=== PATIENT | female | born 1955 | race Caucasian/White ===

== ENCOUNTER 2017-03-10 16:06 | Inpatient (IN) | payer MEDICARE, OTHER ==
[2017-03-10] MEDS ORDERED: ONDANSETRON 4 MG/2 ML VIAL IVP STA (18:04)
[2017-03-10] MEDS ORDERED: SODIUM CHLORIDE 0.9% 500 ML IV STA (18:04)
[2017-03-10] MEDS ORDERED: PANTOPRAZOLE 40 MG/10 ML VIAL IVP STA (18:04)
[2017-03-10] MEDS ORDERED: HYDROmorphone 1 MG/ML 1 ML SYRINGE IVP STA (18:04)
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
[2017-03-10] MEDS ORDERED: LEVOFLOXACIN 500MG-D5W PMX 500 MG in DEXTROSE/WATER 1 100ML.BAG IVPB STA (18:51)
[2017-03-10] MEDS ORDERED: metroNIDAZOLE-NS PMX 500 MG in SALINE 1 100ML.BAG IVPB STA (18:54)
[2017-03-10 19:10] LABS: Basophils # (A) 0.1 k/uL (0-0.2); Basophils % (A) 1 %; CH 33.4; Eosinophils # (A) 0.2 k/uL (0-0.7); Eosinophils % (A) 2 %; HCT 40.4 % (34.0-46.0); HDW 2.49; HGB 13.7 gm/dL (11.4-16.0); Luc # (Auto) 0.22; Luc % (Auto) 2; Lymphocytes # (A) 3.3 k/uL (1.0-4.8); Lymphocytes % (A) 33 %; MCH 32.6 pg (25.0-35.0); MCV 95.9 fL (80.0-100.0); Mean Platelet Volume 7.8; Monocytes # (A) 0.4 k/uL (0-1.0); Monocytes % (A) 4 %; Neutrophils # (A) 5.9 k/uL (1.3-7.7); Neutrophils % (A) 59 %; RBC 4.22 m/uL (3.80-5.40); RDW 12.9 % (11.5-15.5); WBC (Perox) 9.83
[2017-03-10 19:25] LABS: ALT 26 U/L (9-52); AST 18 U/L (14-36); Alkaline Phosphatase 86 U/L (38-126); Anion Gap 9 mmol/L; Blood Urea Nitrogen 14 mg/dL (7-17); Calcium 9.6 mg/dL (8.4-10.2); Carbon Dioxide 25 mmol/L (22-30); Chloride 104 mmol/L (98-107); Glucose 137 mg/dL (74-99); Magnesium 1.6 mg/dL (1.6-2.3); Non-African American GFR(MDRD) >60 (>60 ml/min/1.73 sqM); Potassium 4.9 mmol/L (3.5-5.1); Sodium 138 mmol/L (137-145); Total Bilirubin 0.6 mg/dL (0.2-1.3); Total Protein 6.9 g/dL (6.3-8.2)
[2017-03-10 19:34] LABS: Creatine Kinase 44 U/L (30-135)
[2017-03-10 19:48] LABS: Creatine Kinase MB 0.6 ng/mL (0.0-2.4); Troponin I <0.012 ng/mL (0.000-0.034)
[2017-03-10 19:50] LABS: Partial Thromboplastin Time 21.8 sec (22.0-30.0)
--- NOTE | 2017-03-10 20:20 | XR ---
EXAMINATION TYPE: XR abdomen 2V DATE OF EXAM: 03/10/2017 8:14 PM COMPARISON: NONE HISTORY: Lower abdominal pain and bloody stools history of diverticulitis. TECHNIQUE: Supine and upright abdominal radiographs are obtained. FINDINGS: Single air-fluid level is seen within the right mid abdomen within nondilated bowel. The re maining bowel gas pattern is unremarkable. 8 mm calculus is seen within the right lower pole of the kidney. Cholecystectomy changes are seen. Ao rtoiliac graft material is seen as well as extensive calcific atheromatous changes of the abdominal a sean and its branches. Abdominal aortic aneurysm, presumably infrarenal measuring 4.1 cm approximatel y is measured at the level of L3 inferior endplate. Degenerative changes are appreciated of the visualized thoracolumbar spine and lumbosacral spine to a greater degree. IMPRESSION: 1. Nonspecific bowel gas pattern with single air-fluid level within the right mid abdomen, similar to the prior exam. No evidence of bowel dilation. 2. Distal aortoiliac vascular stents with presumably infrarenal calcified abdominal aortic aneurysm m easuring up to 4.1 cm. 3. 8mm right lower pole renal calculus.
[2017-03-10] MEDS ORDERED: NALOXONE 0.4 MG/ML 1 ML VIAL IV PRN (21:10)
[2017-03-10] MEDS: HYDROmorphone 1 MG/ML 1 ML SYRINGE IV PRN (21:22)
[2017-03-10] MEDS ORDERED: NITROGLYCERIN SL TABS 0.4 MG TAB SUBLINGUAL PRN (23:14)
[2017-03-11] MEDS: HYDROmorphone 1 MG/ML 1 ML SYRINGE IV PRN ×6 (00:21→20:24)
[2017-03-11 00:59] LABS: Glucose,Whole Blood 124 mg/dL (75-99)
[2017-03-11 07:19] LABS: Basophils # (A) 0.1 k/uL (0-0.2); Basophils % (A) 1 %; CHCM 34.1; Eosinophils # (A) 0.2 k/uL (0-0.7); Eosinophils % (A) 2 %; HCT 37.7 % (34.0-46.0); HDW 2.54; HGB 12.8 gm/dL (11.4-16.0); Luc # (Auto) 0.21; Luc % (Auto) 3; Lymphocytes # (A) 2.5 k/uL (1.0-4.8); Lymphocytes % (A) 32 %; MCH 33.1 pg (25.0-35.0); MCV 97.2 fL (80.0-100.0); Mean Platelet Volume 7.9; Monocytes # (A) 0.4 k/uL (0-1.0); Monocytes % (A) 5 %; Neutrophils # (A) 4.6 k/uL (1.3-7.7); Neutrophils % (A) 58 %; RBC 3.88 m/uL (3.80-5.40); RDW 12.8 % (11.5-15.5); WBC 7.9 k/uL (3.8-10.6); WBC (Perox) 8.13
[2017-03-11 07:21] LABS: Glucose,Whole Blood 153 mg/dL (75-99)
[2017-03-11 07:39] LABS: ALT 24 U/L (9-52); AST 18 U/L (14-36); Alkaline Phosphatase 66 U/L (38-126); Anion Gap 6 mmol/L; Blood Urea Nitrogen 12 mg/dL (7-17); Calcium 8.5 mg/dL (8.4-10.2); Carbon Dioxide 21 mmol/L (22-30); Chloride 109 mmol/L (98-107); Glucose 153 mg/dL (74-99); Non-African American GFR(MDRD) >60 (>60 ml/min/1.73 sqM); Potassium 4.2 mmol/L (3.5-5.1); Sodium 136 mmol/L (137-145); Total Bilirubin 0.6 mg/dL (0.2-1.3); Total Protein 5.9 g/dL (6.3-8.2)
[2017-03-11] MEDS: INSULIN LISPRO (humaLOG) 300 UNIT/3 ML VIAL SQ SCH ×7 (08:36→20:20)
[2017-03-11] MEDS: SODIUM CHLORIDE 0.9% 1,000 ML IV SCH ×2 (08:40→18:30)
[2017-03-11] MEDS: LISINOPRIL 20 MG TAB PO SCH (08:42)
[2017-03-11] MEDS: metFORMIN 500 MG TAB PO SCH ×2 (08:42→20:24)
[2017-03-11] MEDS: ISOSORBIDE MONONITRATE ER 60 MG TAB.ER.24H PO SCH ×2 (08:42→20:24)
[2017-03-11] MEDS: METOPROLOL SUCCINATE (ER) 100 MG TAB.ER.24H PO SCH (08:42)
[2017-03-11] MEDS: PARoxetine 20 MG TAB PO SCH (08:42)
[2017-03-11] MEDS: PANTOPRAZOLE 40 MG/10 ML VIAL IV SCH (08:42)
[2017-03-11] MEDS ORDERED: ASPIRIN 81 MG CHEW PO SCH (09:00)
[2017-03-11 10:24] LABS: Hemoglobin A1C 9.1 % (4.2-6.1)
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
[2017-03-11 11:59] LABS: Glucose,Whole Blood 87 mg/dL (75-99)
[2017-03-11] MEDS ORDERED: guaiFENesin 600 MG TABLET.ER PO PRN (12:02)
[2017-03-11 14:02] VITALS: BMI 25.8
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
[2017-03-11] MEDS: metroNIDAZOLE-NS PMX 500 MG in SALINE 1 100ML.BAG IVPB SCH (16:30)
[2017-03-11] MEDS: NICOTINE 21MG/24HR PATCH TRANSDERM SCH (16:36)
[2017-03-11 17:37] LABS: Glucose,Whole Blood 117 mg/dL (75-99)
[2017-03-11] MEDS ORDERED: diphenhydrAMINE 50 MG/ML 1 ML VIAL IVP PRN (18:54)
[2017-03-11] MEDS: LEVOFLOXACIN 500MG-D5W PMX 500 MG in DEXTROSE/WATER 1 100ML.BAG IVPB SCH (20:19)
[2017-03-11] MEDS: INSULIN GLARGINE 100 UNIT/ML 10 ML VIAL SQ SCH (20:19)
[2017-03-11] MEDS: ATORVASTATIN 80 MG TAB PO SCH (20:24)
[2017-03-11 20:56] LABS: Glucose,Whole Blood 116 mg/dL (75-99)
[2017-03-12 00:12] LABS: Glucose,Whole Blood 148 mg/dL (75-99)
[2017-03-12] MEDS: HYDROmorphone 1 MG/ML 1 ML SYRINGE IV PRN ×6 (00:16→23:45)
[2017-03-12] MEDS: ONDANSETRON 4 MG/2 ML VIAL IVP PRN ×2 (00:16→20:46)
[2017-03-12] MEDS: metroNIDAZOLE-NS PMX 500 MG in SALINE 1 100ML.BAG IVPB SCH ×4 (00:24→23:47)
[2017-03-12] MEDS: SODIUM CHLORIDE 0.9% 1,000 ML IV SCH ×5 (05:03→23:46)
[2017-03-12 06:18] LABS: Glucose,Whole Blood 129 mg/dL (75-99)
[2017-03-12] MEDS: INSULIN LISPRO (humaLOG) 300 UNIT/3 ML VIAL SQ SCH ×7 (07:47→19:51)
[2017-03-12] MEDS: metFORMIN 500 MG TAB PO SCH ×2 (07:48→19:51)
[2017-03-12 07:54] LABS: Basophils # (A) 0.1 k/uL (0-0.2); Basophils % (A) 1 %; CH 32.6; CHCM 33.3; Eosinophils # (A) 0.2 k/uL (0-0.7); Eosinophils % (A) 2 %; HCT 35.2 % (34.0-46.0); HDW 2.45; HGB 11.6 gm/dL (11.4-16.0); Luc # (Auto) 0.16; Luc % (Auto) 2; Lymphocytes # (A) 2.5 k/uL (1.0-4.8); Lymphocytes % (A) 29 %; MCH 32.3 pg (25.0-35.0); MCHC 32.9 g/dL (31.0-37.0); MCV 98.1 fL (80.0-100.0); Mean Platelet Volume 7.8; Monocytes # (A) 0.4 k/uL (0-1.0); Monocytes % (A) 4 %; Neutrophils # (A) 5.3 k/uL (1.3-7.7); Neutrophils % (A) 62 %; RBC 3.59 m/uL (3.80-5.40); RDW 12.8 % (11.5-15.5); WBC 8.5 k/uL (3.8-10.6); WBC (Perox) 9.21
[2017-03-12] MEDS: ISOSORBIDE MONONITRATE ER 60 MG TAB.ER.24H PO SCH ×2 (08:00→20:54)
[2017-03-12] MEDS: LISINOPRIL 20 MG TAB PO SCH (08:01)
[2017-03-12] MEDS: METOPROLOL SUCCINATE (ER) 100 MG TAB.ER.24H PO SCH (08:01)
[2017-03-12] MEDS: NICOTINE 21MG/24HR PATCH TRANSDERM SCH (08:01)
[2017-03-12] MEDS: PANTOPRAZOLE 40 MG/10 ML VIAL IV SCH (08:01)
[2017-03-12] MEDS: PARoxetine 20 MG TAB PO SCH (08:01)
[2017-03-12 08:25] LABS: ALT 24 U/L (9-52); AST 15 U/L (14-36); Alkaline Phosphatase 68 U/L (38-126); Anion Gap 7 mmol/L; Blood Urea Nitrogen 8 mg/dL (7-17); Calcium 8.4 mg/dL (8.4-10.2); Carbon Dioxide 21 mmol/L (22-30); Chloride 108 mmol/L (98-107); Glucose 118 mg/dL (74-99); Magnesium 1.6 mg/dL (1.6-2.3); Non-African American GFR(MDRD) >60 (>60 ml/min/1.73 sqM); Potassium 3.9 mmol/L (3.5-5.1); Sodium 136 mmol/L (137-145); Total Bilirubin 0.5 mg/dL (0.2-1.3); Total Protein 5.4 g/dL (6.3-8.2)
[2017-03-12 11:37] LABS: Glucose,Whole Blood 144 mg/dL (75-99)
--- NOTE | 2017-03-12 13:37 | P.PN ---
Progress Note - Text The patient still complaining of severe left lower quadrant pain. She has had nausea and emesis. On exam her vital signs are stable. Her abdomen is soft there is tenderness in the left lower quadrant. Diverticulitis. Patient will remain nothing by mouth until her pain and nausea improved. We'll follow with you.
[2017-03-12 17:13] LABS: Glucose,Whole Blood 125 mg/dL (75-99)
[2017-03-12] MEDS: LEVOFLOXACIN 500MG-D5W PMX 500 MG in DEXTROSE/WATER 1 100ML.BAG IVPB SCH (19:46)
[2017-03-12] MEDS: INSULIN GLARGINE 100 UNIT/ML 10 ML VIAL SQ SCH (19:51)
[2017-03-12 19:53] LABS: Glucose,Whole Blood 117 mg/dL (75-99)
[2017-03-12] MEDS: ATORVASTATIN 80 MG TAB PO SCH (20:54)
[2017-03-13] MEDS: HYDROmorphone 1 MG/ML 1 ML SYRINGE IV PRN ×5 (02:49→21:18)
[2017-03-13 07:42] LABS: Glucose,Whole Blood 137 mg/dL (75-99)
[2017-03-13] MEDS: NICOTINE 21MG/24HR PATCH TRANSDERM SCH (08:31)
[2017-03-13] MEDS: METOPROLOL SUCCINATE (ER) 100 MG TAB.ER.24H PO SCH (08:32)
[2017-03-13] MEDS: LISINOPRIL 20 MG TAB PO SCH (08:32)
[2017-03-13] MEDS: INSULIN LISPRO (humaLOG) 300 UNIT/3 ML VIAL SQ SCH ×7 (08:32→21:13)
[2017-03-13] MEDS: ISOSORBIDE MONONITRATE ER 60 MG TAB.ER.24H PO SCH ×2 (08:32→21:13)
[2017-03-13] MEDS: PARoxetine 20 MG TAB PO SCH (08:33)
[2017-03-13] MEDS: PANTOPRAZOLE 40 MG/10 ML VIAL IV SCH (08:33)
[2017-03-13] MEDS: metFORMIN 500 MG TAB PO SCH ×2 (08:33→21:14)
[2017-03-13 08:48] LABS: Basophils % (A) 1 %; CH 32.7; CHCM 34.2; Eosinophils # (A) 0.2 k/uL (0-0.7); Eosinophils % (A) 3 %; HCT 34.5 % (34.0-46.0); HDW 2.55; HGB 11.7 gm/dL (11.4-16.0); Luc # (Auto) 0.14; Luc % (Auto) 2; Lymphocytes # (A) 2.1 k/uL (1.0-4.8); Lymphocytes % (A) 28 %; MCH 32.7 pg (25.0-35.0); MCHC 34.1 g/dL (31.0-37.0); Mean Platelet Volume 7.7; Monocytes # (A) 0.3 k/uL (0-1.0); Monocytes % (A) 4 %; Neutrophils # (A) 4.6 k/uL (1.3-7.7); Neutrophils % (A) 63 %; RBC 3.59 m/uL (3.80-5.40); RDW 12.8 % (11.5-15.5); WBC 7.4 k/uL (3.8-10.6); WBC (Perox) 8.17
[2017-03-13 08:56] LABS: Anion Gap 7 mmol/L; Blood Urea Nitrogen 7 mg/dL (7-17); Calcium 8.2 mg/dL (8.4-10.2); Carbon Dioxide 23 mmol/L (22-30); Chloride 107 mmol/L (98-107); Glucose 115 mg/dL (74-99); Non-African American GFR(MDRD) >60 (>60 ml/min/1.73 sqM); Potassium 3.7 mmol/L (3.5-5.1); Sodium 137 mmol/L (137-145)
[2017-03-13] MEDS: metroNIDAZOLE-NS PMX 500 MG in SALINE 1 100ML.BAG IVPB SCH ×2 (09:27→16:45)
[2017-03-13] MEDS: SODIUM CHLORIDE 0.9% 1,000 ML IV SCH ×3 (09:27→20:07)
[2017-03-13 11:58] LABS: Glucose,Whole Blood 136 mg/dL (75-99)
[2017-03-13 17:00] LABS: Glucose,Whole Blood 103 mg/dL (75-99)
[2017-03-13] MEDS ORDERED: RX INFO: IV CONTRAST WAS GIVEN 1 EACH MISC MISCELLANE PRN (17:50)
--- NOTE | 2017-03-13 17:50 | P.PN ---
Subjective Principal diagnosis: Abdominal pain Patient hospitalized over the weekend with abdominal pain. The patient describes bloody stools and left-sided abdominal pain. She was admitted with diverticulitis. She had similar episodes over a year ago. Her CAT scan at that time was normal. She had colonoscopy following that that showed diverticulosis with no evidence of colitis. Patient says her pain is persisting. Her nausea and vomiting have improved however. She is no longer having liquid bloody stools. White blood cell count and hemoglobin are normal. Objective - Vital Signs Vital signs: Vital Signs Temp 98.1 F 03/13/17 15:00 Pulse 67 03/13/17 15:00 Resp 16 03/13/17 15:00 BP 167/87 03/13/17 15:00 Pulse Ox 93 L 03/13/17 15:00 Intake & Output 03/12/17 03/13/17 03/13/17 18:59 06:59 18:59 Intake Total 2064 Balance 2064 Intake: IV 1475 Sodium Chloride 0.9% 1, 1375 000 ml @ 125 mls/hr IV . Q8H AAMIR Rx#:[id number] metroNIDAZOLE-NS PMX 500 100 mg In Saline 1 100ml.bag @ 100 mls/hr IVPB Q8HR AAMIR Rx#:[id number] Oral 590 Other: Voiding Method Toilet Toilet # Voids 2 - Exam Abdomen: Soft, nondistended, mild to moderate left lower quadrant tenderness - Labs CBC & Chem 7: 03/13/17 08:26 03/13/17 08:26 Labs: Abnormal Lab Results - Last 24 Hours (Table) 03/13/17 03/13/17 03/13/17 Range/Units 07:41 08:26 08:26 RBC 3.59 L (3.80-5.40) m/uL Creatinine 0.48 L (0.52-1.04) mg/dL Glucose 115 H (74-99) mg/dL POC Glucose (mg/dL) 137 H (75-99) mg/dL Calcium 8.2 L (8.4-10.2) mg/dL 03/13/17 03/13/17 Range/Units 11:57 16:58 RBC (3.80-5.40) m/uL Creatinine (0.52-1.04) mg/dL Glucose (74-99) mg/dL POC Glucose (mg/dL) 136 H 103 H (75-99) mg/dL Calcium (8.4-10.2) mg/dL Assessment and Plan (1) Abdominal pain Narrative/Plan: Will check CAT scan abdomen and pelvis. Continue antibiotics. Status: Acute
[2017-03-13] MEDS: LEVOFLOXACIN 500MG-D5W PMX 500 MG in DEXTROSE/WATER 1 100ML.BAG IVPB SCH (18:15)
[2017-03-13] MEDS: ONDANSETRON 4 MG/2 ML VIAL IVP PRN (18:16)
--- NOTE | 2017-03-13 18:23 | P.PN ---
Subjective Principal diagnosis: Acute diverticulitis. Patient is a 61-year-old female, patient of Dr. Casey in the outpatient setting, with medical history significant for diverticulitis and diverticulosis. admitted with 3 day history of melena and hematochezia associated with left lower quadrant abdominal pain found to have evidence of acute diverticulitis. Upon examination, patient continues to complain of left lower quadrant pain, currently rated 7 out of 10, described as sharp. Patient denies chills, fevers, nausea, vomiting, or chest pain. Labs reviewed no acute abnormalities. Afebrile. Dr. Hunter from surgical service is following patient. CT of abdomen and pelvis has been ordered. Patient remains nothing by mouth. Patient continues on IV antibiotics in the form of Flagyl and Levaquin. Objective - Vital Signs Vital signs: Vital Signs Temp 98.1 F 03/13/17 15:00 Pulse 67 03/13/17 15:00 Resp 16 03/13/17 15:00 BP 167/87 03/13/17 15:00 Pulse Ox 93 L 03/13/17 15:00 Intake & Output 03/12/17 03/13/17 03/13/17 18:59 06:59 18:59 Intake Total 2065 975 Balance 2065 975 Intake: IV 1475 975 Sodium Chloride 0.9% 1, 1375 875 000 ml @ 125 mls/hr IV . Q8H AAMIR Rx#:[id number] metroNIDAZOLE-NS PMX 500 100 100 mg In Saline 1 100ml.bag @ 100 mls/hr IVPB Q8HR AAMIR Rx#:[id number] Oral 590 Other: Voiding Method Toilet Toilet # Voids 2 - Exam GENERAL: Fatigued, well-nourished and in no acute distress. HEAD: Atraumatic, normocephalic. EYES: Pupils equal round and reactive to light, extraocular movements intact, sclera anicteric, conjunctiva are normal. ENT:Oropharynx clear without exudates. Moist mucous membranes. NECK: Normal range of motion, supple without lymphadenopathy or JVD, no thyromegaly LUNGS: Breath sounds clear to auscultation bilaterally and equal. No wheezes rales or rhonchi. HEART: Regular rate and rhythm without murmurs, rubs or gallops. S1S2 Normal ABDOMEN: Soft, tender, mostly to the left lower quadrant, hypo-active bowel sounds. No guarding, no rebound. No masses appreciated. EXTREMITIES: Normal range of motion, no pitting or edema. No clubbing or cyanosis. NEUROLOGICAL: No focal deficits noted. Normal speech, normal gait. PSYCH: Normal mood, normal affect. SKIN: Warm, Dry, normal turgor, no rashes or lesions noted. - Labs CBC & Chem 7: 03/13/17 08:26 03/13/17 08:26 Labs: Abnormal Lab Results - Last 24 Hours (Table) 03/13/17 03/13/17 03/13/17 Range/Units 07:41 08:26 08:26 RBC 3.59 L (3.80-5.40) m/uL Creatinine 0.48 L (0.52-1.04) mg/dL Glucose 115 H (74-99) mg/dL POC Glucose (mg/dL) 137 H (75-99) mg/dL Calcium 8.2 L (8.4-10.2) mg/dL 03/13/17 03/13/17 Range/Units 11:57 16:58 RBC (3.80-5.40) m/uL Creatinine (0.52-1.04) mg/dL Glucose (74-99) mg/dL POC Glucose (mg/dL) 136 H 103 H (75-99) mg/dL Calcium (8.4-10.2) mg/dL Assessment and Plan Plan: Impression and plan: 1. Left lower quadrant abdominal pain with hematochezia melena, secondary to acute diverticulitis: General surgery consultation has been done and reviewed. She'll remain nothing by mouth with the exception of ice chips. She'll remain on IV antibiotics of Levaquin and Flagyl. CT of abdomen and pelvis pending. 2. Type 2 diabetes mellitus, uncontrolled. AIc is 9.0 Continue Accu-Chek before meals at bedtime with Humalog sliding scale, continue Lantus. Continue metformin 4. History of GERD. Continue Protonix. 5. Hyperlipidemia. Continue Lipitor. 6. Hypertension. Continue lisinopril, metoprolol, Imdur. 8. Severe peripheral vascular disease. 9. Coronary artery disease status post heart catheterization with stent and coronary artery bypass graft. 10. History of CVA. Continue aspirin. 11. Depression, mild. Continue Paxil. 12. Nicotine dependence. Patient counseled on smoking secession. Continue nicotine patch. 13. Mild fibrotic changes to lungs. 14 DVT prophylaxis. blood thinners be contraindicated to active bleeding 15. GI prophylaxis. Continue protonix. Continue to monitor patient. Continue surgical management per surgical service. Continue symptomatic treatment and pain management. Continue IV hydration. Continue IV antibiotics. Continue current medications. Repeat CBC and BMP in a.m. The above impression and plan have been discussed and directed by Dr. Mckenzie. Sarah AZEVEDO acting as scribe for Dr. Mckenzie.
[2017-03-13] MEDS: IOHEXOL 350 MG/ML 25 ML BOTTLE (ORAL USE) PO PRN ×2 (18:52→20:05)
--- NOTE | 2017-03-13 19:00 | P.PN ---
Subjective DOS 03/12/2017 Patient Continues to feel pain,BetterWith zofran.She is on ice chips.Surgery consult reviewed Objective - Vital Signs Vital signs: Vital Signs Temp 98.1 F 03/13/17 15:00 Pulse 67 03/13/17 15:00 Resp 16 03/13/17 15:00 BP 167/87 03/13/17 15:00 Pulse Ox 93 L 03/13/17 15:00 Intake & Output 03/12/17 03/13/17 03/13/17 18:59 06:59 18:59 Intake Total 2065 975 Balance 206 975 Intake: IV 1475 975 Sodium Chloride 0.9% 1, 1375 875 000 ml @ 125 mls/hr IV . Q8H AAMIR Rx#:[id number] metroNIDAZOLE-NS PMX 500 100 100 mg In Saline 1 100ml.bag @ 100 mls/hr IVPB Q8HR A[facility]IR Rx#:[id number] Oral 590 Other: Voiding Method Toilet Toilet # Voids 2 - Constitutional General appearance: Present: average body habitus - Neck Thyroid: bilateral: normal size - Respiratory Respiratory: bilateral: diminished - Cardiovascular Rhythm: regular Heart sounds: normal: S1, S2 - Gastrointestinal General gastrointestinal: Present: decreased bowel sounds Localized gastrointestinal: tender: LUQ - Neurologic Neurologic: Present: CNII-XII intact - Labs CBC & Chem 7: 03/13/17 08:26 03/13/17 08:26 Labs: Abnormal Lab Results - Last 24 Hours (Table) 03/13/17 03/13/17 03/13/17 Range/Units 07:41 08:26 08:26 RBC 3.59 L (3.80-5.40) m/uL Creatinine 0.48 L (0.52-1.04) mg/dL Glucose 115 H (74-99) mg/dL POC Glucose (mg/dL) 137 H (75-99) mg/dL Calcium 8.2 L (8.4-10.2) mg/dL 03/13/17 03/13/17 Range/Units 11:57 16:58 RBC (3.80-5.40) m/uL Creatinine (0.52-1.04) mg/dL Glucose (74-99) mg/dL POC Glucose (mg/dL) 136 H 103 H (75-99) mg/dL Calcium (8.4-10.2) mg/dL Assessment and Plan Plan: 1. Left lower quadrant abdominal pain with hematochezia melena, most likely acute diverticulitis: General surgery consultation has been done and reviewed. She'll remain nothing by mouth with the exception of ice chips. She'll remain on IV antibiotics of Levaquin and Flagyl 2. Type 2 diabetes mellitus, uncontrolled. AIc is 9.0 Continue Accu-Chek before meals at bedtime with Humalog sliding scale, continue Lantus. Continue metformin 4. History of GERD. Continue Protonix. 5. Hyperlipidemia. Continue Lipitor. 6. Hypertension. Continue lisinopril, metoprolol, Imdur.. 8. Severe peripheral vascular disease. 9. Coronary artery disease status post heart catheterization with stent and coronary artery bypass graft. 10. History of CVA. Continue aspirin. 11. Depression, mild. Continue Paxil. 12. Nicotine dependence. Patient counseled on smoking secession. Continue nicotine patch. 13. Mild fibrotic changes to lungs. 14 DVT prophylaxis. blood thinners be contraindicated to active bleeding 15. GI prophylaxis. Continue protonix. I will await surgical recommendations, we will reevaluate her in one day
[2017-03-13 20:15] LABS: Glucose,Whole Blood 103 mg/dL (75-99)
[2017-03-13] MEDS: ATORVASTATIN 80 MG TAB PO SCH (21:13)
[2017-03-13] MEDS: INSULIN GLARGINE 100 UNIT/ML 10 ML VIAL SQ SCH (21:13)
[2017-03-13] MEDS: HYDROcodone/APAP 7.5-325MG 1 EACH TAB PO PRN (21:18)
--- NOTE | 2017-03-13 22:30 | CT ---
EXAMINATION TYPE: CT abdomen pelvis w con DATE OF EXAM: 03/13/2017 8:44 PM COMPARISON: HISTORY: Left sided pelvic pain CT DLP: 983.6 mGycm Automated exposure control for dose reduction was used. TECHNIQUE: Helical acquisition of images was performed from the lung bases through the pelvis. CONTRAST: Performed with Oral Contrast and with IV Contrast, patient injected with 100 mL of Omnipaque 300. FINDINGS: LUNG BASES: No significant abnormality is appreciated. LIVER/GB: No significant abnormality is appreciated. PANCREAS: No significant abnormality is seen. SPLEEN: No significant abnormality is seen. ADRENALS: No significant abnormality is seen. KIDNEYS: No significant abnormality is seen. PERITONEAL CAVITY: No free air is visualized, and no focal fluid collections. ADENOPATHY: None visualized REPRODUCTIVE ORGANS: No significant abnormality is seen URINARY BLADDER: No significant abnormality is seen. PELVIC ADENOPATHY: None visualized. OSSEOUS STRUCTURES: No significant abnormality is seen. BOWEL: There are in numerable sigmoid diverticula with normal indistinctness at the margin of the si gmoid with its mesocolon - this can correlate with a clinical diagnosis of mild diverticulitis. OTHER: Prominently advanced atherosclerotic disease is seen throughout the visualized arterial anatom y of the abdomen and pelvis, including the coronary arteries. IMPRESSION: 1. MARKEDLY ADVANCED ATHEROSCLEROTIC DISEASE THROUGHOUT THE ABDOMEN AND PELVIS. 2. SUSPECT VERY MILD SIGMOID DIVERTICULITIS.
[2017-03-14] MEDS: metroNIDAZOLE-NS PMX 500 MG in SALINE 1 100ML.BAG IVPB SCH ×3 (00:13→17:16)
[2017-03-14] MEDS: HYDROmorphone 1 MG/ML 1 ML SYRINGE IV PRN ×3 (01:01→12:56)
[2017-03-14 07:25] LABS: Glucose,Whole Blood 94 mg/dL (75-99)
[2017-03-14] MEDS: SODIUM CHLORIDE 0.9% 1,000 ML IV SCH ×3 (07:28→21:32)
[2017-03-14] MEDS: NICOTINE 21MG/24HR PATCH TRANSDERM SCH (07:29)
[2017-03-14] MEDS: INSULIN LISPRO (humaLOG) 300 UNIT/3 ML VIAL SQ SCH ×7 (07:29→17:23)
[2017-03-14] MEDS: PARoxetine 20 MG TAB PO SCH (07:30)
[2017-03-14] MEDS: metFORMIN 500 MG TAB PO SCH ×2 (07:30→21:33)
[2017-03-14] MEDS: LISINOPRIL 20 MG TAB PO SCH (07:31)
[2017-03-14] MEDS: METOPROLOL SUCCINATE (ER) 100 MG TAB.ER.24H PO SCH (07:31)
[2017-03-14] MEDS: ISOSORBIDE MONONITRATE ER 60 MG TAB.ER.24H PO SCH ×2 (07:31→21:33)
[2017-03-14] MEDS: PANTOPRAZOLE 40 MG/10 ML VIAL IV SCH (07:31)
[2017-03-14 12:01] LABS: Glucose,Whole Blood 115 mg/dL (75-99)
[2017-03-14] MEDS: ONDANSETRON 4 MG/2 ML VIAL IVP PRN (12:56)
[2017-03-14 16:47] LABS: Glucose,Whole Blood 95 mg/dL (75-99)
--- NOTE | 2017-03-14 17:23 | P.PN ---
Subjective Principal diagnosis: Acute sigmoid diverticulitis. Patient is a 61-year-old female, patient of Dr. Casey in the outpatient setting, with medical history significant for diverticulitis and diverticulosis. admitted with 3 day history of melena and hematochezia associated with left lower quadrant abdominal pain found to have evidence of acute sigmoid diverticulitis. Upon examination, patient continues to complain of left lower quadrant pain. Patient states that pain is worse than yesterday. Patient is complaining of diarrhea. No GI bleeding. Patient denies chills, fevers, nausea, vomiting, or chest pain. Afebrile. Dr. Hunter from surgical service is following patient. Patient remains nothing by mouth. Patient continues on IV antibiotics in the form of Flagyl and Levaquin. Objective - Vital Signs Vital signs: Vital Signs Temp 98.1 F 03/14/17 15:00 Pulse 67 03/14/17 16:00 Resp 16 03/14/17 16:00 BP 143/64 03/14/17 15:00 Pulse Ox 91 L 03/14/17 15:00 Intake & Output 03/13/17 03/14/17 03/14/17 18:59 06:59 18:59 Intake Total 975 2475 0 Balance 975 2475 0 Intake: IV 975 1475 Sodium Chloride 0.9% 1, 875 1375 000 ml @ 125 mls/hr IV . Q8H [facility] Rx#:[id number] metroNIDAZOLE-NS PMX 500 100 100 mg In Saline 1 100ml.bag @ 100 mls/hr IVPB Q8HR A[facility]IR Rx#:[id number] Oral 1000 0 Other: Voiding Method Toilet Toilet Toilet # Voids 4 - Exam GENERAL: Fatigued, well-nourished and in no acute distress. HEAD: Atraumatic, normocephalic. EYES: Pupils equal round and reactive to light, extraocular movements intact, sclera anicteric, conjunctiva are normal. ENT: White exudate noted to tongue. NECK: Normal range of motion, supple without lymphadenopathy or JVD, no thyromegaly LUNGS: Breath sounds clear to auscultation bilaterally and equal. No wheezes rales or rhonchi. HEART: Regular rate and rhythm without murmurs, rubs or gallops. S1S2 Normal ABDOMEN: Soft, tender, mostly to the left lower quadrant, hypo-active bowel sounds. No guarding, no rebound. No masses appreciated. EXTREMITIES: Normal range of motion, no pitting or edema. No clubbing or cyanosis. NEUROLOGICAL: No focal deficits noted. Normal speech, normal gait. PSYCH: Normal mood, normal affect. SKIN: Warm, Dry, normal turgor, no rashes or lesions noted. - Labs CBC & Chem 7: 03/13/17 08:26 03/13/17 08:26 Labs: Abnormal Lab Results - Last 24 Hours (Table) 03/13/17 03/14/17 Range/Units 20:14 11:53 POC Glucose (mg/dL) 103 H 115 H (75-99) mg/dL Assessment and Plan Plan: Impression and plan: 1. Left lower quadrant abdominal pain with hematochezia melena, secondary to acute sigmoid diverticulitis: General surgery consultation has been done and reviewed. Patient remains nothing by mouth with the exception of ice chips. Surgery to advance diet as appropriate. She'll remain on IV antibiotics of Levaquin and Flagyl. CT of abdomen and pelvis shows mild sigmoid diverticulitis. 2. Type 2 diabetes mellitus, uncontrolled. AIc is 9.0 Continue Accu-Chek before meals at bedtime with Humalog sliding scale, continue Lantus. Continue metformin 4. History of GERD. Continue Protonix. 5. Hyperlipidemia. Continue Lipitor. 6. Hypertension. Continue lisinopril, metoprolol, Imdur. 8. Severe peripheral vascular disease. 9. Coronary artery disease status post heart catheterization with stent and coronary artery bypass graft. 10. History of CVA. Continue aspirin. 11. Depression, mild. Continue Paxil. 12. Nicotine dependence. Patient counseled on smoking secession. Continue nicotine patch. 13. Mild fibrotic changes to lungs. 14 DVT prophylaxis. blood thinners be contraindicated to active bleeding 15. GI prophylaxis. Continue protonix. 16. Thrush. Will order nystatin. Continue to monitor patient. Continue surgical management per surgical service. Continue symptomatic treatment and pain management. Continue IV hydration. Continue IV antibiotics. Continue current medications. Repeat CBC and BMP in a.m. The above impression and plan have been discussed and directed by Dr. Mckenzie. Sarah AZEVEDO acting as scribe for Dr. Mckenzie.
[2017-03-14] MEDS: NYSTATIN 100,000 UNIT/ML SUSP 500,000 UNIT/5 ML CUP PO SCH ×2 (17:52→21:33)
--- NOTE | 2017-03-14 18:09 | P.PN ---
Subjective Principal diagnosis: Abdominal pain Patient says she still having abdominal discomforts. Slightly improved from previous. Still having some loose stools that are nonbloody. CAT scan was reviewed and shows suspected mild sigmoid diverticulitis. Objective - Vital Signs Vital signs: Vital Signs Temp 98.1 F 03/14/17 15:00 Pulse 67 03/14/17 16:00 Resp 16 03/14/17 16:00 BP 143/64 03/14/17 15:00 Pulse Ox 91 L 03/14/17 15:00 Intake & Output 03/13/17 03/14/17 03/14/17 18:59 06:59 18:59 Intake Total 975 2475 0 Balance 975 2475 0 Intake: IV 975 1475 Sodium Chloride 0.9% 1, 875 1375 000 ml @ 125 mls/hr IV . Q8H A[facility]IR Rx#:[id number] metroNIDAZOLE-NS PMX 500 100 100 mg In Saline 1 100ml.bag @ 100 mls/hr IVPB Q8HR [facility] Rx#:[id number] Oral 1000 0 Other: Voiding Method Toilet Toilet Toilet # Voids 4 - Exam Abdomen: Soft, nondistended, mild left lower quadrant tenderness - Labs CBC & Chem 7: 03/13/17 08:26 03/13/17 08:26 Labs: Abnormal Lab Results - Last 24 Hours (Table) 03/13/17 03/14/17 Range/Units 20:14 11:53 POC Glucose (mg/dL) 103 H 115 H (75-99) mg/dL Assessment and Plan (1) Abdominal pain Narrative/Plan: Keep nothing by mouth until the patient's pain is improved. Continue IV antibiotics. Status: Acute
[2017-03-14 20:43] LABS: Glucose,Whole Blood 88 mg/dL (75-99)
[2017-03-14] MEDS: ATORVASTATIN 80 MG TAB PO SCH (21:33)
[2017-03-14] MEDS: INSULIN GLARGINE 100 UNIT/ML 10 ML VIAL SQ SCH (21:33)
[2017-03-14] MEDS: LEVOFLOXACIN 500MG-D5W PMX 500 MG in DEXTROSE/WATER 1 100ML.BAG IVPB SCH (22:27)
[2017-03-15] MEDS: HYDROcodone/APAP 7.5-325MG 1 EACH TAB PO PRN ×4 (00:01→18:54)
[2017-03-15] MEDS: metroNIDAZOLE-NS PMX 500 MG in SALINE 1 100ML.BAG IVPB SCH ×3 (00:21→15:43)
[2017-03-15] MEDS: SODIUM CHLORIDE 0.9% 1,000 ML IV SCH ×3 (03:51→21:49)
[2017-03-15 07:04] LABS: Glucose,Whole Blood 111 mg/dL (75-99)
[2017-03-15] MEDS: INSULIN LISPRO (humaLOG) 300 UNIT/3 ML VIAL SQ SCH ×7 (07:38→21:50)
[2017-03-15] MEDS: METOPROLOL SUCCINATE (ER) 100 MG TAB.ER.24H PO SCH (08:11)
[2017-03-15] MEDS: NICOTINE 21MG/24HR PATCH TRANSDERM SCH (08:11)
[2017-03-15] MEDS: PANTOPRAZOLE 40 MG/10 ML VIAL IV SCH (08:11)
[2017-03-15] MEDS: PARoxetine 20 MG TAB PO SCH (08:12)
[2017-03-15] MEDS: metFORMIN 500 MG TAB PO SCH ×2 (08:12→22:26)
[2017-03-15] MEDS: NYSTATIN 100,000 UNIT/ML SUSP 500,000 UNIT/5 ML CUP PO SCH ×4 (08:12→21:52)
[2017-03-15] MEDS: ISOSORBIDE MONONITRATE ER 60 MG TAB.ER.24H PO SCH ×2 (08:12→22:26)
[2017-03-15] MEDS: LISINOPRIL 20 MG TAB PO SCH (08:12)
[2017-03-15 08:29] LABS: Basophils % (A) 0 %; CH 32.7; CHCM 33.8; Eosinophils # (A) 0.1 k/uL (0-0.7); Eosinophils % (A) 1 %; HCT 37.4 % (34.0-46.0); HDW 2.61; HGB 12.5 gm/dL (11.4-16.0); Luc # (Auto) 0.14; Luc % (Auto) 2; Lymphocytes # (A) 1.5 k/uL (1.0-4.8); Lymphocytes % (A) 19 %; MCH 32.3 pg (25.0-35.0); MCHC 33.3 g/dL (31.0-37.0); Mean Platelet Volume 7.9; Monocytes # (A) 0.3 k/uL (0-1.0); Monocytes % (A) 4 %; Neutrophils # (A) 5.8 k/uL (1.3-7.7); Neutrophils % (A) 74 %; RBC 3.86 m/uL (3.80-5.40); RDW 13.1 % (11.5-15.5); WBC 7.8 k/uL (3.8-10.6); WBC (Perox) 8.24
[2017-03-15 08:50] LABS: ALT 26 U/L (9-52); AST 23 U/L (14-36); Alkaline Phosphatase 66 U/L (38-126); Amylase 46 U/L (30-110); Anion Gap 13 mmol/L; Blood Urea Nitrogen 5 mg/dL (7-17); Calcium 8.4 mg/dL (8.4-10.2); Carbon Dioxide 16 mmol/L (22-30); Chloride 110 mmol/L (98-107); Glucose 104 mg/dL (74-99); Magnesium 1.4 mg/dL (1.6-2.3); Non-African American GFR(MDRD) >60 (>60 ml/min/1.73 sqM); Phosphorous 3.1 mg/dL (2.5-4.5); Potassium 3.4 mmol/L (3.5-5.1); Sodium 139 mmol/L (137-145); Total Bilirubin 0.5 mg/dL (0.2-1.3); Total Protein 5.5 g/dL (6.3-8.2)
[2017-03-15 11:42] LABS: Glucose,Whole Blood 128 mg/dL (75-99)
[2017-03-15] MEDS: amLODIPine 5 MG TAB PO SCH (13:02)
[2017-03-15] MEDS ORDERED: Potassium Replacement Protocol 1 EACH MISC MISCELLANE PRN (14:41)
[2017-03-15] MEDS ORDERED: Magnesium Replacement Protocol 1 EACH MISC MISCELLANE PRN (14:42)
--- NOTE | 2017-03-15 15:16 | P.PN ---
Subjective Principal diagnosis: Acute sigmoid diverticulitis. Patient is a 61-year-old female, patient of Dr. Casey in the outpatient setting, with medical history significant for diverticulitis and diverticulosis. admitted with 3 day history of melena and hematochezia associated with left lower quadrant abdominal pain found to have evidence of acute sigmoid diverticulitis. Upon examination, patient reports improvement in left lower quadrant pain. Patient currently rates pain 3 out of 10. Patient states she had 2 episodes of diarrhea this morning. Denies melena or hematochezia. Patient denies chills, fevers, nausea, vomiting, or chest pain. Afebrile. Dr. Hunter from surgical service is following patient. Patient remains nothing by mouth. Patient continues on IV antibiotics in the form of Flagyl and Levaquin. Objective - Vital Signs Vital signs: Vital Signs Temp 97.7 F 03/15/17 07:00 Pulse 65 03/15/17 07:00 Resp 20 03/15/17 07:00 BP 167/75 03/15/17 07:00 Pulse Ox 95 03/15/17 07:00 Intake & Output 03/14/17 03/15/17 03/15/17 18:59 06:59 18:59 Intake Total 0 1200 Balance 0 1200 Weight 74.843 kg Intake: IV 1200 Levofloxacin 500Mg-D5w 100 Pmx 500 mg In Dextrose/ Water 1 100ml.bag @ 100 mls/hr IVPB Q24H [facility] Rx#: [id number] Sodium Chloride 0.9% 1, 1000 000 ml @ 125 mls/hr IV . Q8H [facility] Rx#:[id number] metroNIDAZOLE-NS PMX 500 100 mg In Saline 1 100ml.bag @ 100 mls/hr IVPB Q8HR [facility] Rx#:[id number] Oral 0 Other: Voiding Method Toilet Toilet Toilet # Voids 4 1 2 # Bowel Movements 1 - Exam GENERAL: Alert and awake, well-nourished and in no acute distress. HEAD: Atraumatic, normocephalic. EYES: Pupils equal round and reactive to light, extraocular movements intact, sclera anicteric, conjunctiva are normal. ENT: White exudate noted to tongue. NECK: Normal range of motion, supple without lymphadenopathy or JVD, no thyromegaly LUNGS: Breath sounds clear to auscultation bilaterally and equal. No wheezes rales or rhonchi. HEART: Regular rate and rhythm without murmurs, rubs or gallops. S1S2 Normal ABDOMEN: Soft, tender, mostly to the left lower quadrant, hypo-active bowel sounds. No guarding, no rebound. No masses appreciated. EXTREMITIES: Normal range of motion, no pitting or edema. No clubbing or cyanosis. NEUROLOGICAL: No focal deficits noted. Normal speech, normal gait. PSYCH: Normal mood, normal affect. SKIN: Warm, Dry, normal turgor, no rashes or lesions noted. - Labs CBC & Chem 7: 03/15/17 07:37 03/15/17 07:37 Labs: Abnormal Lab Results - Last 24 Hours (Table) 03/15/17 03/15/17 03/15/17 Range/Units 07:03 07:37 11:41 Potassium 3.4 L (3.5-5.1) mmol/L Chloride 110 H (98-107) mmol/L Carbon Dioxide 16 L (22-30) mmol/L BUN 5 L (7-17) mg/dL Creatinine 0.48 L (0.52-1.04) mg/dL Glucose 104 H (74-99) mg/dL POC Glucose (mg/dL) 111 H 128 H (75-99) mg/dL Magnesium 1.4 L (1.6-2.3) mg/dL Total Protein 5.5 L (6.3-8.2) g/dL Albumin 3.2 L (3.5-5.0) g/dL Assessment and Plan Plan: Impression and plan: 1. Left lower quadrant abdominal pain with hematochezia melena, secondary to acute sigmoid diverticulitis: General surgery consultation has been done and reviewed. Start patient on clear liquid diet and advance as tolerated. She'll remain on IV antibiotics of Levaquin and Flagyl. 2. Type 2 diabetes mellitus, uncontrolled. AIc is 9.0 Continue Accu-Chek before meals at bedtime with Humalog sliding scale, continue Lantus. Continue metformin 4. History of GERD. Continue Protonix. 5. Hyperlipidemia. Continue Lipitor. 6. Hypertension. Continue lisinopril, metoprolol, Imdur. 8. Severe peripheral vascular disease. 9. Coronary artery disease status post heart catheterization with stent and coronary artery bypass graft. 10. History of CVA. Continue aspirin. 11. Depression, mild. Continue Paxil. 12. Nicotine dependence. Patient counseled on smoking secession. Continue nicotine patch. 13. Mild fibrotic changes to lungs. 14 DVT prophylaxis. blood thinners be contraindicated to active bleeding 15. GI prophylaxis. Continue protonix. 16. Thrush. Will order nystatin. 17. Hypokalemia. Replace potassium per protocol. 18. Hypomagnesemia. Replace magnesium per protocol. 19. Hyperchloremic metabolic acidosis. Hep-Lock IV fluids. Continue to monitor patient. Continue surgical management per surgical service. Continue symptomatic treatment and pain management. Continue IV antibiotics. Continue current medications. Repeat CBC and BMP in a.m. The above impression and plan have been discussed and directed by Dr. Mckenzie. Sarah AZEVEDO acting as scribe for Dr. Mckenzie.
[2017-03-15] MEDS: POTASSIUM CHLORIDE 10 MEQ, LIDOCAINE 2% INJ 10 MG in SODIUM CHLORIDE 0.9% 100 ML IV SCH ×2 (16:46→18:35)
[2017-03-15] MEDS: MAGNESIUM SULFATE-D5W PMX 1 GM in DEXTROSE/WATER 1 100ML.BAG IVPB SCH ×3 (16:46→18:55)
[2017-03-15 17:10] LABS: Glucose,Whole Blood 126 mg/dL (75-99)
--- NOTE | 2017-03-15 17:52 | P.PN ---
Subjective Principal diagnosis: Abdominal pain Patient doing well today. Pain is improved. She is tolerating clear liquids. No nausea or vomiting. Diarrhea is improved. No bleeding. Objective - Vital Signs Vital signs: Vital Signs Temp 98.4 F 03/15/17 14:46 Pulse 70 03/15/17 14:46 Resp 20 03/15/17 14:46 BP 138/70 03/15/17 14:46 Pulse Ox 98 03/15/17 14:46 Intake & Output 03/14/17 03/15/17 03/15/17 18:59 06:59 18:59 Intake Total 0 1200 Balance 0 1200 Weight 74.843 kg Intake: IV 1200 Levofloxacin 500Mg-D5w 100 Pmx 500 mg In Dextrose/ Water 1 100ml.bag @ 100 mls/hr IVPB Q24H [facility] Rx#: [id number] Sodium Chloride 0.9% 1, 1000 000 ml @ 125 mls/hr IV . Q8H [facility] Rx#:[id number] metroNIDAZOLE-NS PMX 500 100 mg In Saline 1 100ml.bag @ 100 mls/hr IVPB Q8HR [facility] Rx#:[id number] Oral 0 Other: Voiding Method Toilet Toilet Toilet # Voids 4 1 2 # Bowel Movements 1 1 - Exam Abdomen: Soft, nondistended, mild left lower quadrant tenderness - Labs CBC & Chem 7: 03/15/17 07:37 03/15/17 07:37 Labs: Abnormal Lab Results - Last 24 Hours (Table) 03/15/17 03/15/17 03/15/17 Range/Units 07:03 07:37 11:41 Potassium 3.4 L (3.5-5.1) mmol/L Chloride 110 H (98-107) mmol/L Carbon Dioxide 16 L (22-30) mmol/L BUN 5 L (7-17) mg/dL Creatinine 0.48 L (0.52-1.04) mg/dL Glucose 104 H (74-99) mg/dL POC Glucose (mg/dL) 111 H 128 H (75-99) mg/dL Magnesium 1.4 L (1.6-2.3) mg/dL Total Protein 5.5 L (6.3-8.2) g/dL Albumin 3.2 L (3.5-5.0) g/dL 03/15/17 Range/Units 17:06 Potassium (3.5-5.1) mmol/L Chloride (98-107) mmol/L Carbon Dioxide (22-30) mmol/L BUN (7-17) mg/dL Creatinine (0.52-1.04) mg/dL Glucose (74-99) mg/dL POC Glucose (mg/dL) 126 H (75-99) mg/dL Magnesium (1.6-2.3) mg/dL Total Protein (6.3-8.2) g/dL Albumin (3.5-5.0) g/dL Assessment and Plan (1) Abdominal pain Narrative/Plan: Gradually advance diet as tolerated. Likely discharge tomorrow on oral antibiotics. Status: Acute
[2017-03-15 20:40] LABS: Glucose,Whole Blood 297 mg/dL (75-99)
[2017-03-15] MEDS: ATORVASTATIN 80 MG TAB PO SCH (21:49)
[2017-03-15] MEDS: INSULIN GLARGINE 100 UNIT/ML 10 ML VIAL SQ SCH (21:50)
[2017-03-15] MEDS: POTASSIUM CHLORIDE ER 20 MEQ TAB.ER PO SCH (22:25)
[2017-03-15] MEDS: LEVOFLOXACIN 500MG-D5W PMX 500 MG in DEXTROSE/WATER 1 100ML.BAG IVPB SCH (22:26)
[2017-03-16] MEDS: metroNIDAZOLE-NS PMX 500 MG in SALINE 1 100ML.BAG IVPB SCH ×2 (00:07→07:50)
[2017-03-16] MEDS: POTASSIUM CHLORIDE ER 20 MEQ TAB.ER PO SCH ×3 (00:07→06:25)
[2017-03-16] MEDS: HYDROcodone/APAP 7.5-325MG 1 EACH TAB PO PRN ×3 (01:29→12:59)
[2017-03-16] MEDS: SODIUM CHLORIDE 0.9% 1,000 ML IV SCH (04:51)
[2017-03-16 06:57] LABS: Glucose,Whole Blood 113 mg/dL (75-99)
[2017-03-16] MEDS: NYSTATIN 100,000 UNIT/ML SUSP 500,000 UNIT/5 ML CUP PO SCH ×2 (07:51→13:01)
[2017-03-16] MEDS: metFORMIN 500 MG TAB PO SCH (07:51)
[2017-03-16] MEDS: PARoxetine 20 MG TAB PO SCH (07:51)
[2017-03-16] MEDS: ISOSORBIDE MONONITRATE ER 60 MG TAB.ER.24H PO SCH (07:51)
[2017-03-16] MEDS: NICOTINE 21MG/24HR PATCH TRANSDERM SCH (07:51)
[2017-03-16] MEDS: METOPROLOL SUCCINATE (ER) 100 MG TAB.ER.24H PO SCH (07:52)
[2017-03-16] MEDS: PANTOPRAZOLE 40 MG/10 ML VIAL IV SCH (07:52)
[2017-03-16] MEDS: LISINOPRIL 20 MG TAB PO SCH (07:52)
[2017-03-16] MEDS: amLODIPine 5 MG TAB PO SCH (07:52)
[2017-03-16] MEDS: INSULIN LISPRO (humaLOG) 300 UNIT/3 ML VIAL SQ SCH ×4 (07:53→13:01)
[2017-03-16 08:16] LABS: Basophils % (A) 1 %; CH 33.3; CHCM 35.1; Eosinophils # (A) 0.2 k/uL (0-0.7); Eosinophils % (A) 3 %; HCT 36.3 % (34.0-46.0); HDW 2.64; HGB 12.5 gm/dL (11.4-16.0); Luc # (Auto) 0.13; Luc % (Auto) 2; Lymphocytes % (A) 27 %; MCH 32.7 pg (25.0-35.0); MCHC 34.3 g/dL (31.0-37.0); MCV 95.5 fL (80.0-100.0); Mean Platelet Volume 7.6; Monocytes # (A) 0.3 k/uL (0-1.0); Monocytes % (A) 5 %; Neutrophils # (A) 4.6 k/uL (1.3-7.7); Neutrophils % (A) 63 %; RBC 3.81 m/uL (3.80-5.40); RDW 13.6 % (11.5-15.5); WBC 7.3 k/uL (3.8-10.6)
[2017-03-16 08:23] LABS: Anion Gap 8 mmol/L; Blood Urea Nitrogen 3 mg/dL (7-17); Calcium 8.6 mg/dL (8.4-10.2); Carbon Dioxide 21 mmol/L (22-30); Chloride 112 mmol/L (98-107); Glucose 105 mg/dL (74-99); Magnesium 1.7 mg/dL (1.6-2.3); Non-African American GFR(MDRD) >60 (>60 ml/min/1.73 sqM); Potassium 3.6 mmol/L (3.5-5.1); Sodium 141 mmol/L (137-145)
[2017-03-16] MEDS ORDERED: POTASSIUM CHLORIDE ER 20 MEQ TAB.ER PO STA (10:10)
[2017-03-16 12:01] LABS: Glucose,Whole Blood 203 mg/dL (75-99)
--- NOTE | 2017-03-16 13:44 | P.PN ---
Subjective Principal diagnosis: Acute sigmoid diverticulitis. Patient is a 61-year-old female, patient of Dr. Casey in the outpatient setting, with medical history significant for diverticulitis and diverticulosis. admitted with 3 day history of melena and hematochezia associated with left lower quadrant abdominal pain found to have evidence of acute sigmoid diverticulitis. Upon examination, patient reports improvement in left lower quadrant pain. Patient currently rates pain 3 out of 10. Patient states she had 2 episodes of diarrhea this morning. Denies melena or hematochezia. Patient denies chills, fevers, nausea, vomiting, or chest pain. Afebrile. Dr. Hunter from surgical service is following patient. Patient remains nothing by mouth. Patient continues on IV antibiotics in the form of Flagyl and Levaquin. Objective - Vital Signs Vital signs: Vital Signs Temp 98.5 F 03/16/17 07:00 Pulse 75 03/16/17 07:00 Resp 16 03/16/17 07:00 BP 151/75 03/16/17 07:00 Pulse Ox 97 03/16/17 07:00 Intake & Output 03/15/17 03/16/17 03/16/17 18:59 06:59 18:59 Intake Total 1970 Balance 1970 Weight 74.843 kg Intake: IV 1200 Levofloxacin 500Mg-D5w 100 Pmx 500 mg In Dextrose/ Water 1 100ml.bag @ 100 mls/hr IVPB Q24H [facility] Rx#: [id number] Sodium Chloride 0.9% 1, 1000 000 ml @ 125 mls/hr IV . Q8H [facility] Rx#:[id number] metroNIDAZOLE-NS PMX 500 100 mg In Saline 1 100ml.bag @ 100 mls/hr IVPB Q8HR [facility] Rx#:[id number] Oral 770 Other: Voiding Method Toilet Toilet # Voids 2 2 # Bowel Movements 1 2 - Exam GENERAL: Alert and awake, well-nourished and in no acute distress. HEAD: Atraumatic, normocephalic. EYES: Pupils equal round and reactive to light, extraocular movements intact, sclera anicteric, conjunctiva are normal. ENT: White exudate noted to tongue. NECK: Normal range of motion, supple without lymphadenopathy or JVD, no thyromegaly LUNGS: Breath sounds clear to auscultation bilaterally and equal. No wheezes rales or rhonchi. HEART: Regular rate and rhythm without murmurs, rubs or gallops. S1S2 Normal ABDOMEN: Soft, tender, mostly to the left lower quadrant improved from yesterday , active bowel sounds. No guarding, no rebound. No masses appreciated. EXTREMITIES: Normal range of motion, no pitting or edema. No clubbing or cyanosis. NEUROLOGICAL: No focal deficits noted. Normal speech, normal gait. PSYCH: Normal mood, normal affect. SKIN: Warm, Dry, normal turgor, no rashes or lesions noted. - Labs CBC & Chem 7: 03/16/17 07:45 03/16/17 07:45 Labs: Abnormal Lab Results - Last 24 Hours (Table) 03/15/17 03/15/17 03/15/17 Range/Units 17:06 20:37 21:24 Potassium 3.0 L* (3.5-5.1) mmol/L Chloride (98-107) mmol/L Carbon Dioxide (22-30) mmol/L BUN (7-17) mg/dL Creatinine (0.52-1.04) mg/dL Glucose (74-99) mg/dL POC Glucose (mg/dL) 126 H 297 H (75-99) mg/dL 03/16/17 03/16/17 03/16/17 Range/Units 03:23 06:56 07:45 Potassium 3.3 L (3.5-5.1) mmol/L Chloride 112 H (98-107) mmol/L Carbon Dioxide 21 L (22-30) mmol/L BUN 3 L (7-17) mg/dL Creatinine 0.44 L (0.52-1.04) mg/dL Glucose 105 H (74-99) mg/dL POC Glucose (mg/dL) 113 H (75-99) mg/dL 03/16/17 Range/Units 11:58 Potassium (3.5-5.1) mmol/L Chloride (98-107) mmol/L Carbon Dioxide (22-30) mmol/L BUN (7-17) mg/dL Creatinine (0.52-1.04) mg/dL Glucose (74-99) mg/dL POC Glucose (mg/dL) 203 H (75-99) mg/dL Assessment and Plan Plan: Impression and plan: 1. Left lower quadrant abdominal pain with hematochezia melena, secondary to acute sigmoid diverticulitis, improved: General surgery consultation has been done and reviewed. Advance diet to soft. Continue antibiotics of Levaquin and Flagyl. 2. Type 2 diabetes mellitus, uncontrolled. AIc is 9.0 Continue Accu-Chek before meals at bedtime with Humalog sliding scale, continue Lantus. Continue metformin 4. History of GERD. Continue Protonix. 5. Hyperlipidemia. Continue Lipitor. 6. Hypertension. Continue lisinopril, metoprolol, Imdur. 8. Severe peripheral vascular disease. 9. Coronary artery disease status post heart catheterization with stent and coronary artery bypass graft. 10. History of CVA. Continue aspirin. 11. Depression, mild. Continue Paxil. 12. Nicotine dependence. Patient counseled on smoking secession. Continue nicotine patch. 13. Mild fibrotic changes to lungs. 14 DVT prophylaxis. blood thinners be contraindicated to active bleeding 15. GI prophylaxis. Continue protonix. 16. Thrush. Continue nystatin. 17. Hypomagnesemia. Replace magnesium per protocol. 18. Hyperchloremic metabolic acidosis. Hep-Lock IV fluids. Continue to monitor patient. Continue surgical management per surgical service. Continue symptomatic treatment and pain management. Continue antibiotics. Continue current medications. Possibly discharge home later this afternoon per surgical recommendations. The above impression and plan have been discussed and directed by Dr. Mckenzie. Sarah AZEVEDO acting as scribe for Dr. Mckenzie.
--- NOTE | 2017-03-16 14:04 | P.DS ---
Providers Date of admission: 03/12/17 20:24 Expected date of discharge: 03/16/17 Attending physician: Sincere Casey Consults: Dr. Hunter Primary care physician: Sincere Casey Hospital Course: Patient is a 61-year-old female, patient of Dr. Casey in the outpatient setting, with medical history significant for diverticulitis and diverticulosis. admitted with 3 day history of melena and hematochezia associated with left lower quadrant abdominal pain found to have evidence of acute sigmoid diverticulitis. Patient was placed on IV Levaquin and IV Flagyl, diet restriction, supportive treatment and pain management. Patient was evaluated by Dr. Hunter from surgical service. Patient improved significantly during her hospital stay and was felt stable for discharge to home with close follow-up in the outpatient setting. Discharge diagnoses: 1. Acute sigmoid diverticulitis with history of diverticulosis. 2. Type 2 diabetes mellitus, uncontrolled. 4. History of GERD. 5. Hyperlipidemia. 6. Hypertension. 8. Severe peripheral vascular disease. 9. Coronary artery disease status post heart catheterization with stent and coronary artery bypass graft. 10. History of CVA. 11. Depression, mild. 12. Nicotine dependence. 13. Mild fibrotic changes to lungs. 14 DVT prophylaxis. 15. GI prophylaxis. 16. Thrush. The above impression and plan have been discussed and directed by Dr. Mckenzie. Sarah AZEVEDO acting as scribe for Dr. Mckenzie. Pertinent Studies: Abdomen x-ray; abdomen/pelvis CT Patient Condition at Discharge: Good Plan - Discharge Summary New Discharge Prescriptions: Levofloxacin [Levaquin] 500 mg PO DAILY #5 tab Nystatin 100,000 Unit/ml Susp [Mycostatin Oral Susp] 500,000 unit PO QID #28 cup amLODIPine [Norvasc] 5 mg PO DAILY #30 tab metroNIDAZOLE [Flagyl] 500 mg PO Q8HR #15 tab Discharge Medication List Insulin Aspart [NovoLOG] 10 unit SQ AC-TID 05/30/14 [History] Isosorbide Mononitrate [Imdur] 60 mg PO BID 05/30/14 [History] Lisinopril 40 mg PO DAILY 05/30/14 [History] Nitroglycerin Sl Tabs [Nitrostat] 0.4 mg SUBLINGUAL Q5M PRN 05/30/14 [History] PARoxetine HCL [Paxil] 40 mg PO DAILY 05/30/14 [History] Atorvastatin [Lipitor] 80 mg PO HS 03/26/15 [History] Insulin Glargine [Lantus] 30 unit SQ HS vial 04/15/15 [Rx] Metoprolol Succinate (ER) [Toprol XL] 100 mg PO DAILY #30 tab.er.24h 04/15/15 [ Rx] Aspirin 81 mg PO DAILY 11/18/15 [History] metFORMIN HCL [Glucophage] 500 mg PO BID 04/08/16 [History] Hydrocodone/Acetaminophen [[place] 7.5-325] 1 tab PO Q6HR PRN #10 tablet 04/15/16 [Rx] Levofloxacin [Levaquin] 500 mg PO DAILY #5 tab 03/16/17 [Rx] Nystatin 100,000 Unit/ml Susp [Mycostatin Oral Susp] 500,000 unit PO QID #28 cup 03/16/17 [Rx] amLODIPine [Norvasc] 5 mg PO DAILY #30 tab 03/16/17 [Rx] guaiFENesin [Mucinex] 600 mg PO Q12HR PRN #0 tablet.er 03/16/17 [Rx] metroNIDAZOLE [Flagyl] 500 mg PO Q8HR #15 tab 03/16/17 [Rx] Follow up Appointment(s)/Referral(s): Sincere Casey MD [Primary Care Provider] - 1-2 days Juan Hunter MD [Medical Doctor] - 1 Week Patient Instructions/Handouts: Diverticulitis (DC) Activity/Diet/Wound Care/Special Instructions: Soft, consistent carbohydrate diet Discharge Disposition: HOME SELF-CARE
[2017-03-16] MEDS: MAGNESIUM SULFATE-D5W PMX 1 GM in DEXTROSE/WATER 1 100ML.BAG IVPB SCH ×2 (15:32→16:41)
--- NOTE | 2017-03-16 15:55 | P.PN ---
Subjective Principal diagnosis: Abdominal pain Patient doing well today. Pain is down to a 1 out of 10. Tolerating diet. Anxious to go home. Objective - Vital Signs Vital signs: Vital Signs Temp 98.5 F 03/16/17 07:00 Pulse 75 03/16/17 07:00 Resp 16 03/16/17 07:00 BP 151/75 03/16/17 07:00 Pulse Ox 97 03/16/17 07:00 Intake & Output 03/15/17 03/16/17 03/16/17 18:59 06:59 18:59 Intake Total 1970 600 Balance 1970 600 Weight 74.843 kg Intake: IV 1200 500 Levofloxacin 500Mg-D5w 100 Pmx 500 mg In Dextrose/ Water 1 100ml.bag @ 100 mls/hr IVPB Q24H [facility] Rx#: [id number] Sodium Chloride 0.9% 1, 1000 500 000 ml @ 125 mls/hr IV . Q8H [facility] Rx#:[id number] metroNIDAZOLE-NS PMX 500 100 mg In Saline 1 100ml.bag @ 100 mls/hr IVPB Q8HR [facility] Rx#:[id number] Intake, IV Titration 100 Amount metroNIDAZOLE-NS PMX 500 100 mg In Saline 1 100ml.bag @ 100 mls/hr IVPB Q8HR [facility] Rx#:[id number] Oral 770 Other: Voiding Method Toilet Toilet # Voids 2 2 3 # Bowel Movements 1 2 - Exam Abdomen: Soft, nontender, nondistended - Labs CBC & Chem 7: 03/16/17 07:45 03/16/17 07:45 Labs: Abnormal Lab Results - Last 24 Hours (Table) 03/15/17 03/15/17 03/15/17 Range/Units 17:06 20:37 21:24 Potassium 3.0 L* (3.5-5.1) mmol/L Chloride (98-107) mmol/L Carbon Dioxide (22-30) mmol/L BUN (7-17) mg/dL Creatinine (0.52-1.04) mg/dL Glucose (74-99) mg/dL POC Glucose (mg/dL) 126 H 297 H (75-99) mg/dL 03/16/17 03/16/17 03/16/17 Range/Units 03:23 06:56 07:45 Potassium 3.3 L (3.5-5.1) mmol/L Chloride 112 H (98-107) mmol/L Carbon Dioxide 21 L (22-30) mmol/L BUN 3 L (7-17) mg/dL Creatinine 0.44 L (0.52-1.04) mg/dL Glucose 105 H (74-99) mg/dL POC Glucose (mg/dL) 113 H (75-99) mg/dL 03/16/17 Range/Units 11:58 Potassium (3.5-5.1) mmol/L Chloride (98-107) mmol/L Carbon Dioxide (22-30) mmol/L BUN (7-17) mg/dL Creatinine (0.52-1.04) mg/dL Glucose (74-99) mg/dL POC Glucose (mg/dL) 203 H (75-99) mg/dL Assessment and Plan (1) Abdominal pain Narrative/Plan: Continue low fiber diet. Stable for discharge. Status: Acute
[2017-03-16 16:07] VITALS: BP 149/72; PULSE 85; RESP 20; TEMP 97.9
[2017-03-17] MEDS ORDERED: metroNIDAZOLE 500 MG TAB PO SCH (08:00)
[2017-03-17] MEDS ORDERED: PANTOPRAZOLE 40 MG TABLET PO SCH (09:00)
[2017-03-17] MEDS ORDERED: LEVOFLOXACIN 500 MG TAB PO SCH (19:00)
== END 2017-03-16 18:19 | disposition home or self-care (01) | DRG 378 ==
LOC: EC 16:06 → 5MS5E 21:10 → OBSVTOIN 03-12 20:24
PROVIDERS: ADMIT Family Medicine; ATTEND Family Medicine
DX: K57.33 Diverticulitis of large intestine without perforation or abscess with bleeding (principal); E87.2 Acidosis; E11.51 Type 2 diabetes mellitus with diabetic peripheral angiopathy without gangrene; E11.65 Type 2 diabetes mellitus with hyperglycemia; K86.1 Other chronic pancreatitis; B37.9 Candidiasis, unspecified; E78.5 Hyperlipidemia, unspecified; E83.42 Hypomagnesemia; E87.6 Hypokalemia; E87.8 Other disorders of electrolyte and fluid balance, not elsewhere classified; F17.200 Nicotine dependence, unspecified, uncomplicated; F32.9 Major depressive disorder, single episode, unspecified; I10 Essential (primary) hypertension; I25.10 Atherosclerotic heart disease of native coronary artery without angina pectoris; I71.4 Abdominal aortic aneurysm, without rupture; K21.9 Gastro-esophageal reflux disease without esophagitis; N20.0 Calculus of kidney; Z79.4 Long term (current) use of insulin; Z79.82 Long term (current) use of aspirin; Z79.899 Other long term (current) drug therapy; Z82.49 Family history of ischemic heart disease and other diseases of the circulatory system; Z86.73 Personal history of transient ischemic attack (TIA), and cerebral infarction without residual deficits; Z95.1 Presence of aortocoronary bypass graft; Z95.5 Presence of coronary angioplasty implant and graft; Z79.84 Long term (current) use of oral hypoglycemic drugs; Z88.5 Allergy status to narcotic agent; Z88.2 Allergy status to sulfonamides
CPT/HCPCS: 36415; 74020; 74177; 80048; 80053; 82150; 82272; 82550; 82553; 83036; 83605; 83690; 83735; 84100; 84132; 84443; 84484; 85025; 85610; 85730; 87324; 96361; 96365; 96366; 96367; 96375; 96376; 99285

== ENCOUNTER 2018-01-16 15:02 | Emergency (ER) | payer MEDICARE, OTHER ==
[2018-01-16 16:08] LABS: Basophils # (A) 0.1 k/uL (0-0.2); Basophils % (A) 0 %; Eosinophils # (A) 0.3 k/uL (0-0.7); Eosinophils % (A) 2 %; HCT 42.2 % (34.0-46.0); HGB 14.1 gm/dL (11.4-16.0); Lymphocytes # (A) 2.5 k/uL (1.0-4.8); Lymphocytes % (A) 19 %; MCH 30.6 pg (25.0-35.0); MCHC 33.4 g/dL (31.0-37.0); MCV 91.7 fL (80.0-100.0); Monocytes # (A) 0.4 k/uL (0-1.0); Monocytes % (A) 3 %; Neutrophils # (A) 9.9 k/uL (1.3-7.7); Neutrophils % (A) 75 %; Platelet Count 306 k/uL (150-450); RDW 12.6 % (11.5-15.5); WBC 13.3 k/uL (3.8-10.6)
[2018-01-16] MEDS ORDERED: MORPHINE SULFATE 4 MG/ML SYRINGE IV STA (16:13)
[2018-01-16] MEDS ORDERED: SODIUM CHLORIDE 0.9% 1,000 ML IV STA (16:13)
[2018-01-16] MEDS ORDERED: RX INFO: IV CONTRAST WAS GIVEN 1 EACH MISC MISCELLANE PRN (16:13)
[2018-01-16] MEDS ORDERED: ONDANSETRON 4 MG/2 ML VIAL IVP STA (16:13)
[2018-01-16 16:14] LABS: Appearance,Urine Cloudy (Clear); Bacteria,Urine Rare /hpf; Bilirubin,Urine Negative (Negative); Blood,Urine Negative (Negative); Color,Urine Yellow; Glucose,Urine (UA) Trace (Negative); Granular Casts,Urine 9 /lpf (0); Ketones,Urine Trace (Negative); Leukocyte Esterase,Urine Negative (Negative); Mucus,Urine Rare /hpf; PH, Urine 6.5 (5.0-8.0); Protein,Urine 1+ (Negative); RBC,Urine 2 /hpf (0-5); Specific Gravity,Urine 1.023 (1.001-1.035); Squamous Epithelial Cell,Urine 1 /hpf (0-4); WBC,Urine 6 /hpf (0-5)
[2018-01-16 16:17] LABS: ALT 20 U/L (9-52); AST 16 U/L (14-36); Albumin 3.9 g/dL (3.5-5.0); Alkaline Phosphatase 112 U/L (38-126); Amylase 65 U/L (30-110); Anion Gap 13 mmol/L; Blood Urea Nitrogen 20 mg/dL (7-17); Calcium 9.5 mg/dL (8.4-10.2); Carbon Dioxide 26 mmol/L (22-30); Chloride 98 mmol/L (98-107); Glucose 177 mg/dL (74-99); Lipase 77 U/L (23-300); Potassium 3.9 mmol/L (3.5-5.1); Sodium 137 mmol/L (137-145); Total Bilirubin 0.4 mg/dL (0.2-1.3); Total Protein 6.7 g/dL (6.3-8.2)
--- NOTE | 2018-01-16 17:14 | CT ---
EXAMINATION TYPE: CT abdomen pelvis w con DATE OF EXAM: 01/16/2018 COMPARISON: Prior CT 10/30/2017 HISTORY: Right sided abdominal pain CT DLP: 983.6 mGycm Automated exposure control for dose reduction was used. TECHNIQUE: Helical acquisition of images from the lung bases through the pelvis have been completed. CONTRAST: Performed without Oral Contrast and with IV Contrast, patient injected with 100 mL of Omnipaque 300. FINDINGS: The heart remains enlarged. Lung bases show some dependent atelectatic change, suspect sage [place] artery calcification, possible mitral annular calcification LUNG BASES: No significant abnormality is appreciated. AORTA: Extensive atheromatous change, abdominal aortic ectasia is again noted as on prior. LIVER/GB: Patient is post cholecystectomy. Some mildly prominent intrahepatic biliary ducts are noted . PANCREAS: No significant abnormality is seen. SPLEEN: No significant abnormality is seen. ADRENALS: No significant abnormality is seen. KIDNEYS: Nonobstructive lower pole nephrolithiasis is again noted on the right, no evident ureteral l ithiasis.. Umbilical hernia contains fat as on prior. REPRODUCTIVE ORGANS: No significant abnormality is seen BOWEL: Extensive diverticular change again noted in the sigmoid colon, no evident abscess. Fluid-leelee led stomach is noted. There are fluid-filled loops of small bowel. FREE AIR: No Free Air visible. ASCITES: None visible. PELVIC ADENOPATHY: None visualized. RETROPERITONEAL ADENOPATHY: No Retroperitoneal Adenopathy visible. URINARY BLADDER: Not distended OSSEOUS STRUCTURES: Stable. There is a left inguinal hernia containing fat. IMPRESSION: DIVERTICULOSIS SIMILAR TO PRIOR EXAM. Correlate to exclude enteritis. Nonobstructive nephrolithiasis. Degenerative disc disease and facet arthropathy, postop changes.
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
[2018-01-16] MEDS ORDERED: KETOROLAC 30 MG/ML 1 ML VIAL IVP STA (17:25)
[2018-01-16 17:55] VITALS: BP 128/80; PULSE 94; RESP 18; TEMP 97.9
== END 2018-01-16 17:35 | disposition home or self-care (01) ==
LOC: EC 15:02
DX: R10.30 Lower abdominal pain, unspecified (principal); R11.0 Nausea; D72.829 Elevated white blood cell count, unspecified; E78.5 Hyperlipidemia, unspecified; I10 Essential (primary) hypertension; E11.9 Type 2 diabetes mellitus without complications; M19.90 Unspecified osteoarthritis, unspecified site; F32.9 Major depressive disorder, single episode, unspecified; F17.200 Nicotine dependence, unspecified, uncomplicated; Z79.4 Long term (current) use of insulin; Z79.82 Long term (current) use of aspirin; Z79.899 Other long term (current) drug therapy; Z88.1 Allergy status to other antibiotic agents; Z88.5 Allergy status to narcotic agent; Z86.14 Personal history of Methicillin resistant Staphylococcus aureus infection; Z90.49 Acquired absence of other specified parts of digestive tract
CPT/HCPCS: 36415; 80053; 82150; 83690; 85025; 81001; 74177; 99284; 96374; 96375 ×2; 96361; J2270; J2405; J1885; Q9967

== ENCOUNTER 2018-05-21 13:52 | Emergency (ER) | payer MEDICARE, OTHER ==
[2018-05-21 15:51] LABS: Basophils # (A) 0.1 k/uL (0-0.2); Basophils % (A) 1 %; Eosinophils # (A) 0.3 k/uL (0-0.7); Eosinophils % (A) 3 %; HCT 42.5 % (34.0-46.0); HGB 14.4 gm/dL (11.4-16.0); Lymphocytes # (A) 2.4 k/uL (1.0-4.8); Lymphocytes % (A) 26 %; MCHC 33.9 g/dL (31.0-37.0); MCV 94.5 fL (80.0-100.0); Mean Platelet Volume 7.6; Monocytes # (A) 0.3 k/uL (0-1.0); Monocytes % (A) 3 %; Neutrophils # (A) 6.2 k/uL (1.3-7.7); Neutrophils % (A) 66 %; Platelet Count 273 k/uL (150-450); RDW 12.7 % (11.5-15.5); WBC 9.3 k/uL (3.8-10.6)
[2018-05-21 15:57] LABS: ALT 26 U/L (9-52); AST 17 U/L (14-36); Alkaline Phosphatase 90 U/L (38-126); Amylase 86 U/L (30-110); Anion Gap 12 mmol/L; Blood Urea Nitrogen 14 mg/dL (7-17); Calcium 9.4 mg/dL (8.4-10.2); Carbon Dioxide 22 mmol/L (22-30); Chloride 106 mmol/L (98-107); Glucose 103 mg/dL (74-99); Lipase 144 U/L (23-300); Sodium 140 mmol/L (137-145); Total Bilirubin 0.2 mg/dL (0.2-1.3); Total Protein 6.5 g/dL (6.3-8.2)
--- NOTE | 2018-05-21 16:08 | XR ---
EXAMINATION TYPE: XR KUB DATE OF EXAM: 05/21/2018 4:01 PM CLINICAL HISTORY: Left-sided abdominal pain, nausea, and diarrhea. TECHNIQUE: Single upright image of the abdomen is obtained. COMPARISON: 11/18/2015. FINDINGS: Scattered gas is seen in nondilated small bowel loops. Gas and fecal material is seen in no ndilated colon. There is no visceromegaly, pneumoperitoneum, or abnormal calcification appreciated. T he lung bases are clear. Partial visualization of tortuosity of the descending thoracic aorta and pos tsurgical changes of the chest are seen. Cholecystectomy clips are noted. Extensive calcific atheroma tous changes of the abdominal aorta are present with aortoiliac stent. Infrarenal abdominal aortic an eurysm is also noted measuring up to 3.3 cm. This measures smaller than on the prior CT of 10/30/2017 , better characterized with CT. Renal arterial calcifications are seen bilaterally. Moderate degenera tive change of the femoral acetabular joint. IMPRESSION: Nonobstructive bowel gas pattern.
[2018-05-21 16:56] LABS: Appearance,Urine Cloudy (Clear); Bacteria,Urine Few /hpf; Bilirubin,Urine Negative (Negative); Blood,Urine Negative (Negative); Color,Urine Yellow; Glucose,Urine (UA) Negative (Negative); Hyaline Casts,Urine 44 /lpf (0-2); Ketones,Urine Trace (Negative); Leukocyte Esterase,Urine Moderate (Negative); Mucus,Urine Few /hpf; Nitrite,Urine Negative (Negative); Protein,Urine 2+ (Negative); RBC,Urine 9 /hpf (0-5); Specific Gravity,Urine 1.021 (1.001-1.035); Squamous Epithelial Cell,Urine 2 /hpf (0-4); WBC,Urine 14 /hpf (0-5)
[2018-05-21] MEDS ORDERED: ONDANSETRON 4 MG/2 ML VIAL IVP STA (18:05)
[2018-05-21] MEDS ORDERED: MORPHINE SULFATE 2 MG/ML SYRINGE IVP STA (18:06)
--- NOTE | 2018-05-21 18:52 | CT ---
EXAMINATION TYPE: CT abdomen pelvis w con DATE OF EXAM: 05/21/2018 COMPARISON: 01/16/2018 HISTORY: Left lower quadrant abdominal pain and nausea. CT DLP: 998 mGycm Automated exposure control for dose reduction was used. TECHNIQUE: Helical acquisition of images was performed from the lung bases through the pelvis. CONTRAST: Performed without Oral Contrast and with IV Contrast, patient injected with 100ml mL of Isovue M300. FINDINGS: There is mild groundglass interstitial infiltrate at the lung bases. There is no pleural effusion. He art appears enlarged. There are clips from cholecystectomy. Liver shows no focal defect. Spleen appears normal. There is no pancreatic mass. There is atherosclerotic vascular calcification. Bile ducts are not dilated. There is no adrenal mass. Kidneys show satisfactory contrast opacification. There is no hydronephrosi s. There is mild aneurysm of the midabdominal aorta that measures up to 3.3 cm. There is significant plaque and luminal stenosis of the mid abdominal aorta 5 cm from the bifurcation. Lumen is narrowed t o 5 mm. I see no intestinal wall thickening. There is extensive sigmoid diverticulosis. There is minimal fat stranding around the proximal sigmoid colon. Bladder distends smoothly. I see no bony destructive pro cess. IMPRESSION: EXTENSIVE SIGMOID DIVERTICULOSIS. THERE IS EVIDENCE FOR MILD FOCAL DIVERTICULITIS IN THE PROXIMAL SIG MOID COLON THAT IS NEW COMPARED TO LAST EXAM. MILD ANEURYSM OF THE ABDOMINAL AORTA. THERE IS ALSO FOCAL STENOSIS OF THE MID ABDOMINAL AORTA. THERE IS ALSO SIGNIFICANT ATHEROSCLEROTIC PLAQUE IN THE COMMON ILIAC ARTERIES AND PROBABLY SEVERE STENOSIS. CARDIOMEGALY. NONOBSTRUCTING 1 CM RIGHT RENAL CALCULUS.
[2018-05-21] MEDS ORDERED: LEVOFLOXACIN 750 MG TAB PO STA (19:09)
[2018-05-21] MEDS ORDERED: metroNIDAZOLE 500 MG TAB PO STA (19:09)
[2018-05-21 19:14] VITALS: BP 163/75; PULSE 80; RESP 18; TEMP 97.9
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
== END 2018-05-21 19:29 | disposition home or self-care (01) ==
LOC: EC 13:52
DX: K57.32 Diverticulitis of large intestine without perforation or abscess without bleeding (principal); E11.9 Type 2 diabetes mellitus without complications; I10 Essential (primary) hypertension; F32.9 Major depressive disorder, single episode, unspecified; F17.200 Nicotine dependence, unspecified, uncomplicated; Z86.14 Personal history of Methicillin resistant Staphylococcus aureus infection; Z86.73 Personal history of transient ischemic attack (TIA), and cerebral infarction without residual deficits; Z87.442 Personal history of urinary calculi; Z90.49 Acquired absence of other specified parts of digestive tract; Z95.1 Presence of aortocoronary bypass graft; Z88.1 Allergy status to other antibiotic agents; Z88.2 Allergy status to sulfonamides; Z88.5 Allergy status to narcotic agent; Z79.4 Long term (current) use of insulin; Z79.82 Long term (current) use of aspirin; Z79.84 Long term (current) use of oral hypoglycemic drugs; Z79.899 Other long term (current) drug therapy
CPT/HCPCS: 99284; 96374; 96375; 36415; 80053; 82150; 83605; 83690; 85025; 81001; 74018; 74177; J2405; J2270; Q9967

== ENCOUNTER 2018-12-18 13:39 | Inpatient (IN) | payer MEDICARE, OTHER ==
[2018-12-18] MEDS ORDERED: SODIUM CHLORIDE 0.9% 500 ML 500 ML IV STA (14:29)
[2018-12-18 14:54] LABS: RBC 4.55 m/uL (3.80-5.40); WBC 9.5 k/uL (3.8-10.6)
[2018-12-18 14:55] LABS: Basophils # (A) 0.1 k/uL (0-0.2); Basophils % (A) 1 %; Eosinophils # (A) 0.2 k/uL (0-0.7); Eosinophils % (A) 2 %; HCT 42.9 % (34.0-46.0); HGB 13.9 gm/dL (11.4-16.0); Lymphocytes % (A) 21 %; MCH 30.6 pg (25.0-35.0); MCHC 32.4 g/dL (31.0-37.0); MCV 94.2 fL (80.0-100.0); Mean Platelet Volume 7.3; Monocytes # (A) 0.4 k/uL (0-1.0); Monocytes % (A) 4 %; Neutrophils # (A) 6.7 k/uL (1.3-7.7); Neutrophils % (A) 70 %; Platelet Count 263 k/uL (150-450)
--- NOTE | 2018-12-18 15:04 | XR ---
EXAMINATION TYPE: XR chest 2V DATE OF EXAM: 12/18/2018 COMPARISON: 07/06/2016 INDICATION: Dysrhythmia TECHNIQUE: Frontal and lateral views of the chest are obtained. FINDINGS: The heart size is normal. The pulmonary vasculature is normal. The lungs are clear. Sternotomy wires are in the midline. IMPRESSION: 1. No acute pulmonary process.
[2018-12-18] MEDS ORDERED: HYDROcodone/APAP 7.5-325MG 1 EACH TAB PO ONE (15:05)
[2018-12-18 15:06] LABS: ALT 20 U/L (9-52); AST 18 U/L (14-36); Albumin 3.9 g/dL (3.5-5.0); Alkaline Phosphatase 78 U/L (38-126); Anion Gap 7 mmol/L; Blood Urea Nitrogen 14 mg/dL (7-17); Calcium 9.4 mg/dL (8.4-10.2); Carbon Dioxide 25 mmol/L (22-30); Chloride 108 mmol/L (98-107); Glucose 111 mg/dL (74-99); INR 0.9 (<1.2); Magnesium 1.6 mg/dL (1.6-2.3); Partial Thromboplastin Time 23.6 sec (22.0-30.0); Potassium 3.9 mmol/L (3.5-5.1); Prothrombin Time 9.7 sec (9.0-12.0); Sodium 140 mmol/L (137-145); Total Bilirubin 0.3 mg/dL (0.2-1.3); Total Protein 6.5 g/dL (6.3-8.2)
[2018-12-18] MEDS ORDERED: DEXAMETHASONE SOD PHOSPHATE 10 MG/ML 1 ML VIAL IV STA (15:14)
[2018-12-18] MEDS ORDERED: ALBUTEROL NEBULIZED 2.5 MG/3 ML INHALATION STA (15:14)
[2018-12-18] MEDS ORDERED: IPRATROPIUM-ALBUTEROL 3 ML NEB INHALATION STA (15:14)
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
[2018-12-18 15:37] LABS: Creatine Kinase MB 0.8 ng/mL (0.0-2.4); Troponin I 0.018 ng/mL (0.000-0.034)
[2018-12-18] MEDS ORDERED: hydrALAZINE HCL 20 MG/ML 1 ML VIAL IVP STA (16:16)
[2018-12-18] MEDS ORDERED: ASPIRIN 325 MG TAB PO STA (16:16)
--- NOTE | 2018-12-18 16:16 | CT ---
EXAMINATION TYPE: CT brain wo con DATE OF EXAM: 12/18/2018 COMPARISON: 10/06/2016 HISTORY: headache and left eye pain and redness. CT DLP: 1101.[address] of the brain was performed. The ventricles, basal cisterns and sulci overlying the cerebral convexities demonstrate mild enlargem ent. There is no evidence for intracranial hemorrhage or sulcal effacement. There is decreased attenuation about the periventricular white matter and deep white matter of both c erebral hemispheres, compatible with chronic small vessel ischemia. Differential diagnosis does inclu de demyelination. No mass effects are seen.No midline shift. Osseous calvarium is intact. If symptoms persist consider MRI. IMPRESSION: 1. Age related atrophic and chronic small vessel ischemic change without acute intracranial process s een at this time.
[2018-12-18] MEDS ORDERED: HEPARIN SODIUM,PORCINE 5,000 UNIT/ML 1 ML VIAL IV PRN (16:20)
[2018-12-18] MEDS ORDERED: HEPARIN SODIUM,PORCINE 5,000 UNIT/ML 1 ML VIAL IV ONE (16:20)
[2018-12-18] MEDS ORDERED: NITROGLYCERIN-D5W PMX 50 MG in DEXTROSE/WATER 1 250ML.BAG IV ONE (16:24)
[2018-12-18] MEDS ORDERED: NALOXONE 0.4 MG/ML 1 ML VIAL IV PRN (16:25)
[2018-12-18] MEDS ORDERED: HEPARIN SOD,PORK IN 0.45% NACL 25,000 UNIT in 0.45% NACL 1 250ML.BAG IV SCH (16:30)
[2018-12-18] MEDS: HYDROcodone/APAP 7.5-325MG 1 EACH TAB PO PRN (18:38)
[2018-12-18 20:55] VITALS: BMI 28.0
[2018-12-18] MEDS: INSULIN ASPART 100 UNIT/ML 1 ML 10 ML VIAL SQ SCH (20:56)
[2018-12-18] MEDS: hydrALAZINE HCL 25 MG TAB PO SCH (20:58)
[2018-12-18] MEDS: SODIUM CHLORIDE 0.9% 1,000 ML IV SCH (20:59)
[2018-12-18] MEDS: INSULIN DETEMIR 100 UNIT/ML 10 ML VIAL SQ SCH (21:04)
[2018-12-18 21:10] LABS: Glucose,Whole Blood 185 mg/dL (75-99)
[2018-12-18 21:25] LABS: Creatine Kinase MB 0.8 ng/mL (0.0-2.4); Troponin I 0.016 ng/mL (0.000-0.034)
[2018-12-19] MEDS: HYDROcodone/APAP 7.5-325MG 1 EACH TAB PO PRN ×3 (03:07→23:23)
[2018-12-19 03:14] LABS: Basophils % (A) 1 %; Eosinophils # (A) 0.1 k/uL (0-0.7); Eosinophils % (A) 1 %; HCT 41.9 % (34.0-46.0); HGB 13.3 gm/dL (11.4-16.0); Lymphocytes # (A) 1.6 k/uL (1.0-4.8); Lymphocytes % (A) 20 %; MCH 30.9 pg (25.0-35.0); MCHC 31.8 g/dL (31.0-37.0); MCV 97.3 fL (80.0-100.0); Mean Platelet Volume 7.2; Monocytes # (A) 0.3 k/uL (0-1.0); Monocytes % (A) 3 %; Neutrophils # (A) 6.1 k/uL (1.3-7.7); Neutrophils % (A) 75 %; Platelet Count 221 k/uL (150-450); RDW 13.1 % (11.5-15.5); WBC 8.1 k/uL (3.8-10.6)
[2018-12-19 03:43] LABS: Creatine Kinase MB 0.8 ng/mL (0.0-2.4); Troponin I 0.016 ng/mL (0.000-0.034)
[2018-12-19] MEDS: LISINOPRIL 20 MG TAB PO SCH (05:30)
[2018-12-19] MEDS: hydrALAZINE HCL 25 MG TAB PO SCH ×3 (05:30→21:02)
[2018-12-19 06:12] LABS: Glucose,Whole Blood 92 mg/dL (75-99)
[2018-12-19] MEDS ORDERED: DOBUTamine DRIP for NUC MED 500 MG in DEXTROSE/WATER 1 250ML.BAG IV ONE (08:19)
[2018-12-19] MEDS: INSULIN ASPART 100 UNIT/ML 1 ML 10 ML VIAL SQ SCH ×3 (08:30→18:03)
--- NOTE | 2018-12-19 08:56 | CONS ---
CONSULTATION Mrs. Velez is a 63-year-old female with a known history of coronary artery disease, status post coronary artery bypass grafting with single BRANDON to the LAD, history of severe peripheral vascular disease with carotid and lower extremities disease, chronic tobacco use, hypertension, hyperlipidemia, who presented to the emergency room with symptoms of headache and palpitations. The patient had the headache starting yesterday with some discomfort in her eye. She did feel some palpitation, but she had no clear chest discomfort. Her breathing is stable, although she is not very active physically. She denies any dizziness and syncope. No PND, orthopnea, or peripheral edema. The patient has not been followed recently. She has underwent the coronary artery bypass grafting with single BRANDON to LAD, underwent repeat cardiac catheterization in 2014 and at that time was found to have a patent BRANDON to the LAD, totally occluded LAD. Codominant left circumflex system with distally subtotally occluded circumflex with a small RCA that had diffuse disease. She was treated medically. She has underwent a most recent dobutamine stress echocardiogram available to me is 2013 that at that time revealed no evidence of inducible ischemia. Patient unfortunately continued to smoke on a daily basis. She has a history of hypertension, hyperlipidemia, diabetes mellitus as well history of carotid disease. Her medication at home included insulin, metoprolol succinate 100 mg daily, lisinopril 40 mg daily, isosorbide mononitrate 60 mg daily, Lipitor 80 mg daily, and aspirin 81 mg daily. REVIEW OF SYSTEMS: RESPIRATORY SYSTEM: She has dyspnea on exertion, history of chronic tobacco use. GI SYSTEM: She denies any recent GI bleeding. No peptic ulcer disease. SYSTEM: No dysuria or hematuria. NERVOUS SYSTEM: No history of seizure. PHYSICAL EXAMINATION: This is a 63-year-old female, alert, oriented, in no apparent distress. Blood pressure running between the 140 and 170 with the heart rate in the 80s. HEAD: Normocephalic. EYES: Sclerae anicteric. NECK: With bilateral bruit. No jugular venous distention. LUNGS: Decreased air exchange. No wheezes. HEART: Regular rate and rhythm. S1, S2. No S3 with systolic murmur heard at the base 2/6, no diastolic murmur. ABDOMEN: Soft, nontender. Positive bowel sounds. No organomegaly. EXTREMITIES: No edema. Decreased distal pulses. LAB DATA: Lab data revealed a hemoglobin of 13.3, BUN and creatinine 14 and 0.56. Troponin 0.018 and 0.016. EKG revealed sinus mechanism with right bundle branch block and evidence of inferior myocardial infarction with no acute changes. Chest x-ray shows no acute infiltrate. IMPRESSION: 1. Symptoms of headache, stabilizing, etiology unclear. Her CT scan of the head showed no acute abnormality. 2. Palpitation. Patient is in sinus mechanism with no evidence of significant arrhythmia. 3. History of coronary artery disease, status post bypass coronary artery bypass grafting with single BRANDON to LAD. 4. Hypertension. 5. Hyperlipidemia. 6. Diabetes mellitus. 7. Chronic tobacco use. 8. Severe peripheral vascular disease in the carotid and lower extremities. RECOMMENDATION: I will stop her heparin. Obtain echocardiogram with Doppler as well as dobutamine stress echocardiogram. I will start her back on isosorbide mononitrate and I will initiate treatment with hydrochlorothiazide to improve her blood pressure control. We will increase her level activity. Depending on the results of the testing, further recommendations will be made. Thank you for this consult. We will follow with you MMODL / IJN: [id number] /
--- NOTE | 2018-12-19 10:19 | ECHOF ---
Referral Reason:cad MEASUREMENTS -------- HEIGHT: 170.2 cm WEIGHT: 82.6 kg BP: RVIDd: 3.3 cm (< 3.3) IVSd: 2.1 cm (0.6 - 1.1) LVIDd: 4.9 cm (3.9 - 5.3) LVPWd: 1.5 cm (0.6 - 1.1) IVSs: 2.3 cm LVIDs: 4.1 cm LVPWs: 1.7 cm LA Diam: 4.8 cm (2.7 - 3.8) LAESV Index (A-L): 45.17 ml/m Ao Diam: 3.8 cm (2.0 - 3.7) AV Cusp: 1.7 cm (1.5 - 2.6) MV EXCURSION: 17.007 mm (> 18.000) MV EF SLOPE: 69 mm/s (70 - 150) EPSS: 0.6 cm MV E Johnathan: 0.92 m/s MV DecT: 208 ms MV A Johnathan: 0.97 m/s MV E/A Ratio: 0.95 AR PHT: 554 ms RAP: 5.00 mmHg RVSP: 29.59 mmHg FINDINGS -------- Sinus rhythm. This was a technically adequate study. The left ventricular size is normal. Overall left ventricular systolic function is mildly impaired with, an EF between 45 - 50 %. Severe asymmetric septal hypertrophy with septal thickness 2.0 - 2.9 cm. Inferior Hypokinesis The right ventricle is normal in size. The left atrium is markedly dilated , and the LA measures 4.8cm. LA is severely dilated >40 ml/m2 The right atrial size is normal. There is mild aortic valve sclerosis. There is mild aortic regurgitation. Mild mitral annular calcification present. [id number] mitral regurgitation is present. Mild tricuspid regurgitation present. There is no evidence of pulmonary hypertension. The right v entricular systolic pressure, as measured by Doppler, is 29.59mmHg. Trace/mild (physiologic) pulmonic regurgitation. The aortic root size is normal. There is no pericardial effusion. CONCLUSIONS -------- 1. The left ventricular size is normal. 2. Overall left ventricular systolic function is mildly impaired with, an EF between 45 - 50 %. 3. Severe asymmetric septal hypertrophy with septal thickness 2.0 - 2.9 cm. 4. Inferior Hypokinesis 5. The right ventricle is normal in size. 6. The left atrium is markedly dilated. 7. , and the LA measures 4.8cm. 8. The right atrial size is normal. 9. There is mild aortic valve sclerosis. 10. There is mild aortic regurgitation. 11. Mild mitral annular calcification present. 12. [id number] mitral regurgitation is present. 13. Mild tricuspid regurgitation present. 14. There is no evidence of pulmonary hypertension. 15. The right ventricular systolic pressure, as measured by Doppler, is 29.59mmHg. 16. Trace/mild (physiologic) pulmonic regurgitation. 17. The aortic root size is normal. 18. There is no pericardial effusion. [employer] SUPERVISOR: Keshia Bartlett RDCS
[2018-12-19] MEDS: HYDROCHLOROTHIAZIDE 25 MG TAB PO SCH (11:35)
[2018-12-19] MEDS: ISOSORBIDE MONONITRATE ER 60 MG TAB.ER.24H PO SCH (11:35)
[2018-12-19] MEDS: METOPROLOL SUCCINATE (ER) 100 MG TAB.ER.24H PO SCH (11:35)
[2018-12-19] MEDS: ATORVASTATIN 80 MG TAB PO SCH (11:35)
[2018-12-19] MEDS: ASPIRIN 81 MG PO SCH (11:36)
--- NOTE | 2018-12-19 11:38 | ECHOS ---
STRESS ECHOCARDIOGRAM DOBUTAMINE STRESS ECHO DATE OF SERVICE: 12/19/2018 INDICATIONS: Chest pain. MEDICATIONS: BASELINE HEART RATE: 73 BASELINE BLOOD PRESSURE: 152/83 MAXIMUM HEART RATE: 137 MAXIMUM BLOOD PRESSURE: 212/73 85% MPHR: 134 100% MPHR: 158 METS: MAXIMUM STAGE REACHED: TOTAL EXERCISE TIME: CLINICAL INFORMATION: Baseline EKG shows sinus rhythm with right bundle branch block. The patient was given intravenous dobutamine over a period of 8 minutes as per protocol attaining 86% of predicted maximal heart rate without chest pain or diagnostic ST-segment depression. Baseline echo shows normal left ventricular size, atypical septal motion with preserved LV function with an ejection fraction of 50%. Inferior wall appears hypokinetic. Post dobutamine infusion, there is further worsening of the inferior wall motion abnormality. CONCLUSIONS: 1. Inconclusive EKG part of the stress test due to baseline EKG abnormalities. 2. Abnormal dobutamine echo showing evidence of prior inferior wall myocardial infarction with areas of jasper-infarct ischemia. MMODL / IJN: [id number] /
[2018-12-19] MEDS: NICOTINE 21MG/24HR PATCH TRANSDERM SCH (12:00)
[2018-12-19 12:03] LABS: Glucose,Whole Blood 87 mg/dL (75-99)
[2018-12-19] MEDS ORDERED: NITROGLYCERIN SL TABS 0.4 MG TAB SUBLINGUAL PRN (15:02)
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
[2018-12-19 16:13] LABS: INR 0.9 (<1.2); Prothrombin Time 10.2 sec (9.0-12.0)
[2018-12-19 17:13] LABS: Glucose,Whole Blood 119 mg/dL (75-99)
[2018-12-19] MEDS ORDERED: WARFARIN 5 MG TAB PO SCH (18:00)
[2018-12-19] MEDS: SODIUM CHLORIDE 0.9% 1,000 ML IV SCH (18:03)
[2018-12-19] MEDS ORDERED: ISOSORBIDE MONONITRATE ER 60 MG TAB.ER.24H PO SCH (21:00)
[2018-12-19] MEDS ORDERED: GENTAMICIN/PREDNISOL AC OPHTH OINT 3.5GM LEFT EYE SCH (21:00)
[2018-12-19] MEDS: INSULIN DETEMIR 100 UNIT/ML 10 ML VIAL SQ SCH (21:03)
[2018-12-19 21:06] LABS: Glucose,Whole Blood 216 mg/dL (75-99)
[2018-12-20 06:02] LABS: Glucose,Whole Blood 109 mg/dL (75-99)
[2018-12-20] MEDS: MORPHINE SULFATE 4 MG/ML SYRINGE IV PRN ×2 (06:40→11:12)
[2018-12-20 06:59] LABS: Basophils # (A) 0.1 k/uL (0-0.2); Basophils % (A) 1 %; Eosinophils # (A) 0.2 k/uL (0-0.7); Eosinophils % (A) 3 %; HCT 39.5 % (34.0-46.0); Lymphocytes % (A) 48 %; MCH 31.3 pg (25.0-35.0); MCHC 32.8 g/dL (31.0-37.0); MCV 95.6 fL (80.0-100.0); Mean Platelet Volume 7.5; Monocytes # (A) 0.4 k/uL (0-1.0); Monocytes % (A) 5 %; Neutrophils # (A) 3.4 k/uL (1.3-7.7); Neutrophils % (A) 42 %; Platelet Count 219 k/uL (150-450); RBC 4.13 m/uL (3.80-5.40); WBC 8.2 k/uL (3.8-10.6)
[2018-12-20 07:09] LABS: INR 0.9 (<1.2); Prothrombin Time 9.6 sec (9.0-12.0)
[2018-12-20 07:10] LABS: Anion Gap 8 mmol/L; Blood Urea Nitrogen 17 mg/dL (7-17); Calcium 9.2 mg/dL (8.4-10.2); Carbon Dioxide 24 mmol/L (22-30); Chloride 109 mmol/L (98-107); Glucose 109 mg/dL (74-99); Potassium 4.1 mmol/L (3.5-5.1); Sodium 141 mmol/L (137-145)
[2018-12-20] MEDS: INSULIN ASPART 100 UNIT/ML 1 ML 10 ML VIAL SQ SCH ×2 (08:37→16:45)
[2018-12-20] MEDS: ISOSORBIDE MONONITRATE ER 60 MG TAB.ER.24H PO SCH (08:38)
[2018-12-20] MEDS: ATORVASTATIN 80 MG TAB PO SCH (08:38)
[2018-12-20] MEDS: LISINOPRIL 20 MG TAB PO SCH (08:38)
[2018-12-20] MEDS: METOPROLOL SUCCINATE (ER) 100 MG TAB.ER.24H PO SCH (08:38)
[2018-12-20] MEDS: hydrALAZINE HCL 50 MG TAB PO SCH ×2 (08:38→16:05)
[2018-12-20] MEDS: HYDROCHLOROTHIAZIDE 25 MG TAB PO SCH (08:39)
[2018-12-20] MEDS: HYDROcodone/APAP 7.5-325MG 1 EACH TAB PO PRN ×2 (08:39→16:02)
[2018-12-20] MEDS ORDERED: ASPIRIN 81 MG PO SCH (09:00)
[2018-12-20] MEDS ORDERED: PARoxetine 20 MG TAB PO SCH (09:00)
--- NOTE | 2018-12-20 09:39 | PN ---
PROGRESS NOTE Mrs. Velez is a 63-year-old female with known history of coronary artery disease, severe peripheral vascular disease, status post coronary artery bypass grafting who presented with symptoms of palpitation and headache. Her cardiac enzymes were negative. She underwent a stress test that revealed predominantly fixed hypokinesis of the inferior wall with mild jasper-infarct ischemia consistent with her known anatomy of subtotally occluded distal right coronary artery as well as distally occluded codominant left circumflex. She is doing well this morning. Her breathing has been stable. She denies any dizziness or palpitation. She denies any nausea. She continued to be on aspirin once a day, Lipitor 80 mg daily, hydralazine 25 mg 3 times a day, hydrochlorothiazide 25 mg daily, insulin, isosorbide mononitrate 60 mg daily, lisinopril 40 mg daily, metoprolol succinate 100 mg daily and Coumadin. PHYSICAL EXAMINATION: Blood pressure 159/70 with the heart rate in the 60s. LUNGS: Clear. HEART: Regular rate and rhythm. S1, S2. No S3 with systolic murmur. NECK: With bilateral carotid bruit. ABDOMEN: Soft, nontender. No organomegaly. EXTREMITIES: No edema. LAB DATA: Lab data revealed BUN creatinine 17 and 0.48, potassium 4.1. IMPRESSION: 1. History of coronary artery disease, status post coronary artery bypass grafting with predominantly fixed inferior wall defect on her stress echocardiogram with mild jasper-infarct ischemia consistent with her anatomy. 2. Status post single bypass with BRANDON to LAD. 3. Hypertension, remains elevated. 4. Palpitation, stable. 5. Hyperlipidemia. 6. Diabetes mellitus. 7. Severe peripheral vascular disease. 8. Chronic tobacco use. RECOMMENDATION: I will increase the dose of hydralazine. Increase her level of activity. If she remains stable, I will expect she should be able to be discharged home today. I do not see any indication for coronary angiography at this time. I have discussed with the patient the importance of smoking cessation. MMODL / IJN: [id number] /
[2018-12-20] MEDS: NICOTINE 21MG/24HR PATCH TRANSDERM SCH (11:06)
[2018-12-20] MEDS: ASPIRIN 81 MG PO SCH (11:06)
[2018-12-20 11:09] VITALS: RESP 17
[2018-12-20 11:22] LABS: Glucose,Whole Blood 69 mg/dL (75-99)
[2018-12-20 11:31] LABS: Glucose,Whole Blood 71 mg/dL (75-99)
[2018-12-20 12:17] VITALS: BP 154/72; PULSE 52; TEMP 98.3
--- NOTE | 2018-12-20 13:03 | P.DS ---
Providers Date of admission: 12/18/18 16:25 Expected date of discharge: 12/20/18 Attending physician: Hema Mckenzie Consults: 12/18/18 16:25 Consult Physician Routine Consulting Provider: Cyndee Epstein Consult Reason/Comments: UA Do you want consulting provider notified?: Yes Primary care physician: Sincere Casey - Discharge Diagnosis(es) (1) Coronary artery disease with hx of myocardial infarct w/o hx of CABG Current Visit: Yes Status: Acute (2) HTN (hypertension) Current Visit: Yes Status: Acute (3) Unstable angina pectoris Current Visit: Yes Status: Acute Hospital Course: Patient was admitted with questionable heart palpitations questionable arrhythmia initially it was thought that her troponins were elevated and they were not Stress test was unremarkable except for known disease Echocardiogram showed no change from past and unremarkable except known disease Patient also complained of stye in the left eye which we're treating with Garamycin ointment will continue treatment for 5 days Patient Condition at Discharge: Stable Plan - Discharge Summary New Discharge Prescriptions: New Gentamicin 0.3% Ophth Soln [Garamycin 0.3% Ophth Soln] 2 drops BOTH EYES Q4HR 7 Days #10 ml No Action RX: Isosorbide Mononitrate [Imdur] 60 mg PO BID RX: Aspirin 81 mg PO DAILY RX: Hydrocodone/Acetaminophen [[place] 7.5-325] 1 tab PO DAILY PRN PRN Reason: Pain Nitroglycerin Sl Tabs [Nitrostat] 0.4 mg SUBLINGUAL Q5M PRN PRN Reason: Chest Pain Metoprolol Succinate (ER) [Toprol Xl] 100 mg PO DAILY RX: Lisinopril 40 mg PO DAILY Insulin Glargine [Lantus] 30 unit SQ HS Insulin Aspart [NovoLOG (formulary)] 10 unit SQ AC-TID Atorvastatin [Lipitor] 80 mg PO DAILY PARoxetine HCL [Paxil] 40 mg PO DAILY Discharge Medication List RX: Isosorbide Mononitrate [Imdur] 60 mg PO BID 05/30/14 [History] RX: Aspirin 81 mg PO DAILY 11/18/15 [History] RX: Hydrocodone/Acetaminophen [[place] 7.5-325] 1 tab PO DAILY PRN 05/21/18 [ History] Atorvastatin [Lipitor] 80 mg PO DAILY 12/18/18 [History] Insulin Aspart [NovoLOG (formulary)] 10 unit SQ AC-TID 12/18/18 [History] Insulin Glargine [Lantus] 30 unit SQ HS 12/18/18 [History] Metoprolol Succinate (ER) [Toprol Xl] 100 mg PO DAILY 12/18/18 [History] Nitroglycerin Sl Tabs [Nitrostat] 0.4 mg SUBLINGUAL Q5M PRN 12/18/18 [History] RX: Lisinopril 40 mg PO DAILY 12/18/18 [History] PARoxetine HCL [Paxil] 40 mg PO DAILY 12/19/18 [History] Gentamicin 0.3% Ophth Soln [Garamycin 0.3% Ophth Soln] 2 drops BOTH EYES Q4HR 7 Days #10 ml 12/20/18 [Rx] Follow up Appointment(s)/Referral(s): Cyndee Epstein MD [STAFF PHYSICIAN] - 2 Weeks Sincere Casey MD [Primary Care Provider] - 1-2 days
[2018-12-20 16:25] LABS: Glucose,Whole Blood 182 mg/dL (75-99)
[2018-12-20] MEDS: SODIUM CHLORIDE 0.9% 1,000 ML IV SCH (16:48)
== END 2018-12-20 18:09 | disposition home or self-care (01) | DRG 303 ==
LOC: EC 13:39 → 3SCARD 16:25
PROVIDERS: ADMIT Family Medicine; ATTEND Family Medicine
DX: I25.110 Atherosclerotic heart disease of native coronary artery with unstable angina pectoris (principal); E11.51 Type 2 diabetes mellitus with diabetic peripheral angiopathy without gangrene; E78.5 Hyperlipidemia, unspecified; F17.210 Nicotine dependence, cigarettes, uncomplicated; F32.9 Major depressive disorder, single episode, unspecified; H00.016 Hordeolum externum left eye, unspecified eyelid; I10 Essential (primary) hypertension; I25.2 Old myocardial infarction; J44.9 Chronic obstructive pulmonary disease, unspecified; K21.9 Gastro-esophageal reflux disease without esophagitis; Z79.4 Long term (current) use of insulin; Z79.82 Long term (current) use of aspirin; Z79.899 Other long term (current) drug therapy; Z82.49 Family history of ischemic heart disease and other diseases of the circulatory system; Z86.73 Personal history of transient ischemic attack (TIA), and cerebral infarction without residual deficits; Z87.442 Personal history of urinary calculi; Z90.710 Acquired absence of both cervix and uterus; Z95.1 Presence of aortocoronary bypass graft; Z87.19 Personal history of other diseases of the digestive system; Z98.42 Cataract extraction status, left eye; Z98.41 Cataract extraction status, right eye; Z96.1 Presence of intraocular lens; R00.2 Palpitations; M54.9 Dorsalgia, unspecified; Z87.01 Personal history of pneumonia (recurrent); Z86.14 Personal history of Methicillin resistant Staphylococcus aureus infection; Z90.49 Acquired absence of other specified parts of digestive tract; Z95.828 Presence of other vascular implants and grafts
CPT/HCPCS: 36415; 70450; 71046; 80048; 80053; 82550; 82553; 83735; 84484; 85025; 85610; 85730; 93005; 93306; 93351; 94640; 94760; 96365; 96366; 96368; 96375; 96376; 99285

== ENCOUNTER 2019-06-28 21:23 | Inpatient (IN) | payer MEDICARE, OTHER ==
[2019-06-28 22:16] LABS: Basophils # (A) 0.1 k/uL (0-0.2); Basophils % (A) 1 %; Eosinophils # (A) 0.3 k/uL (0-0.7); Eosinophils % (A) 3 %; HCT 44.1 % (34.0-46.0); HGB 14.9 gm/dL (11.4-16.0); Lymphocytes # (A) 3.3 k/uL (1.0-4.8); Lymphocytes % (A) 27 %; MCH 31.4 pg (25.0-35.0); MCHC 33.7 g/dL (31.0-37.0); Mean Platelet Volume 7.7; Monocytes # (A) 0.4 k/uL (0-1.0); Monocytes % (A) 3 %; Neutrophils # (A) 7.9 k/uL (1.3-7.7); Neutrophils % (A) 65 %; Platelet Count 301 k/uL (150-450); RBC 4.74 m/uL (3.80-5.40); RDW 13.6 % (11.5-15.5); WBC 12.2 k/uL (3.8-10.6)
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
[2019-06-28 22:30] LABS: ALT 32 U/L (9-52); AST 22 U/L (14-36); African American GFR (CKD) >90 (>60 ml/min/1.73 sqM); Albumin 4.3 g/dL (3.5-5.0); Alkaline Phosphatase 85 U/L (38-126); Anion Gap 12 mmol/L; Blood Urea Nitrogen 15 mg/dL (7-17); Calcium 9.8 mg/dL (8.4-10.2); Carbon Dioxide 24 mmol/L (22-30); Chloride 103 mmol/L (98-107); Glucose 106 mg/dL (74-99); Potassium 3.8 mmol/L (3.5-5.1); Sodium 139 mmol/L (137-145); Total Bilirubin 0.3 mg/dL (0.2-1.3)
[2019-06-28 22:31] LABS: INR 0.9 (<1.2); Partial Thromboplastin Time 22.1 sec (22.0-30.0); Prothrombin Time 9.9 sec (9.0-12.0)
--- NOTE | 2019-06-28 22:43 | XR ---
EXAM: XR Chest, 1 View CLINICAL HISTORY: ITS.REASON XR Reason: abdominal pain TECHNIQUE: Frontal view of the chest. COMPARISON: Chest radiographs dated 12/18/2018. FINDINGS: Lungs: Unremarkable. No consolidation. Pleural space: Unremarkable. No pneumothorax. Heart: Mild cardiomegaly. Mediastinum: Unremarkable. Bones/joints: Sternal cerclage wires appear unchanged. Calcifications projecting over the shoulders may represent calcific tendinitis. Vasculature: Atherosclerotic calcifications in the thoracic aorta. IMPRESSION: 1. No acute cardiopulmonary abnormality. 2. Mild cardiomegaly.
[2019-06-28] MEDS ORDERED: MORPHINE SULFATE 4 MG/ML SYRINGE IV STA (22:59)
[2019-06-28] MEDS ORDERED: SODIUM CHLORIDE 0.9% 1,000 ML IV STA (22:59)
[2019-06-28] MEDS ORDERED: ONDANSETRON 4 MG/2 ML VIAL IVP STA (22:59)
[2019-06-28] MEDS ORDERED: ASPIRIN 81 MG PO STA (23:03)
--- NOTE | 2019-06-28 23:13 | CT ---
EXAM: CT Abdomen and Pelvis With Intravenous Contrast CLINICAL HISTORY: ITS.REASON CT Reason: abdominal pain TECHNIQUE: Axial computed tomography images of the abdomen and pelvis with intravenous contrast. CTDI is 10.3, 11.3 mGy and DLP is 6.6.9, 423.6 mGy- cm. This CT exam was performed using one or more of the following dose reduction techniques: automated exposure control, adjustment of the mA and/or kV according to patient size, and/or use of iterative reconstruction technique. COMPARISON: CT abdomen and pelvis 05/21/2018. FINDINGS: Lung bases: Unremarkable. No mass. No consolidation. ABDOMEN: Liver: Hepatic steatosis. Gallbladder and bile ducts: Cholecystectomy. No ductal dilation. Pancreas: Unremarkable. No mass. No ductal dilation. Spleen: Unremarkable. No splenomegaly. Adrenals: Unremarkable. No mass. Kidneys and ureters: Nonobstructing 11 mm calculus in the right kidney. Stomach and bowel: Sigmoid colon diverticulitis. No obstruction. PELVIS: Appendix: No findings to suggest acute appendicitis. Bladder: Unremarkable. No mass. Reproductive: Hysterectomy. ABDOMEN and PELVIS: Intraperitoneal space: Unremarkable. No free air. No significant fluid collection. Bones/joints: No acute fracture. No dislocation. Soft tissues: Small fat-containing umbilical hernia. Vasculature: No significant interval change in appearance of aneurysmal dilatation of the infrarenal abdominal aorta measuring up to 3. 5 cm in AP dimension. 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 Lymph nodes: Unremarkable. No enlarged lymph nodes. IMPRESSION: 1. Sigmoid colon diverticulitis. No evidence of perforation or abscess. 2. Nonobstructing 11 mm calculus in the right kidney. 3. No significant interval change in appearance of aneurysmal dilatation of the infrarenal abdominal aorta measuring up to 3.5 cm in AP dimension. 4. 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 5. Hepatic steatosis.
[2019-06-28] MEDS ORDERED: NALOXONE 0.4 MG/ML 1 ML VIAL IV PRN (23:54)
[2019-06-29] MEDS: SODIUM CHLORIDE 0.9% 1,000 ML IV SCH ×2 (00:59→12:11)
[2019-06-29] MEDS: ACETAMINOPHEN TAB 325 MG TAB PO PRN (01:00)
[2019-06-29] MEDS: PIPERACILLIN-TAZOBACTAM 3.375 GM in SODIUM CHLORIDE 0.9% 100 ML IVPB SCH ×4 (01:02→23:43)
[2019-06-29] MEDS: ONDANSETRON 4 MG/2 ML VIAL IVP PRN ×3 (01:52→20:22)
[2019-06-29] MEDS: MORPHINE SULFATE 4 MG/ML SYRINGE IV PRN ×6 (03:29→23:47)
[2019-06-29] MEDS ORDERED: DILTIAZEM DRIP BOLUS FROM BAG 1 MG SOLN IV ONE (05:13)
[2019-06-29] MEDS ORDERED: DILTIAZEM 125 MG in SODIUM CHLORIDE 0.9% 100 ML IV SCH (05:15)
[2019-06-29] MEDS: HEPARIN SOD,PORK IN 0.45% NACL 25,000 UNIT in 0.45% NACL 1 250ML.BAG IV SCH (05:29)
[2019-06-29 06:24] LABS: Glucose,Whole Blood 101 mg/dL (75-99)
[2019-06-29] MEDS: INSULIN ASPART (NovoLOG) 100 UNIT/ML VIAL SQ SCH ×4 (06:24→20:46)
[2019-06-29] MEDS: PANTOPRAZOLE 40 MG/10 ML VIAL IV SCH (08:18)
[2019-06-29 11:54] LABS: Glucose,Whole Blood 122 mg/dL (75-99)
[2019-06-29] MEDS: ATORVASTATIN 80 MG TAB PO SCH (12:10)
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
[2019-06-29] MEDS: HEPARIN SODIUM,PORCINE 5,000 UNIT/ML 1 ML VIAL IV PRN (12:52)
[2019-06-29 13:13] LABS: African American GFR (CKD) >90 (>60 ml/min/1.73 sqM); Anion Gap 8 mmol/L; Blood Urea Nitrogen 16 mg/dL (7-17); Carbon Dioxide 22 mmol/L (22-30); Chloride 107 mmol/L (98-107); Glucose 89 mg/dL (74-99); Sodium 137 mmol/L (137-145)
[2019-06-29 13:30] LABS: Basophils # (A) 0.1 k/uL (0-0.2); Basophils % (A) 1 %; Eosinophils # (A) 0.1 k/uL (0-0.7); Eosinophils % (A) 1 %; HGB 13.7 gm/dL (11.4-16.0); Lymphocytes # (A) 2.6 k/uL (1.0-4.8); Lymphocytes % (A) 24 %; MCH 32.3 pg (25.0-35.0); MCHC 33.5 g/dL (31.0-37.0); MCV 96.5 fL (80.0-100.0); Mean Platelet Volume 10.1; Monocytes # (A) 0.4 k/uL (0-1.0); Monocytes % (A) 4 %; Neutrophils # (A) 7.3 k/uL (1.3-7.7); Neutrophils % (A) 69 %; Platelet Count 262 k/uL (150-450); RBC 4.25 m/uL (3.80-5.40); RDW 14.2 % (11.5-15.5); WBC 10.7 k/uL (3.8-10.6)
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
[2019-06-29 16:54] LABS: Glucose,Whole Blood 127 mg/dL (75-99)
[2019-06-29 18:28] LABS: Hemoglobin A1C 10.1 % (4.0-6.0)
[2019-06-29] MEDS: METOPROLOL TARTRATE 25 MG TAB PO SCH (20:10)
[2019-06-29 20:44] LABS: Glucose,Whole Blood 116 mg/dL (75-99)
[2019-06-30 02:45] LABS: Basophils # (A) 0.1 k/uL (0-0.2); Basophils % (A) 1 %; Eosinophils # (A) 0.2 k/uL (0-0.7); Eosinophils % (A) 1 %; HCT 41.1 % (34.0-46.0); Lymphocytes # (A) 2.5 k/uL (1.0-4.8); Lymphocytes % (A) 19 %; MCH 31.7 pg (25.0-35.0); MCHC 31.7 g/dL (31.0-37.0); Mean Platelet Volume 7.6; Monocytes # (A) 0.5 k/uL (0-1.0); Monocytes % (A) 4 %; Neutrophils # (A) 9.6 k/uL (1.3-7.7); Neutrophils % (A) 74 %; Platelet Count 230 k/uL (150-450); RBC 4.11 m/uL (3.80-5.40); RDW 12.9 % (11.5-15.5)
[2019-06-30 02:54] LABS: African American GFR (CKD) >90 (>60 ml/min/1.73 sqM); Anion Gap 9 mmol/L; Blood Urea Nitrogen 14 mg/dL (7-17); Calcium 8.4 mg/dL (8.4-10.2); Carbon Dioxide 21 mmol/L (22-30); Chloride 107 mmol/L (98-107); Glucose 143 mg/dL (74-99); Magnesium 1.7 mg/dL (1.6-2.3); Sodium 137 mmol/L (137-145)
[2019-06-30] MEDS: HEPARIN SOD,PORK IN 0.45% NACL 25,000 UNIT in 0.45% NACL 1 250ML.BAG IV SCH ×2 (03:42→22:50)
[2019-06-30] MEDS: MORPHINE SULFATE 4 MG/ML SYRINGE IV PRN ×5 (03:43→22:59)
[2019-06-30] MEDS: SODIUM CHLORIDE 0.9% 1,000 ML IV SCH ×2 (03:55→12:16)
[2019-06-30] MEDS: HEPARIN SODIUM,PORCINE 5,000 UNIT/ML 1 ML VIAL IV PRN (04:02)
[2019-06-30 06:18] LABS: Glucose,Whole Blood 177 mg/dL (75-99)
[2019-06-30] MEDS: PIPERACILLIN-TAZOBACTAM 3.375 GM in SODIUM CHLORIDE 0.9% 100 ML IVPB SCH ×3 (06:34→23:07)
[2019-06-30] MEDS: INSULIN ASPART (NovoLOG) 100 UNIT/ML VIAL SQ SCH ×4 (06:35→20:46)
[2019-06-30] MEDS: METOPROLOL TARTRATE 25 MG TAB PO SCH ×2 (08:16→20:12)
[2019-06-30] MEDS: ONDANSETRON 4 MG/2 ML VIAL IVP PRN ×2 (08:16→16:11)
[2019-06-30] MEDS: ATORVASTATIN 80 MG TAB PO SCH (08:16)
[2019-06-30] MEDS: PANTOPRAZOLE 40 MG/10 ML VIAL IV SCH (08:16)
[2019-06-30 12:11] LABS: Glucose,Whole Blood 164 mg/dL (75-99)
--- NOTE | 2019-06-30 12:28 | P.PN ---
Subjective Progress Note Date: 06/30/19 This is a 63-year-old white female well-known to me. She has had multiple episodes of diverticulitis in the past. She came in the emergency room with abdominal and chest pain. She has multiple comorbidities. He is had multiple episodes of diverticulitis in the past. She has not had any fever or chills. Repeat CT shows diverticulitis in the sigmoid colon along with a nonobstructing right renal calculus. This morning she continues to have pain. The pain is slightly less. It is generalized abdomen. General surgery has been consult. This a.m. her heart rate increased to approximately 140. Telemetry shows a rate consistent with atrial fibrillation. She has no history of this. Her troponins were slightly abnormal and it worsened slightly. Cardiology has been consult for management. She remains nothing by mouth with ice chips at this time. She denies any chest pains at this time. Abdominal pain continues but is improved. Recent nausea or vomiting.. 06/30/2019: Patient remains on ice chips and popsicles only this time. She continues to have mostly left lower quadrant abdominal pain. He denies any significant vomiting but has some nausea. He is currently in an out of atrial fibrillation. She is on metoprolol and IV heparin for this per cardiology. They're planning workup after diverticular is more controlled. She has some questionable dysuria and indicates she is not urinating very frequently. Objective - Vital Signs Vital signs: Vital Signs Temp 98.4 F 06/30/19 07:25 Pulse 55 L 06/30/19 11:20 Resp 16 06/30/19 11:20 BP 130/65 06/30/19 11:20 Pulse Ox 96 06/30/19 11:20 Intake & Output 06/29/19 06/30/19 06/30/19 18:59 06:59 18:59 Intake Total 95.401 186.270 101.271 Balance 95.401 186.270 101.271 Weight 82.6 kg 82.6 kg Intake: Intake, IV Titration 95.401 186.270 101.271 Amount Diltiazem 125 mg In 27.083 Sodium Chloride 0.9% 100 ml @ 7.5 MG/HR 7.5 mls/hr IV .[id number] [facility] Rx#: [id number] Heparin Sod,Pork in 0.45% 68.318 186.270 101.271 NaCl 25,000 unit In 0.45 % NaCl 1 250ml.bag @ 12 UNITS/KG/HR 9.253 mls/hr IV .Q24H [facility] Rx#: [id number] Other: Voiding Method Toilet Toilet Toilet # Voids 1 2 - Exam GENERAL: Fatigued and in mild distress at this time holding her abdomen. NECK: Normal range of motion, supple without lymphadenopathy or JVD, no thyromegaly LUNGS: Breath sounds coarse to auscultation bilaterally and equal. No wheezes rales or rhonchi. HEART: Regular rate and rhythm without murmurs, rubs or gallops.S1S2 Normal. Telemetry now shows sinus rhythm. ABDOMEN: Soft, hypoactive bowel sounds. No guarding, no rebound. No masses appreciated. Generalized tenderness worse in the left lower quadrant. EXTREMITIES: Normal range of motion, no pitting or edema. No clubbing or cyanosis. NEUROLOGICAL: Cranial nerves II through XII grossly intact. Normal speech, normal gait. PSYCH: Normal mood, normal affect. SKIN: Warm, Dry, normal turgor, no rashes or lesions noted. - Labs CBC & Chem 7: 06/30/19 02:19 06/30/19 02:19 Labs: Abnormal Lab Results - Last 24 Hours (Table) 06/29/19 06/29/19 06/29/19 Range/Units 10:55 10:55 10:55 WBC 10.7 H (3.8-10.6) k/uL Neutrophils # (1.3-7.7) k/uL APTT (22.0-30.0) sec Carbon Dioxide (22-30) mmol/L Glucose (74-99) mg/dL POC Glucose (mg/dL) (75-99) mg/dL Hemoglobin A1c 10.1 H (4.0-6.0) % Troponin I 2.400 H* (0.000-0.034) ng/mL 06/29/19 06/29/19 06/29/19 Range/Units 16:47 19:40 20:43 WBC (3.8-10.6) k/uL Neutrophils # (1.3-7.7) k/uL APTT 42.8 H (22.0-30.0) sec Carbon Dioxide (22-30) mmol/L Glucose (74-99) mg/dL POC Glucose (mg/dL) 127 H 116 H (75-99) mg/dL Hemoglobin A1c (4.0-6.0) % Troponin I (0.000-0.034) ng/mL 06/30/19 06/30/19 06/30/19 Range/Units 02:19 02:19 02:19 WBC 13.0 H (3.8-10.6) k/uL Neutrophils # 9.6 H (1.3-7.7) k/uL APTT 37.0 H (22.0-30.0) sec Carbon Dioxide 21 L (22-30) mmol/L Glucose 143 H (74-99) mg/dL POC Glucose (mg/dL) (75-99) mg/dL Hemoglobin A1c (4.0-6.0) % Troponin I (0.000-0.034) ng/mL 06/30/19 06/30/19 06/30/19 Range/Units 06:17 09:52 12:05 WBC (3.8-10.6) k/uL Neutrophils # (1.3-7.7) k/uL APTT 100.2 H* (22.0-30.0) sec Carbon Dioxide (22-30) mmol/L Glucose (74-99) mg/dL POC Glucose (mg/dL) 177 H 164 H (75-99) mg/dL Hemoglobin A1c (4.0-6.0) % Troponin I (0.000-0.034) ng/mL Microbiology - Last 24 Hours (Table) 06/29/19 00:57 Blood Culture - Preliminary Blood No Growth after 24 hours Assessment and Plan (1) Nephrolithiasis Current Visit: Yes Status: Acute Code(s): N20.0 - CALCULUS OF KIDNEY SNOMED Code(s): 60498646 (2) Diverticulitis Current Visit: Yes Status: Acute Code(s): K57.92 - DVTRCLI OF INTEST, PART UNSP, W/O PERF OR ABSCESS W/O BLEED SNOMED Code(s): 288298455 (3) Elevated troponin Current Visit: Yes Status: Acute Code(s): R74.8 - ABNORMAL LEVELS OF OTHER SERUM ENZYMES SNOMED Code(s): 742267315 (4) Abdominal pain Current Visit: No Status: Acute Code(s): R10.9 - UNSPECIFIED ABDOMINAL PAIN SNOMED Code(s): 19292766 (5) CAD (coronary artery disease) Current Visit: No Status: Acute Code(s): I25.10 - ATHSCL HEART DISEASE OF [place] CORONARY ARTERY W/O ANG PCTRS SNOMED Code(s): 23878034 (6) Carotid stenosis Current Visit: No Status: Acute Code(s): I65.29 - OCCLUSION AND STENOSIS OF UNSPECIFIED CAROTID ARTERY SNOMED Code(s): 08136603 (7) Diabetes Current Visit: No Status: Acute Code(s): E11.9 - TYPE 2 DIABETES MELLITUS WITHOUT COMPLICATIONS SNOMED Code(s): 13210263 (8) HTN (hypertension) Current Visit: No Status: Acute Code(s): I10 - ESSENTIAL (PRIMARY) HYPERTENSION SNOMED Code(s): 54184402 (9) Hyperlipemia Current Visit: No Status: Acute Code(s): E78.5 - HYPERLIPIDEMIA, UNSPECIFIED SNOMED Code(s): 57865314 (10) Atrial fibrillation Current Visit: Yes Status: Acute Code(s): I48.91 - UNSPECIFIED ATRIAL FIBRILLATION SNOMED Code(s): 50781621 Plan: Surgery and cardiology recommendations noted. She'll remain on popsicles and ice chips. Continue insulin scale and Accu-Cheks, at this time. Once her diet improves, we'll reintroduce her long-acting insulin. Check bladder scan for dysuria and obtain a urinalysis. What cultures remained negative at 24 hours. Continue pantoprazole for GI prophylaxis and like continue Zofran for nausea. He'll continue metoprolol and heparin drip for the atrial fibrillation Continue atorvastatin for hyperlipidemia. Continue morphine for pain. Continue Zosyn for antibiotic coverage. Repeat labs in a.m. She'll be reevaluated next 24 hours.
--- NOTE | 2019-06-30 13:40 | P.PN ---
Subjective Progress Note Date: 06/30/19 CHIEF COMPLAINT: Sigmoid diverticulitis HISTORY OF PRESENT ILLNESS: The patient is a 63-year-old female who comes in with history of recurrent diverticulitis. She also had chest pain with elevated troponin. She is on a heparin gtt. Her abdominal pain is unchanged from yesterday. She is tolerating ice chips and popsicles. She has a low grade temp under 100.0 F. ROS: Presented with chest pain. No nausea or vomiting. No fevers or chills. PHYSICAL EXAM: VITALS: Reviewed CONSTITUTIONAL: Well developed and in no acute distress. EYES: Conjuctivae without sclera icterus. Pupils are equally round and reactive to light. Extraocular movements grossly intact. HEAD, EARS, NOSE, THROAT: Moist buccal mucosa. Head is atraumatic, normocephalic. Hears conversational speech. No nasal drainage. NECK: Supple. No JV distention. No thyroidomegaly. RESPIRATORY: Non-labored respirations and equal bilateral excursions. No gross wheezes. CARDIOVASCULAR: Extremities without edema. Palpable 2+ radial pulses. ABDOMEN: No hepatomegaly. Soft. Tender at left lower quadrant. MUSCULOSKELETAL: Nail and fingers with good capillary refill. SKIN: Warm and well perfused with good skin turgor. NEUROLOGIC: Cranial nerves I through XII grossly intact. Sensation upper and extremities intact. No focal or lateralizing signs. PSYCH: Appropriate affect. Alert and oriented to person, place and time. Displays appropriate insight. CLINCAL LABS: Reviewed. White blood cell count elevated over 12,000 to now over 13,000 ASSESSMENT: 1. Sigmoid diverticulitis 2. Elevated troponin PLAN: 1. May need adjustment of antibiotics 2. Continue ice chips and popsicles 3. May need repeat CT scan of the abdomen if no clinical improvement 4. With active myocardial ischemia, surgery is high risk; therefore cons ervative management advised. Objective - Vital Signs Vital signs: Vital Signs Temp 98.4 F 06/30/19 07:25 Pulse 55 L 06/30/19 11:20 Resp 16 06/30/19 11:20 BP 130/65 06/30/19 11:20 Pulse Ox 96 06/30/19 11:20 Intake & Output 06/29/19 06/30/19 06/30/19 18:59 06:59 18:59 Intake Total 95.401 186.270 101.271 Balance 95.401 186.270 101.271 Weight 82.6 kg 82.6 kg Intake: Intake, IV Titration 95.401 186.270 101.271 Amount Diltiazem 125 mg In 27.083 Sodium Chloride 0.9% 100 ml @ 7.5 MG/HR 7.5 mls/hr IV .[id number] [facility] Rx#: [id number] Heparin Sod,Pork in 0.45% 68.318 186.270 101.271 NaCl 25,000 unit In 0.45 % NaCl 1 250ml.bag @ 12 UNITS/KG/HR 9.253 mls/hr IV .Q24H [facility] Rx#: [id number] Other: Voiding Method Toilet Toilet Toilet # Voids 1 2 - Labs CBC & Chem 7: 06/30/19 02:19 06/30/19 02:19 Labs: Abnormal Lab Results - Last 24 Hours (Table) 06/29/19 06/29/19 06/29/19 Range/Units 10:55 16:47 19:40 WBC (3.8-10.6) k/uL Neutrophils # (1.3-7.7) k/uL APTT 42.8 H (22.0-30.0) sec Carbon Dioxide (22-30) mmol/L Glucose (74-99) mg/dL POC Glucose (mg/dL) 127 H (75-99) mg/dL Hemoglobin A1c 10.1 H (4.0-6.0) % 06/29/19 06/30/19 06/30/19 Range/Units 20:43 02:19 02:19 WBC 13.0 H (3.8-10.6) k/uL Neutrophils # 9.6 H (1.3-7.7) k/uL APTT (22.0-30.0) sec Carbon Dioxide 21 L (22-30) mmol/L Glucose 143 H (74-99) mg/dL POC Glucose (mg/dL) 116 H (75-99) mg/dL Hemoglobin A1c (4.0-6.0) % 06/30/19 06/30/19 06/30/19 Range/Units 02:19 06:17 09:52 WBC (3.8-10.6) k/uL Neutrophils # (1.3-7.7) k/uL APTT 37.0 H 100.2 H* (22.0-30.0) sec Carbon Dioxide (22-30) mmol/L Glucose (74-99) mg/dL POC Glucose (mg/dL) 177 H (75-99) mg/dL Hemoglobin A1c (4.0-6.0) % 06/30/19 Range/Units 12:05 WBC (3.8-10.6) k/uL Neutrophils # (1.3-7.7) k/uL APTT (22.0-30.0) sec Carbon Dioxide (22-30) mmol/L Glucose (74-99) mg/dL POC Glucose (mg/dL) 164 H (75-99) mg/dL Hemoglobin A1c (4.0-6.0) % Microbiology - Last 24 Hours (Table) 06/29/19 00:57 Blood Culture - Preliminary Blood No Growth after 24 hours Assessment and Plan (1) Diabetes type 2, uncontrolled Current Visit: Yes Status: Acute Code(s): E11.65 - TYPE 2 DIABETES MELLITUS WITH HYPERGLYCEMIA SNOMED Code(s): 929110547 (2) Diverticulitis Current Visit: Yes Status: Acute Code(s): K57.92 - DVTRCLI OF INTEST, PART UNSP, W/O PERF OR ABSCESS W/O BLEED SNOMED Code(s): 367851979 (3) Elevated troponin Current Visit: Yes Status: Acute Code(s): R74.8 - ABNORMAL LEVELS OF OTHER SERUM ENZYMES SNOMED Code(s): 158854552 (4) Abdominal pain Current Visit: No Status: Acute Code(s): R10.9 - UNSPECIFIED ABDOMINAL PAIN SNOMED Code(s): 44122932 (5) Acute diverticulitis of intestine Current Visit: No Status: Acute Code(s): K57.92 - DVTRCLI OF INTEST, PART UNSP, W/O PERF OR ABSCESS W/O BLEED SNOMED Code(s): 105471477 (6) Myocardial ischemia Current Visit: Yes Status: Acute Code(s): I25.9 - CHRONIC ISCHEMIC HEART DIS EASE, UNSPECIFIED SNOMED Code(s): 408786840
--- NOTE | 2019-06-30 14:08 | P.PN ---
Subjective This is Opal Boyd PA-C dictating a progress note on this patient The patient was interviewed and examined by me as well as by Dr. Gregory Case discussed with Dr. Gregory and he agrees with the plan of care IMPRESSION / ASSESSMENT: Paroxysmal atrial fibrillation, has remained in sinus rhythm Possible non-Q-wave MO, troponins elevated, EKG showed ST depressions in the precordial leads, patient is asymptomatic Sigmoid diverticulitis, has been started on antibiotics DD status post CABG and stenting Hypertension Diabetes Dyslipidemia Current smoker PLAN: Recommend coronary angiography when diverticulitis improves to determine whether this is a type I or type 2 MO Continue medical management for now with statins, aspirin, and beta blockers HPI/interval history Patient is a 63-year-old female with a past medical history of CAD status post CABG and stenting, hypertension, CVA, diabetes, dyslipidemia who presented with abdominal pain and chest pain. She was found to have sigmoid colon diverticulitis and is being evaluated by surgery. She had elevated troponins and ST depressions in the precordial leads. During the admission she also went into atrial fibrillation with RVR and was treated with IV Cardizem. She converted and has been on metoprolol. He has been in sinus rhythm overnight. Patient seen and examined sitting up in her chair, still complaining of severe abdominal pain as well as neck pain. She is also a little nauseated. Denies any chest pain or pressure, jaw pain, arm pain, shortness of breath, dizziness, diaphoresis lightheadedness, syncope. EXAMINATION Patient is afebrile, pulse 58, respirations 18, blood pressure 134/72, oxygen saturation 93% on 2 L nasal cannula Patient seen and examined sitting up in her chair, no acute distress Lungs mildly diminished with few crackles at the bases Heart is regular, normal S1-S2, no murmurs appreciated Abdomen tender to palpation diffusely No lower extremity edema REVIEW OF LABS, ECG WBC 13, hemoglobin 13, potassium 4.0, BUN 14, creatinine 0.61 Troponin 2.4, 0.048, 0.044 Telemetry revealed sinus rhythm overnight Objective - Vital Signs Vital signs: Vital Signs Temp 98.4 F 06/30/19 07:25 Pulse 55 L 06/30/19 11:20 Resp 16 06/30/19 11:20 BP 130/65 06/30/19 11:20 Pulse Ox 96 06/30/19 11:20 Intake & Output 06/29/19 06/30/19 06/30/19 18:59 06:59 18:59 Intake Total 95.401 186.270 101.271 Balance 95.401 186.270 101.271 Weight 82.6 kg 82.6 kg Intake: Intake, IV Titration 95.401 186.270 101.271 Amount Diltiazem 125 mg In 27.083 Sodium Chloride 0.9% 100 ml @ 7.5 MG/HR 7.5 mls/hr IV .[id number] AAMIR Rx#: [id number] Heparin Sod,Pork in 0.45% 68.318 186.270 101.271 NaCl 25,000 unit In 0.45 % NaCl 1 250ml.bag @ 12 UNITS/KG/HR 9.253 mls/hr IV .Q24H AAMIR Rx#: [id number] Other: Voiding Method Toilet Toilet Toilet # Voids 1 2 - Labs CBC & Chem 7: 06/30/19 02:19 06/30/19 02:19 Labs: Abnormal Lab Results - Last 24 Hours (Table) 06/29/19 06/29/19 06/29/19 Range/Units 10:55 16:47 19:40 WBC (3.8-10.6) k/uL Neutrophils # (1.3-7.7) k/uL APTT 42.8 H (22.0-30.0) sec Carbon Dioxide (22-30) mmol/L Glucose (74-99) mg/dL POC Glucose (mg/dL) 127 H (75-99) mg/dL Hemoglobin A1c 10.1 H (4.0-6.0) % 06/29/19 06/30/19 06/30/19 Range/Units 20:43 02:19 02:19 WBC 13.0 H (3.8-10.6) k/uL Neutrophils # 9.6 H (1.3-7.7) k/uL APTT (22.0-30.0) sec Carbon Dioxide 21 L (22-30) mmol/L Glucose 143 H (74-99) mg/dL POC Glucose (mg/dL) 116 H (75-99) mg/dL Hemoglobin A1c (4.0-6.0) % 06/30/19 06/30/19 06/30/19 Range/Units 02:19 06:17 09:52 WBC (3.8-10.6) k/uL Neutrophils # (1.3-7.7) k/uL APTT 37.0 H 100.2 H* (22.0-30.0) sec Carbon Dioxide (22-30) mmol/L Glucose (74-99) mg/dL POC Glucose (mg/dL) 177 H (75-99) mg/dL Hemoglobin A1c (4.0-6.0) % 06/30/19 Range/Units 12:05 WBC (3.8-10.6) k/uL Neutrophils # (1.3-7.7) k/uL APTT (22.0-30.0) sec Carbon Dioxide (22-30) mmol/L Glucose (74-99) mg/dL POC Glucose (mg/dL) 164 H (75-99) mg/dL Hemoglobin A1c (4.0-6.0) % Microbiology - Last 24 Hours (Table) 06/29/19 00:57 Blood Culture - Preliminary Blood No Growth after 24 hours
[2019-06-30] MEDS: metroNIDAZOLE-NS PMX 500 MG in SALINE 1 100ML.BAG IVPB SCH ×3 (14:34→23:05)
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
[2019-06-30 17:08] LABS: Glucose,Whole Blood 135 mg/dL (75-99)
[2019-06-30 18:08] LABS: Amorphous Sediment,Urine Rare /hpf; Appearance,Urine Turbid (Clear); Bacteria,Urine Rare /hpf; Bilirubin,Urine Negative (Negative); Blood,Urine Moderate (Negative); Color,Urine Yellow; Glucose,Urine (UA) Negative (Negative); Hyaline Casts,Urine 11 /lpf (0-2); Ketones,Urine 1+ (Negative); Leukocyte Esterase,Urine Large (Negative); Mucus,Urine Rare /hpf; Nitrite,Urine Negative (Negative); PH, Urine 5.5 (5.0-8.0); Protein,Urine 1+ (Negative); RBC,Urine 36 /hpf (0-5); Specific Gravity,Urine 1.024 (1.001-1.035); Squamous Epithelial Cell,Urine 6 /hpf (0-4); Uric Acid Crystals,Urine Few /hpf; Urobilinogen,Urine <2.0 mg/dL (<2.0); WBC,Urine 64 /hpf (0-5)
[2019-06-30] MEDS: ACETAMINOPHEN TAB 325 MG TAB PO PRN (20:06)
[2019-06-30 20:26] LABS: Glucose,Whole Blood 149 mg/dL (75-99)
[2019-06-30] MEDS: LISINOPRIL 20 MG TAB PO SCH (23:51)
[2019-07-01] MEDS: SODIUM CHLORIDE 0.9% 1,000 ML IV SCH ×2 (03:11→11:20)
[2019-07-01 06:35] LABS: Glucose,Whole Blood 135 mg/dL (75-99)
[2019-07-01] MEDS: metroNIDAZOLE-NS PMX 500 MG in SALINE 1 100ML.BAG IVPB SCH ×4 (06:43→23:28)
[2019-07-01] MEDS: INSULIN ASPART (NovoLOG) 100 UNIT/ML VIAL SQ SCH ×4 (06:44→21:03)
[2019-07-01] MEDS: PIPERACILLIN-TAZOBACTAM 3.375 GM in SODIUM CHLORIDE 0.9% 100 ML IVPB SCH ×3 (06:44→23:28)
[2019-07-01] MEDS: MORPHINE SULFATE 4 MG/ML SYRINGE IV PRN ×4 (07:29→22:40)
[2019-07-01 08:38] LABS: HCT 33.9 % (34.0-46.0); HGB 11.5 gm/dL (11.4-16.0); MCHC 33.8 g/dL (31.0-37.0); MCV 97.4 fL (80.0-100.0); Mean Platelet Volume 7.8; Platelet Count 186 k/uL (150-450); RBC 3.48 m/uL (3.80-5.40); RDW 12.5 % (11.5-15.5); WBC 11.3 k/uL (3.8-10.6)
[2019-07-01 08:45] LABS: Amorphous Sediment,Urine Occasional /hpf; Appearance,Urine Cloudy (Clear); Bacteria,Urine Rare /hpf; Bilirubin,Urine Negative (Negative); Blood,Urine Large (Negative); Calcium Oxalate Crystals,Urine Rare /hpf; Color,Urine Light Yellow; Glucose,Urine (UA) Negative (Negative); Ketones,Urine 1+ (Negative); Leukocyte Esterase,Urine Negative (Negative); Mucus,Urine Rare /hpf; Nitrite,Urine Negative (Negative); PH, Urine 5.5 (5.0-8.0); Protein,Urine 1+ (Negative); RBC,Urine >182 /hpf (0-5); Uric Acid Crystals,Urine Few /hpf; Urobilinogen,Urine <2.0 mg/dL (<2.0); WBC,Urine <1 /hpf (0-5)
[2019-07-01] MEDS: PANTOPRAZOLE 40 MG/10 ML VIAL IV SCH (08:50)
[2019-07-01] MEDS: METOPROLOL TARTRATE 25 MG TAB PO SCH ×2 (08:52→20:30)
[2019-07-01] MEDS: ATORVASTATIN 80 MG TAB PO SCH ×2 (08:52→11:02)
[2019-07-01] MEDS: LISINOPRIL 20 MG TAB PO SCH (08:52)
[2019-07-01] MEDS: ASPIRIN 81 MG PO SCH ×2 (08:52→11:01)
[2019-07-01 09:37] LABS: ALT 44 U/L (9-52); AST 94 U/L (14-36); African American GFR (CKD) >90 (>60 ml/min/1.73 sqM); Albumin 3.1 g/dL (3.5-5.0); Alkaline Phosphatase 74 U/L (38-126); Anion Gap 7 mmol/L; Blood Urea Nitrogen 13 mg/dL (7-17); Carbon Dioxide 22 mmol/L (22-30); Chloride 108 mmol/L (98-107); Glucose 149 mg/dL (74-99); Magnesium 1.7 mg/dL (1.6-2.3); Potassium 3.6 mmol/L (3.5-5.1); Sodium 137 mmol/L (137-145); Total Bilirubin 0.4 mg/dL (0.2-1.3); Total Protein 5.2 g/dL (6.3-8.2)
[2019-07-01] MEDS ORDERED: ALPRAZolam 0.5 MG TAB PO PRN (10:59)
[2019-07-01] MEDS ORDERED: ALPRAZolam 0.25 MG TAB PO PRN (10:59)
[2019-07-01] MEDS ORDERED: SODIUM CHLORIDE 0.9% 1,000 ML in EMPTY BAG 1 BAG IV ONE (10:59)
[2019-07-01] MEDS ORDERED: NITROGLYCERIN SL TABS 0.4 MG TAB SUBLINGUAL PRN (10:59)
[2019-07-01] MEDS: ONDANSETRON 4 MG/2 ML VIAL IVP PRN ×2 (11:19→21:05)
[2019-07-01] MEDS: hydrALAZINE HCL 25 MG TAB PO SCH ×2 (11:20→20:30)
--- NOTE | 2019-07-01 11:44 | PN ---
PROGRESS NOTE Mrs. Velez is a 63-year-old female with known history of coronary artery disease, status post coronary artery bypass grafting in 1995 with BRANDON to LAD, saphenous vein graft to the PDA in the OM, subsequently stenting of the distal left circumflex 2010 in attempt to stent the distal RCA that was unsuccessful in 2014. She presented with symptoms of abdominal discomfort and diarrhea and her troponin was evaluated because of symptoms of chest discomfort on Monday and she had a peak troponin of 2.4. She has no further chest discomfort at this time but she is complaining of shoulder discomfort. Her abdominal discomfort has improved and her diarrhea has resolved. Unfortunately, she continues to smoke. She denies any dizziness or palpitation. She has a history of carotid disease and has been followed by Dr. Hayes for possible left carotid endarterectomy. She had an echocardiogram in December of this year that revealed mild- to-moderate mitral with evidence of inferior wall hypokinesis ejection fraction of 47% and she has evidence of hypertrophic cardiomyopathy in the past. Her medications at this time include IV heparin, aspirin, Lipitor 80 mg daily, Zestril 40 mg daily, metoprolol tartrate 25 mg twice a day and insulin. PHYSICAL EXAMINATION: Blood pressure running in the 160s with the heart rate in the 60s. LUNGS: Clear. HEART: Regular rate and rhythm. S1, S2. No S3 with a systolic murmur, ejection type. No diastolic murmur. No rub. ABDOMEN: Soft, nontender. Positive bowel sounds. No organomegaly. EXTREMITIES: No edema. Intact distal pulses. LAB DATA: Lab data revealed BUN and creatinine of 13 and 0.56, potassium 3.6, hemoglobin of 11.5. IMPRESSION: 1. [id number] elevation myocardial infarction in a patient with history of coronary artery disease, status post coronary artery bypass grafting. She had pain on Monday. 2. Sigmoid diverticulitis. 3. History of chronic tobacco use. 4. Peripheral vascular disease with carotid disease has been followed by Dr. Hayes in that regard. 5. History of hypertension. 6. Hyperlipidemia. 7. Diabetes mellitus. RECOMMENDATION: I will obtain echocardiogram with Doppler. I will add hydralazine to her regimen to optimize her blood pressure control. I would recommend to proceed with coronary angiography tomorrow to assess her status and guide treatment unless she has further abdominal issues. Those findings and recommendation were discussed with the patient and her family, and are in full understanding and agreement. MMODL / IJN: [id number] /
--- NOTE | 2019-07-01 11:59 | ECHOF ---
Referral Reason:[facility]n [facility] MEASUREMENTS -------- HEIGHT: 170.2 cm WEIGHT: 84.8 kg BP: 167/77 RVIDd: 3.0 cm (< 3.3) IVSd: 1.3 cm (0.6 - 1.1) LVIDd: 5.4 cm (3.9 - 5.3) LVPWd: 1.6 cm (0.6 - 1.1) IVSs: 2.4 cm LVIDs: 3.9 cm LVPWs: 1.8 cm LAESV Index (A-L): 36.56 ml/m Ao Diam: 3.3 cm (2.0 - 3.7) AV Cusp: 2.2 cm (1.5 - 2.6) LA Diam: 3.1 cm (2.7 - 3.8) MV EXCURSION: 13.189 mm (> 18.000) MV EF SLOPE: 71 mm/s (70 - 150) EPSS: 0.2 cm MV E Johnathan: 1.13 m/s MV DecT: 281 ms MV A Johnathan: 1.10 m/s MV E/A Ratio: 1.02 AV maxP.85 mmHg AV meanP.20 mmHg AR PHT: 709 ms RAP: 20.00 mmHg RVSP: 47.83 mmHg FINDINGS -------- Sinus rhythm. This was a technically good study. The left ventricular size is normal. There is mild concentric left ventricular hypertrophy. Overa ll left ventricular systolic function is normal with, an EF between 55 - 60 %. The right ventricle is normal in size. LA is moderately dilated 34-39 ml/m2 The right atrial size is normal. Interatrial and interventricular septum intact. Aortic valve is trileaflet and is mildly thickened. There is mild aortic regurgitation. There is mild aortic stenosis present. Peak/mean gradient across the Aortic Valve is 20.85mmHg / 10.20mmHg. The mitral valve is normal. The mitral valve leaflets are mildly thickened. Mild mitral regurgita tion is present. The tricuspid valve appears structurally normal. Moderate tricuspid regurgitation present. There is mild pulmonary hypertension. There is no pulmonic regurgitation present. The aortic root size is normal. The inferior vena cava is dilated with no significant inspiratory collapse which is consistent estima brian right atrial pressure of >20 mmHg. There is no pericardial effusion. CONCLUSIONS -------- 1. Sinus rhythm. 2. This was a technically good study. 3. The left ventricular size is normal. 4. There is mild concentric left ventricular hypertrophy. 5. Overall left ventricular systolic function is normal with, an EF between 55 - 60 %. 6. The right ventricle is normal in size. 7. LA is moderately dilated 34-39 ml/m2 8. The right atrial size is normal. 9. Interatrial and interventricular septum intact. 10. Aortic valve is trileaflet and is mildly thickened. 11. There is mild aortic regurgitation. 12. There is mild aortic stenosis present. 13. Peak/mean gradient across the Aortic Valve is 20.85mmHg / 10.20mmHg. 14. The mitral valve is normal. 15. The mitral valve leaflets are mildly thickened. 16. Mild mitral regurgitation is present. 17. The tricuspid valve appears structurally normal. 18. Moderate tricuspid regurgitation present. 19. There is mild pulmonary hypertension. 20. There is no pulmonic regurgitation present. 21. The aortic root size is normal. 22. The inferior vena cava is dilated with no significant inspiratory collapse which is consistent es timated right atrial pressure of >20 mmHg. 23. There is no pericardial effusion. MANAGER ADVERTISING: Nieves Ge RDCS
--- NOTE | 2019-07-01 12:03 | P.PN ---
<Torie Siddiqui A - Last Filed: 07/01/19 14:36> Subjective Progress Note Date: 07/01/19 CHIEF COMPLAINT: sigmoid diverticulitis HISTORY OF PRESENT ILLNESS: Patient examined at the bedside. She continues to report abdominal pain but states it is getting better each day. Passing flatus. Denies BM. Tolerating ice chips and popsicles. WBC 11.3. Hemoglobin 11.5. PHYSICAL EXAM: VITAL SIGNS: Reviewed. GENERAL: Well-developed in no acute distress. HEENT: No sclera icterus. Extraocular movements grossly intact. Moist buccal mucosa. Head is atraumatic, normocephalic. ABDOMEN: Soft. Nondistended. Tenderness to left lower quadrant. NEUROLOGIC: Alert and oriented. Cranial nerves II through XII grossly intact. ASSESSMENT: 1. Sigmoid diverticulitis 2. Elevated troponin PLAN: 1. Continue ice chips and popsicles. Possible advancement of diet when re- evaluated by Dr. Hunter this afternoon 2. Continue zosyn and flagyl 3. Cardiology following for elevated troponins. Patient remains on heparin drip. Cardiac cath scheduled for tomorrow. 4. Further recommendations pending patient course Nurse practitioner note has been reviewed by physician. Signing provider agrees with the documented findings, assessment, and plan of care. Objective - Vital Signs Vital signs: Vital Signs Temp 98.2 F 07/01/19 09:00 Pulse 54 L 07/01/19 11:17 Resp 16 07/01/19 11:17 BP 199/91 07/01/19 11:17 Pulse Ox 95 07/01/19 11:17 Intake & Output 06/30/19 07/01/19 07/01/19 18:59 06:59 18:59 Intake Total 273.271 144.141 230 Output Total 500 1150 Balance -226.729 144.141 -920 Weight 82.6 kg 85.1 kg Intake: IV 72 30 Heparin Sod,Pork in 0.45% 72 30 NaCl 25,000 unit In 0.45 % NaCl 1 250ml.bag @ 12 UNITS/KG/HR 9.253 mls/hr IV .Q24H [facility] Rx#: [id number] Intake, IV Titration 201.271 144.141 200 Amount Heparin Sod,Pork in 0.45% 101.271 144.141 NaCl 25,000 unit In 0.45 % NaCl 1 250ml.bag @ 12 UNITS/KG/HR 9.253 mls/hr IV .Q24H [facility] Rx#: [id number] Piperacillin-Tazobactam 3 100 100 .375 gm In Sodium Chloride 0.9% 100 ml @ 25 mls/hr IVPB Q8H [facility] Rx#: [id number] metroNIDAZOLE-NS PMX 500 100 mg In Saline 1 100ml.bag @ 100 mls/hr IVPB Q6HR [facility] Rx#:[id number] Output: Urine 500 650 Straight 400 600 Post Void Residual 500 Other: Voiding Method Toilet Toilet Toilet # Voids 1 - Labs CBC & Chem 7: 07/01/19 08:20 07/01/19 08:20 Labs: Abnormal Lab Results - Last 24 Hours (Table) 06/30/19 06/30/19 06/30/19 Range/Units 12:05 17:02 17:40 WBC (3.8-10.6) k/uL RBC (3.80-5.40) m/uL Hct (34.0-46.0) % APTT (22.0-30.0) sec Chloride (98-107) mmol/L Glucose (74-99) mg/dL POC Glucose (mg/dL) 164 H 135 H (75-99) mg/dL Calcium (8.4-10.2) mg/dL AST (14-36) U/L Total Protein (6.3-8.2) g/dL Albumin (3.5-5.0) g/dL Urine Appearance Turbid H (Clear) Urine Protein 1+ H (Negative) Urine Ketones 1+ H (Negative) Urine Blood Moderate H (Negative) Ur Leukocyte Esterase Large H (Negative) Urine RBC 36 H (0-5) /hpf Urine WBC 64 H (0-5) /hpf Ur Squamous Epith Cells 6 H (0-4) /hpf Calcium Oxalate Crystal (None) /hpf Uric Acid Crystals Few H (None) /hpf Amorphous Sediment Rare H (None) /hpf Urine Bacteria Rare H (None) /hpf Hyaline Casts 11 H (0-2) /lpf Urine Mucus Rare H (None) /hpf 06/30/19 06/30/19 07/01/19 Range/Units 18:10 20:25 06:34 WBC (3.8-10.6) k/uL RBC (3.80-5.40) m/uL Hct (34.0-46.0) % APTT 56.8 H (22.0-30.0) sec Chloride (98-107) mmol/L Glucose (74-99) mg/dL POC Glucose (mg/dL) 149 H 135 H (75-99) mg/dL Calcium (8.4-10.2) mg/dL AST (14-36) U/L Total Protein (6.3-8.2) g/dL Albumin (3.5-5.0) g/dL Urine Appearance (Clear) Urine Protein (Negative) Urine Ketones (Negative) Urine Blood (Negative) Ur Leukocyte Esterase (Negative) Urine RBC (0-5) /hpf Urine WBC (0-5) /hpf Ur Squamous Epith Cells (0-4) /hpf Calcium Oxalate Crystal (None) /hpf Uric Acid Crystals (None) /hpf Amorphous Sediment (None) /hpf Urine Bacteria (None) /hpf Hyaline Casts (0-2) /lpf Urine Mucus (None) /hpf 07/01/19 07/01/19 07/01/19 Range/Units 06:47 08:20 08:20 WBC (3.8-10.6) k/uL RBC (3.80-5.40) m/uL Hct (34.0-46.0) % APTT 47.9 H (22.0-30.0) sec Chloride 108 H (98-107) mmol/L Glucose 149 H (74-99) mg/dL POC Glucose (mg/dL) (75-99) mg/dL Calcium 8.0 L (8.4-10.2) mg/dL AST 94 H (14-36) U/L Total Protein 5.2 L (6.3-8.2) g/dL Albumin 3.1 L (3.5-5.0) g/dL Urine Appearance Cloudy H (Clear) Urine Protein 1+ H (Negative) Urine Ketones 1+ H (Negative) Urine Blood Large H (Negative) Ur Leukocyte Esterase (Negative) Urine RBC >182 H (0-5) /hpf Urine WBC (0-5) /hpf Ur Squamous Epith Cells (0-4) /hpf Calcium Oxalate Crystal Rare H (None) /hpf Uric Acid Crystals Few H (None) /hpf Amorphous Sediment Occasional H (None) /hpf Urine Bacteria Rare H (None) /hpf Hyaline Casts (0-2) /lpf Urine Mucus Rare H (None) /hpf 07/01/19 Range/Units 08:20 WBC 11.3 H (3.8-10.6) k/uL RBC 3.48 L (3.80-5.40) m/uL Hct 33.9 L (34.0-46.0) % APTT (22.0-30.0) sec Chloride (98-107) mmol/L Glucose (74-99) mg/dL POC Glucose (mg/dL) (75-99) mg/dL Calcium (8.4-10.2) mg/dL AST (14-36) U/L Total Protein (6.3-8.2) g/dL Albumin (3.5-5.0) g/dL Urine Appearance (Clear) Urine Protein (Negative) Urine Ketones (Negative) Urine Blood (Negative) Ur Leukocyte Esterase (Negative) Urine RBC (0-5) /hpf Urine WBC (0-5) /hpf Ur Squamous Epith Cells (0-4) /hpf Calcium Oxalate Crystal (None) /hpf Uric Acid Crystals (None) /hpf Amorphous Sediment (None) /hpf Urine Bacteria (None) /hpf Hyaline Casts (0-2) /lpf Urine Mucus (None) /hpf Microbiology - Last 24 Hours (Table) 06/29/19 00:57 Blood Culture - Preliminary Blood No Growth after 48 hours <Juan Hunter - Last Filed: 07/01/19 16:50> Subjective As above. Patient doing better. Her lower quadrant pain improved. She is passing gas. She is hungry. Apparently she is scheduled for cardiac catheterization tomorrow. Would advance diet after the cardiac cath. Continue antibiotics. Will follow. Objective - Vital Signs Vital signs: Vital Signs Temp 98.2 F 07/01/19 09:00 Pulse 54 L 07/01/19 16:00 Resp 16 07/01/19 16:00 BP 170/74 07/01/19 16:00 Pulse Ox 94 L 07/01/19 16:00 Intake & Output 06/30/19 07/01/19 07/01/19 18:59 06:59 18:59 Intake Total 273.271 769.557 7741.105 Output Total 500 1150 Balance -226.729 144.141 -18.895 Weight 82.6 kg 85.1 kg Intake: IV 72 30 Heparin Sod,Pork in 0.45% 72 30 NaCl 25,000 unit In 0.45 % NaCl 1 250ml.bag @ 12 UNITS/KG/HR 9.253 mls/hr IV .Q24H [facility] Rx#: [id number] Intake, IV Titration 201.271 411.257 9641.105 Amount Heparin Sod,Pork in 0.45% 101.271 144.141 221.105 NaCl 25,000 unit In 0.45 % NaCl 1 250ml.bag @ 12 UNITS/KG/HR 9.253 mls/hr IV .Q24H [facility] Rx#: [id number] Piperacillin-Tazobactam 3 100 200 .375 gm In Sodium Chloride 0.9% 100 ml @ 25 mls/hr IVPB Q8H [facility] Rx#: [id number] Sodium Chloride 0.9% 1, 480 000 ml @ 80 mls/hr IV . [id number] [facility] Rx#:[id number] metroNIDAZOLE-NS PMX 500 200 mg In Saline 1 100ml.bag @ 100 mls/hr IVPB Q6HR [facility] Rx#:[id number] Output: Urine 500 650 Straight 400 600 Post Void Residual 500 Other: Voiding Method Toilet Toilet Toilet # Voids 1 - Labs CBC & Chem 7: 07/01/19 08:20 07/01/19 08:20 Labs: Abnormal Lab Results - Last 24 Hours (Table) 06/30/19 06/30/19 06/30/19 Range/Units 17:02 17:40 18:10 WBC (3.8-10.6) k/uL RBC (3.80-5.40) m/uL Hct (34.0-46.0) % APTT 56.8 H (22.0-30.0) sec Chloride (98-107) mmol/L Glucose (74-99) mg/dL POC Glucose (mg/dL) 135 H (75-99) mg/dL Calcium (8.4-10.2) mg/dL AST (14-36) U/L Total Protein (6.3-8.2) g/dL Albumin (3.5-5.0) g/dL Urine Appearance Turbid H (Clear) Urine Protein 1+ H (Negative) Urine Ketones 1+ H (Negative) Urine Blood Moderate H (Negative) Ur Leukocyte Esterase Large H (Negative) Urine RBC 36 H (0-5) /hpf Urine WBC 64 H (0-5) /hpf Ur Squamous Epith Cells 6 H (0-4) /hpf Calcium Oxalate Crystal (None) /hpf Uric Acid Crystals Few H (None) /hpf Amorphous Sediment Rare H (None) /hpf Urine Bacteria Rare H (None) /hpf Hyaline Casts 11 H (0-2) /lpf Urine Mucus Rare H (None) /hpf 06/30/19 07/01/19 07/01/19 Range/Units 20:25 06:34 06:47 WBC (3.8-10.6) k/uL RBC (3.80-5.40) m/uL Hct (34.0-46.0) % APTT (22.0-30.0) sec Chloride (98-107) mmol/L Glucose (74-99) mg/dL POC Glucose (mg/dL) 149 H 135 H (75-99) mg/dL Calcium (8.4-10.2) mg/dL AST (14-36) U/L Total Protein (6.3-8.2) g/dL Albumin (3.5-5.0) g/dL Urine Appearance Cloudy H (Clear) Urine Protein 1+ H (Negative) Urine Ketones 1+ H (Negative) Urine Blood Large H (Negative) Ur Leukocyte Esterase (Negative) Urine RBC >182 H (0-5) /hpf Urine WBC (0-5) /hpf Ur Squamous Epith Cells (0-4) /hpf Calcium Oxalate Crystal Rare H (None) /hpf Uric Acid Crystals Few H (None) /hpf Amorphous Sediment Occasional H (None) /hpf Urine Bacteria Rare H (None) /hpf Hyaline Casts (0-2) /lpf Urine Mucus Rare H (None) /hpf 07/01/19 07/01/19 07/01/19 Range/Units 08:20 08:20 08:20 WBC 11.3 H (3.8-10.6) k/uL RBC 3.48 L (3.80-5.40) m/uL Hct 33.9 L (34.0-46.0) % APTT 47.9 H (22.0-30.0) sec Chloride 108 H (98-107) mmol/L Glucose 149 H (74-99) mg/dL POC Glucose (mg/dL) (75-99) mg/dL Calcium 8.0 L (8.4-10.2) mg/dL AST 94 H (14-36) U/L Total Protein 5.2 L (6.3-8.2) g/dL Albumin 3.1 L (3.5-5.0) g/dL Urine Appearance (Clear) Urine Protein (Negative) Urine Ketones (Negative) Urine Blood (Negative) Ur Leukocyte Esterase (Negative) Urine RBC (0-5) /hpf Urine WBC (0-5) /hpf Ur Squamous Epith Cells (0-4) /hpf Calcium Oxalate Crystal (None) /hpf Uric Acid Crystals (None) /hpf Amorphous Sediment (None) /hpf Urine Bacteria (None) /hpf Hyaline Casts (0-2) /lpf Urine Mucus (None) /hpf 07/01/19 Range/Units 14:28 WBC (3.8-10.6) k/uL RBC (3.80-5.40) m/uL Hct (34.0-46.0) % APTT 37.1 H (22.0-30.0) sec Chloride (98-107) mmol/L Glucose (74-99) mg/dL POC Glucose (mg/dL) (75-99) mg/dL Calcium (8.4-10.2) mg/dL AST (14-36) U/L Total Protein (6.3-8.2) g/dL Albumin (3.5-5.0) g/dL Urine Appearance (Clear) Urine Protein (Negative) Urine Ketones (Negative) Urine Blood (Negative) Ur Leukocyte Esterase (Negative) Urine RBC (0-5) /hpf Urine WBC (0-5) /hpf Ur Squamous Epith Cells (0-4) /hpf Calcium Oxalate Crystal (None) /hpf Uric Acid Crystals (None) /hpf Amorphous Sediment (None) /hpf Urine Bacteria (None) /hpf Hyaline Casts (0-2) /lpf Urine Mucus (None) /hpf Microbiology - Last 24 Hours (Table) 06/29/19 00:57 Blood Culture - Preliminary Blood No Growth after 48 hours
--- NOTE | 2019-07-01 12:21 | P.PN ---
Subjective Progress Note Date: 07/01/19 This is a 63-year-old white female well-known to me. She has had multiple episodes of diverticulitis in the past. She came in the emergency room with abdominal and chest pain. She has multiple comorbidities. He is had multiple episodes of diverticulitis in the past. She has not had any fever or chills. Repeat CT shows diverticulitis in the sigmoid colon along with a nonobstructing right renal calculus. This morning she continues to have pain. The pain is slightly less. It is generalized abdomen. General surgery has been consult. This a.m. her heart rate increased to approximately 140. Telemetry shows a rate consistent with atrial fibrillation. She has no history of this. Her troponins were slightly abnormal and it worsened slightly. Cardiology has been consult for management. She remains nothing by mouth with ice chips at this time. She denies any chest pains at this time. Abdominal pain continues but is improved. Recent nausea or vomiting.. 06/30/2019: Patient remains on ice chips and popsicles only this time. She continues to have mostly left lower quadrant abdominal pain. He denies any significant vomiting but has some nausea. He is currently in an out of atrial fibrillation. She is on metoprolol and IV heparin for this per cardiology. They're planning workup after diverticular is more controlled. She has some questionable dysuria and indicates she is not urinating very frequently. 07/01/2019 positive troponins, echo pending. Maintained on heparin drip. Telemetry sinus bradycardia in the mid 50s. Continues on Zosyn and Flagyl.Reports Abdomen less tender today. Tolerating ice chips. No bowel movement, positive flatus. Required intermittent straight cathing. UA reporting rare bacteria, less than 1 year in WBC and negative for leukocytes. Afebrile, T-max 99.7, WBC trending down,11.3. Hemoglobin 11.5. Objective - Vital Signs Vital signs: Vital Signs Temp 98.2 F 07/01/19 09:00 Pulse 54 L 07/01/19 11:17 Resp 16 07/01/19 11:17 BP 199/91 07/01/19 11:17 Pulse Ox 95 07/01/19 11:17 Intake & Output 06/30/19 07/01/19 07/01/19 18:59 06:59 18:59 Intake Total 273.271 144.141 230 Output Total 500 1150 Balance -226.729 144.141 -920 Weight 82.6 kg 85.1 kg Intake: IV 72 30 Heparin Sod,Pork in 0.45% 72 30 NaCl 25,000 unit In 0.45 % NaCl 1 250ml.bag @ 12 UNITS/KG/HR 9.253 mls/hr IV .Q24H [facility] Rx#: [id number] Intake, IV Titration 201.271 144.141 200 Amount Heparin Sod,Pork in 0.45% 101.271 144.141 NaCl 25,000 unit In 0.45 % NaCl 1 250ml.bag @ 12 UNITS/KG/HR 9.253 mls/hr IV .Q24H [facility] Rx#: [id number] Piperacillin-Tazobactam 3 100 100 .375 gm In Sodium Chloride 0.9% 100 ml @ 25 mls/hr IVPB Q8H [facility] Rx#: [id number] metroNIDAZOLE-NS PMX 500 100 mg In Saline 1 100ml.bag @ 100 mls/hr IVPB Q6HR [facility] Rx#:[id number] Output: Urine 500 650 Straight 400 600 Post Void Residual 500 Other: Voiding Method Toilet Toilet Toilet # Voids 1 - Exam GENERAL: Sitting up in bed, no acute distress NECK: Normal range of motion, supple without lymphadenopathy or JVD, no thyromegaly LUNGS: Breath sounds coarse to auscultation bilaterally and equal. No wheezes rales or rhonchi. HEART: Regular rate and rhythm without murmurs, rubs or gallops.S1S2 Normal. Telemetry now shows sinus bradycardia ABDOMEN: Soft, nondistended , mild left lower quadrant tenderness .hypoactive bowel sounds. No guarding, no rebound. No masses appreciated. EXTREMITIES: Normal range of motion, no pitting or edema. No clubbing or cyanosis. NEUROLOGICAL: Cranial nerves II through XII grossly intact. Normal speech, normal gait. PSYCH: Normal mood, normal affect. SKIN: Warm, Dry, normal turgor, no rashes or lesions noted. - Labs CBC & Chem 7: 07/01/19 08:20 07/01/19 08:20 Labs: Abnormal Lab Results - Last 24 Hours (Table) 06/30/19 06/30/19 06/30/19 Range/Units 12:05 17:02 17:40 WBC (3.8-10.6) k/uL RBC (3.80-5.40) m/uL Hct (34.0-46.0) % APTT (22.0-30.0) sec Chloride (98-107) mmol/L Glucose (74-99) mg/dL POC Glucose (mg/dL) 164 H 135 H (75-99) mg/dL Calcium (8.4-10.2) mg/dL AST (14-36) U/L Total Protein (6.3-8.2) g/dL Albumin (3.5-5.0) g/dL Urine Appearance Turbid H (Clear) Urine Protein 1+ H (Negative) Urine Ketones 1+ H (Negative) Urine Blood Moderate H (Negative) Ur Leukocyte Esterase Large H (Negative) Urine RBC 36 H (0-5) /hpf Urine WBC 64 H (0-5) /hpf Ur Squamous Epith Cells 6 H (0-4) /hpf Calcium Oxalate Crystal (None) /hpf Uric Acid Crystals Few H (None) /hpf Amorphous Sediment Rare H (None) /hpf Urine Bacteria Rare H (None) /hpf Hyaline Casts 11 H (0-2) /lpf Urine Mucus Rare H (None) /hpf 06/30/19 06/30/19 07/01/19 Range/Units 18:10 20:25 06:34 WBC (3.8-10.6) k/uL RBC (3.80-5.40) m/uL Hct (34.0-46.0) % APTT 56.8 H (22.0-30.0) sec Chloride (98-107) mmol/L Glucose (74-99) mg/dL POC Glucose (mg/dL) 149 H 135 H (75-99) mg/dL Calcium (8.4-10.2) mg/dL AST (14-36) U/L Total Protein (6.3-8.2) g/dL Albumin (3.5-5.0) g/dL Urine Appearance (Clear) Urine Protein (Negative) Urine Ketones (Negative) Urine Blood (Negative) Ur Leukocyte Esterase (Negative) Urine RBC (0-5) /hpf Urine WBC (0-5) /hpf Ur Squamous Epith Cells (0-4) /hpf Calcium Oxalate Crystal (None) /hpf Uric Acid Crystals (None) /hpf Amorphous Sediment (None) /hpf Urine Bacteria (None) /hpf Hyaline Casts (0-2) /lpf Urine Mucus (None) /hpf 07/01/19 07/01/19 07/01/19 Range/Units 06:47 08:20 08:20 WBC (3.8-10.6) k/uL RBC (3.80-5.40) m/uL Hct (34.0-46.0) % APTT 47.9 H (22.0-30.0) sec Chloride 108 H (98-107) mmol/L Glucose 149 H (74-99) mg/dL POC Glucose (mg/dL) (75-99) mg/dL Calcium 8.0 L (8.4-10.2) mg/dL AST 94 H (14-36) U/L Total Protein 5.2 L (6.3-8.2) g/dL Albumin 3.1 L (3.5-5.0) g/dL Urine Appearance Cloudy H (Clear) Urine Protein 1+ H (Negative) Urine Ketones 1+ H (Negative) Urine Blood Large H (Negative) Ur Leukocyte Esterase (Negative) Urine RBC >182 H (0-5) /hpf Urine WBC (0-5) /hpf Ur Squamous Epith Cells (0-4) /hpf Calcium Oxalate Crystal Rare H (None) /hpf Uric Acid Crystals Few H (None) /hpf Amorphous Sediment Occasional H (None) /hpf Urine Bacteria Rare H (None) /hpf Hyaline Casts (0-2) /lpf Urine Mucus Rare H (None) /hpf 07/01/19 Range/Units 08:20 WBC 11.3 H (3.8-10.6) k/uL RBC 3.48 L (3.80-5.40) m/uL Hct 33.9 L (34.0-46.0) % APTT (22.0-30.0) sec Chloride (98-107) mmol/L Glucose (74-99) mg/dL POC Glucose (mg/dL) (75-99) mg/dL Calcium (8.4-10.2) mg/dL AST (14-36) U/L Total Protein (6.3-8.2) g/dL Albumin (3.5-5.0) g/dL Urine Appearance (Clear) Urine Protein (Negative) Urine Ketones (Negative) Urine Blood (Negative) Ur Leukocyte Esterase (Negative) Urine RBC (0-5) /hpf Urine WBC (0-5) /hpf Ur Squamous Epith Cells (0-4) /hpf Calcium Oxalate Crystal (None) /hpf Uric Acid Crystals (None) /hpf Amorphous Sediment (None) /hpf Urine Bacteria (None) /hpf Hyaline Casts (0-2) /lpf Urine Mucus (None) /hpf Microbiology - Last 24 Hours (Table) 06/29/19 00:57 Blood Culture - Preliminary Blood No Growth after 48 hours Assessment and Plan Assessment: (1) Nephrolithiasis Current Visit: Yes Status: Acute Code(s): N20.0 - CALCULUS OF KIDNEY SNOMED Code(s): 13055963 (2) Diverticulitis Current Visit: Yes Status: Acute Code(s): K57.92 - DVTRCLI OF INTEST, PART UNSP, W/O PERF OR ABSCESS W/O BLEED SNOMED Code(s): 664768535 (3) Elevated troponin Current Visit: Yes Status: Acute Code(s): R74.8 - ABNORMAL LEVELS OF OTHER SERUM ENZYMES SNOMED Code(s): 751149859 (4) Abdominal pain Current Visit: No Status: Acute Code(s): R10.9 - UNSPECIFIED ABDOMINAL PAIN SNOMED Code(s): 54577333 (5) CAD (coronary artery disease) Current Visit: No Status: Acute Code(s): I25.10 - ATHSCL HEART DISEASE OF [place] CORONARY ARTERY W/O ANG PCTRS SNOMED Code(s): 01051464 (6) Carotid stenosis Current Visit: No Status: Acute Code(s): I65.29 - OCCLUSION AND STENOSIS OF UNSPECIFIED CAROTID ARTERY SNOMED Code(s): 93120272 (7) Diabetes Current Visit: No Status: Acute Code(s): E11.9 - TYPE 2 DIABETES MELLITUS WITHOUT COMPLICATIONS SNOMED Code(s): 12503486 (8) HTN (hypertension) Current Visit: No Status: Acute Code(s): I10 - ESSENTIAL (PRIMARY) HYPERTENSION SNOMED Code(s): 84658828 (9) Hyperlipemia Current Visit: No Status: Acute Code(s): E78.5 - HYPERLIPIDEMIA, UNSPECIFIED SNOMED Code(s): 58422671 (10) Atrial fibrillation Current Visit: Yes Status: Acute Code(s): I48.91 - UNSPECIFIED ATRIAL FIBRILLATION SNOMED Code(s): 80919969 Plan: Continue current medication regime , PPI, monitoring and symptomatic treatment. Maintain Cipro and Flagyl. Diet advancement as per surgery. Continue on heparin drip with further cardiology w/u pending.PVRs and bladder scan every 4 hours. The impression and plan of care has been dictated as directed. : I performed a history and examination of this patient, discussed the same with the dictator. I agree with the dictator's note ,documented as a scribe. Any additional findings or plans will be noted.
[2019-07-01 17:34] LABS: Glucose,Whole Blood 136 mg/dL (75-99)
[2019-07-01] MEDS: ACETAMINOPHEN TAB 325 MG TAB PO PRN (20:31)
[2019-07-01 20:36] LABS: Glucose,Whole Blood 126 mg/dL (75-99)
[2019-07-01] MEDS: HEPARIN SOD,PORK IN 0.45% NACL 25,000 UNIT in 0.45% NACL 1 250ML.BAG IV SCH (23:30)
[2019-07-02] MEDS: MORPHINE SULFATE 4 MG/ML SYRINGE IV PRN ×2 (04:07→11:36)
[2019-07-02] MEDS: SODIUM CHLORIDE 0.9% 1,000 ML IV SCH ×2 (04:08→12:43)
[2019-07-02] MEDS ORDERED: ASPIRIN 325 MG TAB PO ONE (06:00)
[2019-07-02] MEDS ORDERED: ATORVASTATIN 80 MG TAB PO ONE (06:00)
[2019-07-02 06:22] LABS: Glucose,Whole Blood 147 mg/dL (75-99)
[2019-07-02] MEDS: INSULIN ASPART (NovoLOG) 100 UNIT/ML VIAL SQ SCH ×4 (06:30→22:15)
[2019-07-02] MEDS: LISINOPRIL 20 MG TAB PO SCH (06:34)
[2019-07-02] MEDS: hydrALAZINE HCL 25 MG TAB PO SCH ×2 (06:34→20:23)
[2019-07-02] MEDS: METOPROLOL TARTRATE 25 MG TAB PO SCH ×2 (06:34→20:23)
[2019-07-02] MEDS: metroNIDAZOLE-NS PMX 500 MG in SALINE 1 100ML.BAG IVPB SCH ×3 (06:35→17:15)
[2019-07-02] MEDS: PANTOPRAZOLE 40 MG/10 ML VIAL IV SCH (06:35)
[2019-07-02] MEDS: PIPERACILLIN-TAZOBACTAM 3.375 GM in SODIUM CHLORIDE 0.9% 100 ML IVPB SCH ×3 (06:35→22:33)
[2019-07-02 07:01] LABS: African American GFR (CKD) >90 (>60 ml/min/1.73 sqM); Anion Gap 10 mmol/L; Blood Urea Nitrogen 13 mg/dL (7-17); Carbon Dioxide 19 mmol/L (22-30); Chloride 109 mmol/L (98-107); Glucose 136 mg/dL (74-99); Potassium 3.5 mmol/L (3.5-5.1); Sodium 138 mmol/L (137-145)
[2019-07-02] MEDS ORDERED: LIDOCAINE 1% INJ 10MG/ML (20 ML MDV) ONE (09:06)
[2019-07-02] MEDS ORDERED: fentaNYL (PF) 50 MCG/ML 2 ML AMP ONE (09:07)
[2019-07-02] MEDS ORDERED: IV FLUID CONTINUATION 1,000 ML IV ONE ×2 (09:23→09:31)
[2019-07-02] MEDS ORDERED: fentaNYL (PF) 50 MCG/ML 2 ML AMP IV ONE (09:55)
[2019-07-02] MEDS ORDERED: LIDOCAINE 1% INJ 10MG/ML (20 ML MDV) SQ ONE (09:58)
[2019-07-02] MEDS ORDERED: MIDAZOLAM (PF) 2 MG/2 ML VIAL IV ONE (10:01)
[2019-07-02] MEDS ORDERED: BIVALIRUDIN BOLUS 250 MG/50 ML IV ONE (10:15)
[2019-07-02] MEDS ORDERED: TICAGRELOR 90 MG TAB ONE (10:16)
[2019-07-02] MEDS ORDERED: BIVALIRUDIN 250 MG in SODIUM CHLORIDE 0.9% 50 ML IV ONE (10:17)
[2019-07-02] MEDS ORDERED: TICAGRELOR 90 MG TAB PO ONE (10:17)
[2019-07-02] MEDS ORDERED: IOPAMIDOL-370 100ML BTL INJ ONE ×2 (10:18→10:46)
[2019-07-02] MEDS ORDERED: NITROGLYCERIN 1000MCG/10ML SYRINGE INTRACORON ONE (10:22)
[2019-07-02] MEDS ORDERED: IOPAMIDOL-300 50ML BTL INJ ONE (10:46)
[2019-07-02] MEDS ORDERED: ATROPINE SULFATE 0.1 MG/ML 10ML SYRINGE IV PRN (11:09)
[2019-07-02] MEDS ORDERED: ZOLPIDEM 5 MG TAB PO PRN (11:09)
[2019-07-02] MEDS ORDERED: RX INFO: IV CONTRAST WAS GIVEN 1 EACH MISC MISCELLANE PRN (11:09)
[2019-07-02] MEDS ORDERED: MAG HYDROX/AL HYDROX/SIMETH 30 ML CUP PO PRN (11:09)
[2019-07-02] MEDS ORDERED: NITROGLYCERIN SL TABS 0.4 MG TAB SUBLINGUAL PRN (11:09)
[2019-07-02] MEDS ORDERED: SODIUM CHLORIDE 0.9% 1,000 ML IV SCH (11:15)
[2019-07-02] MEDS: ISOSORBIDE MONONITRATE ER 30 MG TAB.ER.24H PO SCH (11:35)
--- NOTE | 2019-07-02 11:44 | CC ---
CARDIAC CATHETERIZATION REPORT Mrs. Velez is a 63-year-old female with known history of coronary artery disease, status post coronary artery bypass grafting and percutaneous revascularization, history of hypertension, hyperlipidemia, chronic tobacco use, who presented with abdominal pain and chest discomfort and had troponin elevation. In view of that, recommendation was made regarding cardiac catheterization. The procedure as well as the risks and the complication were discussed with the patient who is in full understanding and agreement. PROCEDURE: Patient was brought to the open hearth laborer in a fasting semi-sedated state after receiving fentanyl and Benadryl and achieving moderate conscious sedated state. Using Xylocaine anesthesia in the Seldinger technique a 6-Vietnamese sheath was introduced in the right femoral artery. Selective right and left coronary angiography performed using 6-Vietnamese 4 bend right and left Padilla catheter. Multiple views of coronary artery including hemiaxial views obtained. Following that a 6-Vietnamese right Padilla was used to cannulate the BRANDON to LAD. Images of the grafts were obtained. Following that, angioplasty and stenting was performed. Following that, 6-Vietnamese tight pigtail catheter was introduced in the left ventricle and a 30-degree LARKIN view of the left ventricle was obtained. Following that, catheter was removed and sheath was sutured in the placed. The patient was returned to her room in stable condition. FINDINGS: FLUOROSCOPY: There was severe calcification involving all the coronary arteries. LEFT MAIN: This is a large-sized vessel bifurcating in left circumflex, left anterior descending artery. Left main coronary artery has a 20% to 30% plaque in the mid segment. LEFT ANTERIOR DESCENDING ARTERY: This vessel is occluded proximally with no antegrade flow. LEFT CIRCUMFLEX: This is a large dominant vessel giving rise to a very proximal obtuse marginal branch of moderate to large caliber. The second obtuse marginal branch is diffusely diseased. Prior to the takeoff of the second obtuse marginal branch, there is a tubular 50% to 60% plaque at the takeoff of the third obtuse marginal branch. There is 99% stenosis. There is another plaque distally at the bifurcation of the PDA and a PLV of 90%. The vessel beyond that is small in caliber RIGHT CORONARY ARTERY: This is a small nondominant vessel that is totally occluded with minimal antegrade flow. BRANDON TO LAD: The distal anastomotic site is patent. The flow into the LAD is brisk. There is no evidence of obstructive disease. LEFT VENTRICULOGRAM: Left ventriculogram is performed 30-degree LARKIN view and revealed a normal left ventricular size with mid inferior wall hypokinesis to akinesis. Ejection fraction is 45% to 50%. There was no significant mitral regurgitation. Evidence of significant calcification in the distal abdominal aorta was noted with stenting noted in the bilateral iliac. There was evidence of obstructive disease involving the right femoral artery in a heavily calcified segment. HEMODYNAMICS: There was no gradient across the aortic valve. The left ventricular end- diastolic pressure was 16 to 18 mmHg. CONCLUSION: 1. Chronic occluded LAD and right coronary artery. 2. Critical stenosis in the left circumflex that is dominant vessel. 3. Patent BRANDON to LAD. 4. Mildly impaired left ventricular systolic function with evidence of peripheral vascular disease. RECOMMENDATION: In view of finding anatomy, I recommend proceeding with angioplasty and stenting of the left circumflex. The procedure as well as the risks and the complication were discussed with the patient who is in full understanding and agreement. MMODL / IJN: [id number] /
--- NOTE | 2019-07-02 11:59 | PTCA ---
PERCUTANEOUSTRANS CORORONARY ANGIOGRAPHY Mrs. Velez is a 63-year-old female with a known history of coronary artery disease who presented with non ST-segment elevation myocardial infarction, underwent cardiac catheterization, was found to have critical stenosis involving the distal left circumflex. In view of that, recommendation was made regarding angioplasty and stenting. The procedure as well as the risks and complication were discussed with the patient who is in full understanding and agreement. PROCEDURE: A 6-Cuban FR4 guiding catheter introduced in the system. After cannulating the left main a 0.014 balanced medium weight J-wire was advanced across the lesion, positioned distal left circumflex. Following that 2.5 x 12 mm Trek balloon was advanced and one inflation at 8 atmospheres was done. Following that, the balloon was removed and attempts to advance a 2.5 x 18 mm Xience Yahaira stent were unsuccessful. That stent was removed and another 0.014 balanced medium weight J-wire was advanced next to the first wire in a manan fashion and then a 2.5 x 15 mm Xience Yahaira stent was advanced, deployed and post dilated at 16 atmospheres. Following that the balloon was removed and another 2.5 x 15 mm Xience Yahaira stent was advanced, deployed and postdilated at 16 atmospheres and inflation overlap segment was done at 16 atmospheres. After the last inflation, after appropriate wait, the balloon and the guidewire were withdrawn back in the guiding catheter. Images were obtained, repeated. Those images reveal stable successful stenting. At that point, the guiding catheter, the balloon and the guidewire were removed. Left ventriculogram was performed. Following that, catheter was removed. Sheath was sutured in place. The patient was returned to her room in stable condition. Of note, the patient had no chest discomfort or EKG changes with the inflation. She has received Angiomax per protocol as well as oral loading dose of Brilinta. RESULTS: Successful stenting of the distal left circumflex with reduction of stenosis from 99% to 0%. RECOMMENDATION: Patient will be continued on aspirin, Brilinta, beta odalys, JEAN inhibitor and statin. The importance of dual antiplatelet treatment was discussed with the patient who is in full understanding and agreement. Duration pf procedure 53 minutes. MMODL / IJN: [id number] /
[2019-07-02] MEDS ORDERED: CYCLOBENZAPRINE 10 MG TAB PO PRN (12:15)
[2019-07-02 12:16] LABS: Glucose,Whole Blood 142 mg/dL (75-99)
[2019-07-02] MEDS ORDERED: INSULIN ASPART (NovoLOG) 100 UNIT/ML VIAL SQ SCH (12:30)
[2019-07-02] MEDS: predniSONE 50 MG TAB PO SCH (12:44)
--- NOTE | 2019-07-02 12:47 | P.PN ---
Subjective Progress Note Date: 07/02/19 This is a 63-year-old white female well-known to me. She has had multiple episodes of diverticulitis in the past. She came in the emergency room with abdominal and chest pain. She has multiple comorbidities. He is had multiple episodes of diverticulitis in the past. She has not had any fever or chills. Repeat CT shows diverticulitis in the sigmoid colon along with a nonobstructing right renal calculus. This morning she continues to have pain. The pain is slightly less. It is generalized abdomen. General surgery has been consult. This a.m. her heart rate increased to approximately 140. Telemetry shows a rate consistent with atrial fibrillation. She has no history of this. Her troponins were slightly abnormal and it worsened slightly. Cardiology has been consult for management. She remains nothing by mouth with ice chips at this time. She denies any chest pains at this time. Abdominal pain continues but is improved. Recent nausea or vomiting.. 06/30/2019: Patient remains on ice chips and popsicles only this time. She continues to have mostly left lower quadrant abdominal pain. He denies any significant vomiting but has some nausea. He is currently in an out of atrial fibrillation. She is on metoprolol and IV heparin for this per cardiology. They're planning workup after diverticular is more controlled. She has some questionable dysuria and indicates she is not urinating very frequently. 07/01/2019 positive troponins, echo pending. Maintained on heparin drip. Telemetry sinus bradycardia in the mid 50s. Continues on Zosyn and Flagyl.Reports Abdomen less tender today. Tolerating ice chips. No bowel movement, positive flatus. Required intermittent straight cathing. UA reporting rare bacteria, less than 1 year in WBC and negative for leukocytes. Afebrile, T-max 99.7, WBC trending down,11.3. Hemoglobin 11.5. 07/02/19 just returning from cardiac catheterization reporting chronic occluded LAD and RCA, critical stenosis involving the distal left circumflex, status post angioplasty with stents 2 to the circumflex. Tolerated procedure well. Comp lains of right posterior shoulder pain, chronic, worsened postprocedure. Telemetry sinus bradycardia, hypertensive. Denies chest pain, palpitations or shortness of breath. Objective - Vital Signs Vital signs: Vital Signs Temp 97.8 F 07/02/19 07:40 Pulse 46 L 07/02/19 07:40 Resp 16 07/02/19 07:40 BP 162/77 07/02/19 07:40 Pulse Ox 96 07/02/19 07:40 Intake & Output 07/01/19 07/02/19 07/02/19 18:59 06:59 18:59 Intake Total 1131.105 28.895 409.4 Output Total 1450 350 Balance -318.895 -321.105 409.4 Weight 85.5 kg Intake: IV 30 139.4 Heparin Sod,Pork in 0.45% 30 NaCl 25,000 unit In 0.45 % NaCl 1 250ml.bag @ 12 UNITS/KG/HR 9.253 mls/hr IV .Q24H [facility] Rx#: [id number] Intake, IV Titration 1101.105 28.895 270 Amount Heparin Sod,Pork in 0.45% 221.105 28.895 NaCl 25,000 unit In 0.45 % NaCl 1 250ml.bag @ 12 UNITS/KG/HR 9.253 mls/hr IV .Q24H [facility] Rx#: [id number] Piperacillin-Tazobactam 3 200 100 .375 gm In Sodium Chloride 0.9% 100 ml @ 25 mls/hr IVPB Q8H [facility] Rx#: [id number] Sodium Chloride 0.9% 1, 480 000 ml @ 80 mls/hr IV . [id number] [facility] Rx#:[id number] Sodium Chloride 0.9% 1, 170 000 ml In Empty Bag 1 bag @ 1 ML/KG/HR 85.1 mls/hr IV .[id number] [facility] Rx#: [id number] metroNIDAZOLE-NS PMX 500 200 mg In Saline 1 100ml.bag @ 100 mls/hr IVPB Q6HR [facility] Rx#:[id number] Output: Urine 950 350 Straight 600 Post Void Residual 500 Other: Voiding Method Toilet Toilet # Voids 1 - Exam GENERAL: Lying in bed, no acute distress NECK: Normal range of motion, supple without lymphadenopathy or JVD, no thyromegaly LUNGS: Breath sounds coarse to auscultation bilaterally and equal. No wheezes rales or rhonchi. HEART: Regular rate and rhythm without murmurs, rubs or gallops.S1S2 Normal. ABDOMEN: Soft, nondistended , mild left lower quadrant tenderness .Positive bowel sounds. No guarding, no rebound. No masses appreciated. EXTREMITIES: no pitting or edema. No clubbing or cyanosis. NEUROLOGICAL: Cranial nerves II through XII grossly intact. Normal speech, normal gait. PSYCH: Normal mood, normal affect. SKIN: Warm, Dry, normal turgor, no rashes or lesions noted. - Labs CBC & Chem 7: 07/01/19 08:20 07/02/19 05:35 Labs: Abnormal Lab Results - Last 24 Hours (Table) 07/01/19 07/01/19 07/01/19 Range/Units 14:28 17:31 20:35 APTT 37.1 H (22.0-30.0) sec Chloride (98-107) mmol/L Carbon Dioxide (22-30) mmol/L Glucose (74-99) mg/dL POC Glucose (mg/dL) 136 H 126 H (75-99) mg/dL Calcium (8.4-10.2) mg/dL 07/01/19 07/02/19 07/02/19 Range/Units 22:48 05:35 06:21 APTT 61.6 H (22.0-30.0) sec Chloride 109 H (98-107) mmol/L Carbon Dioxide 19 L (22-30) mmol/L Glucose 136 H (74-99) mg/dL POC Glucose (mg/dL) 147 H (75-99) mg/dL Calcium 8.0 L (8.4-10.2) mg/dL Microbiology - Last 24 Hours (Table) 06/29/19 00:57 Blood Culture - Preliminary Blood No Growth after 72 hours Assessment and Plan Assessment: (1) Nephrolithiasis Current Visit: Yes Status: Acute Code(s): N20.0 - CALCULUS OF KIDNEY SNOMED Code(s): 41126468 (2) Diverticulitis Current Visit: Yes Status: Acute Code(s): K57.92 - DVTRCLI OF INTEST, PART UNSP, W/O PERF OR ABSCESS W/O BLEED SNOMED Code(s): 075204288 (3) Elevated troponin, non-STEMI. Status post cardiac catheterization, angioplasty, stenting of circumflex Current Visit: Yes Status: Acute Code(s): R74.8 - ABNORMAL LEVELS OF OTHER SERUM ENZYMES SNOMED Code(s): 790947082 (4) Abdominal pain Current Visit: No Status: Acute Code(s): R10.9 - UNSPECIFIED ABDOMINAL PAIN SNOMED Code(s): 62379101 (5) CAD (coronary artery disease) Current Visit: No Status: Acute Code(s): I25.10 - ATHSCL HEART DISEASE OF [place] CORONARY ARTERY W/O ANG PCTRS SNOMED Code(s): 48128126 (6) Carotid stenosis Current Visit: No Status: Acute Code(s): I65.29 - OCCLUSION AND STENOSIS OF UNSPECIFIED CAROTID ARTERY SNOMED Code(s): 00437256 (7) Diabetes Current Visit: No Status: Acute Code(s): E11.9 - TYPE 2 DIABETES MELLITUS WITHOUT COMPLICATIONS SNOMED Code(s): 77126399 (8) HTN (hypertension) Current Visit: No Status: Acute Code(s): I10 - ESSENTIAL (PRIMARY) HYPERTENSION SNOMED Code(s): 23777291 (9) Hyperlipemia Current Visit: No Status: Acute Code(s): E78.5 - HYPERLIPIDEMIA, UNSPECIFIED SNOMED Code(s): 55183645 (10) Atrial fibrillation Current Visit: Yes Status: Acute Code(s): I48.91 - UNSPECIFIED ATRIAL FIBRILLATION SNOMED Code(s): 83252671 Plan: Continue current medication regime , PPI, monitoring and symptomatic treatment. S/P cath, antihypertensives as per cardiology. Continue Zosyn and Flagyl. Prednisone, Flexeril, Dilaudid added for c/o of worsening right posterior shoulder pain. Further recommendations to follow. Discharge planning in progress for tomorrow cardiology and surgery clearance. The impression and plan of care has been dictated as directed. : I performed a history and examination of this patient, discussed the same with the dictator. I agree with the dictator's note ,documented as a scribe. Any additional findings or plans will be noted.
--- NOTE | 2019-07-02 12:54 | P.PN ---
<Torie Siddiqui - Last Filed: 07/02/19 12:49> Progress Note - Text Progress Note Date: 07/02/19 Patient not in room during rounds. Per RN, patient down for cardiac cath. Will attempt to see later this afternoon. <Juan Hunter - Last Filed: 07/02/19 18:36> Progress Note - Text As above. Patient seen after cardiac catheterization. Apparently 2 stents were placed. Still having mild left lower quadrant pain but improved from previous. She is hungry. So far she is tolerated her diet. We'll continue to gradually advance diet. Continue antibiotics. Will follow.
[2019-07-02] MEDS: amLODIPine 5 MG TAB PO SCH (13:08)
[2019-07-02] MEDS ORDERED: amLODIPine 5 MG TAB PO STA (13:54)
[2019-07-02] MEDS: HYDROmorphone 2 MG/ML 1 ML SYRINGE IVP PRN ×3 (15:08→22:16)
[2019-07-02 16:56] LABS: Glucose,Whole Blood 200 mg/dL (75-99)
[2019-07-02] MEDS: TICAGRELOR 90 MG TAB PO SCH (20:23)
[2019-07-02 20:57] LABS: Glucose,Whole Blood 280 mg/dL (75-99)
[2019-07-03] MEDS: metroNIDAZOLE-NS PMX 500 MG in SALINE 1 100ML.BAG IVPB SCH ×2 (00:46→05:58)
[2019-07-03] MEDS: HYDROmorphone 2 MG/ML 1 ML SYRINGE IVP PRN ×5 (04:10→20:11)
[2019-07-03 06:16] LABS: African American GFR (CKD) >90 (>60 ml/min/1.73 sqM); Anion Gap 8 mmol/L; Blood Urea Nitrogen 14 mg/dL (7-17); Calcium 8.2 mg/dL (8.4-10.2); Carbon Dioxide 21 mmol/L (22-30); Chloride 110 mmol/L (98-107); Glucose 143 mg/dL (74-99); Potassium 3.5 mmol/L (3.5-5.1); Sodium 139 mmol/L (137-145)
[2019-07-03] MEDS: SODIUM CHLORIDE 0.9% 1,000 ML IV SCH ×2 (06:21→12:42)
[2019-07-03 06:25] LABS: Glucose,Whole Blood 137 mg/dL (75-99)
[2019-07-03] MEDS: INSULIN ASPART (NovoLOG) 100 UNIT/ML VIAL SQ SCH ×4 (06:53→22:00)
[2019-07-03] MEDS: PIPERACILLIN-TAZOBACTAM 3.375 GM in SODIUM CHLORIDE 0.9% 100 ML IVPB SCH ×2 (06:53→15:33)
[2019-07-03] MEDS: ONDANSETRON 4 MG/2 ML VIAL IVP PRN ×2 (06:58→20:12)
[2019-07-03] MEDS: PANTOPRAZOLE 40 MG/10 ML VIAL IV SCH (08:06)
[2019-07-03] MEDS: hydrALAZINE HCL 25 MG TAB PO SCH (08:06)
[2019-07-03] MEDS: LISINOPRIL 20 MG TAB PO SCH (08:07)
[2019-07-03] MEDS: ASPIRIN 81 MG PO SCH (08:07)
[2019-07-03] MEDS: predniSONE 50 MG TAB PO SCH (08:07)
[2019-07-03] MEDS: ISOSORBIDE MONONITRATE ER 30 MG TAB.ER.24H PO SCH (08:07)
[2019-07-03] MEDS: TICAGRELOR 90 MG TAB PO SCH ×2 (08:07→20:12)
[2019-07-03] MEDS: ATORVASTATIN 80 MG TAB PO SCH (08:07)
[2019-07-03] MEDS: METOPROLOL TARTRATE 25 MG TAB PO SCH ×2 (08:07→20:12)
[2019-07-03] MEDS: amLODIPine 5 MG TAB PO SCH (08:07)
--- NOTE | 2019-07-03 09:15 | PN ---
PROGRESS NOTE Mrs. Velez is a 63-year-old female who presented with abdominal pain and was found to have at the same time evidence of non ST-segment elevation myocardial infarction, underwent cardiac catheterization yesterday was found to have critical stenosis in the mid dominant left circumflex underwent stenting of that vessel. She is doing well this morning. Her breathing is stable. She is denying any chest pain. No dizziness. No palpitation. She denies any palpitations. She continues to have mild abdominal discomfort, although not as severe. She continues to be on aspirin once a day, Brilinta 90 mg twice a day, amlodipine 5 mg daily, Lipitor 80 mg daily, hydralazine 25 mg twice a day, isosorbide mononitrate 30 mg daily, Zestril 40 mg daily, metoprolol tartrate 25 mg twice a day. PHYSICAL EXAMINATION: Blood pressure 134/68 with the heart rate in the 60s. LUNGS: Clear. HEART: Regular rate and rhythm. S1, S2. No S3 with systolic murmur. No diastolic murmur. No rub. ABDOMEN: Soft, nontender. Positive bowel sounds. EXTREMITIES: No edema. Right radial pulse intact. IMPRESSION: 1. Status post [id number] elevation myocardial infarction with stenting of the left circumflex. 2. Patent BRANDON to LAD. 3. Abdominal pain with diverticulitis. 4. Chronic tobacco use. 5. Hypertension. 6. Hyperlipidemia. RECOMMENDATION: We will continue on the present therapy. Adjust her antihypertensive regimen. Increase her level of activity. From the cardiac standpoint, she is stable to be discharged home when it is agreeable with the surgical service. MMODL / REANNAN: [id number] /
[2019-07-03] MEDS ORDERED: Potassium Replacement Protocol 1 EACH MISC MISCELLANE PRN (10:41)
[2019-07-03] MEDS: metroNIDAZOLE 500 MG TAB PO SCH ×2 (11:32→16:44)
[2019-07-03 11:47] LABS: Glucose,Whole Blood 247 mg/dL (75-99)
--- NOTE | 2019-07-03 11:52 | P.PN ---
<Torie Siddiqui Catherine - Last Filed: 07/03/19 11:49> Subjective Progress Note Date: 07/03/19 CHIEF COMPLAINT: sigmoid diverticulitis HISTORY OF PRESENT ILLNESS: Patient examined at the bedside. She was started on a regular diet yesterday after her cardiac cath. She reports continued abdominal pain. She reports eating pancakes this morning. Denies worsening pain after eating. Denies nausea or vomiting. Passing flatus. Reports loose bowel movement. PHYSICAL EXAM: VITAL SIGNS: Reviewed. GENERAL: Well-developed in no acute distress. HEENT: No sclera icterus. Extraocular movements grossly intact. Moist buccal mucosa. Head is atraumatic, normocephalic. ABDOMEN: Soft. Nondistended. Tenderness to left lower quadrant. NEUROLOGIC: Alert and oriented. Cranial nerves II through XII grossly intact. ASSESSMENT: 1. Sigmoid diverticulitis 2. NSTEMI, s/p stent PLAN: 1. Continue current diet 2. Continue zosyn and flagyl 3. Patient states she is not ready to be discharged today. She is requesting to stay until tomorrow. Notified SHANDA Gordillo with internal medicine of patients request to stay until tomorrow Nurse practitioner note has been reviewed by physician. Signing provider agrees with the documented findings, assessment, and plan of care. Objective - Vital Signs Vital signs: Vital Signs Temp 97.9 F 07/03/19 11:27 Pulse 51 L 07/03/19 11:27 Resp 18 07/03/19 11:27 BP 126/62 07/03/19 11:27 Pulse Ox 92 L 07/03/19 11:27 Intake & Output 07/02/19 07/03/19 07/03/19 18:59 06:59 18:59 Intake Total 1074.4 900 280 Output Total 2300 Balance 1074.4 -1400 280 Weight 87.3 kg Intake: IV 139.4 60 40 Invasive Line 1 30 20 Invasive Line 2 30 20 Intake, IV Titration 695 840 Amount Piperacillin-Tazobactam 3 200 100 .375 gm In Sodium Chloride 0.9% 100 ml @ 25 mls/hr IVPB Q8H [facility] Rx#: [id number] Sodium Chloride 0.9% 1, 225 000 ml @ 100 mls/hr IV . Q10H [facility] Rx#:[id number] Sodium Chloride 0.9% 1, 640 000 ml @ 80 mls/hr IV . [id number] [facility] Rx#:[id number] Sodium Chloride 0.9% 1, 170 000 ml In Empty Bag 1 bag @ 1 ML/KG/HR 85.1 mls/hr IV .[id number] [facility] Rx#: [id number] metroNIDAZOLE-NS PMX 500 100 100 mg In Saline 1 100ml.bag @ 100 mls/hr IVPB Q6HR [facility] Rx#:[id number] Oral 240 240 Output: Urine 2300 Other: Voiding Method Toilet Toilet Toilet # Voids 2 - Labs CBC & Chem 7: 07/01/19 08:20 07/03/19 05:42 Labs: Abnormal Lab Results - Last 24 Hours (Table) 07/02/19 07/02/19 07/02/19 Range/Units 11:55 16:54 20:56 Chloride (98-107) mmol/L Carbon Dioxide (22-30) mmol/L Glucose (74-99) mg/dL POC Glucose (mg/dL) 142 H 200 H 280 H (75-99) mg/dL Calcium (8.4-10.2) mg/dL 07/03/19 07/03/19 07/03/19 Range/Units 05:42 06:24 11:44 Chloride 110 H (98-107) mmol/L Carbon Dioxide 21 L (22-30) mmol/L Glucose 143 H (74-99) mg/dL POC Glucose (mg/dL) 137 H 247 H (75-99) mg/dL Calcium 8.2 L (8.4-10.2) mg/dL Microbiology - Last 24 Hours (Table) 06/29/19 00:57 Blood Culture - Preliminary Blood No Growth after 96 hours <Juan Hunter - Last Filed: 07/03/19 19:10> Subjective As above. Patient doing better. Pain is improved. Tolerating diet. Continue antibiotics. Possible discharge tomorrow. Objective - Vital Signs Vital signs: Vital Signs Temp 98.4 F 07/03/19 15:38 Pulse 64 07/03/19 16:00 Resp 18 07/03/19 15:38 BP 149/75 07/03/19 15:38 Pulse Ox 93 L 07/03/19 15:38 Intake & Output 07/03/19 07/03/19 07/04/19 06:59 18:59 06:59 Intake Total 900 540 Output Total 2300 Balance -1400 540 Weight 87.3 kg 87.3 kg Intake: IV 60 60 Invasive Line 1 30 30 Invasive Line 2 30 30 Intake, IV Titration 840 Amount Piperacillin-Tazobactam 3 100 .375 gm In Sodium Chloride 0.9% 100 ml @ 25 mls/hr IVPB Q8H [facility] Rx#: [id number] Sodium Chloride 0.9% 1, 640 000 ml @ 80 mls/hr IV . [id number] [facility] Rx#:[id number] metroNIDAZOLE-NS PMX 500 100 mg In Saline 1 100ml.bag @ 100 mls/hr IVPB Q6HR [facility] Rx#:[id number] Oral 480 Output: Urine 2300 Other: Voiding Method Toilet Toilet # Voids 2 - Labs CBC & Chem 7: 07/01/19 08:20 07/03/19 05:42 Labs: Abnormal Lab Results - Last 24 Hours (Table) 07/02/19 07/03/19 07/03/19 Range/Units 20:56 05:42 06:24 Chloride 110 H (98-107) mmol/L Carbon Dioxide 21 L (22-30) mmol/L Glucose 143 H (74-99) mg/dL POC Glucose (mg/dL) 280 H 137 H (75-99) mg/dL Calcium 8.2 L (8.4-10.2) mg/dL 07/03/19 07/03/19 Range/Units 11:44 16:37 Chloride (98-107) mmol/L Carbon Dioxide (22-30) mmol/L Glucose (74-99) mg/dL POC Glucose (mg/dL) 247 H 302 H (75-99) mg/dL Calcium (8.4-10.2) mg/dL Microbiology - Last 24 Hours (Table) 06/29/19 00:57 Blood Culture - Preliminary Blood No Growth after 96 hours
[2019-07-03 13:27] VITALS: BMI 30.1
--- NOTE | 2019-07-03 15:11 | P.PN ---
Subjective Progress Note Date: 07/03/19 This is a 63-year-old white female well-known to me. She has had multiple episodes of diverticulitis in the past. She came in the emergency room with abdominal and chest pain. She has multiple comorbidities. He is had multiple episodes of diverticulitis in the past. She has not had any fever or chills. Repeat CT shows diverticulitis in the sigmoid colon along with a nonobstructing right renal calculus. This morning she continues to have pain. The pain is slightly less. It is generalized abdomen. General surgery has been consult. This a.m. her heart rate increased to approximately 140. Telemetry shows a rate consistent with atrial fibrillation. She has no history of this. Her troponins were slightly abnormal and it worsened slightly. Cardiology has been consult for management. She remains nothing by mouth with ice chips at this time. She denies any chest pains at this time. Abdominal pain continues but is improved. Recent nausea or vomiting.. 06/30/2019: Patient remains on ice chips and popsicles only this time. She continues to have mostly left lower quadrant abdominal pain. He denies any significant vomiting but has some nausea. He is currently in an out of atrial fibrillation. She is on metoprolol and IV heparin for this per cardiology. They're planning workup after diverticular is more controlled. She has some questionable dysuria and indicates she is not urinating very frequently. 07/01/2019 positive troponins, echo pending. Maintained on heparin drip. Telemetry sinus bradycardia in the mid 50s. Continues on Zosyn and Flagyl.Reports Abdomen less tender today. Tolerating ice chips. No bowel movement, positive flatus. Required intermittent straight cathing. UA reporting rare bacteria, less than 1 year in WBC and negative for leukocytes. Afebrile, T-max 99.7, WBC trending down,11.3. Hemoglobin 11.5. 07/02/19 just returning from cardiac catheterization reporting chronic occluded LAD and RCA, critical stenosis involving the distal left circumflex, status post angioplasty with stents 2 to the circumflex. Tolerated procedure well. Comp lains of right posterior shoulder pain, chronic, worsened postprocedure. Telemetry sinus bradycardia, hypertensive. Denies chest pain, palpitations or shortness of breath. 07/03/19 cleared by cardiology for discharge. Right shoulder pain improving. Consuming 75% consistent carb diet. Denies nausea ,vomiting. Complains of mid epigastric pain that occurs after eating. Reports flatus and small loose bowel movement. Denies chest pain, palpitations or shortness of breath. Potassium 3.5. Objective - Vital Signs Vital signs: Vital Signs Temp 97.9 F 07/03/19 11:27 Pulse 51 L 07/03/19 11:27 Resp 18 07/03/19 11:27 BP 126/62 07/03/19 11:27 Pulse Ox 92 L 07/03/19 11:27 Intake & Output 07/02/19 07/03/19 07/03/19 18:59 06:59 18:59 Intake Total 1074.4 900 280 Output Total 2300 Balance 1074.4 -1400 280 Weight 87.3 kg 87.3 kg Intake: IV 139.4 60 40 Invasive Line 1 30 20 Invasive Line 2 30 20 Intake, IV Titration 695 840 Amount Piperacillin-Tazobactam 3 200 100 .375 gm In Sodium Chloride 0.9% 100 ml @ 25 mls/hr IVPB Q8H [facility] Rx#: [id number] Sodium Chloride 0.9% 1, 225 000 ml @ 100 mls/hr IV . Q10H [facility] Rx#:[id number] Sodium Chloride 0.9% 1, 640 000 ml @ 80 mls/hr IV . [id number] [facility] Rx#:[id number] Sodium Chloride 0.9% 1, 170 000 ml In Empty Bag 1 bag @ 1 ML/KG/HR 85.1 mls/hr IV .[id number] [facility] Rx#: [id number] metroNIDAZOLE-NS PMX 500 100 100 mg In Saline 1 100ml.bag @ 100 mls/hr IVPB Q6HR [facility] Rx#:[id number] Oral 240 240 Output: Urine 2300 Other: Voiding Method Toilet Toilet Toilet # Voids 2 - Exam GENERAL: Sitting up in bed, no acute distress NECK: Normal range of motion, supple without lymphadenopathy or JVD, no thyromegaly LUNGS: Breath sounds coarse to auscultation bilaterally and equal. No wheezes rales or rhonchi. HEART: Regular rate and rhythm without murmurs, rubs or gallops.S1S2 Normal. ABDOMEN: Soft, nondistended , mild left lower quadrant tenderness .Positive bowel sounds. No guarding, no rebound. No masses appreciated. EXTREMITIES: no pitting or edema. No clubbing or cyanosis. NEUROLOGICAL: Cranial nerves II through XII grossly intact. Normal speech, normal gait. PSYCH: Normal mood, normal affect. SKIN: Warm, Dry, normal turgor, no rashes or lesions noted. - Labs CBC & Chem 7: 07/01/19 08:20 07/03/19 05:42 Labs: Abnormal Lab Results - Last 24 Hours (Table) 07/02/19 07/02/19 07/03/19 Range/Units 16:54 20:56 05:42 Chloride 110 H (98-107) mmol/L Carbon Dioxide 21 L (22-30) mmol/L Glucose 143 H (74-99) mg/dL POC Glucose (mg/dL) 200 H 280 H (75-99) mg/dL Calcium 8.2 L (8.4-10.2) mg/dL 07/03/19 07/03/19 Range/Units 06:24 11:44 Chloride (98-107) mmol/L Carbon Dioxide (22-30) mmol/L Glucose (74-99) mg/dL POC Glucose (mg/dL) 137 H 247 H (75-99) mg/dL Calcium (8.4-10.2) mg/dL Microbiology - Last 24 Hours (Table) 06/29/19 00:57 Blood Culture - Preliminary Blood No Growth after 96 hours Assessment and Plan Assessment: (1) Nephrolithiasis Current Visit: Yes Status: Acute Code(s): N20.0 - CALCULUS OF KIDNEY SNOMED Code(s): 33387282 (2) Diverticulitis Current Visit: Yes Status: Acute Code(s): K57.92 - DVTRCLI OF INTEST, PART UNSP, W/O PERF OR ABSCESS W/O BLEED SNOMED Code(s): 789771083 (3) Elevated troponin, non-STEMI. Status post cardiac catheterization, angioplasty, stenting of circumflex Current Visit: Yes Status: Acute Code(s): R74.8 - ABNORMAL LEVELS OF OTHER SERUM ENZYMES SNOMED Code(s): 987099994 (4) Abdominal pain Current Visit: No Status: Acute Code(s): R10.9 - UNSPECIFIED ABDOMINAL PAIN SNOMED Code(s): 76830855 (5) CAD (coronary artery disease) Current Visit: No Status: Acute Code(s): I25.10 - ATHSCL HEART DISEASE OF [place] CORONARY ARTERY W/O ANG PCTRS SNOMED Code(s): 82997665 (6) Carotid stenosis Current Visit: No Status: Acute Code(s): I65.29 - OCCLUSION AND STENOSIS OF UNSPECIFIED CAROTID ARTERY SNOMED Code(s): 20986095 (7) Diabetes Current Visit: No Status: Acute Code(s): E11.9 - TYPE 2 DIABETES MELLITUS WITHOUT COMPLICATIONS SNOMED Code(s): 89257020 (8) HTN (hypertension) Current Visit: No Status: Acute Code(s): I10 - ESSENTIAL (PRIMARY) HYPERTENSION SNOMED Code(s): 00450173 (9) Hyperlipemia Current Visit: No Status: Acute Code(s): E78.5 - HYPERLIPIDEMIA, UNSPECIFIED SNOMED Code(s): 80260934 (10) Atrial fibrillation Current Visit: Yes Status: Acute Code(s): I48.91 - UNSPECIFIED ATRIAL FIBRILLATION SNOMED Code(s): 41122974 Plan: Continue current medication regime , PPI, monitoring and symptomatic treatment. Continue Zosyn and Flagyl. Fleets/Mag citrate for c/o minimal bm over a few days. Discharge planning in progress. Discharge antibiotics as per surgery. The impression and plan of care has been dictated as directed. : I performed a history and examination of this patient, discussed the same with the dictator. I agree with the dictator's note ,documented as a scribe. Any additional findings or plans will be noted.
[2019-07-03 16:44] LABS: Glucose,Whole Blood 302 mg/dL (75-99)
[2019-07-03 20:42] LABS: Glucose,Whole Blood 270 mg/dL (75-99)
[2019-07-03] MEDS ORDERED: INSULIN ASPART (NovoLOG) 100 UNIT/ML VIAL SQ ONE (21:30)
[2019-07-04] MEDS: PIPERACILLIN-TAZOBACTAM 3.375 GM in SODIUM CHLORIDE 0.9% 100 ML IVPB SCH ×2 (00:23→06:26)
[2019-07-04] MEDS: metroNIDAZOLE 500 MG TAB PO SCH ×3 (00:23→11:11)
[2019-07-04] MEDS: HYDROmorphone 2 MG/ML 1 ML SYRINGE IVP PRN ×3 (00:24→08:08)
[2019-07-04] MEDS: SODIUM CHLORIDE 0.9% 1,000 ML IV SCH (06:08)
[2019-07-04 06:10] LABS: Glucose,Whole Blood 212 mg/dL (75-99)
[2019-07-04] MEDS: INSULIN ASPART (NovoLOG) 100 UNIT/ML VIAL SQ SCH (06:26)
[2019-07-04 06:43] LABS: HCT 33.8 % (34.0-46.0); HGB 11.6 gm/dL (11.4-16.0); MCH 33.5 pg (25.0-35.0); MCHC 34.3 g/dL (31.0-37.0); MCV 97.7 fL (80.0-100.0); Mean Platelet Volume 8.1; Platelet Count 194 k/uL (150-450); RBC 3.46 m/uL (3.80-5.40); RDW 12.9 % (11.5-15.5); WBC 10.9 k/uL (3.8-10.6)
[2019-07-04 06:54] LABS: African American GFR (CKD) >90 (>60 ml/min/1.73 sqM); Anion Gap 8 mmol/L; Blood Urea Nitrogen 19 mg/dL (7-17); Calcium 8.8 mg/dL (8.4-10.2); Carbon Dioxide 20 mmol/L (22-30); Chloride 109 mmol/L (98-107); Glucose 225 mg/dL (74-99); Potassium 3.7 mmol/L (3.5-5.1); Sodium 137 mmol/L (137-145)
[2019-07-04 08:00] VITALS: RESP 16; TEMP 98
[2019-07-04] MEDS: ATORVASTATIN 80 MG TAB PO SCH (08:08)
[2019-07-04] MEDS: TICAGRELOR 90 MG TAB PO SCH (08:08)
[2019-07-04] MEDS: ISOSORBIDE MONONITRATE ER 30 MG TAB.ER.24H PO SCH (08:08)
[2019-07-04] MEDS: LISINOPRIL 20 MG TAB PO SCH (08:08)
[2019-07-04] MEDS: amLODIPine 5 MG TAB PO SCH (08:08)
[2019-07-04] MEDS: predniSONE 50 MG TAB PO SCH (08:08)
[2019-07-04] MEDS: METOPROLOL TARTRATE 25 MG TAB PO SCH (08:08)
[2019-07-04] MEDS: ASPIRIN 81 MG PO SCH (08:08)
[2019-07-04] MEDS ORDERED: PANTOPRAZOLE 40 MG TABLET PO SCH (09:00)
[2019-07-04] MEDS ORDERED: BISACODYL 10 MG SUPP RECTAL STA (09:41)
[2019-07-04] MEDS ORDERED: metFORMIN 500 MG TAB PO SCH (09:43)
[2019-07-04] MEDS ORDERED: SENNOSIDES-DOCUSATE SODIUM 1 EACH TAB PO SCH (09:45)
[2019-07-04 11:10] VITALS: BP 147/76; PULSE 50
[2019-07-04] MEDS: ACETAMINOPHEN TAB 325 MG TAB PO PRN (11:10)
--- NOTE | 2019-07-04 14:13 | P.DS ---
Providers Date of admission: 06/28/19 23:54 Expected date of discharge: 07/04/19 Attending physician: Sincere Casey Consults: 06/28/19 23:55 Consult Physician Routine Consulting Provider: Juan Hunter Consult Reason/Comments: recurrent diverticulitis Do you want consulting provider notified?: Yes 06/29/19 01:19 Consult Physician Routine Consulting Provider: Wu Benitez Consult Reason/Comments: Elevated troponin Do you want consulting provider notified?: Yes, Notify in am 07/02/19 11:09 Consult Physician Routine Consulting Provider: [facility] Consult Reason/Comments: Post Interventional patient Do you want consulting provider notified?: Already Contacted Primary care physician: Sincere Casey [facility] Course: Final Diagnoses: (1) Nephrolithiasis Current Visit: Yes Status: Acute Code(s): N20.0 - CALCULUS OF KIDNEY SNOMED Code(s): 11824914 (2) Diverticulitis Current Visit: Yes Status: Acute Code(s): K57.92 - DVTRCLI OF INTEST, PART UNSP, W/O PERF OR ABSCESS W/O BLEED SNOMED Code(s): 307882210 (3) Elevated troponin, non-STEMI. Status post cardiac catheterization, angioplasty, stenting of circumflex Current Visit: Yes Status: Acute Code(s): R74.8 - ABNORMAL LEVELS OF OTHER SERUM ENZYMES SNOMED Code(s): 401721036 (4) Abdominal pain Current Visit: No Status: Acute Code(s): R10.9 - UNSPECIFIED ABDOMINAL PAIN SNOMED Code(s): 41791114 (5) CAD (coronary artery disease) Current Visit: No Status: Acute Code(s): I25.10 - ATHSCL HEART DISEASE OF [place] CORONARY ARTERY W/O ANG PCTRS SNOMED Code(s): 03644054 (6) Carotid stenosis Current Visit: No Status: Acute Code(s): I65.29 - OCCLUSION AND STENOSIS OF UNSPECIFIED CAROTID ARTERY SNOMED Code(s): 16075757 (7) Diabetes Current Visit: No Status: Acute Code(s): E11.9 - TYPE 2 DIABETES MELLITUS WITHOUT COMPLICATIONS SNOMED Code(s): 28764246 (8) HTN (hypertension) Current Visit: No Status: Acute Code(s): I10 - ESSENTIAL (PRIMARY) HYPERTENSION SNOMED Code(s): 70514562 (9) Hyperlipemia Current Visit: No Status: Acute Code(s): E78.5 - HYPERLIPIDEMIA, UNSPECIFIED SNOMED Code(s): 46197392 (10) Atrial fibrillation Current Visit: Yes Status: Acute Code(s): I48.91 - UNSPECIFIED ATRIAL FIBR ILLATION SNOMED Code(s): 36348442 Hospital course:This is a 63-year-old white female well-known to me. She has had multiple episodes of diverticulitis in the past. She came in the emergency room with abdominal and chest pain. She has multiple comorbidities. He is had multiple episodes of diverticulitis in the past. She has not had any fever or chills. Repeat CT shows diverticulitis in the sigmoid colon along with a nonobstructing right renal calculus. This morning she continues to have pain. The pain is slightly less. It is generalized abdomen. General surgery has been consult. This a.m. her heart rate increased to approximately 140. Telemetry shows a rate consistent with atrial fibrillation. She has no history of this. Her troponins were slightly abnormal and it worsened slightly. Cardiology has been consult for management. She remains nothing by mouth with ice chips at this time. She denies any chest pains at this time. Abdominal pain continues but is improved. Recent nausea or vomiting.. 06/30/2019: Patient remains on ice chips and popsicles only this time. She continues to have mostly left lower quadrant abdominal pain. He denies any significant vomiting but has some nausea. He is currently in an out of atrial fibrillation. She is on metoprolol and IV heparin for this per cardiology. They're planning workup after diverticular is more controlled. She has some questionable dysuria and indicates she is not urinating very frequently. 07/01/2019 positive troponins, echo pending. Maintained on heparin drip. Telemetry sinus bradycardia in the mid 50s. Continues on Zosyn and Flagyl.Reports Abdomen less tender today. Tolerating ice chips. No bowel movement, positive flatus. Required intermittent straight cathing. UA reporting rare bacteria, less than 1 year in WBC and negative for leukocytes. Afebrile, T-max 99.7, WBC trending down,11.3. Hemoglobin 11.5. 07/02/19 just returning from cardiac catheterization reporting chronic occluded LAD and RCA, critical stenosis involving the distal left circumflex, status post angioplasty with stents 2 to the circumflex. Tolerated procedure well. Complains of right posterior shoulder pain, chronic, worsened postprocedure. Telemetry sinus bradycardia, hypertensive. Denies chest pain, palpitations or shortness of breath. 07/03/19 cleared by cardiology for discharge. Right shoulder pain improving. Consuming 75% consistent carb diet. Denies nausea ,vomiting. Complains of mid epigastric pain that occurs after eating. Reports flatus and small loose bowel movement. Denies chest pain, palpitations or shortness of breath. Potassium 3.5. Passing flatus, significant clinical improvement. Cleared by all consults for discharge. Patient is being discharged home in a stable condition with guarded prognosis. - Exam GENERAL: ALert & oriented X 3, no acute distress LUNGS: Breath sounds coarse to auscultation bilaterally and equal. No wheezes rales or rhonchi. HEART: Regular rate and rhythm without murmurs, rubs or gallops.S1S2 Normal. ABDOMEN: Soft, nondistended , diffuse abd. tenderness .Positive bowel sounds. No guarding. EXTREMITIES: no pitting or edema. No clubbing or cyanosis. NEUROLOGICAL: No focal deficits. The impression and plan of care has been dictated as directed. : I performed a history and examination of this patient, discussed the same with the dictator. I agree with the dictator's note ,documented as a scribe. Any additional findings or plans will be noted. Time taken: 35 minutes. Patient Condition at Discharge: Stable Plan - Discharge Summary Discharge Rx Participant: No New Discharge Prescriptions: New Ticagrelor [Brilinta] 90 mg PO BID #60 tab Cyclobenzaprine [Flexeril] 10 mg PO TID PRN #21 tab PRN Reason: Muscle Spasm Isosorbide Mononitrate ER [Imdur] 30 mg PO DAILY #30 tab.er.24h Metoprolol Tartrate [Lopressor] 25 mg PO BID #60 tab amLODIPine [Norvasc] 5 mg PO DAILY #30 tab predniSONE 10 mg PO DIRECTED #30 tab Pantoprazole Sodium [Protonix] 40 mg PO DAILY #30 tablet. Ciprofloxacin HCl [Cipro] 500 mg PO Q12HR #14 tablet metroNIDAZOLE [Flagyl] 500 mg PO TID #21 tab Continue Aspirin 81 mg PO DAILY Hydrocodone/Acetaminophen [[place] 7.5-325] 1 tab PO DAILY PRN PRN Reason: Pain Nitroglycerin Sl Tabs [Nitrostat] 0.4 mg SUBLINGUAL Q5M PRN PRN Reason: Chest Pain Lisinopril 40 mg PO DAILY Insulin Glargine [Lantus] 30 unit SQ DAILY INSULIN ASPART (NovoLOG) [NovoLOG (formulary)] 10 unit SQ QAM Atorvastatin [Lipitor] 80 mg PO DAILY PARoxetine HCL [Paxil] 40 mg PO DAILY Discontinued Isosorbide Mononitrate [Imdur] 60 mg PO BID Metoprolol Succinate (ER) [Toprol Xl] 100 mg PO DAILY Discharge Medication List Aspirin 81 mg PO DAILY 11/18/15 [History] Hydrocodone/Acetaminophen [[place] 7.5-325] 1 tab PO DAILY PRN 05/21/18 [History] Atorvastatin [Lipitor] 80 mg PO DAILY 12/18/18 [History] INSULIN ASPART (NovoLOG) [NovoLOG (formulary)] 10 unit SQ QAM 12/18/18 [History] Insulin Glargine [Lantus] 30 unit SQ DAILY 12/18/18 [History] Lisinopril 40 mg PO DAILY 12/18/18 [History] Nitroglycerin Sl Tabs [Nitrostat] 0.4 mg SUBLINGUAL Q5M PRN 12/18/18 [History] PARoxetine HCL [Paxil] 40 mg PO DAILY 12/19/18 [History] Ciprofloxacin HCl [Cipro] 500 mg PO Q12HR #14 tablet 07/03/19 [Rx] Cyclobenzaprine [Flexeril] 10 mg PO TID PRN #21 tab 07/03/19 [Rx] Isosorbide Mononitrate ER [Imdur] 30 mg PO DAILY #30 tab.er.24h 07/03/19 [Rx] Metoprolol Tartrate [Lopressor] 25 mg PO BID #60 tab 07/03/19 [Rx] Pantoprazole Sodium [Protonix] 40 mg PO DAILY #30 tablet.dr 07/03/19 [Rx] Ticagrelor [Brilinta] 90 mg PO BID #60 tab 07/03/19 [Rx] amLODIPine [Norvasc] 5 mg PO DAILY #30 tab 07/03/19 [Rx] metroNIDAZOLE [Flagyl] 500 mg PO TID #21 tab 07/03/19 [Rx] predniSONE 10 mg PO DIRECTED #30 tab 07/03/19 [Rx] Follow up Appointment(s)/Referral(s): Juan Hunter MD [Medical Doctor] - 08/01/19 9:00 am () Cyndee Epstein MD [STAFF PHYSICIAN] - 1 Week (Spoke to hotel receptionist. Office to call with appointment time) Demetrius Moss MD [STAFF PHYSICIAN] - 1 Week (Spoke to hotel receptionist. Office will call with appointment time.) Sincere Casey MD [Primary Care Provider] - 07/08/19 1:15 pm (Monday with DIRECTOR RETIREMENT) Ambulatory/Diagnostic Orders: Complete Blood Count w/diff [LAB.AMB] Time Frame: 3 Days, Location: None Selected Patient Instructions/Handouts: *Surgery [facility] - After Heart Catheterization - Supervisor Sunglasses Instructions, Diverticulitis (DC) Activity/Diet/Wound Care/Special Instructions: Peggy covered by insurance - [facility] Discharge Disposition: HOME SELF-CARE
--- NOTE | 2019-07-04 14:35 | P.PN ---
Subjective Progress Note Date: 07/04/19 This is a 63-year-old female who presented to the hospital with symptoms of abdominal pain and was found to have at the same time a non-ST elevation myocardial infarction. She underwent a cardiac catheterization and was found to have critical stenosis in the mid dominant circumflex for which she underwent stent placement. Patient was seen and examined this morning, denied any chest pain, no palpitations or difficulty in breathing. She continues to have some mild abdominal discomfort and mild abdominal bloating. Hemodynamically she is stable and from our perspective she should be able to be discharged home. Objective - Vital Signs Vital signs: Vital Signs Temp 98.0 F 07/04/19 07:57 Pulse 50 L 07/04/19 11:43 Resp 16 07/04/19 11:08 BP 147/76 07/04/19 11:08 Pulse Ox 90 L 07/04/19 11:08 Intake & Output 07/03/19 07/04/19 07/04/19 18:59 06:59 18:59 Intake Total 540 444 Output Total 2200 Balance 540 -2200 444 Weight 87.3 kg 89.9 kg Intake: IV 60 Invasive Line 1 30 Invasive Line 2 30 Oral 480 444 Output: Urine 2200 Straight 700 Other: Voiding Method Toilet Toilet Toilet # Voids 1 - Exam PHYSICAL EXAMINATION: GENERAL: 63-year-old female in no acute distress at the time of my examination HEENT: Head is atraumatic, normocephalic. Pupils equal, round. Sclera an icteric. Conjunctiva are clear. Mucous membranes of the mouth are moist. Neck is supple. There is no elevated jugular venous pressure. No carotid bruit is heard. HEART EXAMINATION: Heart S1 S2 1 systolic murmur is heard CHEST EXAMINATION: Lungs are clear to auscultation and precussion. No chest wall tenderness is noted on palpation or with deep breathing. ABDOMEN: Soft, mild generalized tenderness, mild bloating ,. Bowel sounds are heard. No organomegaly noted. EXTREMITIES: 2+ peripheral pulses with no evidence of peripheral edema and no calf tenderness noted. NEUROLOGIC patient is awake, alert and oriented 3. . - Labs CBC & Chem 7: 07/04/19 06:10 07/04/19 06:10 Labs: Abnormal Lab Results - Last 24 Hours (Table) 07/03/19 07/03/1919 Range/Units 16:37 20:41 06:09 WBC (3.8-10.6) k/uL RBC (3.80-5.40) m/uL Hct (34.0-46.0) % Chloride (98-107) mmol/L Carbon Dioxide (22-30) mmol/L BUN (7-17) mg/dL Glucose (74-99) mg/dL POC Glucose (mg/dL) 302 H 270 H 212 H (75-99) mg/dL 07/04/19 07/04/19 Range/Units 06:10 06:10 WBC 10.9 H (3.8-10.6) k/uL RBC 3.46 L (3.80-5.40) m/uL Hct 33.8 L (34.0-46.0) % Chloride 109 H (98-107) mmol/L Carbon Dioxide 20 L (22-30) mmol/L BUN 19 H (7-17) mg/dL Glucose 225 H (74-99) mg/dL POC Glucose (mg/dL) (75-99) mg/dL Microbiology - Last 24 Hours (Table) 06/29/19 00:57 Blood Culture - Preliminary Blood No Growth after 120 hours Assessment and Plan Plan: Assessment and plan #1 non-ST elevation [place] status post angioplasty and stenting of the circumflex #2 abdominal pain with diverticulitis #3 chronic tobacco use #4 hypertension #5 hyperlipidemia Plan From Cardiology's perspective, patient may be able to be discharged home, follow-up appointment with Dr. Epstein in the office post discharge. DNP note has been reviewed, I agree with a documented findings and plan of care. Patient was seen and examined.
== END 2019-07-04 11:54 | disposition home or self-care (01) | DRG 247 ==
LOC: EC 21:23 → 3SCARD 23:54
PROVIDERS: ADMIT Family Medicine; ATTEND Family Medicine
PROC: B2131ZZ Fluoroscopy of Multiple Coronary Artery Bypass Grafts using Low Osmolar Contrast (ICD-10-PCS; 2019-07-02)
PROC: B2111ZZ Fluoroscopy of Multiple Coronary Arteries using Low Osmolar Contrast (ICD-10-PCS; 2019-07-02)
PROC: B2151ZZ Fluoroscopy of Left Heart using Low Osmolar Contrast (ICD-10-PCS; 2019-07-02)
PROC: 027035Z Dilation of Coronary Artery, One Artery with Two Drug-eluting Intraluminal Devices, Percutaneous Approach (ICD-10-PCS; principal; 2019-07-02 09:00)
PROC: 4A023N7 Measurement of Cardiac Sampling and Pressure, Left Heart, Percutaneous Approach (ICD-10-PCS; 2019-07-02 09:00)
DX: I21.4 Non-ST elevation (NSTEMI) myocardial infarction (principal); I42.2 Other hypertrophic cardiomyopathy; K57.32 Diverticulitis of large intestine without perforation or abscess without bleeding; E11.51 Type 2 diabetes mellitus with diabetic peripheral angiopathy without gangrene; E11.65 Type 2 diabetes mellitus with hyperglycemia; E78.5 Hyperlipidemia, unspecified; F17.210 Nicotine dependence, cigarettes, uncomplicated; F32.9 Major depressive disorder, single episode, unspecified; I10 Essential (primary) hypertension; I25.10 Atherosclerotic heart disease of native coronary artery without angina pectoris; I25.2 Old myocardial infarction; I48.0 Paroxysmal atrial fibrillation; I65.23 Occlusion and stenosis of bilateral carotid arteries; K21.9 Gastro-esophageal reflux disease without esophagitis; N20.0 Calculus of kidney; Z79.4 Long term (current) use of insulin; Z79.82 Long term (current) use of aspirin; Z79.899 Other long term (current) drug therapy; Z82.49 Family history of ischemic heart disease and other diseases of the circulatory system; Z86.73 Personal history of transient ischemic attack (TIA), and cerebral infarction without residual deficits; Z87.442 Personal history of urinary calculi; Z90.710 Acquired absence of both cervix and uterus; Z95.1 Presence of aortocoronary bypass graft; Z95.5 Presence of coronary angioplasty implant and graft; M19.90 Unspecified osteoarthritis, unspecified site; Z98.42 Cataract extraction status, left eye; Z98.41 Cataract extraction status, right eye; Z96.1 Presence of intraocular lens; Z87.01 Personal history of pneumonia (recurrent); Z87.19 Personal history of other diseases of the digestive system; Z90.49 Acquired absence of other specified parts of digestive tract; Z86.14 Personal history of Methicillin resistant Staphylococcus aureus infection; Z88.5 Allergy status to narcotic agent; Z88.2 Allergy status to sulfonamides; I45.10 Unspecified right bundle-branch block
CPT/HCPCS: 36415; 71045; 74177; 80048; 80053; 81001; 83036; 83690; 83735; 84484; 85025; 85027; 85347; 85610; 85730; 87040; 93005; 93306; 93458; 94760; 96361; 96365; 96375; 99285; C1874

== ENCOUNTER → 2019-10-03 | Outpatient (CLI) | payer MEDICARE, OTHER ==
[2019-10-03 20:53] LABS: African American GFR (CKD) 91.6 (60.0-200.0); Albumin 4.2 g/dL (3.80-4.90); Albumin/Globulin Ratio 2.63 (1.60-3.17); Anion Gap 12.8 mmol/L (4.00-12.00); BUN/Creat Ratio 21.25 Ratio (12.00-20.00); Calcium 9.2 mg/dL (8.7-10.3); Carbon Dioxide 22.2 mmol/L (21.6-31.8); Chol/HDL Ratio 3.94; Globulin 1.6 g/dL (1.6-3.3); LDL Cholesterol,Calculated 30.8 mg/dL (0.0-131.0); Potassium 4.6 mmol/L (3.5-5.5); Total Bilirubin 0.4 mg/dL (0.3-1.2); Total Protein 5.8 g/dL (6.2-8.2); VLDL Calculation 69.2 mg/dL (5.00-40.00)
== END | disposition home or self-care (01) ==
LOC: LABWHC1 14:10
PROVIDERS: ATTEND Internal Medicine Interventional Cardiology
DX: E78.2 Mixed hyperlipidemia (principal)
CPT/HCPCS: 36415; 80053; 80061

== ENCOUNTER 2019-11-19 14:36 | Emergency (ER) | payer MEDICARE, OTHER ==
[2019-11-19 14:52] VITALS: TEMP 98.2
[2019-11-19] MEDS ORDERED: SODIUM CHLORIDE 0.9% 1,000 ML IV ONE (15:37)
[2019-11-19] MEDS ORDERED: ONDANSETRON 4 MG/2 ML VIAL IVP STA (15:37)
[2019-11-19] MEDS ORDERED: HYDROmorphone 1 MG/ML 1 ML SYRINGE IVP STA (15:37)
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
[2019-11-19 16:16] LABS: Basophils # (A) 0.1 k/uL (0-0.2); Basophils % (A) 1 %; Eosinophils # (A) 0.2 k/uL (0-0.7); Eosinophils % (A) 2 %; HCT 41.7 % (34.0-46.0); HGB 13.9 gm/dL (11.4-16.0); Lymphocytes # (A) 2.4 k/uL (1.0-4.8); Lymphocytes % (A) 26 %; MCH 32.6 pg (25.0-35.0); MCHC 33.2 g/dL (31.0-37.0); MCV 98.1 fL (80.0-100.0); Monocytes # (A) 0.4 k/uL (0-1.0); Monocytes % (A) 4 %; Neutrophils # (A) 6.1 k/uL (1.3-7.7); Neutrophils % (A) 65 %; Platelet Count 190 k/uL (150-450); RBC 4.26 m/uL (3.80-5.40); RDW 12.2 % (11.5-15.5); WBC 9.4 k/uL (3.8-10.6)
[2019-11-19 16:19] LABS: Appearance,Urine Clear (Clear); Bilirubin,Urine Negative (Negative); Blood,Urine Negative (Negative); Color,Urine Light Yellow; Glucose,Urine (UA) 4+ (Negative); Ketones,Urine Negative (Negative); Leukocyte Esterase,Urine Negative (Negative); Mucus,Urine Rare /hpf; Nitrite,Urine Negative (Negative); PH, Urine 5.5 (5.0-8.0); Protein,Urine 1+ (Negative); RBC,Urine 1 /hpf (0-5); Specific Gravity,Urine 1.024 (1.001-1.035); Squamous Epithelial Cell,Urine <1 /hpf (0-4); Urobilinogen,Urine <2.0 mg/dL (<2.0); WBC,Urine 1 /hpf (0-5)
[2019-11-19 16:26] LABS: ALT 19 U/L (4-34); AST 21 U/L (14-36); African American GFR (CKD) >90 (>60 ml/min/1.73 sqM); Albumin 3.9 g/dL (3.5-5.0); Alkaline Phosphatase 128 U/L (38-126); Amylase 52 U/L (30-110); Anion Gap 11 mmol/L; Blood Urea Nitrogen 18 mg/dL (7-17); Calcium 9.3 mg/dL (8.4-10.2); Carbon Dioxide 21 mmol/L (22-30); Chloride 103 mmol/L (98-107); Glucose 386 mg/dL (74-99); Non-African American GFR(CKD) >90 (>60 ml/min/1.73 sqM); Sodium 135 mmol/L (137-145); Total Bilirubin 0.3 mg/dL (0.2-1.3); Total Protein 6.3 g/dL (6.3-8.2)
--- NOTE | 2019-11-19 17:49 | CT ---
EXAMINATION TYPE: CT abdomen pelvis w con DATE OF EXAM: 11/19/2019 COMPARISON: 06/28/2019 HISTORY: LLQ pain with diarrhea for [address] DLP: 1128 mGycm Automated exposure control for dose reduction was used. CONTRAST: Performed with IV Contrast, patient injected with 100 mL of Isovue 300. There is mild subsegmental atelectasis at the lung bases. Heart is slightly enlarged. There is no per icardial effusion. There is no pleural effusion. Stomach is intact. There are clips from cholecystect bob. Bile ducts are not dilated. Spleen is intact. There is no evidence of pancreatic mass. There is no adrenal mass. Kidneys show no hydronephrosis. There is no evidence of a renal mass. There is 1 cm calculus lower pole right kidney. There are bilateral renal calcifications which are mostly vascular. There is atheromatous change in the abdominal aorta. There is 3.8 cm irregular aneurysm of the lower abdominal aorta. There is extensive plaque formation with significant stenosis seen in the iliac concepcion gisel. There is extensive plaque formation also in the visualized femoral arteries. Bladder distends smoothly. There is no inguinal hernia. There are numerous diverticula in the sigmoid colon. I see no sign of diverticulitis. There is no mesenteric edema. There is no ascites or free ai r. There is no sign of a bowel obstruction. Lumbar vertebra have normal alignment. Disc spaces are fa irly normal. There is no compression fracture. Bony pelvis is intact. 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 Variable plaque formation measures up to 1 cm. Extensive plaque formation and multiple areas o f stenosis of the iliac and femoral arteries. Moderate sigmoid diverticulosis without diverticulitis. Mild diverticulosis of the remainder of the c olon. Nonobstructing renal calcification. There is some patchy atelectasis at the lung bases increased slig htly compared to last exam.
[2019-11-19] MEDS ORDERED: HYDROmorphone 0.5 MG/0.5 ML SYRINGE IVP STA (18:01)
[2019-11-19 18:08] VITALS: RESP 18
[2019-11-19 18:12] LABS: Glucose,Whole Blood 268 mg/dL (75-99)
[2019-11-19] MEDS ORDERED: INSULIN ASPART (NovoLOG) 100 UNIT/ML VIAL SQ ONE (18:13)
[2019-11-19 18:49] VITALS: BP 148/78; PULSE 60
== END 2019-11-19 18:46 | disposition home or self-care (01) ==
LOC: EC 14:36
DX: R10.32 Left lower quadrant pain (principal); R11.2 Nausea with vomiting, unspecified; R19.7 Diarrhea, unspecified; E11.51 Type 2 diabetes mellitus with diabetic peripheral angiopathy without gangrene; I10 Essential (primary) hypertension; E78.5 Hyperlipidemia, unspecified; F32.9 Major depressive disorder, single episode, unspecified; F17.200 Nicotine dependence, unspecified, uncomplicated; Z79.82 Long term (current) use of aspirin; Z79.4 Long term (current) use of insulin; Z79.899 Other long term (current) drug therapy; Z88.2 Allergy status to sulfonamides; Z88.1 Allergy status to other antibiotic agents; Z88.5 Allergy status to narcotic agent; Z86.73 Personal history of transient ischemic attack (TIA), and cerebral infarction without residual deficits; Z95.1 Presence of aortocoronary bypass graft
CPT/HCPCS: 36415; 80053; 82150; 83605; 83690; 85025; 81001; 74177; 99284; 96374; 96375; 96376; 96361; J2405; J1170 ×2; Q9967

== ENCOUNTER 2019-12-29 20:00 | Observation (INO) | payer MEDICARE, OTHER ==
[2019-12-29] MEDS ORDERED: HYDROmorphone 1 MG/ML 1 ML SYRINGE IVP STA (20:38)
[2019-12-29] MEDS ORDERED: ONDANSETRON 4 MG/2 ML VIAL IVP STA (20:38)
[2019-12-29] MEDS ORDERED: SODIUM CHLORIDE 0.9% 1,000 ML IV STA (20:38)
[2019-12-29 20:46] LABS: Basophils # (A) 0.1 k/uL (0-0.2); Basophils % (A) 1 %; Eosinophils # (A) 0.3 k/uL (0-0.7); Eosinophils % (A) 2 %; HCT 44.1 % (34.0-46.0); HGB 14.4 gm/dL (11.4-16.0); Lymphocytes # (A) 3.3 k/uL (1.0-4.8); Lymphocytes % (A) 27 %; MCH 31.6 pg (25.0-35.0); MCHC 32.6 g/dL (31.0-37.0); MCV 96.7 fL (80.0-100.0); Mean Platelet Volume 8.6; Monocytes # (A) 0.5 k/uL (0-1.0); Monocytes % (A) 4 %; Neutrophils # (A) 7.7 k/uL (1.3-7.7); Neutrophils % (A) 64 %; Platelet Count 253 k/uL (150-450); RBC 4.56 m/uL (3.80-5.40); RDW 12.3 % (11.5-15.5); WBC 12.1 k/uL (3.8-10.6)
[2019-12-29 20:55] LABS: ALT 21 U/L (4-34); AST 27 U/L (14-36); African American GFR (CKD) >90 (>60 ml/min/1.73 sqM); Albumin 4.2 g/dL (3.5-5.0); Alkaline Phosphatase 163 U/L (38-126); Amylase 62 U/L (30-110); Anion Gap 9 mmol/L; Blood Urea Nitrogen 21 mg/dL (7-17); Calcium 9.8 mg/dL (8.4-10.2); Carbon Dioxide 27 mmol/L (22-30); Chloride 96 mmol/L (98-107); Glucose 329 mg/dL (74-99); Non-African American GFR(CKD) 82 (>60 ml/min/1.73 sqM); Sodium 132 mmol/L (137-145); Total Bilirubin 0.6 mg/dL (0.2-1.3); Total Protein 7.1 g/dL (6.3-8.2)
--- NOTE | 2019-12-29 20:56 | XR ---
EXAMINATION TYPE: XR KUB DATE OF EXAM: 12/29/2019 COMPARISON: 05/21/2018 HISTORY: Abdominal pain TECHNIQUE: 2 views upright FINDINGS: There is no sign of intestinal obstruction or pneumoperitoneum. Fecal pattern is normal. Th ere are clips from cholecystectomy. Abdominal aorta is atheromatous. Lung bases are clear. Kidneys ar e somewhat obscured by bowel gas. IMPRESSION: Nonacute abdomen. No adverse change.
[2019-12-29 21:00] LABS: Potassium 5.1 mmol/L (3.5-5.1)
[2019-12-29 21:45] LABS: INR 0.9 (<1.2); Partial Thromboplastin Time 22.3 sec (22.0-30.0); Prothrombin Time 9.5 sec (9.0-12.0)
[2019-12-29 22:17] LABS: Glucose,Whole Blood 312 mg/dL (75-99)
[2019-12-29 22:27] LABS: Bacteria,Urine Rare /hpf; Hyaline Casts,Urine 3 /lpf (0-2); Mucus,Urine Rare /hpf; RBC,Urine <1 /hpf (0-5); Squamous Epithelial Cell,Urine <1 /hpf (0-4); WBC,Urine 3 /hpf (0-5)
[2019-12-29 22:28] LABS: Appearance,Urine Clear (Clear); Bilirubin,Urine Negative (Negative); Blood,Urine Negative (Negative); Color,Urine Yellow; Glucose,Urine (UA) 3+ (Negative); Ketones,Urine Negative (Negative); Protein,Urine 3+ (Negative)
[2019-12-29 22:29] LABS: Leukocyte Esterase,Urine Negative (Negative); Nitrite,Urine Negative (Negative); Urobilinogen,Urine <2.0 mg/dL (<2.0)
[2019-12-29] MEDS ORDERED: HYDROmorphone 0.5 MG/0.5 ML SYRINGE IVP STA (22:36)
[2019-12-29] MEDS ORDERED: INSULIN ASPART (NovoLOG) 100 UNIT/ML VIAL SQ STA (22:36)
--- NOTE | 2019-12-29 23:09 | XR ---
EXAMINATION TYPE: XR chest 2V DATE OF EXAM: 12/29/2019 COMPARISON: 06/28/2019 HISTORY: Hypoxemia TECHNIQUE: FINDINGS: There is no heart failure nor confluent pneumonic infiltrate. Heart size is normal. There a re sternal wires. Thoracic aorta is atheromatous. There is no pleural effusion. IMPRESSION: No active cardiopulmonary disease. Normal heart. No change.
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
[2019-12-30 00:19] LABS: Glucose,Whole Blood 236 mg/dL (75-99)
[2019-12-30] MEDS ORDERED: ONDANSETRON 4 MG/2 ML VIAL IVP PRN (01:19)
[2019-12-30] MEDS ORDERED: NALOXONE 0.4 MG/ML 1 ML VIAL IV PRN (01:19)
[2019-12-30] MEDS ORDERED: ASPIRIN 81 MG PO STA (01:21)
[2019-12-30] MEDS: HYDROmorphone 1 MG/ML 1 ML SYRINGE IVP PRN ×3 (01:53→08:39)
[2019-12-30 01:58] VITALS: RESP 18
[2019-12-30 06:17] LABS: Glucose,Whole Blood 302 mg/dL (75-99)
[2019-12-30] MEDS: INSULIN ASPART (NovoLOG) 100 UNIT/ML VIAL SQ SCH ×2 (06:57→12:54)
[2019-12-30] MEDS ORDERED: PANTOPRAZOLE 40 MG TABLET PO SCH (07:30)
[2019-12-30] MEDS ORDERED: PARoxetine 20 MG TAB PO SCH (09:00)
[2019-12-30] MEDS ORDERED: ASPIRIN 81 MG PO SCH (09:00)
[2019-12-30] MEDS ORDERED: TICAGRELOR 90 MG TAB PO SCH (09:00)
[2019-12-30] MEDS ORDERED: METOPROLOL TARTRATE 25 MG TAB PO SCH (09:00)
[2019-12-30] MEDS ORDERED: LISINOPRIL 20 MG TAB PO SCH (09:00)
[2019-12-30] MEDS ORDERED: metFORMIN 500 MG TAB PO SCH (09:00)
[2019-12-30] MEDS ORDERED: ISOSORBIDE MONONITRATE ER 30 MG TAB.ER.24H PO SCH (09:00)
[2019-12-30] MEDS ORDERED: ATORVASTATIN 80 MG TAB PO SCH (09:00)
[2019-12-30] MEDS ORDERED: amLODIPine 5 MG TAB PO SCH (09:00)
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
[2019-12-30 10:49] VITALS: BP 132/63; PULSE 58; TEMP 98.1
[2019-12-30] MEDS ORDERED: IOPAMIDOL CONTRAST (ORAL USE) VIAL PO PRN (11:04)
[2019-12-30] MEDS ORDERED: SODIUM CHLORIDE 0.9% 1,000 ML IV SCH (11:15)
[2019-12-30] MEDS ORDERED: metroNIDAZOLE-NS PMX 500 MG in SALINE 1 100ML.BAG IVPB SCH (12:00)
[2019-12-30 12:15] LABS: Glucose,Whole Blood 256 mg/dL (75-99)
[2019-12-30 12:25] LABS: Basophils # (A) 0.1 k/uL (0-0.2); Basophils % (A) 0 %; Eosinophils # (A) 0.2 k/uL (0-0.7); Eosinophils % (A) 2 %; HCT 39.4 % (34.0-46.0); Lymphocytes # (A) 2.4 k/uL (1.0-4.8); Lymphocytes % (A) 18 %; MCH 31.9 pg (25.0-35.0); MCV 96.5 fL (80.0-100.0); Mean Platelet Volume 8.9; Monocytes # (A) 0.4 k/uL (0-1.0); Monocytes % (A) 3 %; Neutrophils # (A) 10.3 k/uL (1.3-7.7); Neutrophils % (A) 76 %; Platelet Count 239 k/uL (150-450); RBC 4.09 m/uL (3.80-5.40); RDW 12.3 % (11.5-15.5); WBC 13.5 k/uL (3.8-10.6)
--- NOTE | 2019-12-30 12:25 | CT ---
EXAMINATION TYPE: CT abdomen pelvis w con DATE OF EXAM: 12/30/2019 COMPARISON: 11/19/2019 HISTORY: LLQ pain, suspect diverticulitis CONTRAST: CT scan of the abdomen and pelvis is performed without Oral Contrast and with IV Contrast, patient in jected with 100 mL of Isovue 300. FINDINGS: LUNG BASES-: No visible nodule. Linear atelectasis right medial lung base. LIVER/GB: The gallbladder is surgically absent. No space occupying hepatic lesion. Biliary tree is of normal caliber. PANCREAS: No inflammation. No distinct mass. SPLEEN: No splenic enlargement. No lesion seen. ADRENALS: No nodule. No thickening. KIDNEYS/BLADDER: No hydronephrosis. Nonobstructing 1 cm calculus lower pole right kidney. No distinc t renal mass. Urinary bladder grossly unremarkable. BOWEL: Normal appendix. Normal bowel caliber. Sigmoid diverticulosis without diverticulitis. Poor di stention of the stomach limits evaluation. GENITAL ORGANS: No gross abnormality. LYMPH NODES: No greater than 1cm abdominal or pelvic lymph nodes are appreciated. AORTA: Infrarenal abdominal aortic aneurysm measuring 3.9 cm AP dimension. Mural thrombus noted. Exte nsive plaque disease involving the iliac vessels. OSSEOUS STRUCTURES: No significant abnormality is seen. OTHER: No significant additional abnormality is seen. IMPRESSION: 1. Sigmoid diverticulosis without diverticulitis. 2. Nonobstructing right renal calculus. 3. Abdominal aortic aneurysm.
[2019-12-30 12:43] LABS: African American GFR (CKD) >90 (>60 ml/min/1.73 sqM); Anion Gap 9 mmol/L; Blood Urea Nitrogen 25 mg/dL (7-17); Carbon Dioxide 21 mmol/L (22-30); Chloride 104 mmol/L (98-107); Glucose 246 mg/dL (74-99); Non-African American GFR(CKD) >90 (>60 ml/min/1.73 sqM); Sodium 134 mmol/L (137-145)
[2019-12-30 12:48] LABS: Potassium 4.6 mmol/L (3.5-5.1)
[2019-12-30] MEDS ORDERED: DOXYCYCLINE 100 MG CAP PO SCH (13:00)
[2019-12-30] MEDS ORDERED: PIPERACILLIN-TAZOBACTAM 3.375 GM in SODIUM CHLORIDE 0.9% 100 ML IVPB SCH (13:00)
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
[2019-12-30] MEDS ORDERED: HYDROcodone/APAP 7.5-325MG 1 EACH TAB PO ONE (14:47)
== END 2019-12-30 15:40 | disposition home or self-care (01) ==
LOC: EC 20:00 → 3SCARD 12-30 00:47
PROVIDERS: ADMIT Family Medicine; ATTEND Family Medicine
DX: R10.30 Lower abdominal pain, unspecified (principal); R19.7 Diarrhea, unspecified; K57.30 Diverticulosis of large intestine without perforation or abscess without bleeding; N20.0 Calculus of kidney; Z87.442 Personal history of urinary calculi; I25.10 Atherosclerotic heart disease of native coronary artery without angina pectoris; I71.4 Abdominal aortic aneurysm, without rupture; M19.90 Unspecified osteoarthritis, unspecified site; R79.89 Other specified abnormal findings of blood chemistry; K21.9 Gastro-esophageal reflux disease without esophagitis; I10 Essential (primary) hypertension; E78.5 Hyperlipidemia, unspecified; I45.10 Unspecified right bundle-branch block; Z95.1 Presence of aortocoronary bypass graft; Z95.5 Presence of coronary angioplasty implant and graft; Z98.49 Cataract extraction status, unspecified eye; Z96.1 Presence of intraocular lens; Z86.14 Personal history of Methicillin resistant Staphylococcus aureus infection; I65.23 Occlusion and stenosis of bilateral carotid arteries; E11.51 Type 2 diabetes mellitus with diabetic peripheral angiopathy without gangrene; F32.9 Major depressive disorder, single episode, unspecified; F17.200 Nicotine dependence, unspecified, uncomplicated; Z90.49 Acquired absence of other specified parts of digestive tract; Z90.710 Acquired absence of both cervix and uterus; Z90.89 Acquired absence of other organs; Z88.2 Allergy status to sulfonamides; Z88.5 Allergy status to narcotic agent; Z79.82 Long term (current) use of aspirin; Z79.891 Long term (current) use of opiate analgesic; Z79.4 Long term (current) use of insulin; Z79.899 Other long term (current) drug therapy; Z82.49 Family history of ischemic heart disease and other diseases of the circulatory system
CPT/HCPCS: 96376 ×3; 96361 ×3; 96374; 96375; 99285; 36415 ×2; 93005; 80053; 80048; 82150; 83605; 83690; 84484 ×2; 85025 ×2; 85610; 85730; 81001; 71046; 74018; 74177; G0378; J2405; J1170 ×3; Q9967

== ENCOUNTER 2020-05-12 12:17 | Observation (INO) | payer MEDICARE, OTHER ==
[2020-05-12] MEDS ORDERED: PANTOPRAZOLE 40 MG/10 ML VIAL IVP STA (12:24)
[2020-05-12] MEDS ORDERED: SODIUM CHLORIDE 0.9% 1,000 ML IV STA ×2 (12:24)
[2020-05-12] MEDS ORDERED: HYDROmorphone 0.5 MG/0.5 ML SYRINGE IVP STA (12:31)
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
[2020-05-12 12:59] LABS: Basophils # (A) 0.1 k/uL (0-0.2); Basophils % (A) 1 %; Eosinophils # (A) 0.4 k/uL (0-0.7); Eosinophils % (A) 3 %; HCT 40.8 % (34.0-46.0); HGB 13.8 gm/dL (11.4-16.0); Lymphocytes # (A) 2.6 k/uL (1.0-4.8); Lymphocytes % (A) 26 %; MCH 32.9 pg (25.0-35.0); MCHC 33.8 g/dL (31.0-37.0); MCV 97.3 fL (80.0-100.0); Mean Platelet Volume 9.3; Monocytes # (A) 0.4 k/uL (0-1.0); Monocytes % (A) 3 %; Neutrophils # (A) 6.7 k/uL (1.3-7.7); Neutrophils % (A) 66 %; Platelet Count 230 k/uL (150-450); RBC 4.19 m/uL (3.80-5.40); RDW 12.8 % (11.5-15.5); WBC 10.2 k/uL (3.8-10.6)
[2020-05-12 13:15] LABS: ALT 20 U/L (4-34); AST 21 U/L (14-36); African American GFR (CKD) >90 (>60 ml/min/1.73 sqM); Albumin 3.8 g/dL (3.5-5.0); Alkaline Phosphatase 137 U/L (38-126); Anion Gap 7 mmol/L; Blood Urea Nitrogen 14 mg/dL (7-17); Calcium 9.1 mg/dL (8.4-10.2); Carbon Dioxide 23 mmol/L (22-30); Chloride 100 mmol/L (98-107); Glucose 377 mg/dL (74-99); Magnesium 1.5 mg/dL (1.6-2.3); Non-African American GFR(CKD) >90 (>60 ml/min/1.73 sqM); Potassium 4.3 mmol/L (3.5-5.1); Sodium 130 mmol/L (137-145); Total Bilirubin 0.5 mg/dL (0.2-1.3); Total Protein 6.3 g/dL (6.3-8.2)
[2020-05-12] MEDS ORDERED: NALOXONE 0.4 MG/ML 1 ML VIAL IV PRN (13:48)
--- NOTE | 2020-05-12 14:40 | CT ---
EXAMINATION TYPE: CT brain wo con DATE OF EXAM: 05/12/2020 COMPARISON: CT brain 12/18/2018 HISTORY: Fall yesterday, trauma and pain CT DLP: 1096.4 mGycm Automated exposure control for dose reduction was used. Head CT performed using departmental protocol FINDINGS: White matter low-attenuation changes are again noted scattered within the deep white matter as on sridhar or exam. There is no hydrocephalus or hemorrhage. Cerebral vascular calcifications are present. The c alvarium is intact. Paranasal sinuses and mastoid air cells as visualized are normal. IMPRESSION: NO ACUTE ABNORMALITY. STABLE FINDINGS MAY BE INDICATIVE OF CHRONIC SMALL VESSEL ISCHEMIA
--- NOTE | 2020-05-12 14:51 | CT ---
EXAMINATION TYPE: CT abdomen pelvis w con DATE OF EXAM: 05/12/2020 COMPARISON: 12/30/2019 HISTORY: 64-year-old female LLQ pain, GI bleed TECHNIQUE: Contiguous axial scanning of the abdomen and pelvis following administration of 100 ml Iso amadeo 300 IV contrast. Delayed images through the kidneys and coronal/sagittal reconstructions perform ed. CT DLP: 1109.9 mGycm Automated exposure control for dose reduction was used. FINDINGS: Heart is mildly enlarged without pericardial effusion. Hazy dependent areas of atelectasis without pl eural effusion. Moderate to severe atherosclerotic changes throughout the abdominal aorta and iliac arteries. Common iliac artery stents are present. Severe atherosclerotic narrowing at the origin of the celiac axis. M oderate atelectatic narrowing at the origin of the bilateral renal arteries. Infrarenal AAA measuring up to 4.0 cm on axial image 38. Extensive plaque focally narrowing the paten t lumen down to 6 mm on axial image 48. Small fatty umbilical hernia. Liver borderline in size at 17.9 cm. No focal lesion seen. Cholecystectomy limits. No biliary ductal dilatation. Adrenal glands, spleen, pancreas appear within normal limits. 1 cm nonobstructive right lower pole renal calculus. Additional few punctate calcifications in both s ides probably vascular. No dilated small bowel, free fluid, or free air. Mild wall thickening of the lower ascending colon, axial image 61. Left-sided colonic diverticulosis, severe within the sigmoid colon without definite pericolonic inflammatory change. Bladder distended. Patulous left inguinal canal. Pelvic phleboliths. Uterus surgically absent. Neithe r ovary clearly identified. No abnormal fluid collection the pelvis or pelvic lymphadenopathy seen. Bones: Degenerative changes at the right or left hips, right SI joint, and hypertrophic facet arthrop athy mid to lower lumbar spine. Disc herniation towards the left at L4-L5. IMPRESSION: 1. SIMILAR SEVERE ATHEROSCLEROTIC CHANGES THROUGHOUT THE ABDOMINAL AORTA AND ILIAC ARTERIES WITH 4.0 CM FUSIFORM INFRARENAL AAA AND FOCAL LUMINAL NARROWING DOWN TO 6 MM DUE TO MURAL-BASED PLAQUE AND THR OMBUS. 2. CIRCUMFERENTIALLY THICKENED ASCENDING COLON. CORRELATE FOR A NONSPECIFIC INFECTIOUS/INFLAMMATORY/I SCHEMIC COLITIS. 3. SEVERE SIGMOID DIVERTICULOSIS. NO EVIDENCE FOR ACUTE DIVERTICULITIS. 4. 1 CM NONOBSTRUCTIVE RIGHT RENAL CALCULUS.
[2020-05-12] MEDS ORDERED: PIPERACILLIN-TAZOBACTAM 3.375 GM in SODIUM CHLORIDE 0.9% 100 ML IVPB STA (14:56)
[2020-05-12] MEDS ORDERED: INSULIN REGULAR 100 UNIT/ML VIAL IV ONE (14:57)
[2020-05-12] MEDS: HYDROmorphone 0.5 MG/0.5 ML SYRINGE IVP PRN ×3 (16:22→23:06)
[2020-05-12 20:39] LABS: Basophils # (A) 0.1 k/uL (0-0.2); Basophils % (A) 1 %; Eosinophils # (A) 0.3 k/uL (0-0.7); Eosinophils % (A) 4 %; HCT 37.1 % (34.0-46.0); HGB 12.3 gm/dL (11.4-16.0); Lymphocytes # (A) 2.7 k/uL (1.0-4.8); Lymphocytes % (A) 33 %; MCH 32.2 pg (25.0-35.0); MCHC 33.1 g/dL (31.0-37.0); MCV 97.3 fL (80.0-100.0); Mean Platelet Volume 9.1; Monocytes # (A) 0.2 k/uL (0-1.0); Monocytes % (A) 3 %; Neutrophils # (A) 4.8 k/uL (1.3-7.7); Neutrophils % (A) 58 %; Platelet Count 186 k/uL (150-450); RBC 3.81 m/uL (3.80-5.40); RDW 12.3 % (11.5-15.5); WBC 8.1 k/uL (3.8-10.6)
[2020-05-12 20:48] LABS: Glucose,Whole Blood 201 mg/dL (75-99)
[2020-05-12] MEDS: INSULIN ASPART (NovoLOG) 100 UNIT/ML VIAL SQ SCH (20:54)
[2020-05-13] MEDS: HYDROmorphone 0.5 MG/0.5 ML SYRINGE IVP PRN ×7 (01:46→22:16)
[2020-05-13 07:01] LABS: Glucose,Whole Blood 230 mg/dL (75-99)
[2020-05-13] MEDS: INSULIN ASPART (NovoLOG) 100 UNIT/ML VIAL SQ SCH ×4 (08:39→21:06)
[2020-05-13 11:39] LABS: Glucose,Whole Blood 225 mg/dL (75-99)
[2020-05-13] MEDS ORDERED: Magnesium Replacement Protocol 1 EACH MISC MISCELLANE PRN (11:57)
[2020-05-13] MEDS ORDERED: NITROGLYCERIN SL TABS 0.4 MG TAB SUBLINGUAL PRN (12:19)
[2020-05-13] MEDS: PANTOPRAZOLE 40 MG/10 ML VIAL IVP SCH ×2 (12:22→21:06)
[2020-05-13] MEDS: METOPROLOL TARTRATE 25 MG TAB PO SCH ×2 (12:30→21:06)
[2020-05-13 13:01] LABS: HCT 37.4 % (34.0-46.0); HGB 12.2 gm/dL (11.4-16.0); MCH 32.1 pg (25.0-35.0); MCHC 32.6 g/dL (31.0-37.0); MCV 98.4 fL (80.0-100.0); Mean Platelet Volume 9.1; Platelet Count 179 k/uL (150-450); RDW 12.4 % (11.5-15.5); WBC 11.8 k/uL (3.8-10.6)
[2020-05-13 13:11] LABS: African American GFR (CKD) >90 (>60 ml/min/1.73 sqM); Anion Gap 4 mmol/L; Blood Urea Nitrogen 9 mg/dL (7-17); Calcium 8.2 mg/dL (8.4-10.2); Carbon Dioxide 24 mmol/L (22-30); Chloride 108 mmol/L (98-107); Glucose 198 mg/dL (74-99); Magnesium 1.5 mg/dL (1.6-2.3); Non-African American GFR(CKD) >90 (>60 ml/min/1.73 sqM); Sodium 136 mmol/L (137-145)
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
[2020-05-13] MEDS: DICYCLOMINE 10 MG CAP PO SCH ×2 (17:10→21:06)
[2020-05-13 17:14] LABS: Hemoglobin A1C 15.7 % (4.0-6.0)
[2020-05-13 17:15] LABS: Glucose,Whole Blood 141 mg/dL (75-99)
[2020-05-13 20:56] LABS: Glucose,Whole Blood 171 mg/dL (75-99)
[2020-05-14] MEDS: HYDROmorphone 0.5 MG/0.5 ML SYRINGE IVP PRN ×7 (01:14→23:18)
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
[2020-05-14 07:33] LABS: Glucose,Whole Blood 247 mg/dL (75-99)
[2020-05-14] MEDS: INSULIN ASPART (NovoLOG) 100 UNIT/ML VIAL SQ SCH ×4 (07:35→21:21)
[2020-05-14] MEDS: PANTOPRAZOLE 40 MG/10 ML VIAL IVP SCH ×2 (07:35→20:17)
[2020-05-14] MEDS: METOPROLOL TARTRATE 25 MG TAB PO SCH ×2 (07:36→20:19)
[2020-05-14] MEDS: DICYCLOMINE 10 MG CAP PO SCH ×3 (07:36→21:20)
[2020-05-14 08:52] LABS: Basophils % (A) 1 %; Eosinophils # (A) 0.3 k/uL (0-0.7); Eosinophils % (A) 4 %; HCT 39.5 % (34.0-46.0); HGB 12.4 gm/dL (11.4-16.0); Lymphocytes # (A) 2.1 k/uL (1.0-4.8); Lymphocytes % (A) 30 %; MCH 31.5 pg (25.0-35.0); MCHC 31.5 g/dL (31.0-37.0); Mean Platelet Volume 9.1; Monocytes # (A) 0.3 k/uL (0-1.0); Monocytes % (A) 4 %; Neutrophils # (A) 4.2 k/uL (1.3-7.7); Neutrophils % (A) 60 %; Platelet Count 185 k/uL (150-450); RBC 3.95 m/uL (3.80-5.40); RDW 12.6 % (11.5-15.5)
[2020-05-14 11:14] LABS: Glucose,Whole Blood 223 mg/dL (75-99)
--- NOTE | 2020-05-14 11:22 | P.DS ---
Providers Date of admission: 05/12/20 16:28 Expected date of discharge: 05/14/20 Attending physician: Hema Mckenzie Consults: 05/12/20 15:07 Consult Physician Routine Consulting Provider: Vandana Patel Consult Reason/Comments: GI bleed Do you want consulting provider notified?: Yes, Notify in am Primary care physician: Sincere Casey [facility] Course: Final Diagnoses: -GI bleed, Lower quadrant abdominal pain with bloody diarrhea, thickened ascending colon, possible nonspecific infectious, or inflammatory or ischemic colitis ,severe sigmoid diverticulosis without diverticulitis,nonobstructing right renal calculus, EGD pending -External hemorrhoids -Recent fall -Severe arteriosclerotic abdominal aorta and iliac artery changes with 4.0 cm fusiform infrarenal AAA, further follow-up outpatient with vascular surgery recommended -Small fatty umbilical hernia -Liver borderline in size, 17.9 cm without focal lesions per CT -history of diverticulosis and multiple episodes of diverticulitis. -Gastroesophageal reflux disease -CAD, history of CABG -Ongoing nicotine dependence -Diabetes mellitus -Hypertension -History of CVA/TIA -History of GI -History of depression -Hypomagnesemia Hospital course:This is 64-year-old female with history of CVA/TIA, diabetes mellitus, gastroesophageal disease, GI bleed, CAD, history of CABG, diverticulitis, ongoing nicotine dependence multiple other medical issues presented to the ER with complaints of bright red and dark red bloody stools 4 accompanied by lower abdominal cramping. Denies chest pain, palpitations or shortness of breath. Denies fever or chills. Hemoglobin on admission 13.8, platelets 230, vital signs stable. Afebrile, normal WBC. Elevated blood sugars on admission of 377 currently in the low 200s. Magnesium 1.5, repeat level pending. Sodium 1:30. Stool positive for occult blood. Patient also reported falling yesterday, denied syncope. Denies lightheadedness, dizziness or focal deficits. Troponin within normal limits. Brain CT reported no acute, stable. Abdomen/pelvis CT reported similar severe anterior sclerotic changes throughout the abdominal aorta and iliac arteries with 4.0 cm fusiform infrarenal AAA and focal luminal narrowing down to 6 mm due to mural based and thrombus, thickened ascending colon circumferential-possible nonspecific infectious versus inflammatory versus ischemic colitis, severe sigmoid diverticulosis no acute diverticulitis, 1 cm nonobstructive right renal calculus. ER reported bright red/dark stool and digits after rectal exam with external hemorrhoids noted. IV fluid hydration, antibiotics of Zosyn initiated Evaluated by GI, scheduled for EGD today. Patient will be discharged home today, in a stable condition with guarded prognosis, pending EGD, final DC recommendations and clearance from GI. The impression and plan of care has been dictated as directed. : I performed a history and examination of this patient, discussed the same with the dictator. I agree with the dictator's note ,documented as a scribe. Any additional findings or plans will be noted. Patient Condition at Discharge: Stable Plan - Discharge Summary New Discharge Prescriptions: No Action Nitroglycerin Sl Tabs [Nitrostat] 0.4 mg SUBLINGUAL Q5M PRN PRN Reason: Chest Pain Lisinopril 40 mg PO DAILY Atorvastatin [Lipitor] 80 mg PO DAILY PARoxetine HCL [Paxil] 40 mg PO DAILY Ticagrelor [Brilinta] 90 mg PO BID #60 tab Metoprolol Tartrate [Lopressor] 25 mg PO BID #60 tab amLODIPine [Norvasc] 5 mg PO DAILY #30 tab metFORMIN HCL 500 mg PO BID Liraglutide [Victoza 2-Jensen] 1.8 mg SQ DAILY Insulin Degludec [Tresiba] 30 units SQ DAILY Isosorbide Mononitrate ER [Imdur] 60 mg PO BID HYDROcodone/APAP 7.5-325MG [[place] 7.5-325] 1 tab PO BID Discharge Medication List Atorvastatin [Lipitor] 80 mg PO DAILY 12/18/18 [History] Lisinopril 40 mg PO DAILY 12/18/18 [History] Nitroglycerin Sl Tabs [Nitrostat] 0.4 mg SUBLINGUAL Q5M PRN 12/18/18 [History] PARoxetine HCL [Paxil] 40 mg PO DAILY 12/19/18 [History] Metoprolol Tartrate [Lopressor] 25 mg PO BID #60 tab 07/03/19 [Rx] Ticagrelor [Brilinta] 90 mg PO BID #60 tab 07/03/19 [Rx] amLODIPine [Norvasc] 5 mg PO DAILY #30 tab 07/03/19 [Rx] Insulin Degludec [Tresiba] 30 units SQ DAILY 12/30/19 [History] Liraglutide [Victoza 2-Jensen] 1.8 mg SQ DAILY 12/30/19 [History] metFORMIN HCL 500 mg PO BID 12/30/19 [History] HYDROcodone/APAP 7.5-325MG [[place] 7.5-325] 1 tab PO BID 05/12/20 [History] Isosorbide Mononitrate ER [Imdur] 60 mg PO BID 05/12/20 [History] Follow up Appointment(s)/Referral(s): Sincere Casey MD [Primary Care Provider] - 3 Days Eyad Goodwin MD [STAFF PHYSICIAN] - 2 Weeks Activity/Diet/Wound Care/Special Instructions: Pending EGD, final DC recommendations and clearance from GI
[2020-05-14] MEDS ORDERED: LIDOCAINE 1% INJ 10MG/ML (20 ML MDV) ONE (11:30)
[2020-05-14] MEDS ORDERED: PROPOFOL 10 MG/ML 20 ML VIAL IV ONE (11:30)
[2020-05-14] MEDS ORDERED: IV FLUID CONTINUATION 1,000 ML IV ONE (11:32)
--- NOTE | 2020-05-14 12:25 | P.PCN ---
Date of Procedure: 05/14/20 Description of Procedure: BRIEF HISTORY: 64-year-old female with multiple medical comorbidities including CVA/TIA, diabetes mellitus, GERD, coronary artery disease, prior episodes of diverticulitis, tobacco abuse and prior GI bleed who presented to the hospital with concerns over abdominal pain and melena. The patient reports approximately 3 days of symptoms. She reports dark colored bowel movements with some blood tinge with wiping. She also reported associated lower abdominal pain and cramping predominantly below the umbilicus. The patient denies any NSAID use and takes [place] for pain. She is on anticoagulation therapy. She does have a prior history of GI bleed in 2016 at which time EGD and colonoscopy were performed and significant for a negative upper endoscopy and diverticulosis on colonoscopy. Computed tomography scan of the abdomen performed in evaluation was significant for right sided colitis, atherosclerotic disease, nephrolithiasis, and diverticulosis. Laboratory evaluation significant for WBC 8.1, hemoglobin 12.3 and platelet count 286,000 with total bilirubin 0.5, alkaline phosphatase 137, AST 21 and ALT 20. PROCEDURE PERFORMED: Esophagogastroduodenoscopy with biopsy. PREOPERATIVE DIAGNOSIS: GI bleed, melena. ESTIMATED BLOOD LOSS: Minimal. IV sedation per anesthesia. PROCEDURE: After informed consent was obtained, the patient was brought into the endoscopy unit. IV sedation was administered by Anesthesia under continuous monitoring. Initially the Olympus GIF-190 video endoscope was inserted into the mouth. Esophagus intubated without any difficulty. It was gradually advanced into the stomach and duodenum and carefully examined. The bulb and the second part of the duodenum appeared normal, with biopsies taken. The scope at this time was withdrawn to the stomach, adequately insufflated with air, and upon careful examination, mucosa of the antrum, body, cardia and the fundus appeared normal, except for some mild scattered erythema in the antrum and body suggestive of mild gastritis biopsies taken. The scope was then withdrawn into the esophagus. The GE junction was located at 37 cm from the incisors. The esophagus appeared normal. There were no erosions or ulcerations seen and the patient tolerated the procedure well. IMPRESSION: 1. Mild gastritis antrum and body, biopsied. 2. Duodenal biopsies. 3. No active bleed, old blood or source of GI bleed noted. RECOMMENDATIONS: The findings of this examination were discussed with the patient. Okay to continue liquid diet. Would recommend broad spectrum antibiotic therapy in the setting of right-sided colitis and suspicion for ischemic colitis in the setting of a known history of atherosclerosis. Continue to monitor hemoglobin and hematocrit. Patient will need repeat colonoscopy in 4-6 weeks after discharge or direct visualization of the right colon.
[2020-05-14] MEDS: MAGNESIUM SULFATE-D5W PMX 1 GM in DEXTROSE/WATER 1 100ML.BAG IVPB SCH ×2 (13:06→14:43)
[2020-05-14 13:53] VITALS: BMI 25.8
[2020-05-14] MEDS: LEVOFLOXACIN 500MG-D5W PMX 500 MG in DEXTROSE/WATER 1 100ML.BAG IVPB SCH (16:10)
[2020-05-14 17:12] LABS: Glucose,Whole Blood 326 mg/dL (75-99)
[2020-05-14] MEDS: metroNIDAZOLE-NS PMX 500 MG in SALINE 1 100ML.BAG IVPB SCH ×2 (17:50→23:18)
[2020-05-14 20:42] LABS: Glucose,Whole Blood 234 mg/dL (75-99)
[2020-05-15] MEDS: HYDROmorphone 0.5 MG/0.5 ML SYRINGE IVP PRN ×3 (02:30→09:03)
[2020-05-15 07:59] LABS: Glucose,Whole Blood 281 mg/dL (75-99)
[2020-05-15] MEDS: INSULIN ASPART (NovoLOG) 100 UNIT/ML VIAL SQ SCH ×4 (08:05→21:31)
[2020-05-15] MEDS: PANTOPRAZOLE 40 MG/10 ML VIAL IVP SCH ×2 (08:05→21:32)
[2020-05-15] MEDS: metroNIDAZOLE-NS PMX 500 MG in SALINE 1 100ML.BAG IVPB SCH ×2 (08:05→15:38)
[2020-05-15] MEDS: METOPROLOL TARTRATE 25 MG TAB PO SCH ×2 (08:06→21:32)
[2020-05-15] MEDS: DICYCLOMINE 10 MG CAP PO SCH ×3 (08:06→21:32)
[2020-05-15 08:19] LABS: Basophils # (A) 0.1 k/uL (0-0.2); Basophils % (A) 1 %; Eosinophils # (A) 0.4 k/uL (0-0.7); Eosinophils % (A) 5 %; HCT 38.5 % (34.0-46.0); HGB 12.3 gm/dL (11.4-16.0); Lymphocytes % (A) 25 %; Mean Platelet Volume 8.5; Monocytes # (A) 0.4 k/uL (0-1.0); Monocytes % (A) 5 %; Neutrophils % (A) 63 %; Platelet Count 198 k/uL (150-450); RBC 3.85 m/uL (3.80-5.40); RDW 12.6 % (11.5-15.5)
[2020-05-15] MEDS: HYDROcodone/APAP 7.5-325MG 1 EACH TAB PO PRN ×2 (12:07→18:25)
[2020-05-15] MEDS: INSULIN DETEMIR (LEVEMIR) 100 UNIT/ML SYR SQ SCH (12:07)
[2020-05-15] MEDS: LEVOFLOXACIN 500MG-D5W PMX 500 MG in DEXTROSE/WATER 1 100ML.BAG IVPB SCH (12:29)
[2020-05-15 12:32] LABS: Glucose,Whole Blood 231 mg/dL (75-99)
[2020-05-15 17:05] LABS: Glucose,Whole Blood 343 mg/dL (75-99)
[2020-05-15 20:14] LABS: Glucose,Whole Blood 266 mg/dL (75-99)
[2020-05-16] MEDS: metroNIDAZOLE-NS PMX 500 MG in SALINE 1 100ML.BAG IVPB SCH ×2 (00:05→07:49)
[2020-05-16] MEDS: HYDROcodone/APAP 7.5-325MG 1 EACH TAB PO PRN ×2 (00:06→07:48)
[2020-05-16] MEDS: INSULIN DETEMIR (LEVEMIR) 100 UNIT/ML SYR SQ SCH (07:00)
[2020-05-16 07:15] LABS: Glucose,Whole Blood 146 mg/dL (75-99)
[2020-05-16] MEDS: INSULIN ASPART (NovoLOG) 100 UNIT/ML VIAL SQ SCH ×2 (07:47→12:15)
[2020-05-16] MEDS: METOPROLOL TARTRATE 25 MG TAB PO SCH (07:48)
[2020-05-16] MEDS: DICYCLOMINE 10 MG CAP PO SCH (07:48)
[2020-05-16] MEDS: PANTOPRAZOLE 40 MG/10 ML VIAL IVP SCH (07:48)
[2020-05-16] MEDS ORDERED: INSULIN DETEMIR (LEVEMIR) 100 UNIT/ML SYR SQ SCH (08:00)
[2020-05-16 11:35] LABS: Glucose,Whole Blood 263 mg/dL (75-99)
[2020-05-16 11:47] VITALS: BP 176/74; PULSE 53; RESP 16; TEMP 98.1
[2020-05-16] MEDS ORDERED: PANTOPRAZOLE 40 MG TABLET PO SCH (21:00)
== END 2020-05-16 12:35 | disposition home or self-care (01) ==
LOC: EC 12:17 → 5NMEDONC 16:28
PROVIDERS: ADMIT Family Medicine; ATTEND Family Medicine
DX: K57.31 Diverticulosis of large intestine without perforation or abscess with bleeding (principal); K29.51 Unspecified chronic gastritis with bleeding; K64.4 Residual hemorrhoidal skin tags; K42.9 Umbilical hernia without obstruction or gangrene; K52.9 Noninfective gastroenteritis and colitis, unspecified; E11.65 Type 2 diabetes mellitus with hyperglycemia; E11.51 Type 2 diabetes mellitus with diabetic peripheral angiopathy without gangrene; K21.9 Gastro-esophageal reflux disease without esophagitis; E78.5 Hyperlipidemia, unspecified; I10 Essential (primary) hypertension; M19.90 Unspecified osteoarthritis, unspecified site; M54.9 Dorsalgia, unspecified; I65.23 Occlusion and stenosis of bilateral carotid arteries; I71.4 Abdominal aortic aneurysm, without rupture; E83.42 Hypomagnesemia; I25.10 Atherosclerotic heart disease of native coronary artery without angina pectoris; F17.210 Nicotine dependence, cigarettes, uncomplicated; N20.0 Calculus of kidney; K76.9 Liver disease, unspecified; F32.9 Major depressive disorder, single episode, unspecified; W01.0XXA Fall on same level from slipping, tripping and stumbling without subsequent striking against object, initial encounter; Z86.73 Personal history of transient ischemic attack (TIA), and cerebral infarction without residual deficits; Z87.19 Personal history of other diseases of the digestive system; Z87.01 Personal history of pneumonia (recurrent); Z87.442 Personal history of urinary calculi; Z86.14 Personal history of Methicillin resistant Staphylococcus aureus infection; Z90.49 Acquired absence of other specified parts of digestive tract; Z90.710 Acquired absence of both cervix and uterus; Z95.1 Presence of aortocoronary bypass graft; Z95.5 Presence of coronary angioplasty implant and graft; Z79.899 Other long term (current) drug therapy; Z79.82 Long term (current) use of aspirin; Z79.4 Long term (current) use of insulin; Z79.01 Long term (current) use of anticoagulants; Z79.891 Long term (current) use of opiate analgesic; Z79.02 Long term (current) use of antithrombotics/antiplatelets; Z88.2 Allergy status to sulfonamides; Z88.5 Allergy status to narcotic agent; Z88.1 Allergy status to other antibiotic agents; I73.9 Peripheral vascular disease, unspecified; Z84.89 Family history of other specified conditions; Z82.49 Family history of ischemic heart disease and other diseases of the circulatory system; Z11.59 Encounter for screening for other viral diseases
CPT/HCPCS: 96376 ×3; 96366; 96361; 96365; 96375; 99285; 36415; 97161; 97535; 97166; 86900; 86901; 88305; 80053; 80048; 83690; 83735 ×4; 84484; 85025 ×3; 85027; 85730; 86850; 82272; 87040; 83036; 70450; 74177; 43239; G0378 ×5; U0003; J2543; J1956 ×2; J2001; J3475; J2704; C9113 ×5; J1170 ×4; Q9967

== ENCOUNTER 2020-06-04 18:03 | Inpatient (IN) | payer MEDICARE, OTHER ==
[2020-06-04 18:06] LABS: Glucose,Whole Blood 489 mg/dL (75-99)
[2020-06-04] MEDS ORDERED: SODIUM CHLORIDE 0.9% 2,000 ML IV STA (18:21)
[2020-06-04] MEDS ORDERED: DIPHENOX-ATROP 2.5-0.025 MG 1 EACH TAB PO STA (18:21)
[2020-06-04] MEDS ORDERED: ONDANSETRON 4 MG/2 ML VIAL IVP STA ×2 (18:21→21:01)
[2020-06-04 19:05] LABS: Basophils # (A) 0.1 k/uL (0-0.2); Basophils % (A) 1 %; Eosinophils # (A) 0.1 k/uL (0-0.7); Eosinophils % (A) 1 %; HCT 44.4 % (34.0-46.0); HGB 14.4 gm/dL (11.4-16.0); Lymphocytes % (A) 25 %; MCH 32.1 pg (25.0-35.0); MCHC 32.4 g/dL (31.0-37.0); MCV 98.9 fL (80.0-100.0); Mean Platelet Volume 9.6; Monocytes # (A) 0.4 k/uL (0-1.0); Monocytes % (A) 6 %; Neutrophils # (A) 5.4 k/uL (1.3-7.7); Neutrophils % (A) 66 %; Platelet Count 265 k/uL (150-450); RBC 4.49 m/uL (3.80-5.40); RDW 12.7 % (11.5-15.5); WBC 8.1 k/uL (3.8-10.6)
[2020-06-04 19:11] LABS: ALT 18 U/L (4-34); AST 22 U/L (14-36); African American GFR (CKD) >90 (>60 ml/min/1.73 sqM); Albumin 4.1 g/dL (3.5-5.0); Alkaline Phosphatase 85 U/L (38-126); Amylase 51 U/L (30-110); Anion Gap 11 mmol/L; Blood Urea Nitrogen 15 mg/dL (7-17); Calcium 9.4 mg/dL (8.4-10.2); Carbon Dioxide 22 mmol/L (22-30); Chloride 96 mmol/L (98-107); Glucose 473 mg/dL (74-99); Non-African American GFR(CKD) >90 (>60 ml/min/1.73 sqM); Potassium 4.1 mmol/L (3.5-5.1); Sodium 129 mmol/L (137-145); Total Bilirubin 0.5 mg/dL (0.2-1.3); Total Protein 6.4 g/dL (6.3-8.2)
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
[2020-06-04] MEDS ORDERED: INSULIN ASPART (NovoLOG) 100 UNIT/ML VIAL SQ ONE (19:21)
[2020-06-04 19:26] LABS: Appearance,Urine Clear (Clear); Bilirubin,Urine Negative (Negative); Blood,Urine Moderate (Negative); Color,Urine Light Yellow; Glucose,Urine (UA) 4+ (Negative); Ketones,Urine 1+ (Negative); Leukocyte Esterase,Urine Negative (Negative); Mucus,Urine Rare /hpf; Nitrite,Urine Negative (Negative); PH, Urine 5.5 (5.0-8.0); Protein,Urine 1+ (Negative); RBC,Urine 12 /hpf (0-5); Specific Gravity,Urine 1.029 (1.001-1.035); Squamous Epithelial Cell,Urine <1 /hpf (0-4); Urobilinogen,Urine <2.0 mg/dL (<2.0); WBC,Urine 2 /hpf (0-5)
[2020-06-04] MEDS ORDERED: hydrALAZINE HCL 20 MG/ML 1 ML VIAL IVP STA (19:28)
[2020-06-04] MEDS ORDERED: HYDROmorphone 0.5 MG/0.5 ML SYRINGE IVP STA (19:28)
[2020-06-04 21:03] LABS: Glucose,Whole Blood 336 mg/dL (75-99)
[2020-06-04] MEDS ORDERED: SODIUM CHLORIDE 0.9% 1,000 ML IV ONE (21:18)
--- NOTE | 2020-06-04 21:47 | CT ---
EXAMINATION TYPE: CT abdomen pelvis w con DATE OF EXAM: 06/04/2020 COMPARISON: 05/12/2020 HISTORY: Abdominal/pelvic pain, nausea and vomiting. CT DLP: 1037.7 mGycm Automated exposure control for dose reduction was used. TECHNIQUE: Helical acquisition of images was performed from the lung bases through the pelvis. CONTRAST: Performed without Oral Contrast and with IV Contrast, patient injected with 100ml mL of Iso amadeo 300. FINDINGS: LUNG BASES: No significant abnormality is appreciated. LIVER/GB: No significant abnormality is appreciated. PANCREAS: No significant abnormality is seen. SPLEEN: No significant abnormality is seen. ADRENALS: No significant abnormality is seen. KIDNEYS: No significant abnormality is seen. FREE AIR: No free air is visualized. RETROPERITONEAL ADENOPATHY: None visualized REPRODUCTIVE ORGANS: No significant abnormality is seen URINARY BLADDER: No significant abnormality is seen. PELVIC ADENOPATHY: None visualized. OSSEOUS STRUCTURES: No significant abnormality is seen. BOWEL: No significant abnormality is seen. OTHER: There are prominently advanced atherosclerotic changes throughout the arterial anatomy, simila r to the prior study, but no definite acute vascular findings. IMPRESSION: NO ACUTE CT PROCESS.
[2020-06-04] MEDS ORDERED: ACETAMINOPHEN IV (For NPO) 1,000 MG in EMPTY BAG 1 BAG IVPB ONE (22:45)
[2020-06-05 00:09] LABS: Glucose,Whole Blood 283 mg/dL (75-99)
[2020-06-05] MEDS: ONDANSETRON 4 MG/2 ML VIAL IVP PRN ×3 (02:45→15:46)
[2020-06-05 07:44] LABS: Glucose,Whole Blood 254 mg/dL (75-99)
[2020-06-05] MEDS: INSULIN ASPART (NovoLOG) 100 UNIT/ML VIAL SQ SCH ×4 (09:16→21:27)
[2020-06-05 11:46] LABS: Glucose,Whole Blood 238 mg/dL (75-99)
[2020-06-05 11:49] LABS: HCT 37.2 % (34.0-46.0); HGB 12.2 gm/dL (11.4-16.0); MCH 32.1 pg (25.0-35.0); MCHC 32.7 g/dL (31.0-37.0); MCV 97.9 fL (80.0-100.0); Mean Platelet Volume 8.6; Platelet Count 214 k/uL (150-450); RDW 12.7 % (11.5-15.5); WBC 7.6 k/uL (3.8-10.6)
[2020-06-05 12:02] LABS: African American GFR (CKD) >90 (>60 ml/min/1.73 sqM); Anion Gap 5 mmol/L; Blood Urea Nitrogen 9 mg/dL (7-17); Calcium 8.5 mg/dL (8.4-10.2); Carbon Dioxide 25 mmol/L (22-30); Chloride 106 mmol/L (98-107); Glucose 225 mg/dL (74-99); Non-African American GFR(CKD) >90 (>60 ml/min/1.73 sqM); Potassium 3.7 mmol/L (3.5-5.1); Sodium 136 mmol/L (137-145)
[2020-06-05] MEDS ORDERED: NITROGLYCERIN SL TABS 0.4 MG TAB SUBLINGUAL PRN (12:02)
[2020-06-05] MEDS ORDERED: metFORMIN 500 MG TAB PO SCH (12:15)
[2020-06-05] MEDS: METOPROLOL TARTRATE 25 MG TAB PO SCH ×2 (12:51→21:28)
[2020-06-05] MEDS: PARoxetine 20 MG TAB PO SCH (12:52)
[2020-06-05] MEDS: ATORVASTATIN 80 MG TAB PO SCH (12:52)
[2020-06-05] MEDS: PANTOPRAZOLE 40 MG TABLET PO SCH (12:52)
[2020-06-05] MEDS: DICYCLOMINE 10 MG CAP PO SCH ×2 (12:52→15:37)
[2020-06-05] MEDS: lisinopriL 20 MG TAB PO SCH (12:52)
[2020-06-05] MEDS: PATIENT'S OWN (Liraglutide [Victoza 3-Pak] 1.8 MG) SQ SCH (12:52)
[2020-06-05] MEDS: amLODIPine 5 MG TAB PO SCH (12:52)
[2020-06-05] MEDS: INSULIN DETEMIR (LEVEMIR) 100 UNIT/ML SYR SQ SCH (12:53)
[2020-06-05] MEDS: TICAGRELOR 90 MG TAB PO SCH (12:55)
[2020-06-05] MEDS ORDERED: ACETAMINOPHEN IV (For NPO) 1,000 MG in EMPTY BAG 1 BAG IVPB PRN (15:20)
[2020-06-05 16:44] LABS: Glucose,Whole Blood 195 mg/dL (75-99)
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
[2020-06-05 21:01] LABS: Glucose,Whole Blood 295 mg/dL (75-99)
[2020-06-05] MEDS: HYDROcodone/APAP 7.5-325MG 1 EACH TAB PO SCH (21:26)
[2020-06-05] MEDS: ISOSORBIDE MONONITRATE ER 60 MG TAB.ER.24H PO SCH (21:27)
[2020-06-06] MEDS: DICYCLOMINE 10 MG CAP PO SCH ×4 (00:10→20:49)
[2020-06-06] MEDS: TICAGRELOR 90 MG TAB PO SCH ×3 (00:10→20:50)
[2020-06-06] MEDS: ONDANSETRON 4 MG/2 ML VIAL IVP PRN (03:00)
[2020-06-06 06:56] LABS: Glucose,Whole Blood 147 mg/dL (75-99)
[2020-06-06] MEDS: INSULIN ASPART (NovoLOG) 100 UNIT/ML VIAL SQ SCH ×4 (09:46→20:50)
[2020-06-06] MEDS: PATIENT'S OWN (Liraglutide [Victoza 3-Pak] 1.8 MG) SQ SCH (09:46)
[2020-06-06] MEDS: lisinopriL 20 MG TAB PO SCH (11:12)
[2020-06-06] MEDS: PARoxetine 20 MG TAB PO SCH (11:12)
[2020-06-06] MEDS: PANTOPRAZOLE 40 MG TABLET PO SCH (11:13)
[2020-06-06] MEDS: METOPROLOL TARTRATE 25 MG TAB PO SCH ×2 (11:13→20:50)
[2020-06-06] MEDS: ISOSORBIDE MONONITRATE ER 60 MG TAB.ER.24H PO SCH ×2 (11:13→20:50)
[2020-06-06] MEDS: HYDROcodone/APAP 7.5-325MG 1 EACH TAB PO SCH ×2 (11:15→20:49)
[2020-06-06] MEDS: amLODIPine 5 MG TAB PO SCH (11:15)
--- NOTE | 2020-06-06 11:19 | P.PN ---
Subjective Progress Note Date: 06/06/20 Principal diagnosis: Nausea vomiting, diarrhea 2 days, did not take insulin. 64-year-old female patient who presented emergency room with 2 days of nausea vomiting and diarrhea. She was also unable to take her insulin during this timeframe. She has past medical history of CVA\TIA, diabetes mellitus, gastroesophageal disease, GI bleed, coronary artery disease, history of CABG, or true sclerosis, diverticulitis, ongoing nicotine dependence and is with multiple other medical issues. In presentation the emergency room she reports abdominal pain in the left lower quadrant. Currently she is examined in radiology she is sitting straight up on exam table with noted complaints of nausea, and pain in the upper left and lower left quadrant of the abdomen. She denies vomiting and diarrhea, chest pain, shortness of breath, dizziness or visual changes at this time. Last labs for her complete N0 06/05/2020 showed white blood cell count 7.6 hemoglobin 12.2, hematocrit 37.2, platelet count 214. Chemistries revealed 136 sodium, potassium 3.7, LUIS of 9, a creatinine of 0.48 and a blood sugar of 225. Last bdfwh-yq-aonw glucose was 147 that was completed this morning at pre sently 0 700 this morning. Most recent set of vitals were completed this morning approximately 0 700 she is afebrile 98.6, heart rate of 81, respiratory rate is 16, blood pressure 131/72, oxygen saturation 95% on room air. She is currently getting upper GI small bowel x-ray. Objective - Vital Signs Vital signs: Vital Signs Temp 98.6 F 06/06/20 06:48 Pulse 81 06/06/20 06:48 Resp 16 06/06/20 06:48 BP 131/72 06/06/20 06:48 Pulse Ox 95 06/06/20 06:48 Intake & Output 06/05/20 06/06/20 06/06/20 18:59 06:59 18:59 Intake Total 1400 Balance 1400 Weight 71.214 kg Intake: Intake, IV Titration 1200 Amount ACETAMINOPHEN IV (For NPO 400 ) 1,000 mg In Empty Bag 1 bag @ 400 mls/hr IVPB Q6HR PRN Rx#:[id number] Sodium Chloride 0.9% 1, 800 000 ml @ 100 mls/hr IV . Q10H ONE Rx#:[id number] Oral 200 Other: Voiding Method Toilet # Voids 1 1 # Bowel Movements 2 - Exam GENERAL: Well-appearing, well-nourished and in no acute distress. HEAD: Atraumatic, normocephalic. EYES: Pupils equal round and reactive to light, extraocular movements intact, sclera anicteric, conjunctiva are normal. ENT:nares patent, oropharynx clear without exudates. Moist mucous membranes. NECK: Normal range of motion, supple without lymphadenopathy or JVD, no thyromegaly LUNGS: Breath sounds clear to auscultation bilaterally and equal. No wheezes rales or rhonchi. HEART: Regular rate and rhythm without murmurs, rubs or gallops.S1S2 Normal ABDOMEN: Tender to touch in the left upper and left lower quadrant, normoactive bowel sounds. No guarding, no rebound. No masses appreciated. EXTREMITIES: Normal range of motion, no pitting or edema. No clubbing or cyanosis. NEUROLOGICAL: Cranial nerves II through XII grossly intact. Normal speech, normal gait. PSYCH: Normal mood, normal affect. SKIN: Warm, Dry, normal turgor, no rashes or lesions noted. - Labs CBC & Chem 7: 06/05/20 11:15 06/05/20 11:15 Labs: Abnormal Lab Results - Last 24 Hours (Table) 06/05/20 06/05/20 06/05/20 Range/Units 11:15 11:45 16:43 Sodium 136 L (137-145) mmol/L Creatinine 0.48 L (0.52-1.04) mg/dL Glucose 225 H (74-99) mg/dL POC Glucose (mg/dL) 238 H 195 H (75-99) mg/dL 06/05/20 06/06/20 Range/Units 21:00 06:52 Sodium (137-145) mmol/L Creatinine (0.52-1.04) mg/dL Glucose (74-99) mg/dL POC Glucose (mg/dL) 295 H 147 H (75-99) mg/dL Assessment and Plan (1) Nicotine dependence Current Visit: Yes Status: Acute Code(s): F17.200 - NICOTINE DEPENDENCE, U NSPECIFIED, UNCOMPLICATED SNOMED Code(s): 82100610 (2) Abdominal pain Current Visit: Yes Status: Acute Code(s): R10.9 - UNSPECIFIED ABDOMINAL PAIN SNOMED Code(s): 92457733 (3) Diabetic keto-acidosis Current Visit: Yes Status: Acute Code(s): E11.10 - TYPE 2 DIABETES MELLITUS WITH KETOACIDOSIS WITHOUT COMA SNOMED Code(s): 290270807 (4) Hyperglycemia Current Visit: Yes Status: Acute Code(s): R73.9 - HYPERGLYCEMIA, UNSPECIFIED SNOMED Code(s): 25229694 (5) Hyponatremia Current Visit: Yes Status: Acute Code(s): E87.1 - HYPO-OSMOLALITY AND HYPONATREMIA SNOMED Code(s): 58482910 (6) Coronary artery disease with hx of myocardial infarct w/o hx of CABG Current Visit: No Status: Acute Code(s): I25.10 - ATHSCL HEART DISEASE OF [place] CORONARY ARTERY W/O ANG PCTRS SNOMED Code(s): 911145197 (7) Dehydration Current Visit: No Status: Acute Code(s): E86.0 - DEHYDRATION SNOMED Code(s): 87022128 (8) Diabetes type 2, uncontrolled Current Visit: No Status: Acute Code(s): E11.65 - TYPE 2 DIABETES MELLITUS WITH HYPERGLYCEMIA SNOMED Code(s): 218599954 (9) HTN (hypertension) Current Visit: No Status: Acute Code(s): I10 - ESSENTIAL (PRIMARY) HYPERTENSION SNOMED Code(s): 81408554 (10) Nausea vomiting and diarrhea Current Visit: No Status: Acute Code(s): R11.2 - NAUSEA WITH VOMITING, UNSPECIFIED SNOMED Code(s): 0107681 (11) History of depression Current Visit: Yes Status: Acute Code(s): Z86.59 - PERSONAL HISTORY OF OTHER MENTAL AND BEHAVIORAL DISORDERS SNOMED Code(s): 668038737 (12) Gastroenteritis Current Visit: Yes Status: Acute Code(s): K52.9 - NONINFECTIVE GASTROENTERITIS AND COLITIS, UNSPECIFIED SNOMED Code(s): 67539205 Plan: 1. Continue current medication regimen. 2. Monitor was symptomatically treatment. 3. Gentle rehydration with IV fluids. 4. Continue with IV Tylenol for pain medication until results from barium swallow are reviewed. 5. We'll add home nor code dose for pain management after barium swallow was reviewed. 6. Close monitoring of blood glucose levels. 7. We'll order daily lab work and monitor results. 8. We'll reorder clear liquid diet post procedure. 9. We'll wait for GI recommendations. 10 GI prophylaxis with PPI. 11. We'll continue to monitor closely and reassess again tomorrow. Time with Patient: Greater than 30
[2020-06-06] MEDS: ATORVASTATIN 80 MG TAB PO SCH (11:20)
[2020-06-06 12:07] LABS: Glucose,Whole Blood 223 mg/dL (75-99)
[2020-06-06 12:11] LABS: Basophils # (A) 0.1 k/uL (0-0.2); Basophils % (A) 1 %; Eosinophils # (A) 0.2 k/uL (0-0.7); Eosinophils % (A) 3 %; HCT 37.9 % (34.0-46.0); HGB 12.3 gm/dL (11.4-16.0); Lymphocytes # (A) 1.8 k/uL (1.0-4.8); Lymphocytes % (A) 27 %; MCH 32.4 pg (25.0-35.0); MCHC 32.4 g/dL (31.0-37.0); MCV 99.9 fL (80.0-100.0); Mean Platelet Volume 8.4; Monocytes # (A) 0.4 k/uL (0-1.0); Monocytes % (A) 5 %; Neutrophils # (A) 4.3 k/uL (1.3-7.7); Neutrophils % (A) 63 %; Platelet Count 224 k/uL (150-450); RBC 3.79 m/uL (3.80-5.40); RDW 12.7 % (11.5-15.5); WBC 6.9 k/uL (3.8-10.6)
[2020-06-06 12:22] LABS: African American GFR (CKD) >90 (>60 ml/min/1.73 sqM); Anion Gap 8 mmol/L; Blood Urea Nitrogen 7 mg/dL (7-17); Calcium 8.8 mg/dL (8.4-10.2); Carbon Dioxide 22 mmol/L (22-30); Chloride 105 mmol/L (98-107); Glucose 225 mg/dL (74-99); Non-African American GFR(CKD) >90 (>60 ml/min/1.73 sqM); Potassium 3.7 mmol/L (3.5-5.1); Sodium 135 mmol/L (137-145)
--- NOTE | 2020-06-06 12:46 | FL ---
EXAMINATION TYPE: FL UGI w small bowel DATE OF EXAM: 06/06/2020 COMPARISON: NONE HISTORY: Gastric pain TECHNIQUE: A double contrast UGI study is performed with small bowel follow through. FINDINGS: The patient had some difficulty tolerating the barium. There is no obstruction of the esoph giorgio. There is a tiny diverticulum at this gastroesophageal junction. Stomach contour is maintained. The mucosal pattern is unremarkable. No fixed filling defects are seen . The duodenal bulb and sweep appear normal. Small bowel loops are normal caliber. The mucosal pattern is unremarkable. The terminal ileum was spo tted and was unremarkable. Note is made of a previous cholecystectomy. IMPRESSION: 1. SMALL DIVERTICULUM OF THE DISTAL ESOPHAGUS. 2. NORMAL STOMACH AND SMALL BOWEL INCLUDING THE TERMINAL ILEUM.
--- NOTE | 2020-06-06 13:26 | CONS ---
CONSULTATION DATE OF DICTATION: 06/06/2020. REASON FOR CONSULTATION: Nausea, vomiting, abdominal pain for 3 days duration. HISTORY OF PRESENT ILLNESS: The patient is a 64-year-old pleasant white female with history of diabetes mellitus, hypertension, gastroesophageal reflux disease, came to the emergency room complaining of severe nausea, vomiting that started about 3 days ago. She subsequently started having some epigastric discomfort and left upper quadrant abdominal pain. She threw up at least 10 times on the 1st day and about 7 times the second day. Today, she is doing better. She still has some abdominal pain but the nausea and vomiting has resolved. The patient was admitted to the hospital about 3 weeks ago with lower abdominal pain, nausea, vomiting, and underwent an EGD by Dr. Goodwin on May 14 and was noted to have mild gastritis and a small hiatal hernia. During her last hospitalization, she had a CT of the abdomen and pelvis done because of the left lower quadrant abdominal pain and some rectal bleeding and was thought had ischemic colitis. Last colonoscopy was about 2 years ago. PAST MEDICAL HISTORY: Significant for hypertension, diabetes mellitus, gastroesophageal reflux disease, hyperlipidemia, degenerative joint disease, history of CVA/TIA in the past. PAST SURGICAL HISTORY: Cholecystectomy, appendectomy, CABG, cardiac cath with stent, hysterectomy, tonsillectomy, bilateral cataract surgery. MEDICATIONS: Medications at home include: Lipitor, Nitrostat, lisinopril, Paxil, Lopressor, Brilinta, Norvasc, Tresiba, metformin, [place], Imdur, Bentyl, Protonix. ALLERGIES: TO BACTRIM, DEMEROL. SOCIAL HISTORY: Chronic smoker, no alcohol use. FAMILY HISTORY: Father coronary artery disease and MD. Mother coronary artery disease and hypertension. REVIEW OF SYSTEMS: CARDIOPULMONARY: No chest pain, no shortness of breath. no dysuria or hematuria. MUSCULOSKELETAL unremarkable. SKIN unremarkable. ENDOCRINE unremarkable. PSYCHIATRIC unremarkable. NEUROLOGY unremarkable. MUSCULOSKELETAL: Slipped disc in the back. ENT: Vision unremarkable. CONSTITUTIONAL: No recent weight loss. No fever, chills, night sweats. HEMATOLOGY: Unremarkable. PHYSICAL EXAMINATION: Blood pressure is 145/70, pulse rate 57, temperature 98.4. HEENT examination unremarkable. Conjunctivae pink. Sclerae anicteric. Oral cavity no lesions. NECK: No JVD or lymph node enlargement. CHEST was clear to auscultation. HEART: Regular rate and rhythm. ABDOMEN: Soft. Minimal tenderness in the left upper quadrant area. Rest of the abdomen was benign. EXTREMITIES: No pedal edema. SKIN no rashes. NEUROLOGIC: Alert and oriented x3. No focal deficits. LABS: At the time of admission to the hospital: WBC 8.1, hemoglobin 14.4, platelets normal. Basic metabolic panel today shows sodium of 129. Rest of the labs are within normal limits. Blood sugars were 473. Abdominal CT scan of the abdomen and pelvis was unremarkable. IMPRESSION: 1. Acute onset of abdominal pain associated with nausea, vomiting for the last 3 days duration. The patient recently had an upper endoscopy done by Dr. Goodwin 3 weeks ago that showed mild gastritis and a small hiatal hernia. 2. Intermittent lower abdominal pain and change in bowel habits, was recently started on Bentyl 10 mg 3 times daily following her last hospitalization. 3. History of hypertension. 4. Longstanding history of diabetes mellitus. RECOMMENDATION: 1. In regards to the nausea, vomiting, we will continue with symptomatic and supportive care. Continue with pantoprazole 40 mg twice daily as well as Zofran as needed. 2. No plans on repeat upper endoscopy at the present time. 3. Aggressive control of blood sugars as patient may have a component of diabetic gastroparesis causing her symptoms. 4. Monitor labs closely. 5. We will follow with you. Thank you for this consultation. MMODL / IJN: [id number] /
[2020-06-06] MEDS ORDERED: ACETAMINOPHEN TAB 325 MG TAB PO PRN (14:56)
[2020-06-06] MEDS: INSULIN DETEMIR (LEVEMIR) 100 UNIT/ML SYR SQ SCH (16:22)
[2020-06-06 16:48] LABS: Glucose,Whole Blood 318 mg/dL (75-99)
[2020-06-06 21:15] LABS: Glucose,Whole Blood 195 mg/dL (75-99)
[2020-06-07 07:43] LABS: Glucose,Whole Blood 152 mg/dL (75-99)
[2020-06-07 08:28] LABS: Basophils % (A) 1 %; Eosinophils # (A) 0.2 k/uL (0-0.7); Eosinophils % (A) 2 %; HCT 35.4 % (34.0-46.0); HGB 11.6 gm/dL (11.4-16.0); Lymphocytes # (A) 2.4 k/uL (1.0-4.8); Lymphocytes % (A) 32 %; MCH 32.3 pg (25.0-35.0); MCHC 32.7 g/dL (31.0-37.0); MCV 98.7 fL (80.0-100.0); Mean Platelet Volume 8.7; Monocytes # (A) 0.3 k/uL (0-1.0); Monocytes % (A) 5 %; Neutrophils # (A) 4.4 k/uL (1.3-7.7); Neutrophils % (A) 59 %; Platelet Count 222 k/uL (150-450); RBC 3.58 m/uL (3.80-5.40); RDW 12.6 % (11.5-15.5); WBC 7.4 k/uL (3.8-10.6)
[2020-06-07] MEDS: PARoxetine 20 MG TAB PO SCH (08:28)
[2020-06-07] MEDS: ISOSORBIDE MONONITRATE ER 60 MG TAB.ER.24H PO SCH (08:28)
[2020-06-07] MEDS: lisinopriL 20 MG TAB PO SCH (08:28)
[2020-06-07] MEDS: TICAGRELOR 90 MG TAB PO SCH (08:28)
[2020-06-07] MEDS: PANTOPRAZOLE 40 MG TABLET PO SCH (08:28)
[2020-06-07] MEDS: DICYCLOMINE 10 MG CAP PO SCH ×2 (08:28→13:16)
[2020-06-07] MEDS: METOPROLOL TARTRATE 25 MG TAB PO SCH (08:28)
[2020-06-07] MEDS: INSULIN DETEMIR (LEVEMIR) 100 UNIT/ML SYR SQ SCH (08:29)
[2020-06-07] MEDS: INSULIN ASPART (NovoLOG) 100 UNIT/ML VIAL SQ SCH ×2 (08:29→12:10)
[2020-06-07] MEDS: amLODIPine 5 MG TAB PO SCH (08:29)
[2020-06-07] MEDS: ATORVASTATIN 80 MG TAB PO SCH (08:29)
[2020-06-07] MEDS: HYDROcodone/APAP 7.5-325MG 1 EACH TAB PO SCH (08:29)
[2020-06-07] MEDS: PATIENT'S OWN (Liraglutide [Victoza 3-Pak] 1.8 MG) SQ SCH (08:33)
[2020-06-07 08:37] LABS: ALT 20 U/L (4-34); AST 25 U/L (14-36); African American GFR (CKD) >90 (>60 ml/min/1.73 sqM); Albumin 3.2 g/dL (3.5-5.0); Alkaline Phosphatase 63 U/L (38-126); Anion Gap 5 mmol/L; Blood Urea Nitrogen 9 mg/dL (7-17); Calcium 8.6 mg/dL (8.4-10.2); Carbon Dioxide 27 mmol/L (22-30); Chloride 108 mmol/L (98-107); Glucose 126 mg/dL (74-99); Magnesium 1.4 mg/dL (1.6-2.3); Non-African American GFR(CKD) >90 (>60 ml/min/1.73 sqM); Potassium 3.9 mmol/L (3.5-5.1); Sodium 140 mmol/L (137-145); Total Bilirubin 0.4 mg/dL (0.2-1.3); Total Protein 5.3 g/dL (6.3-8.2)
[2020-06-07] MEDS ORDERED: Magnesium Replacement Protocol 1 EACH MISC MISCELLANE PRN (08:41)
[2020-06-07] MEDS: MAGNESIUM SULFATE-D5W PMX 1 GM in DEXTROSE/WATER 1 100ML.BAG IVPB SCH ×3 (10:44→13:12)
--- NOTE | 2020-06-07 11:17 | P.DS ---
Providers Date of admission: 06/04/20 21:19 Expected date of discharge: 06/07/20 Attending physician: Sincere Casey Consults: 06/05/20 15:19 Consult Physician Routine Consulting Provider: Eyad Goodwin Consult Reason/Comments: n/v recent egd Do you want consulting provider notified?: Yes Primary care physician: Sincere Casey - Discharge Diagnosis(es) (1) Nicotine dependence Current Visit: Yes Status: Acute (2) Abdominal pain Current Visit: Yes Status: Acute (3) Diabetic keto-acidosis Current Visit: Yes Status: Acute (4) Hyperglycemia Current Visit: Yes Status: Acute (5) Hyponatremia Current Visit: Yes Status: Acute (6) Coronary artery disease with hx of myocardial infarct w/o hx of CABG Current Visit: No Status: Acute (7) Dehydration Current Visit: No Status: Acute (8) Diabetes type 2, uncontrolled Current Visit: No Status: Acute (9) HTN (hypertension) Current Visit: No Status: Acute (10) Nausea vomiting and diarrhea Current Visit: No Status: Acute (11) History of depression Current Visit: Yes Status: Acute (12) Gastroenteritis Current Visit: Yes Status: Acute Patient Condition at Discharge: Good Plan - Discharge Summary New Discharge Prescriptions: Continue Nitroglycerin Sl Tabs [Nitrostat] 0.4 mg SUBLINGUAL Q5M PRN PRN Reason: Chest Pain lisinopriL 40 mg PO DAILY Atorvastatin [Lipitor] 80 mg PO DAILY PARoxetine HCL [Paxil] 40 mg PO DAILY Ticagrelor [Brilinta] 90 mg PO BID #60 tab Metoprolol Tartrate [Lopressor] 25 mg PO BID #60 tab amLODIPine [Norvasc] 5 mg PO DAILY #30 tab metFORMIN HCL 500 mg PO BID Insulin Degludec [Tresiba] 40 units SQ DAILY Isosorbide Mononitrate ER [Imdur] 60 mg PO BID HYDROcodone/APAP 7.5-325MG [[place] 7.5-325] 1 tab PO BID Dicyclomine [Bentyl] 10 mg PO TID #90 cap Liraglutide [Victoza 3-Jensen] 1.8 mg SQ DAILY Pantoprazole Sodium [Protonix] 40 mg PO DAILY Discharge Medication List Atorvastatin [Lipitor] 80 mg PO DAILY 12/18/18 [History] Nitroglycerin Sl Tabs [Nitrostat] 0.4 mg SUBLINGUAL Q5M PRN 12/18/18 [History] lisinopriL 40 mg PO DAILY 12/18/18 [History] PARoxetine HCL [Paxil] 40 mg PO DAILY 12/19/18 [History] Metoprolol Tartrate [Lopressor] 25 mg PO BID #60 tab 07/03/19 [Rx] Ticagrelor [Brilinta] 90 mg PO BID #60 tab 07/03/19 [Rx] amLODIPine [Norvasc] 5 mg PO DAILY #30 tab 07/03/19 [Rx] Insulin Degludec [Tresiba] 40 units SQ DAILY 12/30/19 [History] metFORMIN HCL 500 mg PO BID 12/30/19 [History] HYDROcodone/APAP 7.5-325MG [[place] 7.5-325] 1 tab PO BID 05/12/20 [History] Isosorbide Mononitrate ER [Imdur] 60 mg PO BID 05/12/20 [History] Dicyclomine [Bentyl] 10 mg PO TID #90 cap 05/14/20 [Rx] Liraglutide [Victoza 3-Jensen] 1.8 mg SQ DAILY 06/04/20 [History] Pantoprazole Sodium [Protonix] 40 mg PO DAILY 06/04/20 [History] Follow up Appointment(s)/Referral(s): Sincere Casey MD [Primary Care Provider] - 1-2 days Discharge Disposition: HOME SELF-CARE
--- NOTE | 2020-06-07 11:26 | P.PN ---
Subjective Progress Note Date: 06/07/20 Principal diagnosis: Nausea vomiting, diarrhea 2 days, did not take insulin. 64-year-old female patient who presented emergency room with 2 days of nausea vomiting and diarrhea. She was also unable to take her insulin during this timeframe. She has past medical history of CVA\TIA, diabetes mellitus, gastroesophageal disease, GI bleed, coronary artery disease, history of CABG, or true sclerosis, diverticulitis, ongoing nicotine dependence and is with multiple other medical issues. In presentation the emergency room she reports abdominal pain in the left lower quadrant. Currently she is examined in radiology she is sitting straight up on exam table with noted complaints of nausea, and pain in the upper left and lower left quadrant of the abdomen. She denies vomiting and diarrhea, chest pain, shortness of breath, dizziness or visual changes at this time. Last labs for her complete N0 06/05/2020 showed white blood cell count 7.6 hemoglobin 12.2, hematocrit 37.2, platelet count 214. Chemistries revealed 136 sodium, potassium 3.7, LUIS of 9, a creatinine of 0.48 and a blood sugar of 225. Last touqb-ud-vslh glucose was 147 that was completed this morning at pre sently 0 700 this morning. Most recent set of vitals were completed this morning approximately 0 700 she is afebrile 98.6, heart rate of 81, respiratory rate is 16, blood pressure 131/72, oxygen saturation 95% on room air. She is currently getting upper GI small bowel x-ray. 06/07/2020 patient sitting up in bed with complaints of left-sided abdominal pain. She relates it to being constantly constipated at this time although she had multiple stools yesterday. She is alert and oriented 3 following all commands, denies nausea vomiting, chest pain or pressure, shortness of breath or difficulty breathing. She stated that she feels good enough to go home today if possible. Discussed the need with her in the priority of maintaining controlled blood sugars. She is in agreement with that and verbalized her understanding of the importance. Most recent lab work WBC is 7.4 hemoglobin 11.6, hematocrit 35.4, platelet count of 222. Chemistry reveals a sodium of 140, potassium 3.9, albumin of 9, creatinine of 0.56 magnesium 1.4 treated with protocol. Liver enzymes AST of 25 and ELT of 20. Objective - Vital Signs Vital signs: Vital Signs Temp 98.4 F 06/07/20 07:06 Pulse 56 L 06/07/20 07:06 Resp 18 06/07/20 07:06 BP 175/82 06/07/20 07:06 Pulse Ox 95 06/07/20 07:06 Intake & Output 06/06/20 06/07/20 06/07/20 18:59 06:59 18:59 Intake Total 700 Balance 700 Intake: Oral 700 Other: Voiding Method Toilet # Voids 2 # Bowel Movements 3 - Exam GENERAL: Well-appearing, well-nourished and in no acute distress. HEAD: Atraumatic, normocephalic. EYES: Pupils equal round and reactive to light, extraocular movements intact, sclera anicteric, conjunctiva are normal. ENT:nares patent, oropharynx clear without exudates. Moist mucous membranes. NECK: Normal range of motion, supple without lymphadenopathy or JVD, no th yromegaly LUNGS: Breath sounds clear to auscultation bilaterally and equal. No wheezes rales or rhonchi. HEART: Regular rate and rhythm without murmurs, rubs or gallops.S1S2 Normal ABDOMEN: Tender to touch in the left upper and left lower quadrant, normoactive bowel sounds. No guarding, no rebound. No masses appreciated. EXTREMITIES: Normal range of motion, no pitting or edema. No clubbing or cyanosis. NEUROLOGICAL: Cranial nerves II through XII grossly intact. Normal speech, normal gait. PSYCH: Normal mood, normal affect. SKIN: Warm, Dry, normal turgor, no rashes or lesions noted. - Labs CBC & Chem 7: 06/07/20 07:32 06/07/20 07:32 Labs: Abnormal Lab Results - Last 24 Hours (Table) 06/06/20 06/06/20 06/06/20 Range/Units 11:46 11:56 11:56 RBC 3.79 L (3.80-5.40) m/uL Sodium 135 L (137-145) mmol/L Chloride (98-107) mmol/L Creatinine 0.50 L (0.52-1.04) mg/dL Glucose 225 H (74-99) mg/dL POC Glucose (mg/dL) 223 H (75-99) mg/dL Magnesium (1.6-2.3) mg/dL Total Protein (6.3-8.2) g/dL Albumin (3.5-5.0) g/dL 06/06/20 06/06/20 06/07/20 Range/Units 16:45 20:46 07:07 RBC (3.80-5.40) m/uL Sodium (137-145) mmol/L Chloride (98-107) mmol/L Creatinine (0.52-1.04) mg/dL Glucose (74-99) mg/dL POC Glucose (mg/dL) 318 H 195 H 152 H (75-99) mg/dL Magnesium (1.6-2.3) mg/dL Total Protein (6.3-8.2) g/dL Albumin (3.5-5.0) g/dL 06/07/20 06/07/20 Range/Units 07:32 07:32 RBC 3.58 L (3.80-5.40) m/uL Sodium (137-145) mmol/L Chloride 108 H (98-107) mmol/L Creatinine (0.52-1.04) mg/dL Glucose 126 H (74-99) mg/dL POC Glucose (mg/dL) (75-99) mg/dL Magnesium 1.4 L (1.6-2.3) mg/dL Total Protein 5.3 L (6.3-8.2) g/dL Albumin 3.2 L (3.5-5.0) g/dL Assessment and Plan (1) Nicotine dependence Current Visit: Yes Status: Acute Code(s): F17.200 - NICOTINE DEPENDENCE, UNSPECIFIED, UNCOMPLICATED SNOMED Code(s): 43636365 (2) Abdominal pain Current Visit: Yes Status: Acute Code(s): R10.9 - UNSPECIFIED ABDOMINAL PAIN SNOMED Code(s): 78996095 (3) Diabetic keto-acidosis Current Visit: Yes Status: Acute Code(s): E11.10 - TYPE 2 DIABETES MELLITUS WITH KETOACIDOSIS WITHOUT COMA SNOMED Code(s): 058134845 (4) Hyperglycemia Current Visit: Yes Status: Acute Code(s): R73.9 - HYPERGLYCEMIA, UNSPECIFIED SNOMED Code(s): 45526430 (5) Hyponatremia Current Visit: Yes Status: Acute Code(s): E87.1 - HYPO-OSMOLALITY AND HYPONATREMIA SNOMED Code(s): 25915812 (6) Coronary artery disease with hx of myocardial infarct w/o hx of CABG Current Visit: No Status: Acute Code(s): I25.10 - ATHSCL HEART DISEASE OF [place] CORONARY ARTERY W/O ANG PCTRS SNOMED Code(s): 950146406 (7) Dehydration Current Visit: No Status: Acute Code(s): E86.0 - DEHYDRATION SNOMED Code(s): 12797113 (8) Diabetes type 2, uncontrolled Current Visit: No Status: Acute Code(s): E11.65 - TYPE 2 DIABETES MELLITUS WITH HYPERGLYCEMIA SNOMED Code(s): 832984389 (9) HTN (hypertension) Current Visit: No Status: Acute Code(s): I10 - ESSENTIAL (PRIMARY) HYPERTENSION SNOMED Code(s): 58301697 (10) Nausea vomiting and diarrhea Current Visit: No Status: Acute Code(s): R11.2 - NAUSEA WITH VOMITING, UNSPECIFIED SNOMED Code(s): 3818623 (11) History of depression Current Visit: Yes Status: Acute Code(s): Z86.59 - PERSONAL HISTORY OF OTHER MENTAL AND BEHAVIORAL DISORDERS SNOMED Code(s): 539988776 (12) Gastroenteritis Current Visit: Yes Status: Acute Code(s): K52.9 - NONINFECTIVE GASTROENTERITIS AND COLITIS, UNSPECIFIED SNOMED Code(s): 59773197 Plan: 1. We'll discharge home today with self-care. 2. We'll get a dose of magnesium prior to discharge. 3. Increase her Levemir from 35 units daily to 40 units subcu daily. 4. Follow-up in office in 1-[address] Casey. Time with Patient: Greater than 30
[2020-06-07 12:05] LABS: Glucose,Whole Blood 257 mg/dL (75-99)
[2020-06-07 15:22] VITALS: BP 113/55; PULSE 51; RESP 16; TEMP 98.6
--- NOTE | 2020-06-07 16:57 | PN ---
PROGRESS NOTE DATE OF SERVICE: 06/07/2020 Patient is a 64-year-old pleasant white female admitted to the hospital with acute onset of abdominal pain associated with nausea, vomiting for 3 days duration. She was started on IV Protonix and antiemetics and she is feeling much better today. In fact abdominal symptoms have resolved. She is able to tolerate regular diet well. She is complaining of some constipation today. No fever, chills or night sweats. PHYSICAL EXAMINATION: Blood pressure is 113/55, pulse rate 51, temperature 98.6. HEENT examination unremarkable. Conjunctivae pink. Sclerae anicteric. Oral cavity no lesions. Neck no JVD or lymph node enlargement. Chest was clear auscultation. HEART: Regular rate and rhythm. ABDOMEN: Soft. Bowel sounds are positive. No organomegaly. Extremities: No pedal edema. Skin no rashes. Neuro: She is alert and oriented x3. No focal deficits. LABS: WBC 7.4, hemoglobin 11.6, platelets normal. Rest of the labs are within normal limits. IMPRESSION: 1. Acute onset of nausea, vomiting, and diarrhea, status post EGD [address] Goodwin that showed mild gastritis. The symptoms have resolved. She is doing much better. 2. Constipation. RECOMMENDATIONS: 1. Continue with Protonix daily. 2. Antiemetics as needed. 3. Advance diet as tolerated. 4. Give her a bottle of Mag citrate. 5. She can be discharged home today or tomorrow with an outpatient followup as needed. Thank you for this consultation. MMODL / IJN: [id number] /
--- NOTE | 2020-06-07 16:57 | PN ---
PROGRESS NOTE DATE OF DICTATION: June 07, 2020 Patient is a 64-year-old pleasant white female admitted to hospital with acute onset of severe epigastric pain associated with nausea, vomiting for the last 2 days duration. She was started on IV Protonix as well as antiemetics and she is feeling much better today. The abdominal pain has resolved. However, she complains of some constipation. She denies any. MMODL / IJN: [id number] /
== END 2020-06-07 14:54 | disposition home or self-care (01) | DRG 391 ==
LOC: EC 18:03 → 5NMEDONC 21:19 → 6PED 06-05 12:45 → 4SSUR 06-05 14:20
PROVIDERS: ADMIT Family Medicine; ATTEND Family Medicine
DX: K52.9 Noninfective gastroenteritis and colitis, unspecified (principal); E11.10 Type 2 diabetes mellitus with ketoacidosis without coma; E87.1 Hypo-osmolality and hyponatremia; E11.51 Type 2 diabetes mellitus with diabetic peripheral angiopathy without gangrene; I71.4 Abdominal aortic aneurysm, without rupture; E78.5 Hyperlipidemia, unspecified; E86.0 Dehydration; F17.200 Nicotine dependence, unspecified, uncomplicated; F32.9 Major depressive disorder, single episode, unspecified; I10 Essential (primary) hypertension; I25.10 Atherosclerotic heart disease of native coronary artery without angina pectoris; I25.2 Old myocardial infarction; K21.9 Gastro-esophageal reflux disease without esophagitis; K44.9 Diaphragmatic hernia without obstruction or gangrene; K59.00 Constipation, unspecified; K64.4 Residual hemorrhoidal skin tags; K42.9 Umbilical hernia without obstruction or gangrene; M19.90 Unspecified osteoarthritis, unspecified site; Z11.59 Encounter for screening for other viral diseases; K57.90 Diverticulosis of intestine, part unspecified, without perforation or abscess without bleeding; I65.23 Occlusion and stenosis of bilateral carotid arteries; N20.0 Calculus of kidney; Z79.02 Long term (current) use of antithrombotics/antiplatelets; Z79.4 Long term (current) use of insulin; Z79.899 Other long term (current) drug therapy; Z88.1 Allergy status to other antibiotic agents; Z88.5 Allergy status to narcotic agent; Z88.2 Allergy status to sulfonamides; Z95.1 Presence of aortocoronary bypass graft; Z90.710 Acquired absence of both cervix and uterus; Z87.442 Personal history of urinary calculi; Z86.73 Personal history of transient ischemic attack (TIA), and cerebral infarction without residual deficits; Z90.49 Acquired absence of other specified parts of digestive tract; Z90.89 Acquired absence of other organs; Z98.42 Cataract extraction status, left eye; Z98.41 Cataract extraction status, right eye; Z96.1 Presence of intraocular lens; Z95.5 Presence of coronary angioplasty implant and graft; Z95.820 Peripheral vascular angioplasty status with implants and grafts; Z87.01 Personal history of pneumonia (recurrent); Z86.14 Personal history of Methicillin resistant Staphylococcus aureus infection; Z82.49 Family history of ischemic heart disease and other diseases of the circulatory system
CPT/HCPCS: 36415; 74177; 74240; 74248; 80048; 80053; 81001; 82009; 82150; 83690; 83735; 85025; 85027; 96361; 96374; 96375; 99285

== ENCOUNTER 2020-07-30 19:22 | Inpatient (IN) | payer MEDICARE, OTHER ==
[2020-07-30] MEDS ORDERED: SODIUM CHLORIDE 0.9% 500 ML 500 ML IV STA (20:05)
[2020-07-30] MEDS ORDERED: ONDANSETRON 4 MG/2 ML VIAL IVP STA (20:06)
[2020-07-30] MEDS ORDERED: HYDROmorphone 1 MG/ML 1 ML SYRINGE IVP STA (20:06)
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
[2020-07-30 20:51] LABS: Basophils # (A) 0.1 k/uL (0-0.2); Basophils % (A) 1 %; Eosinophils # (A) 0.4 k/uL (0-0.7); Eosinophils % (A) 4 %; HGB 12.3 gm/dL (11.4-16.0); Lymphocytes # (A) 2.2 k/uL (1.0-4.8); Lymphocytes % (A) 22 %; MCH 31.7 pg (25.0-35.0); MCHC 32.3 g/dL (31.0-37.0); MCV 98.1 fL (80.0-100.0); Mean Platelet Volume 8.6; Monocytes # (A) 0.4 k/uL (0-1.0); Monocytes % (A) 4 %; Neutrophils # (A) 6.7 k/uL (1.3-7.7); Neutrophils % (A) 67 %; Platelet Count 236 k/uL (150-450); RBC 3.87 m/uL (3.80-5.40); RDW 12.2 % (11.5-15.5)
[2020-07-30 21:01] LABS: ALT 14 U/L (4-34); AST 17 U/L (14-36); African American GFR (CKD) >90 (>60 ml/min/1.73 sqM); Albumin 3.5 g/dL (3.5-5.0); Alkaline Phosphatase 96 U/L (38-126); Anion Gap 7 mmol/L; Blood Urea Nitrogen 24 mg/dL (7-17); Calcium 8.8 mg/dL (8.4-10.2); Carbon Dioxide 25 mmol/L (22-30); Chloride 100 mmol/L (98-107); Glucose 416 mg/dL (74-99); Non-African American GFR(CKD) >90 (>60 ml/min/1.73 sqM); Potassium 4.4 mmol/L (3.5-5.1); Sodium 132 mmol/L (137-145); Total Bilirubin 0.2 mg/dL (0.2-1.3); Total Protein 5.7 g/dL (6.3-8.2)
[2020-07-30 21:06] LABS: INR 0.9 (<1.2); Prothrombin Time 9.3 sec (9.0-12.0)
[2020-07-30 21:09] LABS: Partial Thromboplastin Time 21.5 sec (22.0-30.0)
[2020-07-30] MEDS ORDERED: metroNIDAZOLE-NS PMX 500 MG in SALINE 1 100ML.BAG IVPB STA (21:57)
[2020-07-30] MEDS ORDERED: NALOXONE 0.4 MG/ML 1 ML VIAL IV PRN (22:01)
[2020-07-30] MEDS ORDERED: ONDANSETRON 4 MG/2 ML VIAL IVP PRN (22:01)
[2020-07-30] MEDS ORDERED: PANTOPRAZOLE 40 MG/10 ML VIAL IVP STA (22:04)
[2020-07-30 22:29] LABS: Appearance,Urine Cloudy (Clear); Bacteria,Urine Rare /hpf; Bilirubin,Urine Negative (Negative); Blood,Urine Trace (Negative); Color,Urine Light Yellow; Glucose,Urine (UA) 4+ (Negative); Ketones,Urine Negative (Negative); Leukocyte Esterase,Urine Large (Negative); Nitrite,Urine Negative (Negative); PH, Urine 5.5 (5.0-8.0); Protein,Urine 1+ (Negative); RBC,Urine 2 /hpf (0-5); Specific Gravity,Urine 1.022 (1.001-1.035); Urobilinogen,Urine <2.0 mg/dL (<2.0); WBC,Urine 94 /hpf (0-5)
[2020-07-30 23:14] LABS: HCT 35.1 % (34.0-46.0); HGB 11.1 gm/dL (11.4-16.0); MCH 31.4 pg (25.0-35.0); MCHC 31.5 g/dL (31.0-37.0); MCV 99.5 fL (80.0-100.0); Mean Platelet Volume 8.7; Platelet Count 216 k/uL (150-450); RBC 3.53 m/uL (3.80-5.40); RDW 12.2 % (11.5-15.5); WBC 9.6 k/uL (3.8-10.6)
[2020-07-30] MEDS: INSULIN ASPART (NovoLOG) 100 UNIT/ML VIAL SQ SCH (23:58)
[2020-07-31] MEDS ORDERED: NITROGLYCERIN SL TABS 0.4 MG TAB SUBLINGUAL PRN (00:07)
[2020-07-31] MEDS: metroNIDAZOLE-NS PMX 500 MG in SALINE 1 100ML.BAG IVPB SCH ×4 (00:12→22:46)
[2020-07-31] MEDS: HYDROcodone/APAP 7.5-325MG 1 EACH TAB PO PRN ×3 (00:32→22:54)
[2020-07-31 03:02] LABS: Glucose,Whole Blood 239 mg/dL (75-99)
[2020-07-31 03:18] LABS: HCT 34.2 % (34.0-46.0); MCH 31.8 pg (25.0-35.0); MCHC 32.2 g/dL (31.0-37.0); MCV 98.7 fL (80.0-100.0); Mean Platelet Volume 8.5; Platelet Count 225 k/uL (150-450); RBC 3.47 m/uL (3.80-5.40); RDW 12.6 % (11.5-15.5); WBC 10.4 k/uL (3.8-10.6)
[2020-07-31 03:23] LABS: Calcium 8.3 mg/dL (8.4-10.2); Magnesium 1.4 mg/dL (1.6-2.3); Potassium 4.6 mmol/L (3.5-5.1); Total Bilirubin 0.2 mg/dL (0.2-1.3); Total Protein 5.2 g/dL (6.3-8.2)
[2020-07-31 06:20] LABS: Glucose,Whole Blood 248 mg/dL (75-99)
[2020-07-31 07:58] LABS: Glucose,Whole Blood 273 mg/dL (75-99)
[2020-07-31] MEDS: INSULIN ASPART (NovoLOG) 100 UNIT/ML VIAL SQ SCH ×4 (08:19→20:14)
[2020-07-31] MEDS: PARoxetine 20 MG TAB PO SCH (08:19)
[2020-07-31] MEDS: PANTOPRAZOLE 40 MG/10 ML VIAL IVP SCH (08:19)
[2020-07-31] MEDS: amLODIPine 5 MG TAB PO SCH (08:20)
[2020-07-31] MEDS: METOPROLOL TARTRATE 25 MG TAB PO SCH ×2 (08:20→20:14)
[2020-07-31] MEDS: ATORVASTATIN 80 MG TAB PO SCH (08:20)
[2020-07-31] MEDS: lisinopriL 20 MG TAB PO SCH (08:20)
[2020-07-31] MEDS: ISOSORBIDE MONONITRATE ER 60 MG TAB.ER.24H PO SCH ×2 (08:20→20:14)
[2020-07-31] MEDS ORDERED: DICYCLOMINE 10 MG CAP PO PRN (09:00)
[2020-07-31 11:30] LABS: HCT 33.5 % (34.0-46.0); HGB 10.6 gm/dL (11.4-16.0); MCH 31.2 pg (25.0-35.0); MCHC 31.6 g/dL (31.0-37.0); MCV 98.5 fL (80.0-100.0); Mean Platelet Volume 8.7; Platelet Count 210 k/uL (150-450); RDW 12.3 % (11.5-15.5); WBC 10.1 k/uL (3.8-10.6)
[2020-07-31 11:46] LABS: Glucose,Whole Blood 271 mg/dL (75-99)
[2020-07-31 12:07] LABS: ALT 12 U/L (4-34); AST 14 U/L (14-36); African American GFR (CKD) >90 (>60 ml/min/1.73 sqM); Albumin 3.1 g/dL (3.5-5.0); Alkaline Phosphatase 71 U/L (38-126); Amylase 46 U/L (30-110); Anion Gap 5 mmol/L; Blood Urea Nitrogen 22 mg/dL (7-17); Calcium 8.2 mg/dL (8.4-10.2); Carbon Dioxide 24 mmol/L (22-30); Chloride 108 mmol/L (98-107); Glucose 257 mg/dL (74-99); Non-African American GFR(CKD) >90 (>60 ml/min/1.73 sqM); Potassium 4.3 mmol/L (3.5-5.1); Sodium 137 mmol/L (137-145); Total Bilirubin 0.3 mg/dL (0.2-1.3); Total Protein 5.3 g/dL (6.3-8.2)
[2020-07-31] MEDS ORDERED: Magnesium Replacement Protocol 1 EACH MISC MISCELLANE PRN ×2 (13:56→14:59)
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
[2020-07-31] MEDS ORDERED: ACETAMINOPHEN IV (For NPO) 1,000 MG in EMPTY BAG 1 BAG IVPB PRN (14:15)
[2020-07-31] MEDS ORDERED: PEG 3350-NA SULF,BICARB,CL/KCL 4,000 ML BOTTLE PO ONE (14:41)
[2020-07-31] MEDS: HYDROmorphone 0.5 MG/0.5 ML SYRINGE IVP PRN ×2 (15:00→21:28)
[2020-07-31] MEDS: SODIUM CHLORIDE 0.9% 1,000 ML IV SCH ×2 (15:41→15:42)
[2020-07-31] MEDS: INSULIN DETEMIR (LEVEMIR) 100 UNIT/ML SYR SQ SCH (16:15)
[2020-07-31] MEDS: MAGNESIUM SULFATE-D5W PMX 1 GM in DEXTROSE/WATER 1 100ML.BAG IVPB SCH ×3 (16:19→18:59)
[2020-07-31 16:54] LABS: Glucose,Whole Blood 258 mg/dL (75-99)
[2020-07-31 19:19] LABS: HCT 34.7 % (34.0-46.0); HGB 11.1 gm/dL (11.4-16.0); MCH 31.6 pg (25.0-35.0); MCHC 31.9 g/dL (31.0-37.0); MCV 99.2 fL (80.0-100.0); Mean Platelet Volume 9.6; Platelet Count 246 k/uL (150-450); RDW 12.3 % (11.5-15.5); WBC 11.4 k/uL (3.8-10.6)
[2020-07-31 20:10] LABS: Glucose,Whole Blood 284 mg/dL (75-99)
--- NOTE | 2020-07-31 20:33 | CONS ---
CONSULTATION DATE OF DICTATION: 07/31/2020 REASON FOR CONSULTATION: Acute GI bleed. HISTORY OF PRESENT ILLNESS: The patient is a 64-year-old pleasant white female with history of CVA and TIA in the past. She is presently on aspirin and Brilinta. History of diabetes mellitus and coronary artery disease, admitted to the hospital with 3 days of maroon-colored stools. She has been having about 3-4 maroon-colored stools daily. She has been having some left lower quadrant abdominal pain. She came to the emergency room and was noted to have a hemoglobin of 10.6 g/dL. CT of the abdomen and pelvis done in the ER did not show any significant pathology. The patient had an EGD and colonoscopy by Dr. Hunter in October of 2016 that showed mild gastritis and diverticulosis. She was admitted to the hospital in April of this year with GI bleed and underwent an upper endoscopy by Dr. Goodwin that showed mild gastritis and a small hiatal hernia. The patient reports no nausea or vomiting. PAST MEDICAL HISTORY: Her past medical history is significant for coronary artery disease, congestive heart failure, hypertension, diabetes mellitus, gastroesophageal reflux disease, history of diverticulosis. PAST SURGICAL HISTORY: Appendectomy, cholecystectomy, CABG, cardiac catheterization with stent placement, hysterectomy, tonsillectomy, bilateral cataract surgery, EGD and colonoscopy in 2015, EGD in May of this year. SOCIAL HISTORY: Chronic smoker but no alcohol use. FAMILY HISTORY: Father with coronary artery disease and [place]. Mother had hypertension. MEDICATIONS: Medications at home include Lipitor, Nitrostat, lisinopril, Paxil, Lopressor, Brilinta, Norvasc, metformin, insulin, Imdur, Victoza, Protonix, aspirin, Bentyl, NovoLog and [place]. ALLERGIES: BACTRIM and DEMEROL. REVIEW OF SYSTEMS: CARDIOPULMONARY: No chest pain or shortness of breath. GENITOURINARY: No dysuria or hematuria. MUSCULOSKELETAL: Unremarkable. SKIN: Unremarkable. ENDOCRINE: Unremarkable. PSYCHIATRIC: Unremarkable. NEUROLOGY: Unremarkable. ENT/VISION: Unremarkable. CONSTITUTIONAL: No weight loss. No fever, chills, night sweats. PHYSICAL EXAMINATION: She appears comfortable. No apparent distress. Vital signs are stable. Blood pressure is 149/75, pulse rate 65, temperature 98.5. HEENT examination unremarkable. Conjunctivae pink. Sclerae anicteric. Oral cavity no lesions. NECK: No JVD or lymph node enlargement. CHEST: Clear to auscultation. HEART: Regular rate and rhythm. ABDOMEN: Soft. It was non-tender. Bowel sounds are positive. No organomegaly. EXTREMITIES: No pedal edema. SKIN: No rashes. NEUROLOGIC: Alert and oriented x3. No focal deficits. LABS: Labs from yesterday showed WBC 10.1, hemoglobin 10.6. Today WBC is 11.4 and hemoglobin 11.1. BUN and creatinine are 22 and 0.6, respectively. Basic metabolic panel is within normal limits. ALT, AST, T-bilirubin and alkaline phosphatase are normal. IMPRESSION: 1. Acute gastrointestinal bleed for the last 3 days' duration, patient having multiple episodes of maroon-colored stools. Upper endoscopy done on May [address] Goodwin showed mild gastritis and a small hiatal hernia. Clinically it appears we are dealing with a lower GI source of bleeding. Her last colonoscopy was in 2016 that showed diverticulosis. 2. History of cerebrovascular accident in the past. Presently on Brilinta and aspirin, currently on hold. 3. History of coronary artery disease, status post coronary artery bypass grafting. 4. Diabetes mellitus and hypertension/hyperlipidemia. RECOMMENDATIONS: 1. Monitor CBC daily. 2. Clear liquid diet. 3. Will proceed with a colonoscopy tomorrow. I discussed with her risks, benefits and complications of the procedure and she is agreeable to it. Thank you for this consultation. Will follow with you closely. MMODL / IJN: [id number] /
[2020-08-01] MEDS: SODIUM CHLORIDE 0.9% 1,000 ML IV SCH ×3 (00:21→23:08)
[2020-08-01] MEDS: HYDROmorphone 0.5 MG/0.5 ML SYRINGE IVP PRN ×3 (03:21→18:16)
[2020-08-01 06:16] LABS: Glucose,Whole Blood 139 mg/dL (75-99)
[2020-08-01] MEDS: INSULIN ASPART (NovoLOG) 100 UNIT/ML VIAL SQ SCH ×4 (06:36→20:40)
[2020-08-01] MEDS ORDERED: PROPOFOL 10 MG/ML 20 ML VIAL IV ONE (07:31)
[2020-08-01] MEDS ORDERED: IV FLUID CONTINUATION 1,000 ML IV ONE ×2 (07:35)
--- NOTE | 2020-08-01 07:57 | P.PCN ---
Date of Procedure: 08/01/20 Procedure(s) Performed: BRIEF HISTORY: Patient is a 64-year-old pleasant white female admitted hospital with acute GI bleed. She was having multiple stools for the last 3 days' duration. Hemoglobin was 10.5 g/dL. She had an endoscopy on May 14 of this year by Dr. Goodwin which revealed mild gastritis. She is scheduled for colonoscopy to evaluate the source of GI bleed. PROCEDURE PERFORMED: Colonoscopy with snare polypectomy. PREOPERATIVE DIAGNOSIS: Acute GI bleed. IV sedation per Anesthesia. PROCEDURE: After informed consent was obtained, the patient, was brought into the endoscopy unit. IV sedation was administered by Anesthesia under continuous monitoring. Digital rectal examination was normal. Initially the Olympus CF-160 flexible video colonoscope was then inserted in the rectum, gradually advanced into the cecum without any difficulty. Careful examination was performed as the scope was gradually being withdrawn. Ileocecal valve and the appendiceal orifice were visualized and appeared normal. Prep was excellent. Mucosa of the cecum, ascending colon, transverse colon, appeared normal. In the descending colon there was a 5 mm polyp that was removed by snare polypectomy. Rest of the descending colon, sigmoid colon, and rectum appeared normal. Scattered left- sided diverticulosis. Retroflexion was performed in the rectum and small internal hemorrhoids were seen. The patient tolerated the procedure well. IMPRESSION: 5 mm descending colon polyp status post polypectomy Scattered left sided diverticulosis Small internal hemorrhoids RECOMMENDATIONS: Findings of this examination were discussed with the patient as well as her family. Recent bleeding probably diverticular in nature. She was advised to follow with the biopsy results. Diet will be advanced as tolerated.. Monitor CBC closely.
[2020-08-01] MEDS: PANTOPRAZOLE 40 MG/10 ML VIAL IVP SCH (08:34)
[2020-08-01] MEDS: lisinopriL 20 MG TAB PO SCH (08:34)
[2020-08-01] MEDS: metroNIDAZOLE-NS PMX 500 MG in SALINE 1 100ML.BAG IVPB SCH ×3 (08:35→23:08)
[2020-08-01] MEDS: ATORVASTATIN 80 MG TAB PO SCH (08:35)
[2020-08-01] MEDS: amLODIPine 5 MG TAB PO SCH (08:35)
[2020-08-01] MEDS: PARoxetine 20 MG TAB PO SCH (08:35)
[2020-08-01] MEDS: ISOSORBIDE MONONITRATE ER 60 MG TAB.ER.24H PO SCH ×2 (08:35→20:40)
[2020-08-01] MEDS: METOPROLOL TARTRATE 25 MG TAB PO SCH ×2 (08:35→20:40)
[2020-08-01] MEDS: HYDROcodone/APAP 7.5-325MG 1 EACH TAB PO PRN ×2 (08:37→16:52)
[2020-08-01 09:22] LABS: Basophils % (A) 0 %; Eosinophils # (A) 0.1 k/uL (0-0.7); Eosinophils % (A) 1 %; HCT 33.5 % (34.0-46.0); HGB 10.8 gm/dL (11.4-16.0); Lymphocytes % (A) 19 %; MCHC 32.4 g/dL (31.0-37.0); MCV 98.8 fL (80.0-100.0); Mean Platelet Volume 8.9; Monocytes # (A) 0.3 k/uL (0-1.0); Monocytes % (A) 3 %; Neutrophils % (A) 75 %; Platelet Count 220 k/uL (150-450); RBC 3.39 m/uL (3.80-5.40); RDW 12.6 % (11.5-15.5); WBC 10.6 k/uL (3.8-10.6)
[2020-08-01 09:39] LABS: African American GFR (CKD) >90 (>60 ml/min/1.73 sqM); Anion Gap 3 mmol/L; Blood Urea Nitrogen 10 mg/dL (7-17); Carbon Dioxide 26 mmol/L (22-30); Chloride 106 mmol/L (98-107); Glucose 222 mg/dL (74-99); Magnesium 1.7 mg/dL (1.6-2.3); Non-African American GFR(CKD) >90 (>60 ml/min/1.73 sqM); Potassium 4.1 mmol/L (3.5-5.1); Sodium 135 mmol/L (137-145)
--- NOTE | 2020-08-01 09:56 | P.PN ---
Subjective Progress Note Date: 08/01/20 Principal diagnosis: Rectal bleeding This is 64-year-old female with history of CVA/TIA, diabetes mellitus, gastroesophageal disease, GI bleed, CAD, history of CABG, arteriosclerosis, diverticulitis, ongoing nicotine dependence multiple other medical issues presented to the ER with 3 days of rectal bleeding, reports cloudy maroon stools accompanied by left lower quadrant abdominal pain. Recent CT of abdomen and pelvis on last admission, reporting no acute process. Lactic acid 2.5, down to 1.1. Afebrile, T-max 99, normal WBC. Hemoglobin on admission 11.1, down to 10.6 with baseline of 14. Stool for occult blood positive. INR 0.9. Sodium 132 up to 137. BUN 24/0.7, down to 22, 0.6. Hyperglycemic with blood sugars 416 on admission currently down to 257. Magnesium 1.4. T bili 1.4, LFTs within normal limits troponin negative 1. Total protein and albumin low. Amylase and lipase within normal limits. UA reporting moderate WBC clumps, high degree ABC, large leukocytes, negative nitrates 4+ glucose, 1+ protein. 08/01/[id number] female patient resting comfortably in bed at this time. She was easily arousable to verbal stimuli and is alert and oriented 3. Currently denies chest pain pressure, shortness of breath or difficulty breathing, or abdominal pain. Currently she is status day of procedure in which colonoscopy with snare polypectomy was completed by Dr. Patel. There was a 5 mm descending colon polyp, scattered left-sided diverticulosis, small internal hemorrhoids. This morning's lab work revealed a white blood cell count of 10.6 hemoglobin of 10.8, hematocrit 33.5, platelet count of 220. Her [id number] glucose is 139 0 600 this morning. This morning's vital sign of fever of 100 pulse rate of 78, respiratory rate of 18, blood pressure 115/73, and oxygen saturation 92% on room air. Objective - Vital Signs Vital signs: Vital Signs Temp 100 F H 08/01/20 08:00 Pulse 78 08/01/20 08:00 Resp 18 08/01/20 08:00 BP 158/73 08/01/20 08:00 Pulse Ox 92 L 08/01/20 08:00 Intake & Output 07/31/20 08/01/2020 18:59 06:59 18:59 Intake Total 0 4000 200 Balance 0 4000 200 Weight 79.1 kg Intake: IV 200 Oral 0 4000 Other: Voiding Method Toilet Toilet # Voids 1 1 # Bowel Movements 1 2 - Exam GENERAL: Well-appearing, well-nourished and in no acute distress. HEAD: Atraumatic, normocephalic. EYES: Pupils equal round and reactive to light, extraocular movements intact, sclera anicteric, conjunctiva are normal. ENT:nares patent, oropharynx clear without exudates. Moist mucous membranes. NECK: Normal range of motion, supple without lymphadenopathy or JVD, no thyromegaly LUNGS: Breath sounds coarse to auscultation bilaterally and equal. No wheezes rales. HEART: Regular rate and rhythm without murmurs, rubs or gallops.S1S2 Normal ABDOMEN: Soft, nontender, normoactive bowel sounds. No guarding, no rebound. No masses appreciated. EXTREMITIES: Normal range of motion, no pitting or edema. No clubbing or cyanosis. NEUROLOGICAL: Cranial nerves II through XII grossly intact. Normal speech, normal gait. PSYCH: Normal mood, normal affect, sleepy. SKIN: Warm, Dry, normal turgor, no rashes or lesions noted. - Labs CBC & Chem 7: 08/01/20 08:47 07/31/20 11:40 Labs: Abnormal Lab Results - Last 24 Hours (Table) 07/31/20 07/31/20 07/31/20 Range/Units 11:12 11:40 11:45 WBC (3.8-10.6) k/uL RBC 3.40 L (3.80-5.40) m/uL Hgb 10.6 L (11.4-16.0) gm/dL Hct 33.5 L (34.0-46.0) % Neutrophils # (1.3-7.7) k/uL Chloride 108 H (98-107) mmol/L BUN 22 H (7-17) mg/dL Glucose 257 H (74-99) mg/dL POC Glucose (mg/dL) 271 H (75-99) mg/dL Calcium 8.2 L (8.4-10.2) mg/dL Total Protein 5.3 L (6.3-8.2) g/dL Albumin 3.1 L (3.5-5.0) g/dL 07/31/20 07/31/20 07/31/20 Range/Units 15:43 16:52 20:08 WBC 11.4 H (3.8-10.6) k/uL RBC 3.50 L (3.80-5.40) m/uL Hgb 11.1 L (11.4-16.0) gm/dL Hct (34.0-46.0) % Neutrophils # (1.3-7.7) k/uL Chloride (98-107) mmol/L BUN (7-17) mg/dL Glucose (74-99) mg/dL POC Glucose (mg/dL) 258 H 284 H (75-99) mg/dL Calcium (8.4-10.2) mg/dL Total Protein (6.3-8.2) g/dL Albumin (3.5-5.0) g/dL 08/01/20 08/01/20 Range/Units 06:14 08:47 WBC (3.8-10.6) k/uL RBC 3.39 L (3.80-5.40) m/uL Hgb 10.8 L (11.4-16.0) gm/dL Hct 33.5 L (34.0-46.0) % Neutrophils # 8.0 H (1.3-7.7) k/uL Chloride (98-107) mmol/L BUN (7-17) mg/dL Glucose (74-99) mg/dL POC Glucose (mg/dL) 139 H (75-99) mg/dL Calcium (8.4-10.2) mg/dL Total Protein (6.3-8.2) g/dL Albumin (3.5-5.0) g/dL Microbiology - Last 24 Hours (Table) 07/30/20 22:04 Urine Culture - Final Urine,Voided Assessment and Plan (1) Acute GI bleeding Current Visit: Yes Status: Acute Code(s): K92.2 - GASTROINTESTINAL HEMORRHAGE, UNSPECIFIED SNOMED Code(s): 92465305 (2) External hemorrhoid Current Visit: Yes Status: Acute Code(s): K64.4 - RESIDUAL HEMORRHOIDAL SKIN TAGS SNOMED Code(s): 65937027 (3) Abdominal pain Current Visit: Yes Status: Acute Code(s): R10.9 - UNSPECIFIED ABDOMINAL PAIN SNOMED Code(s): 17509209 (4) Diverticulosis Current Visit: No Status: Acute Code(s): K57.90 - DVRTCLOS OF INTEST, PART UNSP, W/O PERF OR ABSCESS W/O BLEED SNOMED Code(s): 101856928 (5) Lower gastrointestinal hemorrhage Current Visit: No Status: Acute Code(s): K92.2 - GASTROINTESTINAL HEMORRHAGE, UNSPECIFIED SNOMED Code(s): 92538311 (6) GERD (gastroesophageal reflux disease) Current Visit: Yes Status: Acute Code(s): K21.9 - GASTRO-ESOPHAGEAL REFLUX DISEASE WITHOUT ESOPHAGITIS SNOMED Code(s): 902095369 (7) CAD (coronary artery disease) Current Visit: No Status: Acute Code(s): I25.10 - ATHSCL HEART DISEASE OF [place] CORONARY ARTERY W/O ANG PCTRS SNOMED Code(s): 24349645 (8) Diabetes Current Visit: No Status: Acute Code(s): E11.9 - TYPE 2 DIABETES MELLITUS WITHOUT COMPLICATIONS SNOMED Code(s): 57518475 (9) HTN (hypertension) Current Visit: No Status: Acute Code(s): I10 - ESSENTIAL (PRIMARY) HYPERTENSION SNOMED Code(s): 14569816 (10) History of depression Current Visit: No Status: Acute Code(s): Z86.59 - PERSONAL HISTORY OF OTHER MENTAL AND BEHAVIORAL DISORDERS SNOMED Code(s): 092611502 (11) Nicotine dependence Current Visit: No Status: Acute Code(s): F17.200 - NICOTINE DEPENDENCE, UNSPECIFIED, UNCOMPLICATED SNOMED Code(s): 27263073 Plan: 1. Continue current medication regimen. 2. Monitor was symptomatically treatment. 3. Recheck CBC in a.m. 4. Increase diet as tolerated. 5. Continue close monitoring of blood glucose. 6. We'll follow GI recommendations post procedure. 7. Will follow closely and reevaluate again in a.m. 8. Tentative discharge for tomorrow. Time with Patient: Greater than 30
[2020-08-01 11:57] LABS: Glucose,Whole Blood 295 mg/dL (75-99)
[2020-08-01 16:48] LABS: Glucose,Whole Blood 373 mg/dL (75-99)
[2020-08-01 18:15] LABS: Glucose,Whole Blood 470 mg/dL (75-99)
[2020-08-01 20:33] LABS: Glucose,Whole Blood 309 mg/dL (75-99)
[2020-08-01] MEDS: INSULIN DETEMIR (LEVEMIR) 100 UNIT/ML SYR SQ SCH (20:40)
[2020-08-02] MEDS: HYDROmorphone 0.5 MG/0.5 ML SYRINGE IVP PRN (00:05)
[2020-08-02 06:21] LABS: Glucose,Whole Blood 296 mg/dL (75-99)
[2020-08-02] MEDS: INSULIN ASPART (NovoLOG) 100 UNIT/ML VIAL SQ SCH ×2 (06:37→12:35)
--- NOTE | 2020-08-02 07:35 | P.PN ---
Subjective Progress Note Date: 08/02/20 Principal diagnosis: Rectal bleeding This is 64-year-old female with history of CVA/TIA, diabetes mellitus, gastroesophageal disease, GI bleed, CAD, history of CABG, arteriosclerosis, diverticulitis, ongoing nicotine dependence multiple other medical issues presented to the ER with 3 days of rectal bleeding, reports cloudy maroon stools accompanied by left lower quadrant abdominal pain. Recent CT of abdomen and pelvis on last admission, reporting no acute process. Lactic acid 2.5, down to 1.1. Afebrile, T-max 99, normal WBC. Hemoglobin on admission 11.1, down to 10.6 with baseline of 14. Stool for occult blood positive. INR 0.9. Sodium 132 up to 137. BUN 24/0.7, down to 22, 0.6. Hyperglycemic with blood sugars 416 on admission currently down to 257. Magnesium 1.4. T bili 1.4, LFTs within normal limits troponin negative 1. Total protein and albumin low. Amylase and lipase within normal limits. UA reporting moderate WBC clumps, high degree ABC, large leukocytes, negative nitrates 4+ glucose, 1+ protein. 08/01/20 64-year-old female patient resting comfortably in bed at this time. She was easily arousable to verbal stimuli and is alert and oriented 3. Currently denies chest pain pressure, shortness of breath or difficulty breathing, or abdominal pain. Currently she is status day of procedure in which colonoscopy with snare polypectomy was completed by Dr. Patel. There was a 5 mm descending colon polyp, scattered left-sided diverticulosis, small internal hemorrhoids. This morning's lab work revealed a white blood cell count of 10.6 hemoglobin of 10.8, hematocrit 33.5, platelet count of 220. Her [id number] glucose is 139 0 600 this morning. This morning's vital sign of fever of 100 pulse rate of 78, respiratory rate of 18, blood pressure 115/73, and oxygen saturation 92% on room air. 08/02/20 64-year-old female patient sitting up in bed resting comfortably at this time. She is alert and oriented 3 and states "I just doesn't feel well". She is unable to elaborate or be more descriptive in how she feels. She denies chest pain pressure, shortness of breath or difficulty breathing, nausea or vomiting at this time. She is up and ambulating in room as tolerated and doing well. She has not had a bowel movement post procedure. Her last set of vitals documented this morning at 0 400 she is afebrile 98.6, pulse rate of 63, respiratory rate is 16, blood pressure 160/57, she is 98% on 2 L nasal cannula. Objective - Vital Signs Vital signs: Vital Signs Temp 98.6 F 08/02/20 04:00 Pulse 63 08/02/20 04:00 Resp 16 08/02/20 04:00 BP 160/57 08/02/20 04:00 Pulse Ox 98 08/02/20 04:00 Intake & Output 08/01/20 08/02/20 08/02/20 18:59 06:59 18:59 Intake Total 680 540 Balance 680 540 Weight 81.6 kg Intake: IV 200 Oral 480 540 Other: # Voids 1 1 - Exam GENERAL: Well-appearing, well-nourished and in no acute distress. HEAD: Atraumatic, normocephalic. EYES: Pupils equal round and reactive to light, extraocular movements intact, sclera anicteric, conjunctiva are normal. ENT:nares patent, oropharynx clear without exudates. Moist mucous membranes. NECK: Normal range of motion, supple without lymphadenopathy or JVD, no thyromegaly LUNGS: Breath sounds clear to auscultation bilaterally and equal. No wheezes rales or rhonchi. HEART: Regular rate and rhythm without murmurs, rubs or gallops.S1S2 Normal ABDOMEN: Soft, nontender, normoactive bowel sounds. No guarding, no rebound. No masses appreciated. EXTREMITIES: Normal range of motion, no pitting or edema. No clubbing or cyanosis. NEUROLOGICAL: Cranial nerves II through XII grossly intact. Normal speech, normal gait. PSYCH: Normal mood, normal affect. SKIN: Warm, Dry, normal turgor, no rashes or lesions noted. - Labs CBC & Chem 7: 08/01/20 08:47 08/01/20 08:47 Labs: Abnormal Lab Results - Last 24 Hours (Table) 08/01/20 08/01/20 08/01/20 Range/Units 08:47 08:47 11:55 RBC 3.39 L (3.80-5.40) m/uL Hgb 10.8 L (11.4-16.0) gm/dL Hct 33.5 L (34.0-46.0) % Neutrophils # 8.0 H (1.3-7.7) k/uL Sodium 135 L (137-145) mmol/L Glucose 222 H (74-99) mg/dL POC Glucose (mg/dL) 295 H (75-99) mg/dL Calcium 8.0 L (8.4-10.2) mg/dL 08/01/20 08/01/20 08/01/20 Range/Units 16:47 18:08 20:32 RBC (3.80-5.40) m/uL Hgb (11.4-16.0) gm/dL Hct (34.0-46.0) % Neutrophils # (1.3-7.7) k/uL Sodium (137-145) mmol/L Glucose (74-99) mg/dL POC Glucose (mg/dL) 373 H 470 H 309 H (75-99) mg/dL Calcium (8.4-10.2) mg/dL 08/02/20 Range/Units 06:10 RBC (3.80-5.40) m/uL Hgb (11.4-16.0) gm/dL Hct (34.0-46.0) % Neutrophils # (1.3-7.7) k/uL Sodium (137-145) mmol/L Glucose (74-99) mg/dL POC Glucose (mg/dL) 296 H (75-99) mg/dL Calcium (8.4-10.2) mg/dL Assessment and Plan (1) Acute GI bleeding Current Visit: Yes Status: Acute Code(s): K92.2 - GASTROINTESTINAL HEMORR [place], UNSPECIFIED SNOMED Code(s): 14677880 (2) External hemorrhoid Current Visit: Yes Status: Acute Code(s): K64.4 - RESIDUAL HEMORRHOIDAL SKIN TAGS SNOMED Code(s): 76164424 (3) Abdominal pain Current Visit: Yes Status: Acute Code(s): R10.9 - UNSPECIFIED ABDOMINAL PAIN SNOMED Code(s): 59470350 (4) Diverticulosis Current Visit: No Status: Acute Code(s): K57.90 - DVRTCLOS OF INTEST, PART UNSP, W/O PERF OR ABSCESS W/O BLEED SNOMED Code(s): 757183543 (5) Lower gastrointestinal hemorrhage Current Visit: No Status: Acute Code(s): K92.2 - GASTROINTESTINAL HEMORRHAGE, UNSPECIFIED SNOMED Code(s): 67755939 (6) GERD (gastroesophageal reflux disease) Current Visit: Yes Status: Acute Code(s): K21.9 - GASTRO-ESOPHAGEAL REFLUX DISEASE WITHOUT ESOPHAGITIS SNOMED Code(s): 525839635 (7) CAD (coronary artery disease) Current Visit: No Status: Acute Code(s): I25.10 - ATHSCL HEART DISEASE OF [place] CORONARY ARTERY W/O ANG PCTRS SNOMED Code(s): 21804935 (8) Diabetes Current Visit: No Status: Acute Code(s): E11.9 - TYPE 2 DIABETES MELLITUS WITHOUT COMPLICATIONS SNOMED Code(s): 92444174 (9) HTN (hypertension) Current Visit: No Status: Acute Code(s): I10 - ESSENTIAL (PRIMARY) HYPERTENSION SNOMED Code(s): 33566822 (10) History of depression Current Visit: No Status: Acute Code(s): Z86.59 - PERSONAL HISTORY OF OTHER MENTAL AND BEHAVIORAL DISORDERS SNOMED Code(s): 557885994 (11) Nicotine dependence Current Visit: No Status: Acute Code(s): F17.200 - NICOTINE DEPENDENCE, UNSPECIFIED, UNCOMPLICATED SNOMED Code(s): 52422511 Plan: 1. Continue current medication regimen. 2. We'll reassess vital signs after a.m. medications given. 3. We'll recheck CBC with differential and chem panel this morning. 4. Continue with current diet as tolerated. 5. We'll plan on discharge home today following evaluation of labs and more controlled blood pressure. 6. We'll continue to follow closely. Time with Patient: Greater than 30
[2020-08-02 08:20] LABS: Basophils % (A) 1 %; Eosinophils # (A) 0.2 k/uL (0-0.7); Eosinophils % (A) 4 %; HCT 31.1 % (34.0-46.0); HGB 10.3 gm/dL (11.4-16.0); Lymphocytes # (A) 2.1 k/uL (1.0-4.8); Lymphocytes % (A) 31 %; MCH 32.3 pg (25.0-35.0); MCV 97.9 fL (80.0-100.0); Mean Platelet Volume 8.2; Monocytes # (A) 0.3 k/uL (0-1.0); Monocytes % (A) 4 %; Neutrophils # (A) 4.1 k/uL (1.3-7.7); Neutrophils % (A) 60 %; Platelet Count 196 k/uL (150-450); RBC 3.17 m/uL (3.80-5.40); RDW 12.2 % (11.5-15.5); WBC 6.9 k/uL (3.8-10.6)
[2020-08-02 08:28] LABS: ALT 12 U/L (4-34); AST 15 U/L (14-36); African American GFR (CKD) >90 (>60 ml/min/1.73 sqM); Albumin 2.8 g/dL (3.5-5.0); Alkaline Phosphatase 77 U/L (38-126); Anion Gap 3 mmol/L; Blood Urea Nitrogen 12 mg/dL (7-17); Calcium 8.5 mg/dL (8.4-10.2); Carbon Dioxide 27 mmol/L (22-30); Chloride 106 mmol/L (98-107); Glucose 283 mg/dL (74-99); Non-African American GFR(CKD) >90 (>60 ml/min/1.73 sqM); Potassium 4.5 mmol/L (3.5-5.1); Sodium 136 mmol/L (137-145); Total Bilirubin 0.2 mg/dL (0.2-1.3); Total Protein 4.9 g/dL (6.3-8.2)
[2020-08-02] MEDS: ISOSORBIDE MONONITRATE ER 60 MG TAB.ER.24H PO SCH (09:38)
[2020-08-02] MEDS: amLODIPine 5 MG TAB PO SCH (09:38)
[2020-08-02] MEDS: lisinopriL 20 MG TAB PO SCH (09:38)
[2020-08-02] MEDS: PARoxetine 20 MG TAB PO SCH (09:38)
[2020-08-02] MEDS: PANTOPRAZOLE 40 MG/10 ML VIAL IVP SCH (09:38)
[2020-08-02] MEDS: metroNIDAZOLE-NS PMX 500 MG in SALINE 1 100ML.BAG IVPB SCH (09:39)
[2020-08-02] MEDS: ATORVASTATIN 80 MG TAB PO SCH (09:39)
[2020-08-02] MEDS: METOPROLOL TARTRATE 25 MG TAB PO SCH (09:39)
[2020-08-02] MEDS: HYDROcodone/APAP 7.5-325MG 1 EACH TAB PO PRN (09:40)
--- NOTE | 2020-08-02 11:58 | PN ---
PROGRESS NOTE DATE OF DICTATION: August 02, 2020 Patient is a 64-year-old pleasant white female admitted to hospital with acute GI bleed. She underwent a colonoscopy yesterday that showed diffuse diverticulosis and small colon polyp and small internal hemorrhoids. She is doing better. No further bleeding. In fact, she did not have any bowel movements since yesterday. PHYSICAL EXAMINATION: She appears comfortable. No apparent distress. VITAL SIGNS: Stable. Blood pressure is 185/88, pulse rate 65, temperature 98.4. HEENT examination unremarkable. Conjunctivae pink. Sclerae anicteric. Oral cavity no lesions. NECK no JVD or lymph node enlargement. CHEST was clear to auscultation. HEART: Regular rate and rhythm. ABDOMEN: Soft. Bowel sounds are positive. No organomegaly. EXTREMITIES: No pedal edema. SKIN no rashes. NEUROLOGIC: Alert and oriented x3. No focal deficits. LABS: WBC 6.9, hemoglobin 10.3, platelets normal. Basic metabolic panel is within normal limits. IMPRESSION: 1. Acute lower gastrointestinal bleed possibly diverticular in etiology, status post colonoscopy yesterday that showed diffuse diverticulosis, small internal hemorrhoids and small colon polyp. The patient has no further bleeding. Hemoglobin stable at 10.3 g/dL. 2. Uncontrolled hypertension. 3. Diabetes mellitus. 4. History of hypertension. 5. History of hypercholesteremia. RECOMMENDATIONS: 1. Monitor CBC daily. 2. Advance diet as tolerated. 3. Medical management for hypertension. 4. We will follow with you closely. Thank you for this consultation. MMODL / IJN: [id number] /
[2020-08-02 12:31] LABS: Glucose,Whole Blood 245 mg/dL (75-99)
[2020-08-02 12:43] VITALS: PULSE 67
[2020-08-02] MEDS ORDERED: amLODIPine 5 MG TAB PO STA (14:20)
--- NOTE | 2020-08-02 14:42 | P.DS ---
Providers Date of admission: 08/01/20 10:42 Expected date of discharge: 08/02/20 Attending physician: Sincere Casey Consults: 07/30/20 22:02 Consult Physician Routine Consulting Provider: Vandana Patel Consult Reason/Comments: GI bleed; Abd pain Do you want consulting provider notified?: Yes Primary care physician: Sincere Casey - Discharge Diagnosis(es) (1) Acute GI bleeding Current Visit: Yes Status: Acute (2) External hemorrhoid Current Visit: Yes Status: Acute (3) Abdominal pain Current Visit: Yes Status: Acute (4) Diverticulosis Current Visit: Yes Status: Acute (5) Lower gastrointestinal hemorrhage Current Visit: Yes Status: Acute (6) GERD (gastroesophageal reflux disease) Current Visit: Yes Status: Acute (7) CAD (coronary artery disease) Current Visit: No Status: Acute (8) Diabetes Current Visit: Yes Status: Acute (9) HTN (hypertension) Current Visit: Yes Status: Acute (10) History of depression Current Visit: No Status: Acute (11) Nicotine dependence Current Visit: No Status: Acute Hospital Course: Patient presented emergency room on 07/30/2020 with complaints of GI\rectal bleeding. She is admitted for evaluation of stools containing dark red blood for the past 3 days. She was also having pain to the left lower quadrant of her abdomen with mild upper abdominal discomfort. Assessment: 1. Acute GI bleeding. 2. External hemorrhoid. 3. Abdominal pain. 4. Diverticulosis. 5. Lower gastrointestinal hemorrhage. 6. Gastroesophageal reflux. 7. Diabetes 8. Hypertension 9. Coronary artery disease. 10. History of depression. 11. Nicotine dependence Procedures: 01/02/[address] Hipolito Patel for evaluation of rectal bleeding. Colonoscopy showed diffuse diverticulosis and small colon polyp and small internal hemorrhoids. No further bleeding post procedure. Patient Condition at Discharge: Good Plan - Discharge Summary New Discharge Prescriptions: New amLODIPine [Norvasc] 10 mg PO DAILY #30 tab Insulin Detemir (Levemir) [Levemir] 25 unit SQ HS syr Continue Nitroglycerin Sl Tabs [Nitrostat] 0.4 mg SL Q5M PRN PRN Reason: Chest Pain lisinopriL 40 mg PO DAILY Atorvastatin [Lipitor] 80 mg PO DAILY PARoxetine HCL [Paxil] 40 mg PO DAILY Ticagrelor [Brilinta] 90 mg PO BID #60 tab Metoprolol Tartrate [Lopressor] 25 mg PO BID #60 tab metFORMIN HCL 500 mg PO BID Insulin Degludec [Tresiba] 30 units SQ AC-LUNCH Isosorbide Mononitrate ER [Imdur] 60 mg PO BID Liraglutide [Victoza 3-Jensen] 1.8 mg SQ DAILY Pantoprazole Sodium [Protonix] 40 mg PO DAILY Aspirin 81 mg PO DAILY Insulin Aspart [NovoLOG Flexpen] See Protocol SQ AC-TID Dicyclomine [Bentyl] 10 mg PO TID PRN PRN Reason: Gi Upset Discontinued amLODIPine [Norvasc] 5 mg PO DAILY #30 tab HYDROcodone/APAP 7.5-325MG [[place] 7.5-325] 1 tab PO Q8H PRN PRN Reason: Pain Discharge Medication List Atorvastatin [Lipitor] 80 mg PO DAILY 12/18/18 [History] Nitroglycerin Sl Tabs [Nitrostat] 0.4 mg SL Q5M PRN 12/18/18 [History] lisinopriL 40 mg PO DAILY 12/18/18 [History] PARoxetine HCL [Paxil] 40 mg PO DAILY 12/19/18 [History] Metoprolol Tartrate [Lopressor] 25 mg PO BID #60 tab 07/03/19 [Rx] Ticagrelor [Brilinta] 90 mg PO BID #60 tab 07/03/19 [Rx] Insulin Degludec [Tresiba] 30 units SQ AC-LUNCH 12/30/19 [History] metFORMIN HCL 500 mg PO BID 12/30/19 [History] Isosorbide Mononitrate ER [Imdur] 60 mg PO BID 05/12/20 [History] Liraglutide [Victoza 3-Jensen] 1.8 mg SQ DAILY 06/04/20 [History] Pantoprazole Sodium [Protonix] 40 mg PO DAILY 06/04/20 [History] Aspirin 81 mg PO DAILY 07/30/20 [History] Dicyclomine [Bentyl] 10 mg PO TID PRN 07/30/20 [History] Insulin Aspart [NovoLOG Flexpen] See Protocol SQ AC-TID 07/30/20 [History] Insulin Detemir (Levemir) [Levemir] 25 unit SQ HS syr 08/02/20 [Rx] amLODIPine [Norvasc] 10 mg PO DAILY #30 tab 08/02/20 [Rx] Follow up Appointment(s)/Referral(s): Sincere Casey MD [Primary Care Provider] - 1-2 days Activity/Diet/Wound Care/Special Instructions: Activity as tolerated, carb consistent diabetic diet. Will increase basal insulin (Levemir )to 25 units subcu nightly and will increase amlodipine to 10 mg by mouth daily. Discharge Disposition: HOME SELF-CARE
[2020-08-02 15:41] VITALS: BP 148/80; TEMP 97.3
[2020-08-02 15:42] VITALS: RESP 19
[2020-08-02] MEDS ORDERED: INSULIN DETEMIR (LEVEMIR) 100 UNIT/ML SYR SQ SCH (21:00)
== END 2020-08-02 16:11 | disposition home or self-care (01) | DRG 379 ==
LOC: EC 19:22 → 3SCARD 21:45 → OBSVTOIN 08-01 10:42
PROVIDERS: ADMIT Family Medicine; ATTEND Family Medicine
PROC: 0DBM8ZX Excision of Descending Colon, Via Natural or Artificial Opening Endoscopic, Diagnostic (ICD-10-PCS; principal; 2020-08-01 08:20)
DX: K57.31 Diverticulosis of large intestine without perforation or abscess with bleeding (principal); E11.51 Type 2 diabetes mellitus with diabetic peripheral angiopathy without gangrene; E11.65 Type 2 diabetes mellitus with hyperglycemia; Z79.4 Long term (current) use of insulin; I71.4 Abdominal aortic aneurysm, without rupture; K29.70 Gastritis, unspecified, without bleeding; K63.5 Polyp of colon; K64.8 Other hemorrhoids; I25.10 Atherosclerotic heart disease of native coronary artery without angina pectoris; E78.5 Hyperlipidemia, unspecified; I65.23 Occlusion and stenosis of bilateral carotid arteries; I10 Essential (primary) hypertension; I45.10 Unspecified right bundle-branch block; K44.9 Diaphragmatic hernia without obstruction or gangrene; K21.9 Gastro-esophageal reflux disease without esophagitis; E78.00 Pure hypercholesterolemia, unspecified; R40.2142 Coma scale, eyes open, spontaneous, at arrival to emergency department; R40.2362 Coma scale, best motor response, obeys commands, at arrival to emergency department; R40.2252 Coma scale, best verbal response, oriented, at arrival to emergency department; F32.9 Major depressive disorder, single episode, unspecified; K42.9 Umbilical hernia without obstruction or gangrene; M54.9 Dorsalgia, unspecified; M19.90 Unspecified osteoarthritis, unspecified site; F17.210 Nicotine dependence, cigarettes, uncomplicated; Z71.6 Tobacco abuse counseling; Z79.82 Long term (current) use of aspirin; Z79.02 Long term (current) use of antithrombotics/antiplatelets; Z79.899 Other long term (current) drug therapy; Z86.73 Personal history of transient ischemic attack (TIA), and cerebral infarction without residual deficits; Z90.49 Acquired absence of other specified parts of digestive tract; Z87.19 Personal history of other diseases of the digestive system; Z86.14 Personal history of Methicillin resistant Staphylococcus aureus infection; Z87.01 Personal history of pneumonia (recurrent); Z87.442 Personal history of urinary calculi; Z95.1 Presence of aortocoronary bypass graft; Z95.5 Presence of coronary angioplasty implant and graft; Z87.42 Personal history of other diseases of the female genital tract; Z90.89 Acquired absence of other organs; Z90.710 Acquired absence of both cervix and uterus; Z98.42 Cataract extraction status, left eye; Z98.41 Cataract extraction status, right eye; Z96.1 Presence of intraocular lens; Z95.828 Presence of other vascular implants and grafts; Z98.890 Other specified postprocedural states; Z88.5 Allergy status to narcotic agent; Z88.2 Allergy status to sulfonamides; Z82.49 Family history of ischemic heart disease and other diseases of the circulatory system
CPT/HCPCS: 36415; 45385; 80048; 80053; 81001; 82150; 82272; 83605; 83690; 83735; 84484; 85025; 85027; 85610; 85730; 86850; 86900; 86901; 87086; 88305; 93005; 96361; 96374; 96375; 96376; 99285

== ENCOUNTER → 2020-09-17 | Outpatient (CLI) | payer MEDICARE, OTHER ==
[2020-09-17 11:11] LABS: ALT 17 U/L (4-34); AST 19 U/L (14-36); African American GFR (CKD) >90 (>60 ml/min/1.73 sqM); Albumin 4.1 g/dL (3.5-5.0); Alkaline Phosphatase 129 U/L (38-126); Anion Gap 10 mmol/L; Blood Urea Nitrogen 21 mg/dL (7-17); Carbon Dioxide 27 mmol/L (22-30); Chloride 95 mmol/L (98-107); Cholesterol 210 mg/dL (<200); Glucose 485 mg/dL (74-99); HDL Cholesterol 48 mg/dL (40-60); Non-African American GFR(CKD) >90 (>60 ml/min/1.73 sqM); Potassium 4.6 mmol/L (3.5-5.1); Sodium 132 mmol/L (137-145); Total Bilirubin 0.6 mg/dL (0.2-1.3); Total Protein 6.8 g/dL (6.3-8.2)
[2020-09-17 11:33] LABS: Basophils # (A) 0.1 k/uL (0-0.2); Basophils % (A) 1 %; Eosinophils # (A) 0.2 k/uL (0-0.7); Eosinophils % (A) 2 %; HCT 44.8 % (34.0-46.0); Lymphocytes # (A) 1.9 k/uL (1.0-4.8); Lymphocytes % (A) 20 %; MCHC 30.9 g/dL (31.0-37.0); MCV 100.3 fL (80.0-100.0); Mean Platelet Volume 8.5; Monocytes # (A) 0.3 k/uL (0-1.0); Monocytes % (A) 4 %; Neutrophils # (A) 6.8 k/uL (1.3-7.7); Neutrophils % (A) 73 %; Platelet Count 297 k/uL (150-450); RBC 4.46 m/uL (3.80-5.40); WBC 9.3 k/uL (3.8-10.6)
[2020-09-17 11:41] LABS: HGB 13.8 gm/dL (11.4-16.0)
[2020-09-17 12:38] LABS: Triglycerides 691 mg/dL (<150)
--- NOTE | 2020-09-17 12:52 | CT ---
EXAMINATION TYPE: CT angio neck DATE OF EXAM: 09/17/2020 HISTORY: carotid stenosis/occlusion COMPARISON: None CT DLP: 234.6 mGycm. Automated Exposure Control for Dose Reduction was Utilized. TECHNIQUE: CTA scan of the neck is performed with IV Contrast, patient injected with 65 mL of Isovue 370, axial images are obtained, coronal and sagittal reformatted images are reviewed. Three-D recons tructed images are created on an independent workstation and reviewed. FINDINGS: Atherosclerotic change of the aortic arch and origin of the great vessels. Visualized porti ons of the subclavian arteries are patent bilaterally. Vertebral arteries are symmetric in size and appear to be patent bilaterally. Visualized vertebral ba silar system is patent. Hypodensities within the thyroid likely represent thyroid nodules although there is motion artifact. Exam is limited by motion artifact. Within the common carotid arteries bilaterally there is atheroscl erotic change but no significant stenosis. There is severe atherosclerotic disease involving the right carotid bifurcation with occlusion of the proximal right ICA. No enhancement is seen to the level of the carotid canal. There is extensive atherosclerotic plaque involving the left carotid bifurcation with a severe greate r than 70% stenosis. Contrast enhancement is seen to the level of the carotid canal and extend intrac ranially. Visualized portions of the [place] demonstrates filling of the anterior and middle cerebral arteries bilaterally likely related to a patent [place]. Tiny little nodular protu berance in the anterior communicating artery and tiny aneurysm not excluded consider follow-up MRA gi liz limitation of the exam. Hypertrophic and degenerative changes of the spine. Slight grade 1 anterolisthesis C3 on C4. Sternoto my wires noted. Report called to referring clinician. IMPRESSION: 1.Occlusion of the proximal right ICA. 2. Severe stenosis proximal left ICA greater than 70%. 3. Mild prominence of the visualized portion of the anterior communicating artery. Tiny aneurysm and the differential diagnosis, consider MRA [place].
[2020-09-17 20:27] LABS: % Iron Saturation 21.98 (12.00-45.00); Iron 82 ug/dL (50-170); Total Iron Binding Capacity 373 ug/dL (228-460)
== END | disposition home or self-care (01) ==
LOC: RADCTMAIN 09:46
PROVIDERS: ATTEND Surgery
DX: I65.23 Occlusion and stenosis of bilateral carotid arteries (principal); I72.0 Aneurysm of carotid artery; I77.89 Other specified disorders of arteries and arterioles; K92.2 Gastrointestinal hemorrhage, unspecified; E78.2 Mixed hyperlipidemia
CPT/HCPCS: 80061; 80053; 83540; 83550; 85025; 70498; 36415; Q9967

== ENCOUNTER 2021-01-02 17:08 | Inpatient (IN) | payer MEDICARE, OTHER ==
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
[2021-01-02] MEDS ORDERED: MORPHINE SULFATE 4 MG/ML SYRINGE IV STA ×2 (17:52→19:55)
[2021-01-02 18:07] LABS: Basophils # (A) 0.1 k/uL (0-0.2); Basophils % (A) 1 %; Eosinophils # (A) 0.3 k/uL (0-0.7); Eosinophils % (A) 3 %; HCT 40.8 % (34.0-46.0); HGB 13.2 gm/dL (11.4-16.0); Lymphocytes # (A) 2.5 k/uL (1.0-4.8); Lymphocytes % (A) 25 %; MCH 31.1 pg (25.0-35.0); MCHC 32.4 g/dL (31.0-37.0); MCV 95.9 fL (80.0-100.0); Mean Platelet Volume 8.7; Monocytes # (A) 0.4 k/uL (0-1.0); Monocytes % (A) 4 %; Neutrophils # (A) 6.8 k/uL (1.3-7.7); Neutrophils % (A) 67 %; Platelet Count 245 k/uL (150-450); RBC 4.26 m/uL (3.80-5.40); RDW 13.2 % (11.5-15.5); WBC 10.2 k/uL (3.8-10.6)
[2021-01-02 18:13] LABS: ALT 17 U/L (4-34); AST 20 U/L (14-36); African American GFR (CKD) >90 (>60 ml/min/1.73 sqM); Albumin 3.6 g/dL (3.5-5.0); Alkaline Phosphatase 139 U/L (38-126); Anion Gap 6 mmol/L; Blood Urea Nitrogen 21 mg/dL (7-17); Calcium 9.3 mg/dL (8.4-10.2); Carbon Dioxide 22 mmol/L (22-30); Chloride 102 mmol/L (98-107); Glucose 345 mg/dL (74-99); Non-African American GFR(CKD) >90 (>60 ml/min/1.73 sqM); Potassium 3.9 mmol/L (3.5-5.1); Sodium 130 mmol/L (137-145); Total Bilirubin 0.3 mg/dL (0.2-1.3); Total Protein 6.3 g/dL (6.3-8.2)
[2021-01-02 18:51] LABS: INR 0.9 (<1.2); Prothrombin Time 9.5 sec (9.0-12.0)
--- NOTE | 2021-01-02 19:13 | CT ---
EXAMINATION TYPE: CT abdomen pelvis w con DATE OF EXAM: 01/02/2021 COMPARISON: 06/04/2020 HISTORY: Blood in stool CT DLP: 1041 mGycm Automated exposure control for dose reduction was used. CONTRAST: Performed with IV Contrast, patient injected with 100 mL of Isovue 300. Images obtained from the diaphragm to the floor the pelvis with IV contrast. There is mild subsegmental atelectasis at the lung bases. Heart size is normal. There is no pericardi al effusion. There is some mild coronary artery calcification. Liver and spleen are intact. The stomach is intact. The bile ducts are not dilated. There is no pancreatic mass. There are clips from cholecystectomy. There is no adrenal mass. Kidneys show satisfactory contrast opacification. There is no hydronephrosi s. The ureters are not dilated. There is no retroperitoneal adenopathy. There is atheromatous tortuou s abdominal aorta. There is aneurysm that measures up to 3.9 cm. There is variable thrombus in the ab dominal aorta. There is extensive plaque formation in the iliac arteries. There is no mesenteric edema. There is no ascites or free air. There are sigmoid multiple diverticula . I see no sign of diverticulitis. Bladder distends smoothly. There is no inguinal hernia. There is 1 cm nonobstructing calculus lower pole right kidney. Appendix is not seen. There is no sign of thicke sivan appendix. There are numerous renal calcifications that are probably vascular. The lumbar vertebra have normal alignment. There is no compression fracture. Posterior elements are i ntact. IMPRESSION: There is mild subsegmental atelectasis at the lung bases that is new compared to old exam. Colonic di verticulosis without diverticulitis. Abdominal aortic aneurysm without change compared to old exam. Extensive atherosclerotic vascular disease.
[2021-01-02] MEDS ORDERED: PANTOPRAZOLE 40 MG/10 ML VIAL IVP STA (19:44)
[2021-01-02] MEDS ORDERED: CLINDAMYCIN 150 MG CAP PO STA (20:18)
[2021-01-02] MEDS ORDERED: NALOXONE 0.4 MG/ML 1 ML VIAL IV PRN (20:22)
[2021-01-02] MEDS ORDERED: ACETAMINOPHEN TAB 325 MG TAB PO PRN (20:22)
[2021-01-02 20:26] LABS: Appearance,Urine Clear (Clear); Bacteria,Urine Rare /hpf; Bilirubin,Urine Negative (Negative); Blood,Urine Small (Negative); Color,Urine Colorless; Glucose,Urine (UA) 4+ (Negative); Ketones,Urine Negative (Negative); Leukocyte Esterase,Urine Trace (Negative); Mucus,Urine Rare /hpf; Nitrite,Urine Negative (Negative); PH, Urine 5.5 (5.0-8.0); Protein,Urine 1+ (Negative); RBC,Urine <1 /hpf (0-5); Specific Gravity,Urine 1.004 (1.001-1.035); Squamous Epithelial Cell,Urine <1 /hpf (0-4); Urobilinogen,Urine <2.0 mg/dL (<2.0); WBC,Urine 5 /hpf (0-5)
[2021-01-02] MEDS: SODIUM CHLORIDE 0.9% 1,000 ML IV SCH (20:48)
[2021-01-02] MEDS ORDERED: NITROGLYCERIN SL TABS 0.4 MG TAB SUBLINGUAL PRN (21:00)
[2021-01-02] MEDS ORDERED: DICYCLOMINE 10 MG CAP PO PRN (21:00)
[2021-01-02] MEDS ORDERED: HYDROcodone/APAP 7.5-325MG 1 EACH TAB PO PRN (21:00)
[2021-01-02 21:14] LABS: Glucose,Whole Blood 312 mg/dL (75-99)
[2021-01-02] MEDS: INSULIN ASPART (NovoLOG) 100 UNIT/ML VIAL SQ SCH (21:26)
[2021-01-02] MEDS: METOPROLOL TARTRATE 25 MG TAB PO SCH (21:26)
[2021-01-02] MEDS: metFORMIN 500 MG TAB PO SCH (21:26)
[2021-01-02] MEDS: ISOSORBIDE MONONITRATE ER 60 MG TAB.ER.24H PO SCH (21:26)
[2021-01-02] MEDS: TICAGRELOR 90 MG TAB PO SCH (21:31)
[2021-01-03] MEDS: MORPHINE SULFATE 4 MG/ML SYRINGE IV PRN ×5 (01:00→23:07)
[2021-01-03 06:56] LABS: Glucose,Whole Blood 234 mg/dL (75-99)
[2021-01-03] MEDS: INSULIN ASPART (NovoLOG) 100 UNIT/ML VIAL SQ SCH ×4 (08:26→20:21)
[2021-01-03] MEDS: SODIUM CHLORIDE 0.9% 1,000 ML IV SCH ×2 (08:27→18:14)
[2021-01-03] MEDS: ATORVASTATIN 80 MG TAB PO SCH (08:27)
[2021-01-03] MEDS: lisinopriL 20 MG TAB PO SCH (08:27)
[2021-01-03] MEDS: ISOSORBIDE MONONITRATE ER 60 MG TAB.ER.24H PO SCH ×2 (08:27→20:21)
[2021-01-03] MEDS: amLODIPine 10 MG TAB PO SCH (08:27)
[2021-01-03] MEDS: PANTOPRAZOLE 40 MG TABLET PO SCH (08:27)
[2021-01-03] MEDS: PARoxetine 20 MG TAB PO SCH (08:27)
[2021-01-03] MEDS: METOPROLOL TARTRATE 25 MG TAB PO SCH ×2 (08:27→20:20)
[2021-01-03] MEDS: TICAGRELOR 90 MG TAB PO SCH (08:28)
[2021-01-03] MEDS: metFORMIN 500 MG TAB PO SCH (08:28)
[2021-01-03 08:49] LABS: HCT 36.9 % (34.0-46.0); HGB 12.3 gm/dL (11.4-16.0); MCH 32.2 pg (25.0-35.0); MCHC 33.4 g/dL (31.0-37.0); MCV 96.4 fL (80.0-100.0); Mean Platelet Volume 8.5; Platelet Count 207 k/uL (150-450); RBC 3.83 m/uL (3.80-5.40); RDW 13.3 % (11.5-15.5); WBC 7.9 k/uL (3.8-10.6)
[2021-01-03] MEDS ORDERED: ASPIRIN 81 MG PO SCH (09:00)
[2021-01-03 09:02] LABS: African American GFR (CKD) >90 (>60 ml/min/1.73 sqM); Anion Gap 5 mmol/L; Blood Urea Nitrogen 17 mg/dL (7-17); Calcium 8.4 mg/dL (8.4-10.2); Carbon Dioxide 24 mmol/L (22-30); Chloride 105 mmol/L (98-107); Glucose 238 mg/dL (74-99); Non-African American GFR(CKD) >90 (>60 ml/min/1.73 sqM); Potassium 3.7 mmol/L (3.5-5.1); Sodium 134 mmol/L (137-145)
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
[2021-01-03 11:23] LABS: Glucose,Whole Blood 221 mg/dL (75-99)
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
--- NOTE | 2021-01-03 12:49 | XR ---
EXAMINATION TYPE: XR chest 2V DATE OF EXAM: 01/03/2021 COMPARISON: 12/29/2019 HISTORY: Shortness of breath TECHNIQUE: Frontal and lateral views of the chest are obtained. FINDINGS: Scattered senescent parenchymal changes noted. Hyperinflation compatible with COPD. No evidence for infiltrate. No evidence for atelectasis. Cardiomegaly with pulmonary venous congestion. Mediastinal structures are stable and grossly unremarkable. No evidence for hilar prominence. Degenerative changes dorsal spine. IMPRESSION: 1. Cardiomegaly with pulmonary venous congestion.
[2021-01-03 16:38] LABS: Glucose,Whole Blood 189 mg/dL (75-99)
[2021-01-03 17:48] LABS: Hemoglobin A1C 14.4 % (4.0-6.0)
[2021-01-03 19:04] LABS: Basophils # (A) 0.1 k/uL (0-0.2); Basophils % (A) 1 %; Eosinophils # (A) 0.2 k/uL (0-0.7); Eosinophils % (A) 2 %; HCT 36.1 % (34.0-46.0); Lymphocytes # (A) 2.2 k/uL (1.0-4.8); Lymphocytes % (A) 31 %; MCH 32.1 pg (25.0-35.0); MCHC 33.2 g/dL (31.0-37.0); MCV 96.6 fL (80.0-100.0); Mean Platelet Volume 8.2; Monocytes # (A) 0.3 k/uL (0-1.0); Monocytes % (A) 4 %; Neutrophils # (A) 4.4 k/uL (1.3-7.7); Neutrophils % (A) 61 %; Platelet Count 220 k/uL (150-450); RBC 3.73 m/uL (3.80-5.40); RDW 12.9 % (11.5-15.5); WBC 7.2 k/uL (3.8-10.6)
[2021-01-03 20:07] LABS: Glucose,Whole Blood 130 mg/dL (75-99)
[2021-01-03] MEDS: ONDANSETRON ODT 4 MG TAB PO PRN (20:21)
[2021-01-04] MEDS: MORPHINE SULFATE 4 MG/ML SYRINGE IV PRN ×5 (03:42→20:49)
[2021-01-04] MEDS: SODIUM CHLORIDE 0.9% 1,000 ML IV SCH ×2 (04:07→10:34)
[2021-01-04 07:14] LABS: Glucose,Whole Blood 182 mg/dL (75-99)
[2021-01-04 07:35] LABS: African American GFR (CKD) >90 (>60 ml/min/1.73 sqM); Anion Gap 6 mmol/L; Blood Urea Nitrogen 12 mg/dL (7-17); Calcium 8.4 mg/dL (8.4-10.2); Carbon Dioxide 21 mmol/L (22-30); Chloride 109 mmol/L (98-107); Glucose 168 mg/dL (74-99); Magnesium 1.4 mg/dL (1.6-2.3); Non-African American GFR(CKD) >90 (>60 ml/min/1.73 sqM); Potassium 3.7 mmol/L (3.5-5.1); Sodium 136 mmol/L (137-145)
[2021-01-04] MEDS: PARoxetine 20 MG TAB PO SCH (07:35)
[2021-01-04] MEDS: ISOSORBIDE MONONITRATE ER 60 MG TAB.ER.24H PO SCH ×2 (07:35→21:36)
[2021-01-04] MEDS: amLODIPine 10 MG TAB PO SCH (07:35)
[2021-01-04] MEDS: ATORVASTATIN 80 MG TAB PO SCH (07:35)
[2021-01-04] MEDS: METOPROLOL TARTRATE 25 MG TAB PO SCH ×2 (07:35→20:50)
[2021-01-04] MEDS: lisinopriL 20 MG TAB PO SCH (07:36)
[2021-01-04] MEDS: INSULIN ASPART (NovoLOG) 100 UNIT/ML VIAL SQ SCH ×4 (07:36→20:50)
[2021-01-04] MEDS: PANTOPRAZOLE 40 MG TABLET PO SCH (07:36)
[2021-01-04] MEDS: ONDANSETRON ODT 4 MG TAB PO PRN (09:43)
--- NOTE | 2021-01-04 10:15 | P.PN ---
Subjective Progress Note Date: 01/04/21 HISTORY OF PRESENT ILLNESS: 65-year-old female, who follows in the office with Dr. Epstein, who is admitted to the hospital secondary to GI bleed. Patient has a history of hypertension, diabetes, hyperlipidemia, previous CVA, nicotine dependence, paroxysmal atrial fibrillation, and recent carotid endarterectomy at [facility]. Echocardiogram completed in 2018 revealed ejection fraction 55- 60%. Patient also underwent cardiac catheterization in June 2019 with PCI to the distal circumflex. She is maintained on Brilinta and aspirin at home. Patient examined this morning at the bedside. She denies chest pain or pressure. She denies shortness of breath. Patient states she has not had any further episodes of bleeding her rectum. In fact, she has not had a bowel movement since coming to the hospital. Hemoglobin 12.0 yesterday and 10.7 today. PHYSICAL EXAM: VITAL SIGNS: Reviewed. GENERAL: Well-developed in no acute distress. NECK: Supple. No JVD or thyromegaly LUNGS: Respirations even and unlabored. Lungs essentially clear to auscultation bilaterally. HEART: Regular rate and rhythm. S1 and S2 heard. EXTREMITIES: Normal range of motion. No clubbing or cyanosis. Peripheral pulses intact. No lower extremity edema ASSESSMENT: Lower GI bleed, maintained on Brilinta and aspirin prior to hospitalization Coronary artery disease with previous CABG and PCI, most recently with PCI to circumflex in June 2019 History of recent left carotid endarterectomy at [facility] Hypertension Hyperlipidemia Diabetes mellitus History of CVA Nicotine dependence Hypomagnesemia PLAN: Continue to hold Brilinta and Aspirin. Resume when cleared by GI service Await GI evaluation Replace magnesium Further recommendations pending patient's course Nurse practitioner note has been reviewed by physician. Signing provider agrees with the documented findings, assessment, and plan of care. Objective - Vital Signs Vital signs: Vital Signs Temp 98.2 F 01/04/21 07:33 Pulse 72 01/04/21 07:33 Resp 17 01/04/21 07:33 BP 187/77 01/04/21 07:33 Pulse Ox 92 L 01/04/21 07:33 Intake & Output 01/03/21 01/04/21 01/04/21 18:59 06:59 18:59 Intake Total 200 Balance 200 Intake: Oral 200 Other: Voiding Method Toilet Toilet Toilet # Voids 3 2 # Emeses 1 1 - Labs CBC & Chem 7: 01/04/21 06:45 01/04/21 06:45 Labs: Abnormal Lab Results - Last 24 Hours (Table) 01/03/21 01/03/21 01/03/21 Range/Units 08:32 11:21 16:30 RBC (3.80-5.40) m/uL Sodium (137-145) mmol/L Chloride (98-107) mmol/L Carbon Dioxide (22-30) mmol/L Creatinine (0.52-1.04) mg/dL Glucose (74-99) mg/dL POC Glucose (mg/dL) 221 H 189 H (75-99) mg/dL Hemoglobin A1c 14.4 H (4.0-6.0) % Magnesium (1.6-2.3) mg/dL 01/03/21 01/03/21 01/04/21 Range/Units 18:25 20:05 06:45 RBC 3.73 L (3.80-5.40) m/uL Sodium 136 L (137-145) mmol/L Chloride 109 H (98-107) mmol/L Carbon Dioxide 21 L (22-30) mmol/L Creatinine 0.48 L (0.52-1.04) mg/dL Glucose 168 H (74-99) mg/dL POC Glucose (mg/dL) 130 H (75-99) mg/dL Hemoglobin A1c (4.0-6.0) % Magnesium 1.4 L (1.6-2.3) mg/dL 01/04/21 Range/Units 07:03 RBC (3.80-5.40) m/uL Sodium (137-145) mmol/L Chloride (98-107) mmol/L Carbon Dioxide (22-30) mmol/L Creatinine (0.52-1.04) mg/dL Glucose (74-99) mg/dL POC Glucose (mg/dL) 182 H (75-99) mg/dL Hemoglobin A1c (4.0-6.0) % Magnesium (1.6-2.3) mg/dL
[2021-01-04 10:32] LABS: Basophils # (A) 0.06 X 10*3/uL (0.00-0.10); Basophils % (A) 0.7 %; Eosinophils # (A) 0.14 X 10*3/uL (0.04-0.35); Eosinophils % (A) 1.7 %; HCT 33.7 % (37.2-46.3); HGB 10.7 g/dL (12.0-15.0); Lymphocytes # (A) 2.62 X 10*3/uL (0.90-5.00); Lymphocytes % (A) 31.3 %; MCH 31.4 pg (27.0-32.0); MCHC 31.8 g/dL (32.0-37.0); MCV 98.8 fL (80.0-97.0); Mean Platelet Volume 11.5 fL (9.5-12.2); Monocytes # (A) 0.48 X 10*3/uL (0.20-1.00); Monocytes % (A) 5.7 %; Neutrophils # (A) 5.02 X 10*3/uL (1.80-7.70); Neutrophils % (A) 60.1 %; Platelet Count 219 X 10*3/uL (140-440); RBC 3.41 X 10*6/uL (4.10-5.20); RDW 12.9 % (11.5-14.5); WBC 8.36 X 10*3/uL (4.50-10.00)
[2021-01-04] MEDS: MAGNESIUM SULFATE-D5W PMX 1 GM in DEXTROSE/WATER 1 100ML.BAG IVPB SCH ×2 (10:52→12:21)
--- NOTE | 2021-01-04 11:26 | P.PN ---
Subjective Progress Note Date: 01/04/21 This is 64-year-old female well known to me, with a history of recurrent GI bleeds and history of CVA/TIA, diabetes mellitus, gastroesophageal disease, CAD, history of CABG, arteriosclerosis, carotid artery disease with recent carotid endarterectomy, diverticulitis, ongoing nicotine dependence multiple other medical issues presented to the ER with 1 days of rectal bleeding. The patient reports cloudy maroon stools accompanied by Right lower quadrant abdominal pain. She is also complaining of some nausea with the biliary emesis several times since then. CT of abdomen and pelvis in the ER showed mild subsegmental atelectasis, colonic diverticulosis without diverticulitis, ongoing abdominal aortic aneurysm without change in extensive atherosclerotic vascular disease. Vital signs are stable. Oxygen saturation remained adequate on room air. Blood pressure remains controlled. Abdomen is currently 12.3. Aggravation studies are normal. Glucoses are elevated with the this a.m. at 238. Troponin 1 was normal. She was Hemoccult positive in the ER. Urinalysis shows trace leukocytes negative nitrites, +4 glucose, +1 protein, rare bacteria and rare mucus. Dodson virus PCR negative. Currently the patient is complaining of abdominal pain at the right in upper and lower areas. She is complaining of some nausea with occasional emesis. She denies any chest pains, pressures, shortness breath this time. 01/04/2021 complaining of no flatus, no bowel movement,"tummy hard", positive nausea. Yesterday patient had yellow/greenish emesis. Aspirin, Brilenta remains on hold, hemoglobin down to 10.7, platelets 219. Potassium 3.7, magnesium 1.4. Denies chest pain, palpitations or shortness of breath. O2 sats in the 90s on room air. Chest x-ray yesterday reporting cardiomegaly with pulmonary venous congestion. T-max 99.1, WBC within normal limits. Objective - Vital Signs Vital signs: Vital Signs Temp 98.2 F 01/04/21 07:33 Pulse 72 01/04/21 07:33 Resp 17 01/04/21 07:33 BP 187/77 01/04/21 07:33 Pulse Ox 92 L 01/04/21 07:33 Intake & Output 02/21/21 02/22/21 02/22/21 18:59 06:59 18:59 Intake Total 200 Balance 200 Intake: Oral 200 Other: Voiding Method Toilet Toilet Toilet # Voids 3 2 # Emeses 1 1 - Exam GENERAL: Alert and oriented 3, Sitting up in bed, Fatigued, holding an emesis basin. HEAD: Atraumatic, normocephalic. EYES: Pupils equal round and reactive to light, extraocular movements intact, sclera anicteric, conjunctiva are normal. ENT:nares patent, oropharynx clear without exudates. Moist mucous membranes. NECK: Normal range of motion, supple without lymphadenopathy or JVD, no thyromegaly LUNGS: Breath sounds clear to auscultation bilaterally and equal. No wheezes rales or rhonchi. HEART: Regular rate and rhythm without murmurs, rubs or gallops.S1S2 Normal ABDOMEN: Soft, diffuse generalized abdominal tenderness to all quadrants but worse in the right upper and right lower quadrant, hypoactive bowel sounds. No guarding, no rebound. No masses appreciated. EXTREMITIES: Normal range of motion, no pitting or edema. No clubbing or cyanosis. NEUROLOGICAL: Cranial nerves II through XII grossly intact. Normal speech, normal gait. SKIN: Warm, Dry, normal turgor, no rashes noted. - Labs CBC & Chem 7: 01/04/21 06:45 01/04/21 06:45 Labs: Abnormal Lab Results - Last 24 Hours (Table) 01/03/21 01/03/21 01/03/21 Range/Units 08:32 11:21 16:30 RBC (3.80-5.40) m/uL Hgb (12.0-15.0) g/dL Hct (37.2-46.3) % MCV (80.0-97.0) fL MCHC (32.0-37.0) g/dL Sodium (137-145) mmol/L Chloride (98-107) mmol/L Carbon Dioxide (22-30) mmol/L Creatinine (0.52-1.04) mg/dL Glucose (74-99) mg/dL POC Glucose (mg/dL) 221 H 189 H (75-99) mg/dL Hemoglobin A1c 14.4 H (4.0-6.0) % Magnesium (1.6-2.3) mg/dL 01/03/21 01/03/2101/04/21 Range/Units 18:25 20:05 06:45 RBC 3.73 L 3.41 L (3.80-5.40) m/uL Hgb 10.7 L (12.0-15.0) g/dL Hct 33.7 L (37.2-46.3) % MCV 98.8 H (80.0-97.0) fL MCHC 31.8 L (32.0-37.0) g/dL Sodium (137-145) mmol/L Chloride (98-107) mmol/L Carbon Dioxide (22-30) mmol/L Creatinine (0.52-1.04) mg/dL Glucose (74-99) mg/dL POC Glucose (mg/dL) 130 H (75-99) mg/dL Hemoglobin A1c (4.0-6.0) % Magnesium (1.6-2.3) mg/dL 01/04/21 01/04/21 Range/Units 06:45 07:03 RBC (3.80-5.40) m/uL Hgb (12.0-15.0) g/dL Hct (37.2-46.3) % MCV (80.0-97.0) fL MCHC (32.0-37.0) g/dL Sodium 136 L (137-145) mmol/L Chloride 109 H (98-107) mmol/L Carbon Dioxide 21 L (22-30) mmol/L Creatinine 0.48 L (0.52-1.04) mg/dL Glucose 168 H (74-99) mg/dL POC Glucose (mg/dL) 182 H (75-99) mg/dL Hemoglobin A1c (4.0-6.0) % Magnesium 1.4 L (1.6-2.3) mg/dL Assessment and Plan Assessment: (1) Abdominal pain Current Visit: No Status: Acute Code(s): R10.9 - UNSPECIFIED ABDOMINAL PAIN SNOMED Code(s): 19404327 (2) Acute GI bleeding Current Visit: No Status: Acute Code(s): K92.2 - GASTROINTESTINAL HEMORRHAGE, UNSPECIFIED SNOMED Code(s): 09549796 (3) CAD (coronary artery disease) Current Visit: No Status: Acute Code(s): I25.10 - ATHSCL HEART DISEASE OF [place] CORONARY ARTERY W/O ANG PCTRS SNOMED Code(s): 53120613 (4) Carotid stenosis Current Visit: No Status: Acute Code(s): I65.29 - OCCLUSION AND STENOSIS OF UNSPECIFIED CAROTID ARTERY SNOMED Code(s): 09079958 (5) Coronary artery disease with hx of myocardial infarct w/o hx of CABG Current Visit: No Status: Acute Code(s): I25.10 - ATHSCL HEART DISEASE OF [place] CORONARY ARTERY W/O ANG PCTRS SNOMED Code(s): 065602484 (6) Diabetes type 2, uncontrolled Current Visit: No Status: Acute Code(s): E11.65 - TYPE 2 DIABETES MELLITUS WITH HYPERGLYCEMIA SNOMED Code(s): 496010772 (7) Diverticulosis Current Visit: No Status: Acute Code(s): K57.90 - DVRTCLOS OF INTEST, PART UNSP, W/O PERF OR ABSCESS W/O BLEED SNOMED Code(s): 485732462 (8) Hyperlipemia Current Visit: No Status: Acute Code(s): E78.5 - HYPERLIPIDEMIA, UNSPECIFIED SNOMED Code(s): 98074931 (9) Nicotine dependence Current Visit: No Status: Acute Code(s): F17.200 - NICOTINE DEPENDENCE, UNSPECIFIED, UNCOMPLICATED SNOMED Code(s): 59752484 (10) COPD Plan: Continue on current medication regime ,monitoring and symptomatic tr eatment. Purulent and aspirin remain on hold with GI consult in place with recommendations pending. Magnesium replacement in progress. Close monitoring of hemoglobin, electrolytes with repeat labs ordered for tomorrow. The impression and plan of care has been dictated as directed. : I performed a history and examination of this patient, discussed the same with the dictator. I agree with the dictator's note ,documented as a scribe. Any additional findings or plans will be noted.
[2021-01-04 13:05] LABS: Glucose,Whole Blood 223 mg/dL (75-99)
[2021-01-04 16:08] VITALS: BMI 25.0
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
[2021-01-04 17:33] LABS: Glucose,Whole Blood 209 mg/dL (75-99)
[2021-01-04 17:46] LABS: Glucose,Whole Blood 197 mg/dL (75-99)
[2021-01-04 20:48] LABS: Glucose,Whole Blood 239 mg/dL (75-99)
[2021-01-05] MEDS: SODIUM CHLORIDE 0.9% 1,000 ML IV SCH (01:00)
[2021-01-05] MEDS: MORPHINE SULFATE 4 MG/ML SYRINGE IV PRN ×3 (03:02→11:50)
[2021-01-05] MEDS: INSULIN ASPART (NovoLOG) 100 UNIT/ML VIAL SQ SCH ×3 (06:34→16:59)
[2021-01-05 06:41] LABS: Glucose,Whole Blood 279 mg/dL (75-99)
[2021-01-05 08:26] LABS: HCT 32.9 % (34.0-46.0); HGB 10.8 gm/dL (11.4-16.0); MCH 32.1 pg (25.0-35.0); MCHC 32.9 g/dL (31.0-37.0); MCV 97.5 fL (80.0-100.0); Mean Platelet Volume 8.5; Platelet Count 188 k/uL (150-450); RBC 3.37 m/uL (3.80-5.40); WBC 8.6 k/uL (3.8-10.6)
[2021-01-05 08:40] LABS: African American GFR (CKD) >90 (>60 ml/min/1.73 sqM); Anion Gap 2 mmol/L; Blood Urea Nitrogen 6 mg/dL (7-17); Calcium 8.1 mg/dL (8.4-10.2); Carbon Dioxide 25 mmol/L (22-30); Chloride 106 mmol/L (98-107); Glucose 213 mg/dL (74-99); Non-African American GFR(CKD) >90 (>60 ml/min/1.73 sqM); Potassium 3.4 mmol/L (3.5-5.1); Sodium 133 mmol/L (137-145)
--- NOTE | 2021-01-05 08:57 | P.PN ---
Subjective Progress Note Date: 01/05/21 Principal diagnosis: Rectal bleeding Patient is seen and examined lying in bed. She states she has still having some abdominal pain that comes and goes, describes it as diffuse. Denies any nausea or vomiting associated with it. Has not had any further bowel movements or rectal bleeding. Hemoglobin is stable at 10.8. Objective - Vital Signs Vital signs: Vital Signs Temp 98.9 F 01/05/21 02:00 Pulse 68 01/05/21 02:00 Resp 18 01/05/21 02:00 BP 149/52 01/05/21 03:06 Pulse Ox 91 L 01/05/21 02:00 Intake & Output 01/04/21 01/05/21 01/05/21 18:59 06:59 18:59 Intake Total 300 Balance 300 Weight 72.575 kg Intake: Oral 300 Other: Voiding Method Toilet Toilet # Voids 1 1 - Exam General appearance: The patient is alert, oriented, appears in no acute distress. HET: Head is normocephalic and atraumatic. Conjunctiva pink. Sclera anicteric. Neck: Supple without lymphadenopathy. Abdomen: Soft, diffuse tenderness, nondistended with bowel sounds. No guarding or rigidity. Extremities: Normal skin color and turgor. No pedal edema Skin: No rashes, no jaundice Neurological: No focal deficits. Alert and oriented 3. - Labs CBC & Chem 7: 01/05/21 07:52 01/05/21 13:05 Labs: Abnormal Lab Results - Last 24 Hours (Table) 01/04/21 01/04/21 01/04/21 Range/Units 06:45 13:03 17:31 RBC 3.41 L (4.10-5.20) X 10*6/uL Hgb 10.7 L (12.0-15.0) g/dL Hct 33.7 L (37.2-46.3) % MCV 98.8 H (80.0-97.0) fL MCHC 31.8 L (32.0-37.0) g/dL Sodium (137-145) mmol/L Potassium (3.5-5.1) mmol/L BUN (7-17) mg/dL Creatinine (0.52-1.04) mg/dL Glucose (74-99) mg/dL POC Glucose (mg/dL) 223 H 209 H (75-99) mg/dL Calcium (8.4-10.2) mg/dL 01/04/21 01/04/21 01/05/21 Range/Units 17:45 20:46 06:30 RBC (4.10-5.20) X 10*6/uL Hgb (12.0-15.0) g/dL Hct (37.2-46.3) % MCV (80.0-97.0) fL MCHC (32.0-37.0) g/dL Sodium (137-145) mmol/L Potassium (3.5-5.1) mmol/L BUN (7-17) mg/dL Creatinine (0.52-1.04) mg/dL Glucose (74-99) mg/dL POC Glucose (mg/dL) 197 H 239 H 279 H (75-99) mg/dL Calcium (8.4-10.2) mg/dL 01/05/21 01/05/21 Range/Units 07:52 07:52 RBC 3.37 L (4.10-5.20) X 10*6/uL Hgb 10.8 L (12.0-15.0) g/dL Hct 32.9 L (37.2-46.3) % MCV (80.0-97.0) fL MCHC (32.0-37.0) g/dL Sodium 133 L (137-145) mmol/L Potassium 3.4 L (3.5-5.1) mmol/L BUN 6 L (7-17) mg/dL Creatinine 0.46 L (0.52-1.04) mg/dL Glucose 213 H (74-99) mg/dL POC Glucose (mg/dL) (75-99) mg/dL Calcium 8.1 L (8.4-10.2) mg/dL Assessment and Plan (1) Rectal bleeding Current Visit: Yes Status: Acute Code(s): K62.5 - HEMORRHAGE OF ANUS AND RECTUM SNOMED Code(s): 61917793 Plan: Supportive care Advance to full liquid diet and then may advance diet as tolerated Repeat daily CBC Continue to monitor for signs and symptoms of GI bleed May restart Brilinta Thank you for this consultation, we will continue to follow Dr. Goodwin I agree with the dictator's note, documented as a scribe by Roopa Taylor.
[2021-01-05] MEDS ORDERED: TICAGRELOR 90 MG TAB PO SCH (09:00)
--- NOTE | 2021-01-05 09:02 | P.PN ---
Subjective Progress Note Date: 01/05/21 Principal diagnosis: Rectal bleeding, previous TCAR with stent The patient is seen and examined at the bedside. She reports no further rectal bleeding. She denies any bowel movements. She states she does have some diffuse abdominal pain that comes and goes. No nausea or vomiting associated with it. She denies any focal deficits, denies any upper or lower extremity weakness or difficulty with speech or vision. Objective - Vital Signs Vital signs: Vital Signs Temp 97.8 F 01/05/21 08:30 Pulse 61 01/05/21 08:30 Resp 16 01/05/21 08:30 BP 174/79 01/05/21 08:30 Pulse Ox 95 01/05/21 08:30 Intake & Output 01/04/21 01/05/21 01/05/21 18:59 06:59 18:59 Intake Total 300 Balance 300 Weight 72.575 kg Intake: Oral 300 Other: Voiding Method Toilet Toilet # Voids 1 1 - Exam General appearance: The patient is alert, oriented, in no acute distress. HET: Head is normocephalic and atraumatic. Neck: Supple without lymphadenopathy. Trachea midline. Left side of neck with scar from TCAR procedure Heart: S1 S2. Regular rate and rhythm. Lungs: No crackles or wheezes are heard. Abdomen: Soft, diffuse tenderness, nondistended with bowel sounds. Extremities: Normal skin color and turgor. Neurological: No focal deficits. Strength and sensation are grossly intact. - Labs CBC & Chem 7: 01/05/21 07:52 01/05/21 07:52 Labs: Abnormal Lab Results - Last 24 Hours (Table) 01/04/21 01/04/21 01/04/21 Range/Units 06:45 13:03 17:31 RBC 3.41 L (4.10-5.20) X 10*6/uL Hgb 10.7 L (12.0-15.0) g/dL Hct 33.7 L (37.2-46.3) % MCV 98.8 H (80.0-97.0) fL MCHC 31.8 L (32.0-37.0) g/dL Sodium (137-145) mmol/L Potassium (3.5-5.1) mmol/L BUN (7-17) mg/dL Creatinine (0.52-1.04) mg/dL Glucose (74-99) mg/dL POC Glucose (mg/dL) 223 H 209 H (75-99) mg/dL Calcium (8.4-10.2) mg/dL 01/04/21 01/04/21 01/05/21 Range/Units 17:45 20:46 06:30 RBC (4.10-5.20) X 10*6/uL Hgb (12.0-15.0) g/dL Hct (37.2-46.3) % MCV (80.0-97.0) fL MCHC (32.0-37.0) g/dL Sodium (137-145) mmol/L Potassium (3.5-5.1) mmol/L BUN (7-17) mg/dL Creatinine (0.52-1.04) mg/dL Glucose (74-99) mg/dL POC Glucose (mg/dL) 197 H 239 H 279 H (75-99) mg/dL Calcium (8.4-10.2) mg/dL 01/05/21 01/05/21 Range/Units 07:52 07:52 RBC 3.37 L (4.10-5.20) X 10*6/uL Hgb 10.8 L (12.0-15.0) g/dL Hct 32.9 L (37.2-46.3) % MCV (80.0-97.0) fL MCHC (32.0-37.0) g/dL Sodium 133 L (137-145) mmol/L Potassium 3.4 L (3.5-5.1) mmol/L BUN 6 L (7-17) mg/dL Creatinine 0.46 L (0.52-1.04) mg/dL Glucose 213 H (74-99) mg/dL POC Glucose (mg/dL) (75-99) mg/dL Calcium 8.1 L (8.4-10.2) mg/dL Assessment and Plan Assessment: 1. Rectal bleeding 2. Status post trans-carotid arterial revascularization (11/20/20) on Brilinta and aspirin 3. Carotid stenosis 4. Coronary artery disease, status post stent 2019 (1) Rectal bleeding Current Visit: Yes Status: Acute Code(s): K62.5 - HEMORRHAGE OF ANUS AND RECTUM SNOMED Code(s): 20212048 Plan: Supportive care Continue medical management per primary team In absence of any further rectal bleeding, recommend restarting [place] to 90 mg by mouth twice a day and aspirin Diet as recommended by gastroenterology Appreciate recommendations from gastroenterology Thank you for this consultation, we will sign off at this time The impression and plan of care has been dictated as directed. I performed a history and examination of this patient, discussed the same with the dictator. I agree with the dictator's note ,documented as a scribe. Any additional findings or plans will be noted.
[2021-01-05] MEDS ORDERED: ASPIRIN 81 MG PO SCH (09:15)
[2021-01-05] MEDS: lisinopriL 20 MG TAB PO SCH (09:54)
[2021-01-05] MEDS: ATORVASTATIN 80 MG TAB PO SCH (09:54)
[2021-01-05] MEDS: PARoxetine 20 MG TAB PO SCH (09:55)
[2021-01-05] MEDS: ISOSORBIDE MONONITRATE ER 60 MG TAB.ER.24H PO SCH (09:55)
[2021-01-05] MEDS: amLODIPine 10 MG TAB PO SCH (09:55)
[2021-01-05] MEDS: PANTOPRAZOLE 40 MG TABLET PO SCH (09:56)
[2021-01-05] MEDS: METOPROLOL TARTRATE 25 MG TAB PO SCH (09:56)
[2021-01-05] MEDS ORDERED: Potassium Replacement Protocol 1 EACH MISC MISCELLANE PRN (10:23)
[2021-01-05] MEDS ORDERED: Magnesium Replacement Protocol 1 EACH MISC MISCELLANE PRN (10:24)
--- NOTE | 2021-01-05 10:32 | P.PN ---
Subjective Progress Note Date: 01/05/21 HISTORY OF PRESENT ILLNESS: 01/04/2021 65-year-old female, who follows in the office with Dr. Epstein, who is admitted to the hospital secondary to GI bleed. Patient has a history of hypertension, diabetes, hyperlipidemia, previous CVA, nicotine dependence, paroxysmal atrial fibrillation, and recent carotid endarterectomy at [facility]. Echocardiogram completed in 2018 revealed ejection fraction 55-60%. Patient also underwent cardiac catheterization in June 2019 with PCI to the distal circumflex. She is maintained on Brilinta and aspirin at home. Patient examined this morning at the bedside. She denies chest pain or pressure. She denies shortness of breath. Patient states she has not had any further episodes of bleeding her rectum. In fact, she has not had a bowel movement since coming to the hospital. Hemoglobin 12.0 yesterday and 10.7 today. 01/05/2021 Patient examined this morning at the bedside. She denies chest pain or pressure. Denies shortness of breath. She denies any further episodes of rectal bleeding. Hemoglobin 10.8. She has been cleared by GI and vascular to resume aspirin Brilinta. PHYSICAL EXAM: VITAL SIGNS: Reviewed. GENERAL: Well-developed in no acute distress. NECK: Supple. No JVD or thyromegaly LUNGS: Respirations even and unlabored. Lungs essentially clear to auscultation bilaterally. HEART: Regular rate and rhythm. S1 and S2 heard. EXTREMITIES: Normal range of motion. No clubbing or cyanosis. Peripheral pulses intact. No lower extremity edema ASSESSMENT: Lower GI bleed, maintained on Brilinta and aspirin prior to hospitalization Coronary artery disease with previous CABG and PCI, most recently with PCI to circumflex in June 2019 History of recent left carotid endarterectomy at [facility] Hypertension Hyperlipidemia Diabetes mellitus History of CVA Nicotine dependence Hypomagnesemia PLAN: Resume Aspirin and Brilinta Monitor hemoglobin Further recommendations pending patient's course Nurse practitioner note has been reviewed by physician. Signing provider agrees with the documented findings, assessment, and plan of care. Objective - Vital Signs Vital signs: Vital Signs Temp 97.8 F 01/05/21 08:30 Pulse 65 01/05/21 09:53 Resp 16 01/05/21 08:30 BP 174/79 01/05/21 08:30 Pulse Ox 95 01/05/21 08:30 Intake & Output 01/04/21 01/05/21 01/05/21 18:59 06:59 18:59 Intake Total 300 Balance 300 Weight 72.575 kg Intake: Oral 300 Other: Voiding Method Toilet Toilet # Voids 1 1 1 - Labs CBC & Chem 7: 01/05/21 07:52 01/05/21 07:52 Labs: Abnormal Lab Results - Last 24 Hours (Table) 01/04/21 01/04/21 01/04/21 Range/Units 06:45 13:03 17:31 RBC 3.41 L (4.10-5.20) X 10*6/uL Hgb 10.7 L (12.0-15.0) g/dL Hct 33.7 L (37.2-46.3) % MCV 98.8 H (80.0-97.0) fL MCHC 31.8 L (32.0-37.0) g/dL Sodium (137-145) mmol/L Potassium (3.5-5.1) mmol/L BUN (7-17) mg/dL Creatinine (0.52-1.04) mg/dL Glucose (74-99) mg/dL POC Glucose (mg/dL) 223 H 209 H (75-99) mg/dL Calcium (8.4-10.2) mg/dL 01/04/21 01/04/21 01/05/21 Range/Units 17:45 20:46 06:30 RBC (4.10-5.20) X 10*6/uL Hgb (12.0-15.0) g/dL Hct (37.2-46.3) % MCV (80.0-97.0) fL MCHC (32.0-37.0) g/dL Sodium (137-145) mmol/L Potassium (3.5-5.1) mmol/L BUN (7-17) mg/dL Creatinine (0.52-1.04) mg/dL Glucose (74-99) mg/dL POC Glucose (mg/dL) 197 H 239 H 279 H (75-99) mg/dL Calcium (8.4-10.2) mg/dL 01/05/21 01/05/21 Range/Units 07:52 07:52 RBC 3.37 L (4.10-5.20) X 10*6/uL Hgb 10.8 L (12.0-15.0) g/dL Hct 32.9 L (37.2-46.3) % MCV (80.0-97.0) fL MCHC (32.0-37.0) g/dL Sodium 133 L (137-145) mmol/L Potassium 3.4 L (3.5-5.1) mmol/L BUN 6 L (7-17) mg/dL Creatinine 0.46 L (0.52-1.04) mg/dL Glucose 213 H (74-99) mg/dL POC Glucose (mg/dL) (75-99) mg/dL Calcium 8.1 L (8.4-10.2) mg/dL
[2021-01-05] MEDS: MAGNESIUM SULFATE-D5W PMX 1 GM in DEXTROSE/WATER 1 100ML.BAG IVPB SCH ×2 (11:01→12:06)
[2021-01-05] MEDS: POTASSIUM CHLORIDE ER 20 MEQ TAB.ER PO SCH ×2 (11:01→12:03)
[2021-01-05 13:05] LABS: Glucose,Whole Blood 295 mg/dL (75-99)
[2021-01-05] MEDS ORDERED: POTASSIUM CHLORIDE ER 20 MEQ TAB.ER PO STA (13:34)
--- NOTE | 2021-01-05 13:39 | P.DS ---
Providers Date of admission: 01/02/21 20:24 Expected date of discharge: 01/05/21 Attending physician: Sincere Casey Consults: 01/03/21 14:32 Consult Physician Routine Consulting Provider: Wu Benitez Consult Reason/Comments: recent carotid surgery, GI bleed Do you want consulting provider notified?: Already Contacted 01/03/21 14:33 Consult Physician Routine Consulting Provider: Sallie Saravia Consult Reason/Comments: Recent carotid surgery by Dr. Saravia, Active GI bleed. On blood thinners Do you want consulting provider notified?: Yes Consult Physician Routine Consulting Provider: Eyad Goodwin Consult Reason/Comments: GI Bleed Do you want consulting provider notified?: Yes Primary care physician: Sincere Casey Hospital Course: Final Diagnoses: (1) Abdominal pain Current Visit: No Status: Acute Code(s): R10.9 - UNSPECIFIED ABDOMINAL PAIN SNOMED Code(s): 55164031 (2) Acute GI bleeding, rectal, subsided Current Visit: No Status: Acute Code(s): K92.2 - GASTROINTESTINAL HEMORRHAGE, UNSPECIFIED SNOMED Code(s): 60306614 (3) CAD (coronary artery disease) Current Visit: No Status: Acute Code(s): I25.10 - ATHSCL HEART DISEASE OF [place] CORONARY ARTERY W/O ANG PCTRS SNOMED Code(s): 77244175 (4) Carotid stenosis Current Visit: No Status: Acute Code(s): I65.29 - OCCLUSION AND STENOSIS OF UNSPECIFIED CAROTID ARTERY SNOMED Code(s): 09543248 (5) Coronary artery disease with hx of myocardial infarct w/o hx of CABG Current Visit: No Status: Acute Code(s): I25.10 - ATHSCL HEART DISEASE OF [place] CORONARY ARTERY W/O ANG PCTRS SNOMED Code(s): 387794690 (6) Diabetes type 2, uncontrolled Current Visit: No Status: Acute Code(s): E11.65 - TYPE 2 DIABETES MELLITUS WITH HYPERGLYCEMIA SNOMED Code(s): 081963786 (7) Diverticulosis Current Visit: No Status: Acute Code(s): K57.90 - DVRTCLOS OF INTEST, PART UNSP, W/O PERF OR ABSCESS W/O BLEED SNOMED Code(s): 621834062 (8) Hyperlipemia Current Visit: No Status: Acute Code(s): E78.5 - HYPERLIPIDEMIA, UNSPECIFIED SNOMED Code(s): 74510527 (9) Nicotine dependence Current Visit: No Status: Acute Code(s): F17.200 - NICOTINE DEPENDENCE, UNSPECIFIED, UNCOMPLICATED SNOMED Code(s): 61065412 (10) COPD,stable Hospital course:This is 64-year-old female well known to me, with a history of recurrent GI bleeds and history of CVA/TIA, diabetes mellitus, gastroesophageal disease, CAD, history of CABG, arteriosclerosis, carotid artery disease with recent carotid endarterectomy, diverticulitis, ongoing nicotine dependence multiple other medical issues presented to the ER with 1 days of rectal bleeding. The patient reports cloudy maroon stools accompanied by Right lower quadrant abdominal pain. She is also complaining of some nausea with the biliary emesis several times since then. CT of abdomen and pelvis in the ER showed mild subsegmental atelectasis, colonic diverticulosis without diverticulitis, ongoing abdominal aortic aneurysm without change in extensive atherosclerotic vascular disease. Vital signs are stable. Oxygen saturation remained adequate on room air. Blood pressure remains controlled. Abdomen is currently 12.3. Aggravation studies are normal. Glucoses are elevated with the this a.m. at 238. Troponin 1 was normal. She was Hemoccult positive in the ER. Urinalysis shows trace leukocytes negative nitrites, +4 glucose, +1 protein, rare bacteria and rare mucus. Dodson virus PCR negative. Currently the patient is complaining of abdominal pain at the right in upper and lower areas. She is complaining of some nausea with occasional emesis. She denies any chest pains, pressures, shortness breath this time. 01/04/2021 complaining of no flatus, no bowel movement,"tummy hard", positive nausea. Yesterday patient had yellow/greenish emesis. Aspirin, Brilenta remains on hold, hemoglobin down to 10.7, platelets 219. Potassium 3.7, magnesium 1.4. Denies chest pain, palpitations or shortness of breath. O2 sats in the 90s on room air. Chest x-ray yesterday reporting cardiomegaly with pulmonary venous congestion. T-max 99.1, WBC within normal limits. 01/05/2021 Significant improvement in abdominal pain, reports diffuse fluctuating-currently none with no nausea, vomiting or diarrhea. Denies any rectal bleeding. Positive bowel movement this morning reported as mucousy,brn without laura blood. Hemoglobin remained stable at 10.8. Potassium 3.4. Evaluated by both GI and vascular, recommending Brilenta to be resumed.Diet advanced. Denies chest pain, palpitations or shortness of breath. Maintaining O2 sats in the 90s on room air. Up to the shower, tolerating exertion well. Cleared by all consults for discharge. Patient will be discharged home today in a stable condition with guarded prognosis. The impression and plan of care has been dictated as directed. : I performed a history and examination of this patient, discussed the same with the dictator. I agree with the dictator's note ,documented as a scribe. Any additional findings or plans will be noted. Patient Condition at Discharge: Stable Plan - Discharge Summary New Discharge Prescriptions: Continue Nitroglycerin Sl Tabs [Nitrostat] 0.4 mg SL Q5M PRN PRN Reason: Chest Pain lisinopriL 40 mg PO DAILY Atorvastatin [Lipitor] 80 mg PO DAILY PARoxetine HCL [Paxil] 40 mg PO DAILY Ticagrelor [Brilinta] 90 mg PO BID #60 tab Metoprolol Tartrate [Lopressor] 25 mg PO BID #60 tab metFORMIN HCL 500 mg PO BID Isosorbide Mononitrate ER [Imdur] 60 mg PO BID Liraglutide [Victoza 3-Jensen] 1.8 mg SQ DAILY Pantoprazole Sodium [Protonix] 40 mg PO DAILY Aspirin 81 mg PO DAILY Insulin Aspart [NovoLOG Flexpen] See Protocol SQ AC-TID Dicyclomine [Bentyl] 10 mg PO QID PRN PRN Reason: Gi Upset amLODIPine [Norvasc] 10 mg PO DAILY #30 tab HYDROcodone/APAP 7.5-325MG [[place] 7.5-325] 1 tab PO QID PRN PRN Reason: Pain Insulin Degludec [Tresiba Flextouch U-100] 30 units SQ DAILY Discharge Medication List Atorvastatin [Lipitor] 80 mg PO DAILY 12/18/18 [History] Nitroglycerin Sl Tabs [Nitrostat] 0.4 mg SL Q5M PRN 12/18/18 [History] lisinopriL 40 mg PO DAILY 12/18/18 [History] PARoxetine HCL [Paxil] 40 mg PO DAILY 12/19/18 [History] Metoprolol Tartrate [Lopressor] 25 mg PO BID #60 tab 07/03/19 [Rx] Ticagrelor [Brilinta] 90 mg PO BID #60 tab 07/03/19 [Rx] metFORMIN HCL 500 mg PO BID 12/30/19 [History] Isosorbide Mononitrate ER [Imdur] 60 mg PO BID 05/12/20 [History] Liraglutide [Victoza 3-Jensen] 1.8 mg SQ DAILY 06/04/20 [History] Pantoprazole Sodium [Protonix] 40 mg PO DAILY 06/04/20 [History] Aspirin 81 mg PO DAILY 07/30/20 [History] Dicyclomine [Bentyl] 10 mg PO QID PRN 07/30/20 [History] Insulin Aspart [NovoLOG Flexpen] See Protocol SQ AC-TID 07/30/20 [History] amLODIPine [Norvasc] 10 mg PO DAILY #30 tab 08/02/20 [Rx] HYDROcodone/APAP 7.5-325MG [[place] 7.5-325] 1 tab PO QID PRN 01/02/21 [History] Insulin Degludec [Tresiba Flextouch U-100] 30 units SQ DAILY 01/04/21 [History] Follow up Appointment(s)/Referral(s): Sincere Casey MD [Primary Care Provider] - 3 Days Eyad Goodwin MD [STAFF PHYSICIAN] - 2 Weeks Ambulatory/Diagnostic Orders: Complete Blood Count w/diff [LAB.AMB] Time Frame: 3 Days, Location: None Selected
[2021-01-05 14:19] VITALS: BP 133/64; PULSE 60; RESP 18
[2021-01-05 16:26] VITALS: TEMP 97.9
[2021-01-05 16:52] LABS: Glucose,Whole Blood 286 mg/dL (75-99)
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
== END 2021-01-05 19:10 | disposition home or self-care (01) | DRG 378 ==
LOC: EC 17:08 → 4SSUR 20:24 → OBSVTOIN 20:24 → 4SSUR 20:38 → 6PED 01-04 10:13
PROVIDERS: ADMIT Family Medicine; ATTEND Family Medicine
DX: K92.2 Gastrointestinal hemorrhage, unspecified (principal); J98.11 Atelectasis; K64.8 Other hemorrhoids; K64.4 Residual hemorrhoidal skin tags; K63.5 Polyp of colon; K57.30 Diverticulosis of large intestine without perforation or abscess without bleeding; J44.9 Chronic obstructive pulmonary disease, unspecified; Z79.4 Long term (current) use of insulin; I71.4 Abdominal aortic aneurysm, without rupture; I65.29 Occlusion and stenosis of unspecified carotid artery; I48.0 Paroxysmal atrial fibrillation; Z20.822 Contact with and (suspected) exposure to COVID-19; I25.10 Atherosclerotic heart disease of native coronary artery without angina pectoris; I11.9 Hypertensive heart disease without heart failure; F32.9 Major depressive disorder, single episode, unspecified; F17.200 Nicotine dependence, unspecified, uncomplicated; E83.42 Hypomagnesemia; E78.5 Hyperlipidemia, unspecified; E11.65 Type 2 diabetes mellitus with hyperglycemia; E11.51 Type 2 diabetes mellitus with diabetic peripheral angiopathy without gangrene; Z95.5 Presence of coronary angioplasty implant and graft; Z95.1 Presence of aortocoronary bypass graft; Z90.710 Acquired absence of both cervix and uterus; Z87.442 Personal history of urinary calculi; Z87.19 Personal history of other diseases of the digestive system; Z86.73 Personal history of transient ischemic attack (TIA), and cerebral infarction without residual deficits; Z82.49 Family history of ischemic heart disease and other diseases of the circulatory system; I25.2 Old myocardial infarction; Z79.899 Other long term (current) drug therapy; Z79.82 Long term (current) use of aspirin; Z79.02 Long term (current) use of antithrombotics/antiplatelets
CPT/HCPCS: 36415; 71046; 74177; 80048; 80053; 81001; 82272; 83036; 83735; 84132; 85025; 85027; 85610; 85730; 86850; 86900; 86901; 87635; 96374; 96375; 96376; 99285

== ENCOUNTER → 2021-02-01 | Outpatient (CLI) | payer MEDICARE, OTHER ==
[2021-02-01 18:17] LABS: Basophils # (A) 0.09 X 10*3/uL (0.00-0.10); Eosinophils # (A) 0.16 X 10*3/uL (0.04-0.35); Eosinophils % (A) 1.7 %; HCT 31.8 % (37.2-46.3); HGB 9.9 g/dL (12.0-15.0); Lymphocytes # (A) 2.21 X 10*3/uL (0.90-5.00); Lymphocytes % (A) 23.6 %; MCHC 31.1 g/dL (32.0-37.0); MCV 96.4 fL (80.0-97.0); Mean Platelet Volume 11.1 fL (9.5-12.2); Monocytes # (A) 0.51 X 10*3/uL (0.20-1.00); Monocytes % (A) 5.4 %; Neutrophils # (A) 6.33 X 10*3/uL (1.80-7.70); Neutrophils % (A) 67.6 %; Platelet Count 346 X 10*3/uL (140-440); RDW 12.5 % (11.5-14.5); WBC 9.37 X 10*3/uL (4.50-10.00)
[2021-02-01 19:56] LABS: African American GFR (CKD) 78.3 (60.0-200.0); Anion Gap 9.1 mmol/L (4.00-12.00); BUN/Creat Ratio 22.22 Ratio (12.00-20.00); Calcium 9.2 mg/dL (8.7-10.3); Carbon Dioxide 23.9 mmol/L (21.6-31.8); Magnesium 1.6 mg/dL (1.5-2.4); Non-African American GFR(CKD) 67.6 (60.0-200.0); Potassium 5.3 mmol/L (3.5-5.5)
== END | disposition home or self-care (01) ==
LOC: LABWHC1 11:30
PROVIDERS: ATTEND Family Medicine
DX: K92.2 Gastrointestinal hemorrhage, unspecified (principal); K31.84 Gastroparesis; Z98.890 Other specified postprocedural states; T45.5 Poisoning by, adverse effect of and underdosing of anticoagulants and antithrombotic drugs; D50.0 Iron deficiency anemia secondary to blood loss (chronic); E83.42 Hypomagnesemia
CPT/HCPCS: 36415; 80048; 83735; 85025

== ENCOUNTER → 2021-02-01 | Outpatient (CLI) | payer MEDICARE, OTHER | END | disposition home or self-care (01) | LOC: LABPAT 11:27 | PROVIDERS: ATTEND Surgery | DX: Z53.9 Procedure and treatment not carried out, unspecified reason (principal) ==

== ENCOUNTER 2021-02-03 11:46 | Day surgery (SDC) | payer MEDICARE, OTHER ==
[2021-02-01 16:54] VITALS: BMI 25.0
[~2021-02-03 11:46] MED LIST: SODIUM CHLORIDE 0.9% 1,000 ML in EMPTY BAG 1 BAG IV ONE
[2021-02-03 12:48] LABS: Glucose,Whole Blood 447 mg/dL (75-99)
[2021-02-03] MEDS ORDERED: fentaNYL (PF) 50 MCG/ML 2 ML AMP ONE (14:26)
[2021-02-03] MEDS ORDERED: LIDOCAINE 1% INJ 10MG/ML (20 ML MDV) ONE (14:26)
[2021-02-03] MEDS ORDERED: IV FLUID CONTINUATION 900 ML IV ONE (14:35)
[2021-02-03] MEDS ORDERED: MIDAZOLAM 2 MG/2 ML VIAL IV ONE (14:35)
[2021-02-03] MEDS: fentaNYL (PF) 50 MCG/ML 2 ML AMP IV ONE ×2 (14:35→15:03)
[2021-02-03] MEDS ORDERED: LIDOCAINE 1% INJ 10MG/ML (20 ML MDV) SQ ONE (14:45)
[2021-02-03] MEDS ORDERED: IOPAMIDOL-250 100ML BTL INTRAARTER ONE (15:02)
--- NOTE | 2021-02-03 15:42 | P.OP ---
Date of Procedure: 02/03/21 Description of Procedure: Preoperative diagnosis: [Akin 3 peripheral arterial disease, previous iliac stents] Postoperative diagnosis: Same Procedure: [#1 ultrasound guided left common femoral artery access #2 aortogram with runoff #3 moderate conscious sedation 19 minutes] Surgeon: Sallie Saravia D.O. EBL: [Less than 10 mL] IV fluids: [See records] Urine output: [Not measured] Drains: [None] Complications: [None immediately apparent] Condition: [Stable to recovery] Operative indication and findings: [The patient is a 65-year-old female with significant previous atherosclerotic disease and continued tobacco abuse who presented to the office with leg pains. She was found to have an CONNIE on the right of 0.58 with a TBI of 0.41. The CONNIE on the left 0.72 with a TBI of 0.43. She has claudication in her lower extremities after about 50 feet. Plan was to go forward with an abdominal aortogram with runoffs. Risks and benefits were discussed, she seemingly understood and is willing to proceed as such.] Procedure in detail: [The patient was taken to the special suite and placed in supine position. Bilateral groins are prepped and draped in usual sterile fashion. A preprocedure timeout was performed, all parties were in agreement. The ultrasound was utilized and the left common femoral artery was identified. The skin overlying was anesthetized 1% lidocaine plain. A multipurpose needle was used and the artery was accessed. Catheters and wires were utilized to place a 5-Wolof sheath. A left iliofemoral angiogram was performed due to tortuosity revealing excellent reduction stenosis of the iliac artery just distal to the previously placed stent. The stent otherwise appears patent. There is multiple collateral vessels visualized. Catheters and wires were placed in the aorta and abdominal aortogram was performed. The catheter was then brought down to the level of the bifurcation and bilateral lower extremity runoffs were performed. Catheters and wires were removed. The sheath was removed and manual pressure was held until hemostasis was adequate. The patient was taken to recovery in stable condition having tolerated the procedure well. Angiographic findings the aorta is patent. There is a visualized superior mesenteric artery. Bilateral renal arteries appear patent. There is significant calcific and assess carotid disease throughout the aorta with varying degrees of narrowing. At the mid aorta there is a significant area of stenosis. There is evidence of possible aneurysmal disease. The iliac arteries bilaterally have patent stents in the common iliac. On the right the common iliac stent and artery appear patent. There is no evidence of identifiable internal iliac artery. The iliac artery appears patent. on the left, there is approximately 60 % stenosis beyond the stent with tortuosity. The internal iliac artery appears occluded. The external is patent with large collateralized vessels. On the right the common femoral artery has evidence of significant disease. The superficial femoral artery appears occluded in its takeoff. The profunda is robust with significant collateral flow. There is reconstitution of the popliteal artery behind the knee. The below-knee popliteal artery is patent with some level of tortuosity. There is no obvious anterior tibial artery visualized. The TP trunk and posterior tibial and peroneal artery are patent down to the level of the ankle with a posterior tibial throughout the foot. On the left the common femoral artery appears patent with moderate disease. Again the superficial femoral artery is sharply occluded at the level of its takeoff. The profunda is very robust with significant collateralized flow. There is reconstitution of the popliteal artery behind the knee. There is no evidence of an anterior tibial artery. The tibial peroneal trunk, posterior tibial and peroneal arteries are patent to the level of the ankle. Is a patent posterior tibial through the foot.] Plan - Discharge Summary Discharge Rx Participant: No New Discharge Prescriptions: No Action Nitroglycerin Sl Tabs [Nitrostat] 0.4 mg SL Q5M PRN PRN Reason: Chest Pain lisinopriL 40 mg PO DAILY Atorvastatin [Lipitor] 80 mg PO DAILY PARoxetine HCL [Paxil] 40 mg PO DAILY Ticagrelor [Brilinta] 90 mg PO BID #60 tab Metoprolol Tartrate [Lopressor] 25 mg PO BID #60 tab metFORMIN HCL 500 mg PO BID Liraglutide [Victoza 3-Jensen] 1.8 mg SQ DAILY Pantoprazole Sodium [Protonix] 40 mg PO DAILY Aspirin 81 mg PO DAILY Dicyclomine [Bentyl] 10 mg PO QID PRN PRN Reason: Gi Upset HYDROcodone/APAP 7.5-325MG [[place] 7.5-325] 1 tab PO BID PRN PRN Reason: Pain Insulin Degludec [Tresiba Flextouch U-100] 30 units SQ DAILY amLODIPine [Norvasc] 5 mg PO DAILY Multivitamins, Thera [Multivitamin (formulary)] 1 tab PO DAILY Discharge Medication List Atorvastatin [Lipitor] 80 mg PO DAILY 12/18/18 [History] Nitroglycerin Sl Tabs [Nitrostat] 0.4 mg SL Q5M PRN 12/18/18 [History] lisinopriL 40 mg PO DAILY 12/18/18 [History] PARoxetine HCL [Paxil] 40 mg PO DAILY 12/19/18 [History] Metoprolol Tartrate [Lopressor] 25 mg PO BID #60 tab 07/03/19 [Rx] Ticagrelor [Brilinta] 90 mg PO BID #60 tab 07/03/19 [Rx] metFORMIN HCL 500 mg PO BID 12/30/19 [History] Liraglutide [Victoza 3-Jensen] 1.8 mg SQ DAILY 06/04/20 [History] Pantoprazole Sodium [Protonix] 40 mg PO DAILY 06/04/20 [History] Aspirin 81 mg PO DAILY 07/30/20 [History] Dicyclomine [Bentyl] 10 mg PO QID PRN 07/30/20 [History] HYDROcodone/APAP 7.5-325MG [[place] 7.5-325] 1 tab PO BID PRN 01/02/21 [History] Insulin Degludec [Tresiba Flextouch U-100] 30 units SQ DAILY 01/04/21 [History] Multivitamins, Thera [Multivitamin (formulary)] 1 tab PO DAILY 02/01/21 [History] amLODIPine [Norvasc] 5 mg PO DAILY 02/01/21 [History] Follow up Appointment(s)/Referral(s): Sallie Saravia DO [STAFF PHYSICIAN] - 2 Weeks Activity/Diet/Wound Care/Special Instructions: Resume regular activity starting tomorrow. May shower starting tomorrow. May resume relented tomorrow. No heavy lifting. Discharge Disposition: HOME SELF-CARE
[2021-02-03] MEDS ORDERED: INSULIN ASPART (NovoLOG) 100 UNIT/ML VIAL SQ ONE (17:01)
[2021-02-03 17:07] LABS: Glucose,Whole Blood 461 mg/dL (75-99)
--- NOTE | 2021-02-03 18:04 | IR ---
EXAMINATION TYPE: IR angio abdominal w runoff DATE OF EXAM: 02/03/2021 COMPARISON: NONE HISTORY: Fluoroscopy time. Fluoroscopy was provided to the referring clinician.
[2021-02-03] MEDS ORDERED: HYDROcodone/APAP 7.5-325MG 1 EACH TAB PO ONE (19:24)
[2021-02-03 22:45] VITALS: BP 154/77; PULSE 89; RESP 16; TEMP 98.3
== END 2021-02-03 22:20 | disposition home or self-care (01) ==
LOC: CATHCVL 11:46 → 6NMEDSUR 16:37 → CATHCVL 22:20
PROVIDERS: ATTEND Surgery
DX: I70.213 Atherosclerosis of native arteries of extremities with intermittent claudication, bilateral legs (principal); I25.10 Atherosclerotic heart disease of native coronary artery without angina pectoris; I65.21 Occlusion and stenosis of right carotid artery; F17.200 Nicotine dependence, unspecified, uncomplicated; I77.1 Stricture of artery; Z95.820 Peripheral vascular angioplasty status with implants and grafts; Z79.84 Long term (current) use of oral hypoglycemic drugs; Z79.02 Long term (current) use of antithrombotics/antiplatelets; Z79.82 Long term (current) use of aspirin; Z79.891 Long term (current) use of opiate analgesic; Z79.899 Other long term (current) drug therapy; N20.0 Calculus of kidney; K57.92 Diverticulitis of intestine, part unspecified, without perforation or abscess without bleeding; Z90.89 Acquired absence of other organs; Z90.49 Acquired absence of other specified parts of digestive tract; Z82.49 Family history of ischemic heart disease and other diseases of the circulatory system
CPT/HCPCS: 36200; 75625; 75716; 76937; C1769 ×4; C1894; J2250; J2001; J3010; Q9966

== ENCOUNTER 2021-02-12 21:32 | Emergency (ER) | payer MEDICARE, OTHER ==
[2021-02-12 22:02] VITALS: BP 158/82; PULSE 76; RESP 18; TEMP 97.8
[2021-02-12] MEDS ORDERED: AMOXIC-POT CLAV 875-125MG 1 EACH TAB PO STA (22:19)
[2021-02-12] MEDS ORDERED: DIPH,PERTUS(ACELL)TETVAC-LF 0.5 ML VIAL IM ONE (22:19)
[2021-02-12] MEDS ORDERED: Acetaminophen-Codeine 300-30mg TAB PO STA (22:19)
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
== END 2021-02-12 23:00 | disposition home or self-care (01) ==
LOC: EC 21:32
DX: S61.452A Open bite of left hand, initial encounter (principal); I25.10 Atherosclerotic heart disease of native coronary artery without angina pectoris; E11.9 Type 2 diabetes mellitus without complications; K21.9 Gastro-esophageal reflux disease without esophagitis; E78.5 Hyperlipidemia, unspecified; I10 Essential (primary) hypertension; M19.90 Unspecified osteoarthritis, unspecified site; F32.9 Major depressive disorder, single episode, unspecified; F17.200 Nicotine dependence, unspecified, uncomplicated; Z86.73 Personal history of transient ischemic attack (TIA), and cerebral infarction without residual deficits; Z79.4 Long term (current) use of insulin; Z79.82 Long term (current) use of aspirin; Z95.1 Presence of aortocoronary bypass graft; W55.01XA Bitten by cat, initial encounter
CPT/HCPCS: 90715; 99283

== ENCOUNTER 2021-03-20 22:34 | Emergency (ER) | payer MEDICARE, OTHER ==
[2021-03-20 22:42] VITALS: RESP 18
[2021-03-20] MEDS ORDERED: MORPHINE SULFATE 4 MG/ML SYRINGE IM STA (22:51)
--- NOTE | 2021-03-20 23:28 | CT ---
EXAMINATION TYPE: CT lumbar spine wo con DATE OF EXAM: 03/20/2021 COMPARISON: 01/02/2021 HISTORY: LOW BACK PAIN CT DLP: 1237.6 mGycm Automated exposure control for dose reduction was used. Images were obtained from the level of L1 to the S5 vertebra with no contrast. Lumbar vertebra have normal alignment. Posterior elements are intact. There is mild spurring of the e ndplates. There is no significant disc space narrowing. There is no compression fracture. There is ir regular aneurysm of the abdominal aorta that measures up to 4 cm. The hip joints are intact. Sacral s egments have normal alignment. I see no focal bone destruction. There is no evidence of lumbar parasp inal mass. There is extensive vascular calcification. IMPRESSION: Mild spondylotic changes in the lumbar spine. No fracture. Irregular abdominal aortic aneurysm not significantly changed in size compared to old exam of 01/02/20 21. Bilateral nonobstructing renal calculi.
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
[2021-03-21 00:02] VITALS: BP 149/81; PULSE 81; TEMP 98.1
== END 2021-03-20 23:55 | disposition home or self-care (01) ==
LOC: EC 22:34
DX: M53.3 Sacrococcygeal disorders, not elsewhere classified (principal); E11.51 Type 2 diabetes mellitus with diabetic peripheral angiopathy without gangrene; E78.5 Hyperlipidemia, unspecified; F17.200 Nicotine dependence, unspecified, uncomplicated; F32.9 Major depressive disorder, single episode, unspecified; I10 Essential (primary) hypertension; I25.10 Atherosclerotic heart disease of native coronary artery without angina pectoris; K21.9 Gastro-esophageal reflux disease without esophagitis; M19.90 Unspecified osteoarthritis, unspecified site; Z79.4 Long term (current) use of insulin; Z79.82 Long term (current) use of aspirin; Z86.73 Personal history of transient ischemic attack (TIA), and cerebral infarction without residual deficits; Z95.1 Presence of aortocoronary bypass graft; Z90.49 Acquired absence of other specified parts of digestive tract; Z95.5 Presence of coronary angioplasty implant and graft; Z90.710 Acquired absence of both cervix and uterus; Z90.09 Acquired absence of other part of head and neck
CPT/HCPCS: 72131; 99283; J2270

== ENCOUNTER 2021-05-15 18:35 | Emergency (ER) | payer MEDICARE, OTHER ==
[2021-05-15 18:38] VITALS: RESP 16
[2021-05-15] MEDS ORDERED: SODIUM CHLORIDE 0.9% 1,000 ML IV STA (18:53)
[2021-05-15] MEDS ORDERED: ONDANSETRON 4 MG/2 ML VIAL IVP STA ×2 (18:53→20:48)
[2021-05-15] MEDS ORDERED: PANTOPRAZOLE 40 MG/10 ML VIAL IVP STA (18:53)
[2021-05-15] MEDS ORDERED: HYDROmorphone 1 MG/ML 1 ML SYRINGE IVP STA ×2 (18:54→22:29)
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
[2021-05-15 19:17] LABS: Anisocytosis Slight; Basophils # (A) 0.1 k/uL (0-0.2); Basophils % (A) 1 %; Eosinophils # (A) 0.2 k/uL (0-0.7); Eosinophils % (A) 2 %; HCT 37.4 % (34.0-46.0); HGB 11.9 gm/dL (11.4-16.0); Lymphocytes # (A) 2.4 k/uL (1.0-4.8); Lymphocytes % (A) 30 %; MCH 27.2 pg (25.0-35.0); MCHC 31.9 g/dL (31.0-37.0); MCV 85.3 fL (80.0-100.0); Mean Platelet Volume 7.6; Monocytes # (A) 0.4 k/uL (0-1.0); Monocytes % (A) 5 %; Neutrophils % (A) 61 %; Platelet Count 385 k/uL (150-450); RBC 4.38 m/uL (3.80-5.40); RDW 17.1 % (11.5-15.5); WBC 8.2 k/uL (3.8-10.6)
[2021-05-15 19:27] LABS: ALT 17 U/L (4-34); AST 26 U/L (14-36); African American GFR (CKD) >90 (>60 ml/min/1.73 sqM); Albumin 4.2 g/dL (3.5-5.0); Alkaline Phosphatase 107 U/L (38-126); Amylase 90 U/L (30-110); Anion Gap 12 mmol/L; Blood Urea Nitrogen 21 mg/dL (7-17); Calcium 9.8 mg/dL (8.4-10.2); Carbon Dioxide 20 mmol/L (22-30); Chloride 102 mmol/L (98-107); Glucose 256 mg/dL (74-99); Lipase 109 U/L (23-300); Non-African American GFR(CKD) >90 (>60 ml/min/1.73 sqM); Potassium 4.5 mmol/L (3.5-5.1); Sodium 134 mmol/L (137-145); Total Bilirubin 0.4 mg/dL (0.2-1.3)
[2021-05-15 20:04] LABS: INR 0.9 (<1.2); Prothrombin Time 10.1 sec (9.0-12.0)
[2021-05-15 20:07] LABS: Partial Thromboplastin Time 21.9 sec (22.0-30.0)
--- NOTE | 2021-05-15 20:37 | CT ---
EXAMINATION TYPE: CT abdomen pelvis w con DATE OF EXAM: 05/15/2021 COMPARISON: 01/02/2021 HISTORY: Generalized pain with vomiting. CT DLP: 1029.7 mGycm Automated exposure control for dose reduction was used. CONTRAST: Performed with IV Contrast, patient injected with 100 mL of Isovue 300. Lung bases show minimal interstitial infiltrates. There is no pleural effusion. There is no pericardi al effusion. Thoracic aorta is atheromatous. There are clips from cholecystectomy. Liver is intact. The bile ducts are not dilated. Spleen stomach pancreas appear intact. There is no adrenal mass. Kidneys show satisfactory contrast opacification. There is no hydronephrosi s. There is moderate atherosclerotic vascular calcification in the abdomen and pelvis. There are smal l calculi in the upper pole left kidney. There is 1 cm calculus lower pole right kidney. Abdominal ao rta shows atheromatous changes and plaque formation. There is 3.9 cm lower abdominal aortic aneurysm. There is no evidence of dissection. There is no retroperitoneal adenopathy. Bladder distends smoothl y. There are numerous sigmoid diverticula. There is no diverticulitis. There is no mesenteric edema. There is no ascites or free air. There is no bowel obstruction. IMPRESSION: Atherosclerotic vascular disease. Irregular abdominal aortic aneurysm measuring up to 3.9 cm. No evid ence of leakage. Nonobstructing renal calculi. Abdomen and pelvis appear not significantly different than old exam.
[2021-05-15] MEDS ORDERED: ONDANSETRON 4 MG ODT STARTER PACK 2 TAB BTL PO STA (21:02)
[2021-05-15 21:40] LABS: Appearance,Urine Turbid (Clear); Bilirubin,Urine Negative (Negative); Blood,Urine Small (Negative); Budding Yeast,Urine Occasional /hpf; Color,Urine Light Yellow; Glucose,Urine (UA) 4+ (Negative); Ketones,Urine 1+ (Negative); Leukocyte Esterase,Urine Large (Negative); Mucus,Urine Rare /hpf; Nitrite,Urine Positive (Negative); PH, Urine 5.5 (5.0-8.0); Protein,Urine 2+ (Negative); RBC,Urine 12 /hpf (0-5); Urobilinogen,Urine <2.0 mg/dL (<2.0); WBC,Urine >182 /hpf (0-5)
[2021-05-15] MEDS ORDERED: LEVOFLOXACIN 750 MG TAB PO STA (23:00)
[2021-05-15 23:13] VITALS: BP 130/76; PULSE 74; TEMP 97.7
== END 2021-05-15 23:28 | disposition home or self-care (01) ==
LOC: EC 18:35
DX: N39.0 Urinary tract infection, site not specified (principal); E11.9 Type 2 diabetes mellitus without complications; K59.00 Constipation, unspecified; R11.2 Nausea with vomiting, unspecified; B96.20 Unspecified Escherichia coli [E. coli] as the cause of diseases classified elsewhere; I10 Essential (primary) hypertension; E78.5 Hyperlipidemia, unspecified; I25.10 Atherosclerotic heart disease of native coronary artery without angina pectoris; M19.90 Unspecified osteoarthritis, unspecified site; F32.9 Major depressive disorder, single episode, unspecified; F17.200 Nicotine dependence, unspecified, uncomplicated; Z86.73 Personal history of transient ischemic attack (TIA), and cerebral infarction without residual deficits; Z79.84 Long term (current) use of oral hypoglycemic drugs
CPT/HCPCS: 36415; 93005; 80053; 82150; 83690; 84484; 85025; 85610; 85730; 81001; 87086; 87077; 87186; 74177; 99284; 96374; 96375 ×2; 96376 ×2; 96361 ×4; J2405; J1170; S0119; C9113; Q9967

== ENCOUNTER 2021-05-25 10:37 | Day surgery (SDC) | payer MEDICARE, OTHER ==
[2021-05-24 13:32] VITALS: BMI 24.9
[~2021-05-25 10:37] MED LIST changes: +ALPRAZolam 0.25 MG TAB PO PRN; +ALPRAZolam 0.5 MG TAB PO PRN; +ASPIRIN 325 MG TAB PO STA; +ATORVASTATIN 80 MG TAB PO STA; +HEPARIN SODIUM,PORCINE 10,000 UNIT in SODIUM CHLORIDE 0.9% 1,000 ML IRRIGATION PRN; +HEPARIN SODIUM,PORCINE 2,500 UNIT in SODIUM CHLORIDE 0.9% 250 ML IRRIGATION PRN; +NITROGLYCERIN SL TABS 0.4 MG TAB SUBLINGUAL PRN
[2021-05-25] MEDS ORDERED: INSULIN ASPART (NovoLOG) 100 UNIT/ML VIAL SQ ONE (11:12)
[2021-05-25] MEDS ORDERED: ASPIRIN 81 MG ONE (11:12)
[2021-05-25 11:23] LABS: Glucose,Whole Blood 351 mg/dL (75-99)
[2021-05-25] MEDS ORDERED: LIDOCAINE 1% INJ 10MG/ML (20 ML MDV) ONE (11:56)
[2021-05-25] MEDS ORDERED: VERAPAMIL 2.5 MG/ML 2 ML AMP ONE (12:16)
[2021-05-25] MEDS ORDERED: HEPARIN SODIUM 1,000 UN/ML (10ML VL) ONE (12:16)
[2021-05-25] MEDS ORDERED: fentaNYL (PF) 50 MCG/ML 2 ML AMP ONE (12:16)
[2021-05-25] MEDS ORDERED: fentaNYL (PF) 50 MCG/ML 2 ML AMP IV ONE (12:45)
[2021-05-25] MEDS ORDERED: LIDOCAINE 1% INJ 10MG/ML (20 ML MDV) SQ ONE (12:48)
[2021-05-25] MEDS: MIDAZOLAM 2 MG/2 ML VIAL IV ONE ×2 (12:48→12:51)
[2021-05-25] MEDS ORDERED: IOPAMIDOL-370 125ML BTL INJ ONE (13:15)
[2021-05-25] MEDS ORDERED: amLODIPine 5 MG TAB ONE (13:16)
[2021-05-25] MEDS ORDERED: amLODIPine 5 MG TAB PO ONE (13:17)
[2021-05-25] MEDS ORDERED: RX INFO: IV CONTRAST WAS GIVEN 1 EACH MISC MISCELLANE PRN (13:31)
[2021-05-25] MEDS ORDERED: DICYCLOMINE 10 MG CAP PO PRN (13:32)
[2021-05-25] MEDS ORDERED: PANTOPRAZOLE 40 MG TABLET PO PRN (13:32)
[2021-05-25] MEDS ORDERED: SODIUM CHLORIDE 0.9% 1,000 ML IV SCH (13:45)
--- NOTE | 2021-05-25 14:58 | CC ---
CARDIAC CATHETERIZATION REPORT Mrs. Velez is a 65-year-old female with known history of coronary artery disease status post coronary artery bypass grafting, percutaneous revascularization, peripheral vascular disease, she has been evaluated to undergo abdominal aortic aneurysm repair. She underwent myocardial perfusion imaging that revealed evidence of inducible ischemia involving the inferior inferolateral wall. In view of that, recommendation was made regarding cardiac catheterization. The procedure as well as the risks and the complications were discussed with the patient who is in full understanding and agreement. PROCEDURE DETAILS: Patient was brought to the stucco laborer in a fasting state after receiving fentanyl and Benadryl and achieving moderate conscious state. The right radial artery was cannulated using Seldinger technique, but there was inability to advance the wire because of severe spasm. At that time, using Xylocaine anesthesia, Seldinger technique, a 6-Senegalese sheath was introduced in the right femoral artery. Selective right and left coronary angiography performed using 6-Senegalese, 4 bend right and left Padilla catheter. Multiple views of the coronary artery including hemiaxial views were obtained. The right Padilla catheter was used to obtain images of the BRANDON to the LAD and across the aortic valve. Following that, the catheter and sheath were removed. Hemostasis was obtained with compression of the right groin. There was no immediate complication. Patient was returned to her room in stable condition. FINDINGS: FLUOROSCOPY: There was severe calcification involving all the coronary arteries. 1. LEFT MAIN: Left main is a large-sized vessel, bifurcating into left circumflex, left anterior descending artery. Left main coronary artery has a 50% tubular lesion. 2. CIRCUMFLEX CORONARY ARTERY: Left circumflex - this is a codominant vessel large in caliber giving rise to a large first obtuse marginal branch that is very proximal almost in the ramus intermedius territory. The obtuse marginal branch has diffuse intimal disease throughout the mid segment with area of stenosis up to 60 to 70% calcified. The left circumflex after the takeoff of a very proximal branch has about a 50% plaque lesion. The mid left circumflex is heavily calcified and has an area of stenosis about 50%. The stented segment distally are patent and there is diffuse intimal disease in the small PDA and PLV. 3. LEFT ANTERIOR DESCENDING ARTERY: This vessel is totally occluded proximally with no significant antegrade flow. 4. RIGHT CORONARY ARTERY: This vessel is totally occluded proximally with no antegrade flow. 5. BRANDON to LAD: The distal anastomotic site is patent. The flow into the LAD is brisk. The BRANDON is very tortuous throughout its course. 6. Left ventriculogram: Not performed. HEMODYNAMICS: There was no gradient across the aortic valve. The left ventricular end-diastolic pressure was 10-15 mmHg. CONCLUSION: 1. Calcified coronary arteries. 2. Chronically occluded LAD and right coronary artery. 3. Moderate left main disease. 4. Moderate diffuse disease in the left circumflex. 5. Patent BRANDON to LAD. RECOMMENDATIONS: In view of findings and anatomy, recommend continued medical therapy with aggressive coronary risk modifications that have been initiated. The patient should be stable to proceed with her scheduled vascular intervention. Those findings and recommendations were discussed with the patient and her family who are in full understanding and agreement. Duration of procedure is 30 minutes. MMODL / IJN: [id number] /
--- NOTE | 2021-05-25 15:05 | LTR ---
DATE OF SERVICE: 05/25/[address] Casey: I had the pleasure of performing cardiac catheterization on Mrs. Velez at [facility] on the May 25 and a full copy of procedure note will be forwarded to you. In brief, she was found to have patent stented segment in the left circumflex with diffuse disease in the proximal and mid to left circumflex as well as evidence of chronic occluded LAD and right coronary artery with patent BRANDON to LAD. Based on those findings, I have recommended continued medical therapy with aggressive coronary risk factors that you have initiated. The patient should be able to be to proceed with her scheduled intervention on her peripheral vasculature and her abdominal aortic aneurysm having moderate cardiac risk. Thank you again for allowing me to participate in her care. Please feel free to call for any questions. Sincerely yours, MMODL / IJN: [id number] /
[2021-05-25] MEDS ORDERED: HYDROcodone/APAP 7.5-325MG 1 EACH TAB ONE (15:26)
[2021-05-25 16:58] LABS: Glucose,Whole Blood 306 mg/dL (75-99)
[2021-05-25 19:09] VITALS: BP 154/77; PULSE 71; RESP 18; TEMP 98.2
[2021-05-25 20:10] LABS: Glucose,Whole Blood 313 mg/dL (75-99)
[2021-05-25] MEDS ORDERED: METOPROLOL TARTRATE 25 MG TAB PO SCH (21:00)
[2021-05-25] MEDS ORDERED: TICAGRELOR 90 MG TAB PO SCH (21:00)
[2021-05-26] MEDS ORDERED: Empagliflozin [Jardiance] PO SCH (09:00)
[2021-05-26] MEDS ORDERED: amLODIPine 5 MG TAB PO SCH (09:00)
[2021-05-26] MEDS ORDERED: MAGNESIUM OXIDE 400 MG TAB PO SCH (09:00)
[2021-05-26] MEDS ORDERED: LIRAGLUTIDE 0.6 MG/0.1 ML SQ SCH (09:00)
[2021-05-26] MEDS ORDERED: lisinopriL 20 MG TAB PO SCH (09:00)
[2021-05-26] MEDS ORDERED: PARoxetine 20 MG TAB PO SCH (09:00)
[2021-05-26] MEDS ORDERED: ATORVASTATIN 80 MG TAB PO SCH (09:00)
== END 2021-05-25 21:07 | disposition home or self-care (01) ==
LOC: CATHCVL 10:37 → 6NMEDSUR 13:15 → CATHCVL 21:07
PROVIDERS: ATTEND Internal Medicine Interventional Cardiology
DX: I25.10 Atherosclerotic heart disease of native coronary artery without angina pectoris (principal); I25.82 Chronic total occlusion of coronary artery; I25.84 Coronary atherosclerosis due to calcified coronary lesion; I71.4 Abdominal aortic aneurysm, without rupture; I77.1 Stricture of artery; I10 Essential (primary) hypertension; Z87.891 Personal history of nicotine dependence; E78.2 Mixed hyperlipidemia; E78.00 Pure hypercholesterolemia, unspecified; E11.51 Type 2 diabetes mellitus with diabetic peripheral angiopathy without gangrene; R94.39 Abnormal result of other cardiovascular function study; J44.9 Chronic obstructive pulmonary disease, unspecified; Z95.1 Presence of aortocoronary bypass graft; Z95.5 Presence of coronary angioplasty implant and graft; Z82.49 Family history of ischemic heart disease and other diseases of the circulatory system; Z79.02 Long term (current) use of antithrombotics/antiplatelets; Z79.82 Long term (current) use of aspirin; Z79.4 Long term (current) use of insulin; Z79.899 Other long term (current) drug therapy; Z88.2 Allergy status to sulfonamides
CPT/HCPCS: 93459; C1894 ×2; C1769 ×2; J2250; J2001; J3010; Q9967

== ENCOUNTER 2021-07-30 11:17 | Inpatient (IN) | payer MEDICARE, OTHER ==
[2021-07-30] MEDS ORDERED: ONDANSETRON ODT 8 MG TAB.RAPDIS PO STA (12:00)
[2021-07-30] MEDS ORDERED: SODIUM CHLORIDE 0.9% 1,000 ML IV STA (12:00)
[2021-07-30] MEDS ORDERED: HYDROmorphone 0.5 MG/0.5 ML SYRINGE IVP STA (12:07)
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
[2021-07-30 12:21] LABS: Basophils # (A) 0.1 k/uL (0-0.2); Basophils % (A) 1 %; Eosinophils # (A) 0.3 k/uL (0-0.7); Eosinophils % (A) 2 %; HCT 32.5 % (34.0-46.0); HGB 10.3 gm/dL (11.4-16.0); Hypochromasia Slight; Lymphocytes # (A) 1.8 k/uL (1.0-4.8); Lymphocytes % (A) 14 %; MCH 27.7 pg (25.0-35.0); MCHC 31.8 g/dL (31.0-37.0); MCV 87.1 fL (80.0-100.0); Mean Platelet Volume 8.2; Monocytes # (A) 0.5 k/uL (0-1.0); Monocytes % (A) 4 %; Neutrophils # (A) 9.6 k/uL (1.3-7.7); Neutrophils % (A) 77 %; Platelet Count 397 k/uL (150-450); RBC 3.73 m/uL (3.80-5.40); RDW 15.4 % (11.5-15.5); WBC 12.4 k/uL (3.8-10.6)
[2021-07-30 12:36] LABS: ALT 15 U/L (4-34); AST 19 U/L (14-36); African American GFR (CKD) >90 (>60 ml/min/1.73 sqM); Albumin 3.9 g/dL (3.5-5.0); Alkaline Phosphatase 122 U/L (38-126); Anion Gap 10 mmol/L; Blood Urea Nitrogen 24 mg/dL (7-17); Calcium 9.6 mg/dL (8.4-10.2); Carbon Dioxide 22 mmol/L (22-30); Chloride 101 mmol/L (98-107); Glucose 324 mg/dL (74-99); Lipase 170 U/L (23-300); Non-African American GFR(CKD) >90 (>60 ml/min/1.73 sqM); Potassium 4.7 mmol/L (3.5-5.1); Sodium 133 mmol/L (137-145); Total Bilirubin 0.4 mg/dL (0.2-1.3); Total Protein 6.5 g/dL (6.3-8.2)
[2021-07-30] MEDS ORDERED: ONDANSETRON 4 MG/2 ML VIAL IVP STA (12:45)
--- NOTE | 2021-07-30 12:58 | CT ---
EXAMINATION TYPE: CT abdomen pelvis wo con DATE OF EXAM: 07/30/2021 COMPARISON: 05/15/2021 INDICATION: left flank pain DLP: 619.9 mGycm, Automated exposure control for dose reduction was used. CONTRAST: 0 mL of Isovue 300. Study performed without Oral Contrast TECHNIQUE: Axial images were obtained from above the diaphragm to the pubic rami in the axial plane a t 5 mm thick sections. Reconstructed images are reviewed on the computer in the coronal plane. FINDINGS: Limited CT sections are obtained the lung bases. The lung bases are clear. Coronary artery calcific ation is present. CT ABDOMEN: Liver: Normal Spleen: Normal Pancreas: Normal Adrenal glands: The adrenal glands are normal. Gallbladder: Normal Kidneys: No masses are evident. No hydronephrosis is present. No cysts are present. There are mult iple bilateral nonobstructing renal stones. Largest on the right is at the inferior pole measuring 0. 9 cm. Largest on the left is in the upper pole measuring 0.3 cm. Aorta: Vascular calcification is within the aorta. The aorta is tortuous and contains a 4.0 cm aneur ysmal dilatation inferior to the renal arteries. This terminates the bifurcation. Inferior vena cava: Normal. CT PELVIS: There is a periumbilical hernia containing mesenteric fat. No loops of bowel are involved. Diverticular changes noted through the sigmoid colon. No acute diverticulitis is evident. Fecal debri s is within the colon. Small bowel loops are nondilated. Studies without oral contrast limiting bowel evaluation. Appendix: Not identified. No dilated tubular structure or inflammatory changes are evident. Urinary bladder: Normal. Genitourinary structures: Uterus and ovaries are not identified. Osseous structures: No suspicious lytic or sclerotic lesions are evident. Facet changes are present t hrough the lumbar spine. IMPRESSIONS: 1. Aneurysmal dilatation of the descending tortuous thoracic aorta measuring 4.0 cm. 2. Diverticulosis without acute diverticulitis. 3. Multiple bilateral nonobstructing renal stones.
[2021-07-30 14:01] LABS: Appearance,Urine Turbid (Clear); Bacteria,Urine Rare /hpf; Bilirubin,Urine Negative (Negative); Blood,Urine Large (Negative); Color,Urine Light Red; Glucose,Urine (UA) 4+ (Negative); Ketones,Urine Negative (Negative); Leukocyte Esterase,Urine Large (Negative); Mucus,Urine Rare /hpf; Nitrite,Urine Positive (Negative); PH, Urine 5.5 (5.0-8.0); Protein,Urine 2+ (Negative); RBC,Urine >182 /hpf (0-5); Urobilinogen,Urine <2.0 mg/dL (<2.0); WBC,Urine >182 /hpf (0-5)
[2021-07-30] MEDS ORDERED: cefTRIAXone IN SWFI 1,000 MG/10 ML SYRINGE IVP STA (14:12)
[2021-07-30] MEDS: HYDROcodone/APAP 5-325MG 1 EACH TAB PO PRN ×2 (16:15→23:07)
[2021-07-30] MEDS ORDERED: NALOXONE 0.4 MG/ML 1 ML VIAL IV PRN (16:17)
[2021-07-30] MEDS: ONDANSETRON 4 MG/2 ML VIAL IVP PRN (18:20)
[2021-07-30 22:32] LABS: Glucose,Whole Blood 266 mg/dL (75-99)
[2021-07-30] MEDS ORDERED: NITROGLYCERIN SL TABS 0.4 MG TAB SUBLINGUAL PRN (23:04)
[2021-07-30] MEDS ORDERED: PANTOPRAZOLE 40 MG TABLET PO PRN (23:04)
[2021-07-30] MEDS ORDERED: HYDROcodone/APAP 7.5-325MG 1 EACH TAB PO PRN (23:04)
[2021-07-30] MEDS ORDERED: DICYCLOMINE 10 MG CAP PO PRN (23:04)
[2021-07-30] MEDS: SODIUM CHLORIDE 0.9% 1,000 ML IV SCH (23:10)
[2021-07-30] MEDS: TICAGRELOR 90 MG TAB PO SCH (23:46)
[2021-07-30] MEDS: metFORMIN 500 MG TAB PO SCH (23:46)
[2021-07-30] MEDS: METOPROLOL TARTRATE 25 MG TAB PO SCH (23:46)
[2021-07-30] MEDS: INSULIN ASPART (NovoLOG) 100 UNIT/ML VIAL SQ SCH (23:47)
[2021-07-31] MEDS: ONDANSETRON 4 MG/2 ML VIAL IVP PRN (04:24)
[2021-07-31] MEDS: SODIUM CHLORIDE 0.9% 1,000 ML IV SCH ×2 (07:03→20:34)
[2021-07-31 07:29] LABS: Glucose,Whole Blood 188 mg/dL (75-99)
[2021-07-31] MEDS: NON FORMULARY DRUG (Empagliflozin [Jardiance] 25 MG Tablet) PO SCH (07:41)
[2021-07-31] MEDS: MAGNESIUM OXIDE 400 MG TAB PO SCH (07:43)
[2021-07-31] MEDS: TICAGRELOR 90 MG TAB PO SCH ×2 (07:43→20:34)
[2021-07-31] MEDS: metFORMIN 500 MG TAB PO SCH ×2 (07:43→20:34)
[2021-07-31] MEDS: PARoxetine 20 MG TAB PO SCH (07:43)
[2021-07-31] MEDS: METOPROLOL TARTRATE 25 MG TAB PO SCH ×2 (07:44→20:34)
[2021-07-31] MEDS: INSULIN ASPART (NovoLOG) 100 UNIT/ML VIAL SQ SCH ×4 (07:44→20:33)
[2021-07-31] MEDS: ATORVASTATIN 80 MG TAB PO SCH (07:44)
[2021-07-31] MEDS: amLODIPine 5 MG TAB PO SCH (07:44)
[2021-07-31] MEDS: lisinopriL 20 MG TAB PO SCH (07:44)
[2021-07-31] MEDS: ERTAPENEM 1 GM in SODIUM CHLORIDE 0.9% 50 ML IVPB SCH (10:22)
[2021-07-31] MEDS: HYDROcodone/APAP 7.5-325MG 1 EACH TAB PO PRN ×2 (10:36→17:19)
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
--- NOTE | 2021-07-31 11:56 | P.GSCN ---
History of Present Illness Consult date: 07/31/21 Reason for Consult: Bilateral kidney stones History of present illness: This is a 65-year-old female , presented to the hospital with gross hematuria and and bilateral flank pain worse on the left. She underwent a CT scan which showed evidence of bilateral nonobstructing stones, no evidence of hydronephrosis or ureteral stones., Stones on the left side measured 3 mm or less. Of note she did have a 1 cm stone along the right lower pole. Has previous history of stones treated with by Dr. Sanchez. Denies any dysuria. UA on presentation was concerning for UTI Review of Systems - Constitutional Denies fever, Denies weight loss - Cardiovascular Denies chest pain, Denies shortness of breath - Respiratory Denies cough, Denies 7 - Gastrointestinal Reports as per HPI - Genitourinary Genitourinary: Reports flank pain, Reports hematuria, Denies dysuria - Neurological Denies headaches, Denies syncope 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, left side 80% occluded, pylonephritis History of Any Multi-Drug Resistant Organisms: MRSA Year Discovered:: 2007 MDRO Source:: Left ear Past Surgical History: Appendectomy, Cholecystectomy, Coronary Bypass/CABG, Heart Catheterization With Stent, Hysterectomy, Tonsillectomy Additional Past Surgical History / Comment(s): carotid endarterectomy on the left, CABG- 3 vessel 1995, EYE SURGERY-cataract sx has lens implants, eye laser sx bilaterally, ARCH STUDIES, bilateral iliac stents, kidney stone removed(rt), EGDs and colonoscopies,carotid artery plaque removal, Past Anesthesia/Blood Transfusion Reactions: Previous Problems w/ Anesthesia Additional Past Anesthesia/Blood Transfusion Reaction / Comm: w/ gallbladder sx after anesthesia pt stated it made her mean she hit a nurse. Date of Last Stent Placement:: 2011 Past Psychological History: Depression Additional Psychological History / Comment(s): Pt lives with a nephew. She uses no assistive device. She has no home care. Smoking Status: Current every day smoker Past Alcohol Use History: None Reported Additional Past Alcohol Use History / Comment(s): currently smokes 1/2 ppd a day Past Drug Use History: None Reported - Past Family History Father Family Medical History: Coronary Artery Disease (CAD), Myocardial Infarction (MS) Additional Family Medical History / Comment(s): at age 61 massive mi Mother Family Medical History: Coronary Artery Disease (CAD), Hypertension Additional Family Medical History / Comment(s): age 54 post op cabg Sister(s) Family Medical History: Cancer Additional Family Medical History / Comment(s): ovarian cancer Brother(s) Family Medical History: Cancer Medications and Allergies Home Medications Medication Instructions Recorded Confirmed Type Atorvastatin [Lipitor] 80 mg PO DAILY 12/18/18 07/30/21 History Nitroglycerin Sl Tabs [Nitrostat] 0.4 mg SL Q5M PRN 12/18/18 07/30/21 History lisinopriL 40 mg PO DAILY 12/18/18 07/30/21 History PARoxetine HCL [Paxil] 40 mg PO DAILY 12/19/18 07/30/21 History Metoprolol Tartrate [Lopressor] 25 mg PO BID #60 tab 07/03/19 07/30/21 Rx Ticagrelor [Brilinta] 90 mg PO BID #60 tab 07/03/19 07/30/21 Rx metFORMIN HCL 500 mg PO BID 12/30/19 07/30/21 History Liraglutide [Victoza 3-Jensen] 1.8 mg SQ DAILY 06/04/20 07/30/21 History Pantoprazole Sodium [Protonix] 40 mg PO DAILY PRN 06/04/20 07/30/21 History Dicyclomine [Bentyl] 10 mg PO QID PRN 07/30/20 07/30/21 History HYDROcodone/APAP 7.5-325MG [[place] 1 tab PO Q6H PRN 01/02/21 07/30/21 History 7.5-325] amLODIPine [Norvasc] 5 mg PO DAILY 02/01/21 07/30/21 History Empagliflozin [Jardiance] 25 mg PO DAILY 05/15/21 07/30/21 History Magnesium Chloride [Mag64] 128 mg PO DAILY 05/15/21 07/30/21 History Insulin Degludec [Tresiba] See Protocol SQ DAILY 05/24/21 07/30/21 History Allergies Allergy/AdvReac Type Severity Reaction Status Date / Time sulfamethoxazole Allergy Anaphylaxis Verified 07/30/21 14:18 [From Bactrim] trimethoprim [From Bactrim] Allergy Anaphylaxis Verified 07/30/21 14:18 meperidine HCl [From Demerol] AdvReac Hallucinati Verified 07/30/21 14:18 ons Surgical - Exam Vital Signs Temp Pulse Resp BP Pulse Ox 98.4 F 70 18 109/57 95 07/30/21 11:32 07/30/21 11:32 07/30/21 11:32 07/30/21 11:32 07/30/21 11:32 - General well developed, well nourished, no distress, moderate pain - Eyes PERRL, normal ocular movement - ENT normal nares, normal mucosa - Respiratory normal expansion, normal respiratory effort - Abdomen Abdomen: soft, non tender - Psychiatric oriented to time, oriented to person, oriented to place Results - Labs 07/30/21 12:07 07/30/21 12:07 Abnormal Lab Results - Last 24 Hours (Table) 07/30/21 07/30/21 07/30/21 Range/Units 12:07 12:07 12:07 WBC 12.4 H (3.8-10.6) k/uL RBC 3.73 L (3.80-5.40) m/uL Hgb 10.3 L (11.4-16.0) gm/dL Hct 32.5 L (34.0-46.0) % Neutrophils # 9.6 H (1.3-7.7) k/uL Sodium 133 L (137-145) mmol/L BUN 24 H (7-17) mg/dL Glucose 324 H (74-99) mg/dL POC Glucose (mg/dL) (75-99) mg/dL Urine Appearance Turbid H (Clear) Urine Protein 2+ H (Negative) Urine Glucose (UA) 4+ H (Negative) Urine Blood Large H (Negative) Urine Nitrite Positive H (Negative) Ur Leukocyte Esterase Large H (Negative) Urine RBC >182 H (0-5) /hpf Urine WBC >182 H (0-5) /hpf Urine WBC Clumps Many H (None) /hpf Urine Bacteria Rare H (None) /hpf Urine Mucus Rare H (None) /hpf 07/30/21 07/31/21 Range/Units 22:30 07:13 WBC (3.8-10.6) k/uL RBC (3.80-5.40) m/uL Hgb (11.4-16.0) gm/dL Hct (34.0-46.0) % Neutrophils # (1.3-7.7) k/uL Sodium (137-145) mmol/L BUN (7-17) mg/dL Glucose (74-99) mg/dL POC Glucose (mg/dL) 266 H 188 H (75-99) mg/dL Urine Appearance (Clear) Urine Protein (Negative) Urine Glucose (UA) (Negative) Urine Blood (Negative) Urine Nitrite (Negative) Ur Leukocyte Esterase (Negative) Urine RBC (0-5) /hpf Urine WBC (0-5) /hpf Urine WBC Clumps (None) /hpf Urine Bacteria (None) /hpf Urine Mucus (None) /hpf Microbiology - Last 24 Hours (Table) 07/30/21 12:07 Urine Culture - Preliminary Urine,Clean Catch Diabetes panel 07/30/21 Range/Units 12:07 Sodium 133 L (137-145) mmol/L Potassium 4.7 (3.5-5.1) mmol/L Chloride 101 (98-107) mmol/L Carbon Dioxide 22 (22-30) mmol/L BUN 24 H (7-17) mg/dL Creatinine 0.66 (0.52-1.04) mg/dL Glucose 324 H (74-99) mg/dL Calcium 9.6 (8.4-10.2) mg/dL AST 19 (14-36) U/L ALT 15 (4-34) U/L Alkaline Phosphatase 122 (38-126) U/L Total Protein 6.5 (6.3-8.2) g/dL Albumin 3.9 (3.5-5.0) g/dL Calcium panel 07/30/21 Range/Units 12:07 Calcium 9.6 (8.4-10.2) mg/dL Albumin 3.9 (3.5-5.0) g/dL Pituitary panel 07/30/21 Range/Units 12:07 Sodium 133 L (137-145) mmol/L Potassium 4.7 (3.5-5.1) mmol/L Chloride 101 (98-107) mmol/L Carbon Dioxide 22 (22-30) mmol/L BUN 24 H (7-17) mg/dL Creatinine 0.66 (0.52-1.04) mg/dL Glucose 324 H (74-99) mg/dL Calcium 9.6 (8.4-10.2) mg/dL Adrenal panel 07/30/21 Range/Units 12:07 Sodium 133 L (137-145) mmol/L Potassium 4.7 (3.5-5.1) mmol/L Chloride 101 (98-107) mmol/L Carbon Dioxide 22 (22-30) mmol/L BUN 24 H (7-17) mg/dL Creatinine 0.66 (0.52-1.04) mg/dL Glucose 324 H (74-99) mg/dL Calcium 9.6 (8.4-10.2) mg/dL Total Bilirubin 0.4 (0.2-1.3) mg/dL AST 19 (14-36) U/L ALT 15 (4-34) U/L Alkaline Phosphatase 122 (38-126) U/L Total Protein 6.5 (6.3-8.2) g/dL Albumin 3.9 (3.5-5.0) g/dL Assessment and Plan Assessment: 65-year-old female admitted to the hospital with a UTI, urine cultures currently pending. She had a CT that showed evidence of bilateral nonobstructing stones, stones on the left fairly small, on right she did have 1 cm stone in the right lower pole. I reviewed her CT her stone are non-obstructive, her stone on the left are fairly small and unlikely to be causing her flank pain. She does have a large 1 cm stone in the right lower pole which could, which could be contributing to her pain on that side. At this time I recommend treating her UTI, She can f/u with Dr Sanchez as an outpatient, if pain persist then can consider surgical intervention as an outpatient once her UTI resolves for her stone.
[2021-07-31 12:08] LABS: Glucose,Whole Blood 302 mg/dL (75-99)
[2021-07-31 12:24] LABS: Basophils % (A) 0 %; Eosinophils # (A) 0.1 k/uL (0-0.7); Eosinophils % (A) 1 %; HCT 29.7 % (34.0-46.0); HGB 9.1 gm/dL (11.4-16.0); Hypochromasia Moderate; Lymphocytes # (A) 1.3 k/uL (1.0-4.8); Lymphocytes % (A) 12 %; MCH 27.7 pg (25.0-35.0); MCHC 30.7 g/dL (31.0-37.0); Mean Platelet Volume 8.6; Monocytes # (A) 0.5 k/uL (0-1.0); Monocytes % (A) 4 %; Neutrophils # (A) 8.4 k/uL (1.3-7.7); Neutrophils % (A) 80 %; Platelet Count 348 k/uL (150-450); RDW 15.1 % (11.5-15.5); WBC 10.5 k/uL (3.8-10.6)
[2021-07-31 12:33] LABS: African American GFR (CKD) >90 (>60 ml/min/1.73 sqM); Anion Gap 6 mmol/L; Blood Urea Nitrogen 18 mg/dL (7-17); Calcium 9.2 mg/dL (8.4-10.2); Carbon Dioxide 21 mmol/L (22-30); Chloride 107 mmol/L (98-107); Glucose 291 mg/dL (74-99); Magnesium 1.8 mg/dL (1.6-2.3); Non-African American GFR(CKD) >90 (>60 ml/min/1.73 sqM); Potassium 4.5 mmol/L (3.5-5.1); Sodium 134 mmol/L (137-145)
[2021-07-31 13:45] LABS: Hemoglobin A1C 13.9 % (4.0-6.0)
[2021-07-31 17:11] LABS: Glucose,Whole Blood 266 mg/dL (75-99)
[2021-07-31 19:45] LABS: Glucose,Whole Blood 282 mg/dL (75-99)
[2021-08-01] MEDS: HYDROcodone/APAP 7.5-325MG 1 EACH TAB PO PRN ×4 (00:36→19:49)
[2021-08-01] MEDS: MAGNESIUM OXIDE 400 MG TAB PO SCH (07:12)
[2021-08-01] MEDS: PARoxetine 20 MG TAB PO SCH (07:13)
[2021-08-01] MEDS: metFORMIN 500 MG TAB PO SCH ×2 (07:13→19:50)
[2021-08-01] MEDS: ATORVASTATIN 80 MG TAB PO SCH (07:13)
[2021-08-01] MEDS: amLODIPine 5 MG TAB PO SCH (07:13)
[2021-08-01] MEDS: METOPROLOL TARTRATE 25 MG TAB PO SCH ×2 (07:13→19:48)
[2021-08-01] MEDS: lisinopriL 20 MG TAB PO SCH (07:13)
[2021-08-01] MEDS: TICAGRELOR 90 MG TAB PO SCH ×2 (07:13→19:49)
[2021-08-01] MEDS: NON FORMULARY DRUG (Empagliflozin [Jardiance] 25 MG Tablet) PO SCH (07:14)
[2021-08-01] MEDS: INSULIN ASPART (NovoLOG) 100 UNIT/ML VIAL SQ SCH ×4 (07:14→20:57)
[2021-08-01] MEDS: ERTAPENEM 1 GM in SODIUM CHLORIDE 0.9% 50 ML IVPB SCH (07:15)
[2021-08-01] MEDS: SODIUM CHLORIDE 0.9% 1,000 ML IV SCH ×2 (07:15→19:50)
[2021-08-01 07:47] LABS: Glucose,Whole Blood 214 mg/dL (75-99)
[2021-08-01 11:40] LABS: Glucose,Whole Blood 285 mg/dL (75-99)
[2021-08-01 12:04] LABS: African American GFR (CKD) 111.6 (60.0-200.0); Anion Gap 8.9 mmol/L (4.00-12.00); BUN/Creat Ratio 23.33 Ratio (12.00-20.00); Calcium 8.8 mg/dL (8.7-10.3); Carbon Dioxide 20.1 mmol/L (21.6-31.8); Magnesium 1.5 mg/dL (1.5-2.4); Non-African American GFR(CKD) 96.3 (60.0-200.0)
[2021-08-01 12:34] LABS: Basophils # (A) 0.06 X 10*3/uL (0.00-0.10); Basophils % (A) 0.7 %; Eosinophils # (A) 0.19 X 10*3/uL (0.04-0.35); Eosinophils % (A) 2.1 %; HCT 29.1 % (37.2-46.3); HGB 8.4 g/dL (12.0-15.0); Lymphocytes # (A) 2.26 X 10*3/uL (0.90-5.00); Lymphocytes % (A) 25.4 %; MCH 26.3 pg (27.0-32.0); MCHC 28.9 g/dL (32.0-37.0); MCV 91.2 fL (80.0-97.0); Mean Platelet Volume 10.9 fL (9.5-12.2); Monocytes # (A) 0.63 X 10*3/uL (0.20-1.00); Monocytes % (A) 7.1 %; Neutrophils # (A) 5.72 X 10*3/uL (1.80-7.70); Neutrophils % (A) 64.1 %; Platelet Count 316 X 10*3/uL (140-440); RBC 3.19 X 10*6/uL (4.10-5.20); RDW 15.1 % (11.5-14.5); WBC 8.91 X 10*3/uL (4.50-10.00)
--- NOTE | 2021-08-01 15:51 | P.PN ---
Subjective This is 65-year-old female well known to me, with a history of recurrent GI bleeds, history of CVA/TIA, diabetes mellitus, gastroesophageal disease, CAD, history of CABG, arteriosclerosis, carotid artery disease with carotid endarterectomy, diverticulitis, ongoing nicotine dependence multiple other medical issues presented to the ER with a two-day history of worsening flank pain, nausea and hematemesis., She reports she was unable to come the office to be seen due to significant nausea and presented to the ER. ER CT abdomen and pelvis shows a descending torturous thoracic aortic aneurysm measuring 4 cm and stable, diverticulosis, multiple bilateral nonobstructing renal stones. No signs are stable. Labs show WBC count of 12.4 with a left shift and 9.6 neutrophils. Blood chemistries show BUN 24 current 0.6, glucose is 324. Urine was turbid +2 protein plus for glucose large blood and positive nitrates and large leukocytes rare bacteria and white blood cell clumps, urine RBCs noted as well. Urine cultures pending. Patient was given ceftriaxone in the emergency room. She was restarted on her home medications. Labs pending for this morning. She denies any chest pains pressures or shortness breath. She has ongoing right flank pain. She indicates not controlled with the current hydrocodone 5/325. 08/01/2021: Patient continues to feel a right flank pain. She indicates she is little bit better. She continues to have some nausea. Urology had seen her and recommended outpatient follow-up once her UTI and probably nephritis is treated. Vital show an elevated blood pressure last recorded 1 7574 pulse ox is normal 9 7%. Other vitals are normal. No labs today show hemoglobin of 8.4. Her MCV is 91.2. Blood chemistries were essentially normal. Glucoses were elevated in the 200s. Magnesium was 1.5 She continues on metoprolol, amlodipine and lisinopril for blood pressure control. She continues on metformin and insulin scale for diabetes. She continues on Brillinta for coronary disease antiplatelet medications. She has Zofran ordered for nausea and pantoprazole for GI prophylaxis. Ertapenem continues for IV coverage at 1 g daily She continues on on Bentyl for GI spasm. She has a [place] 7.5/325 one or 2 or dered for pain every 6 hours Urines on IV fluids 75 mL an hour. She remains on magnesium supplementation Objective - Vital Signs Vital signs: Vital Signs Temp 98.4 F 08/01/21 07:10 Pulse 62 08/01/21 07:10 Resp 16 08/01/21 07:10 BP 162/68 08/01/21 07:10 Pulse Ox 93 L 08/01/21 07:10 Intake & Output 07/31/21 08/01/21 08/01/21 18:59 06:59 18:59 Other: Voiding Method Toilet Toilet Toilet # Voids 2 2 # Bowel Movements 2 - Exam GENERAL: Fatigued, holding her right side, looks her stated age. NECK: Normal range of motion, supple without lymphadenopathy or JVD, no thyromegaly LUNGS: Breath sounds clear to auscultation bilaterally and equal. No wheezes rales or rhonchi. HEART: Regular rate and rhythm without murmurs, rubs or gallops.S1S2 Normal ABDOMEN: Soft, generalized abdominal tenderness to all quadrants but worse in the suprapubic region., hypoactive bowel sounds. No guarding, no rebound. No masses appreciated. Overall pain is slightly improved today EXTREMITIES: Normal range of motion, no pitting or edema. No clubbing or cyanosis. NEUROLOGICAL: Cranial nerves II through XII grossly intact. Normal speech, normal gait. PSYCH: Normal mood, normal affect. SKIN: Warm, Dry, normal turgor, no rashes or lesions noted. - Labs CBC & Chem 7: 08/01/21 06:58 08/01/21 06:58 Labs: Abnormal Lab Results - Last 24 Hours (Table) 07/30/21 07/31/21 07/31/21 Range/Units 01:51 11:49 11:49 RBC 3.30 L (3.80-5.40) m/uL Hgb 9.1 L (11.4-16.0) gm/dL Hct 29.7 L (34.0-46.0) % MCHC 30.7 L (31.0-37.0) g/dL Neutrophils # 8.4 H (1.3-7.7) k/uL Sodium 134 L (137-145) mmol/L Carbon Dioxide 21 L (22-30) mmol/L BUN 18 H (7-17) mg/dL Glucose 291 H (74-99) mg/dL POC Glucose (mg/dL) (75-99) mg/dL Hemoglobin A1c 13.9 H (4.0-6.0) % 07/31/21 07/31/21 07/31/21 Range/Units 12:07 17:09 19:44 RBC (3.80-5.40) m/uL Hgb (11.4-16.0) gm/dL Hct (34.0-46.0) % MCHC (31.0-37.0) g/dL Neutrophils # (1.3-7.7) k/uL Sodium (137-145) mmol/L Carbon Dioxide (22-30) mmol/L BUN (7-17) mg/dL Glucose (74-99) mg/dL POC Glucose (mg/dL) 302 H 266 H 282 H (75-99) mg/dL Hemoglobin A1c (4.0-6.0) % 08/01/21 Range/Units 07:11 RBC (3.80-5.40) m/uL Hgb (11.4-16.0) gm/dL Hct (34.0-46.0) % MCHC (31.0-37.0) g/dL Neutrophils # (1.3-7.7) k/uL Sodium (137-145) mmol/L Carbon Dioxide (22-30) mmol/L BUN (7-17) mg/dL Glucose (74-99) mg/dL POC Glucose (mg/dL) 214 H (75-99) mg/dL Hemoglobin A1c (4.0-6.0) % Microbiology - Last 24 Hours (Table) 07/30/21 12:07 Urine Culture - Preliminary Urine,Clean Catch Gram Neg Bacilli Assessment and Plan (1) UTI (urinary tract infection) Current Visit: No Status: Acute Code(s): N39.0 - URINARY TRACT INFECTION, SITE NOT SPECIFIED SNOMED Code(s): 08222098 (2) Pyelonephritis Current Visit: Yes Status: Acute Code(s): N12 - TUBULO-INTERSTITIAL NEPHRITIS, NOT SPCF ACUTE OR CHRONIC SNOMED Code(s): 08233632 (3) Hyperglycemia Current Visit: Yes Status: Acute Code(s): R73.9 - HYPERGLYCEMIA, UNSPECIFIED SNOMED Code(s): 03713088 (4) AAA (abdominal aortic aneurysm) Current Visit: No Status: Acute Code(s): I71.4 - ABDOMINAL AORTIC ANEURYSM, WITHOUT RUPTURE SNOMED Code(s): 796188992 (5) Abdominal pain Current Visit: No Status: Acute Code(s): R10.9 - UNSPECIFIED ABDOMINAL PAIN SNOMED Code(s): 50846301 (6) CAD (coronary artery disease) Current Visit: No Status: Acute Code(s): I25.10 - ATHSCL HEART DISEASE OF [place] CORONARY ARTERY W/O ANG PCTRS SNOMED Code(s): 76979516 (7) Carotid stenosis Current Visit: No Status: Acute Code(s): I65.29 - OCCLUSION AND STENOSIS OF UNSPECIFIED CAROTID ARTERY SNOMED Code(s): 65032985 (8) Coronary artery disease with hx of myocardial infarct w/o hx of CABG Current Visit: No Status: Acute Code(s): I25.10 - ATHSCL HEART DISEASE OF [place] CORONARY ARTERY W/O ANG PCTRS SNOMED Code(s): 206908612 (9) Dehydration Current Visit: No Status: Acute Code(s): E86.0 - DEHYDRATION SNOMED Code(s): 25433703 (10) Diabetes type 2, uncontrolled Current Visit: No Status: Acute Code(s): E11.65 - TYPE 2 DIABETES MELLITUS WITH HYPERGLYCEMIA SNOMED Code(s): 244170313 (11) GERD (gastroesophageal reflux disease) Current Visit: No Status: Acute Code(s): K21.9 - GASTRO-ESOPHAGEAL REFLUX DISEASE WITHOUT ESOPHAGITIS SNOMED Code(s): 671859472 (12) Urolithiasis Current Visit: Yes Status: Acute Code(s): N20.9 - URINARY CALCULUS, UNSPECIFIED SNOMED Code(s): 42232744 Plan: Gently rehydrate the patient with IV fluids 75 mL an hour. continue on ertapenem 1 g IV daily. urology. note reviewed Repeat labs in a.m., continue [place] to 7.51 for moderate pain, 2 for severe pain she'll be revealed the next 24 hours.
[2021-08-01 16:40] LABS: Glucose,Whole Blood 264 mg/dL (75-99)
[2021-08-01 20:33] LABS: Glucose,Whole Blood 291 mg/dL (75-99)
[2021-08-01] MEDS ORDERED: INSULIN DETEMIR (LEVEMIR) 100 UNIT/ML SYR SQ SCH (21:00)
[2021-08-02] MEDS: HYDROcodone/APAP 7.5-325MG 1 EACH TAB PO PRN ×2 (00:58→05:57)
[2021-08-02 02:01] VITALS: RESP 17
[2021-08-02 07:07] LABS: Glucose,Whole Blood 256 mg/dL (75-99)
[2021-08-02 07:42] VITALS: PULSE 55; TEMP 98.4
[2021-08-02] MEDS: lisinopriL 20 MG TAB PO SCH (08:51)
[2021-08-02] MEDS: METOPROLOL TARTRATE 25 MG TAB PO SCH (08:51)
[2021-08-02] MEDS: INSULIN ASPART (NovoLOG) 100 UNIT/ML VIAL SQ SCH (08:51)
[2021-08-02] MEDS: MAGNESIUM OXIDE 400 MG TAB PO SCH (08:51)
[2021-08-02] MEDS: amLODIPine 5 MG TAB PO SCH (08:51)
[2021-08-02] MEDS: metFORMIN 500 MG TAB PO SCH (08:52)
[2021-08-02] MEDS: ATORVASTATIN 80 MG TAB PO SCH (08:52)
[2021-08-02] MEDS: TICAGRELOR 90 MG TAB PO SCH (08:52)
[2021-08-02] MEDS: PARoxetine 20 MG TAB PO SCH (08:52)
[2021-08-02] MEDS: NON FORMULARY DRUG (Empagliflozin [Jardiance] 25 MG Tablet) PO SCH (08:59)
[2021-08-02] MEDS: ERTAPENEM 1 GM in SODIUM CHLORIDE 0.9% 50 ML IVPB SCH (09:01)
[2021-08-02 09:19] LABS: Basophils # (A) 0.06 X 10*3/uL (0.00-0.10); Basophils % (A) 0.8 %; Eosinophils # (A) 0.17 X 10*3/uL (0.04-0.35); Eosinophils % (A) 2.2 %; HCT 29.3 % (37.2-46.3); HGB 8.3 g/dL (12.0-15.0); Lymphocytes # (A) 2.43 X 10*3/uL (0.90-5.00); MCH 25.9 pg (27.0-32.0); MCHC 28.3 g/dL (32.0-37.0); MCV 91.6 fL (80.0-97.0); Mean Platelet Volume 10.9 fL (9.5-12.2); Monocytes % (A) 7.6 %; Neutrophils # (A) 4.55 X 10*3/uL (1.80-7.70); Neutrophils % (A) 57.9 %; Platelet Count 336 X 10*3/uL (140-440); RDW 15.2 % (11.5-14.5); WBC 7.85 X 10*3/uL (4.50-10.00)
[2021-08-02 10:14] LABS: African American GFR (CKD) 106.1 (60.0-200.0); Anion Gap 6.8 mmol/L (4.00-12.00); BUN/Creat Ratio 22.86 Ratio (12.00-20.00); Calcium 8.8 mg/dL (8.7-10.3); Carbon Dioxide 24.2 mmol/L (21.6-31.8); Magnesium 1.7 mg/dL (1.5-2.4); Non-African American GFR(CKD) 91.6 (60.0-200.0); Potassium 4.6 mmol/L (3.5-5.5)
[2021-08-02 10:39] VITALS: BP 133/82
--- NOTE | 2021-08-02 12:52 | P.DS ---
Providers Date of admission: 07/30/21 16:17 Expected date of discharge: 08/02/21 Attending physician: Sincere Casey Consults: 07/31/21 09:31 Consult Physician Routine Consulting Provider: Demetrius Moss Consult Reason/Comments: multiple kidney stones Do you want consulting provider notified?: Yes Primary care physician: [facility] Course: Plan Diagnoses: (1) UTI (urinary tract infection) with E. coli, resistant to quinolones Current Visit: No Status: Acute Code(s): N39.0 - URINARY TRACT INFECTION, SITE NOT SPECIFIED SNOMED Code(s): 19827146 (2) Urolithiasis, bilateral nonobstructing stones; small mellitus type, 1 cm stone in the right lower pole. Current Visit: Yes Status: Acute Code(s): N20.9 - URINARY CALCULUS, UNSPECIFIED SNOMED Code(s): 77917826 (3) Hyperglycemia Current Visit: Yes Status: Acute Code(s): R73.9 - HYPERGLYCEMIA, UNSPECIFIED SNOMED Code(s): 94729062 (4) AAA (abdominal aortic aneurysm) Current Visit: No Status: Acute Code(s): I71.4 - ABDOMINAL AORTIC ANEURYSM, WITHOUT RUPTURE SNOMED Code(s): 305900996 (5) Abdominal pain Current Visit: No Status: Acute Code(s): R10.9 - UNSPECIFIED ABDOMINAL PAIN SNOMED Code(s): 11852203 (6) CAD (coronary artery disease) Current Visit: No Status: Acute Code(s): I25.10 - ATHSCL HEART DISEASE OF [place] CORONARY ARTERY W/O ANG PCTRS SNOMED Code(s): 68315981 (7) Carotid stenosis Current Visit: No Status: Acute Code(s): I65.29 - OCCLUSION AND STENOSIS OF UNSPECIFIED CAROTID ARTERY SNOMED Code(s): 78107097 (8) Coronary artery disease with hx of myocardial infarct w/o hx of CABG Current Visit: No Status: Acute Code(s): I25.10 - ATHSCL HEART DISEASE OF [place] CORONARY ARTERY W/O ANG PCTRS SNOMED Code(s): 497924473 (9) Dehydration Current Visit: No Status: Acute Code(s): E86.0 - DEHYDRATION SNOMED Code(s): 71400924 (10) Diabetes type 2, uncontrolled Current Visit: No Status: Acute Code(s): E11.65 - TYPE 2 DIABETES MELLITUS WITH HYPERGLYCEMIA SNOMED Code(s): 702068935 (11) GERD (gastroesophageal reflux disease) Current Visit: No Status: Acute Code(s): K21.9 - GASTRO-ESOPHAGEAL REFLUX DISEASE WITHOUT ESOPHAGITIS SNOMED Code(s): 373971214 Hospital course: This a 65-year-old female admitted with acute UTI, CT reporting bilateral nonobstructing stones. Maintained on IV antibiotics. Evaluated by urology recommending UTI treatment and further follow-up outpatient after UTI resolves if pain persists. Afebrile, WBC within normal limits. BUN 16, creatinine 0.7. Significant clinical improvement. Consuming 100% of diet with no nausea, vomiting. Ambulating in room, tolerating exertion well. Denies chest pain, palpitations or shortness of breath. Denies lightheadedness, dizziness or focal deficits. The impression and plan of care has been dictated as directed. : I performed a history and examination of this patient, discussed the same with the dictator. I agree with the dictator's note ,documented as a scribe. Any additional findings or plans will be noted. Microbiology 07/30/21 12:07 Urine,Clean Catch Urine Culture - Final Escherichia coli Patient Condition at Discharge: Stable Plan - Discharge Summary Discharge Rx Participant: No New Discharge Prescriptions: New Cefuroxime Axetil [Ceftin] 500 mg PO BID 5 Days #10 tab Continue Nitroglycerin Sl Tabs [Nitrostat] 0.4 mg SL Q5M PRN PRN Reason: Chest Pain lisinopriL 40 mg PO DAILY Atorvastatin [Lipitor] 80 mg PO DAILY PARoxetine HCL [Paxil] 40 mg PO DAILY Ticagrelor [Brilinta] 90 mg PO BID #60 tab Metoprolol Tartrate [Lopressor] 25 mg PO BID #60 tab metFORMIN HCL 500 mg PO BID Liraglutide [Victoza 3-Jensen] 1.8 mg SQ DAILY Pantoprazole Sodium [Protonix] 40 mg PO DAILY PRN PRN Reason: Heartburn Dicyclomine [Bentyl] 10 mg PO QID PRN PRN Reason: Gi Upset HYDROcodone/APAP 7.5-325MG [[place] 7.5-325] 1 tab PO Q6H PRN PRN Reason: Pain amLODIPine [Norvasc] 5 mg PO DAILY Magnesium Chloride [Mag64] 128 mg PO DAILY Aspirin EC [Ecotrin Low Dose] 81 mg PO DAILY Empagliflozin [Jardiance] 25 mg PO DAILY Insulin Degludec [Tresiba] See Protocol SQ DAILY Discharge Medication List Atorvastatin [Lipitor] 80 mg PO DAILY 12/18/18 [History] Nitroglycerin Sl Tabs [Nitrostat] 0.4 mg SL Q5M PRN 12/18/18 [History] lisinopriL 40 mg PO DAILY 12/18/18 [History] PARoxetine HCL [Paxil] 40 mg PO DAILY 12/19/18 [History] Metoprolol Tartrate [Lopressor] 25 mg PO BID #60 tab 07/03/19 [Rx] Ticagrelor [Brilinta] 90 mg PO BID #60 tab 07/03/19 [Rx] metFORMIN HCL 500 mg PO BID 12/30/19 [History] Liraglutide [Victoza 3-Jensen] 1.8 mg SQ DAILY 06/04/20 [History] Pantoprazole Sodium [Protonix] 40 mg PO DAILY PRN 06/04/20 [History] Dicyclomine [Bentyl] 10 mg PO QID PRN 07/30/20 [History] HYDROcodone/APAP 7.5-325MG [[place] 7.5-325] 1 tab PO Q6H PRN 01/02/21 [History] amLODIPine [Norvasc] 5 mg PO DAILY 02/01/21 [History] Empagliflozin [Jardiance] 25 mg PO DAILY 05/15/21 [History] Magnesium Chloride [Mag64] 128 mg PO DAILY 05/15/21 [History] Insulin Degludec [Tresiba] See Protocol SQ DAILY 05/24/21 [History] Aspirin EC [Ecotrin Low Dose] 81 mg PO DAILY 07/31/21 [History] Cefuroxime Axetil [Ceftin] 500 mg PO BID 5 Days #10 tab 08/02/21 [Rx] Follow up Appointment(s)/Referral(s): Sincere Casey MD [Primary Care Provider] - 08/05/21 1:30 pm (Patient will be seen by Vielka DROP MAN.) Rl Sanchez MD [STAFF PHYSICIAN] - 2 Weeks (OFFICE WILL CALL YOU WITH APPOINTMENT DATE/TIME.) Ambulatory/Diagnostic Orders: Complete Blood Count w/diff [LAB.AMB] Time Frame: 3 Days, Location: None Selected Patient Instructions/Handouts: Kidney Stones (DC), Urinary Tract Infection in Women (DC), Nonruptured Abdominal Aortic Aneurysm (DC), Type 2 Diabetes Management for Adults (DC) Activity/Diet/Wound Care/Special Instructions: Repeat BP: no smoking Discharge Disposition: HOME SELF-CARE
[2021-08-02 13:37] VITALS: BMI 25.0
--- NOTE | 2021-08-04 12:02 | CDI ---
Documentation Clarification Form Date: 08/04/21 From: Kimberley Samaniego Admit Date: 08/02/2021 08:35:00 AM Patient Name: Katty Velez Visit Number: [id number] Discharge Date: 08/02/2021 11:30:00 AM ATTENTION: The Clinical Documentation Specialists (CDI) and [facility] Coding Staff appreciate your assistance in clarifying documentation. Please respond to the clarification below the line at the bottom and electronically sign. The CDI & [facility] Coding staff will review the response and follow-up if needed. Please note: Queries are made part of the Legal Health Record. If you have any questions, please contact the author of this message via ITS. Dr. Sincere Casey, There is documentation of pyelonephritis in the ED note, H&P and 08/01 PN. Additional clarification is requested. History/Risk Factors: hx of urinary calculi, DM Clinical Indicators: Presented to the ER with a two-day history of worsening flank pain, dysuria, nausea and hematemesis. CT of abdomen: multiple bilateral non-obstructing renal stones. Urine culture grew E coli resistant to Quinolones. Treatment: IV Ertapenem Can you please clarify acuity of pyelonephritis: [ X ] Acute [ ] Chronic [ ] Other, please specify [ ] Unable to determine MTDD
== END 2021-08-02 11:30 | disposition home or self-care (01) | DRG 690 ==
LOC: EC 11:17 → 6NMEDSUR 16:17 → OBSVTOIN 08-02 08:35
PROVIDERS: ADMIT Family Medicine; ATTEND Family Medicine
DX: N10 Acute pyelonephritis (principal); K92.0 Hematemesis; Z16.23 Resistance to quinolones and fluoroquinolones; E11.51 Type 2 diabetes mellitus with diabetic peripheral angiopathy without gangrene; E11.65 Type 2 diabetes mellitus with hyperglycemia; B96.20 Unspecified Escherichia coli [E. coli] as the cause of diseases classified elsewhere; E78.5 Hyperlipidemia, unspecified; Z79.4 Long term (current) use of insulin; I71.2 Thoracic aortic aneurysm, without rupture; Z20.822 Contact with and (suspected) exposure to COVID-19; E86.0 Dehydration; R31.0 Gross hematuria; N20.0 Calculus of kidney; I10 Essential (primary) hypertension; I65.21 Occlusion and stenosis of right carotid artery; I25.10 Atherosclerotic heart disease of native coronary artery without angina pectoris; K21.00 Gastro-esophageal reflux disease with esophagitis, without bleeding; F32.9 Major depressive disorder, single episode, unspecified; K57.30 Diverticulosis of large intestine without perforation or abscess without bleeding; I25.2 Old myocardial infarction; M19.90 Unspecified osteoarthritis, unspecified site; F17.210 Nicotine dependence, cigarettes, uncomplicated; Z71.6 Tobacco abuse counseling; Z79.02 Long term (current) use of antithrombotics/antiplatelets; Z79.82 Long term (current) use of aspirin; Z79.899 Other long term (current) drug therapy; Z87.442 Personal history of urinary calculi; Z86.73 Personal history of transient ischemic attack (TIA), and cerebral infarction without residual deficits; Z87.19 Personal history of other diseases of the digestive system; Z87.01 Personal history of pneumonia (recurrent); Z86.14 Personal history of Methicillin resistant Staphylococcus aureus infection; Z90.49 Acquired absence of other specified parts of digestive tract; Z90.710 Acquired absence of both cervix and uterus; Z87.42 Personal history of other diseases of the female genital tract; Z90.89 Acquired absence of other organs; Z95.5 Presence of coronary angioplasty implant and graft; Z95.1 Presence of aortocoronary bypass graft; Z98.42 Cataract extraction status, left eye; Z98.41 Cataract extraction status, right eye; Z86.79 Personal history of other diseases of the circulatory system; Z96.1 Presence of intraocular lens; Z95.828 Presence of other vascular implants and grafts; Z98.890 Other specified postprocedural states; Z88.5 Allergy status to narcotic agent; Z88.2 Allergy status to sulfonamides; Z82.49 Family history of ischemic heart disease and other diseases of the circulatory system; Z80.41 Family history of malignant neoplasm of ovary
CPT/HCPCS: 36415; 74176; 80048; 80053; 81001; 83036; 83690; 83735; 85025; 87077; 87086; 87186; 87635; 96361; 96374; 96375; 99285

== ENCOUNTER 2021-08-13 14:48 | Emergency (ER) | payer MEDICARE, OTHER ==
[2021-08-13 14:53] VITALS: BP 151/69; PULSE 85; RESP 18; TEMP 98.2
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
[2021-08-13 15:28] LABS: Basophils # (A) 0.1 k/uL (0-0.2); Basophils % (A) 1 %; Eosinophils # (A) 0.2 k/uL (0-0.7); Eosinophils % (A) 2 %; HCT 32.1 % (34.0-46.0); HGB 9.5 gm/dL (11.4-16.0); Hypochromasia Marked; Lymphocytes # (A) 1.7 k/uL (1.0-4.8); Lymphocytes % (A) 13 %; MCHC 29.5 g/dL (31.0-37.0); MCV 91.5 fL (80.0-100.0); Mean Platelet Volume 9.2; Monocytes # (A) 0.5 k/uL (0-1.0); Monocytes % (A) 4 %; Neutrophils # (A) 10.5 k/uL (1.3-7.7); Neutrophils % (A) 80 %; Platelet Count 412 k/uL (150-450); RBC 3.51 m/uL (3.80-5.40); RDW 14.9 % (11.5-15.5); WBC 13.1 k/uL (3.8-10.6)
== END 2021-08-13 15:50 | disposition home or self-care (01) ==
LOC: EC 14:48
DX: R21 Rash and other nonspecific skin eruption (principal); I10 Essential (primary) hypertension; I25.10 Atherosclerotic heart disease of native coronary artery without angina pectoris; E11.51 Type 2 diabetes mellitus with diabetic peripheral angiopathy without gangrene; K21.9 Gastro-esophageal reflux disease without esophagitis; E78.5 Hyperlipidemia, unspecified; F32.9 Major depressive disorder, single episode, unspecified; F17.200 Nicotine dependence, unspecified, uncomplicated; Z79.4 Long term (current) use of insulin; Z79.82 Long term (current) use of aspirin; Z88.1 Allergy status to other antibiotic agents; Z88.2 Allergy status to sulfonamides; Z86.73 Personal history of transient ischemic attack (TIA), and cerebral infarction without residual deficits; Z90.49 Acquired absence of other specified parts of digestive tract; Z95.1 Presence of aortocoronary bypass graft; Z90.710 Acquired absence of both cervix and uterus; Z88.5 Allergy status to narcotic agent
CPT/HCPCS: 36415; 85025; 86140; 99283

== ENCOUNTER 2021-08-19 12:26 | Emergency (ER) | payer MEDICARE, OTHER ==
[2021-08-19] MEDS ORDERED: MORPHINE SULFATE 4 MG/ML SYRINGE IVP STA (12:58)
[2021-08-19] MEDS ORDERED: ONDANSETRON 4 MG/2 ML VIAL IVP STA ×2 (12:58→15:49)
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
[2021-08-19 13:10] VITALS: TEMP 98.5
[2021-08-19 13:14] VITALS: BP 169/77
[2021-08-19 13:38] LABS: Basophils # (A) 0.1 k/uL (0-0.2); Basophils % (A) 1 %; Eosinophils # (A) 0.1 k/uL (0-0.7); Eosinophils % (A) 1 %; HGB 10.4 gm/dL (11.4-16.0); Hypochromasia Moderate; Lymphocytes # (A) 0.9 k/uL (1.0-4.8); Lymphocytes % (A) 6 %; MCHC 30.6 g/dL (31.0-37.0); MCV 88.3 fL (80.0-100.0); Mean Platelet Volume 8.5; Monocytes # (A) 0.4 k/uL (0-1.0); Monocytes % (A) 3 %; Neutrophils # (A) 12.5 k/uL (1.3-7.7); Neutrophils % (A) 90 %; Platelet Count 431 k/uL (150-450); RBC 3.85 m/uL (3.80-5.40); RDW 15.4 % (11.5-15.5)
[2021-08-19 13:47] LABS: ALT 14 U/L (4-34); AST 18 U/L (14-36); African American GFR (CKD) >90 (>60 ml/min/1.73 sqM); Albumin 3.8 g/dL (3.5-5.0); Alkaline Phosphatase 163 U/L (38-126); Anion Gap 11 mmol/L; Blood Urea Nitrogen 22 mg/dL (7-17); Carbon Dioxide 21 mmol/L (22-30); Chloride 104 mmol/L (98-107); Creatine Kinase 54 U/L (30-135); Glucose 377 mg/dL (74-99); Non-African American GFR(CKD) 90 (>60 ml/min/1.73 sqM); Potassium 4.7 mmol/L (3.5-5.1); Sodium 136 mmol/L (137-145); Total Bilirubin 0.4 mg/dL (0.2-1.3); Total Protein 6.6 g/dL (6.3-8.2)
[2021-08-19 14:03] LABS: Calcium 9.8 mg/dL (8.4-10.2)
--- NOTE | 2021-08-19 14:28 | XR ---
EXAMINATION TYPE: XR humerus 2 views RT, XR forearm 2 views RT DATE OF EXAM: 08/19/2021 COMPARISON: NONE HISTORY: 65-year-old female pain after fall FINDINGS: Humerus: Frankly displaced and posteriorly angulated surgical neck fracture of the proximal humerus. Limited a ssessment of the elbow. No gross malalignment. Forearm: Moderate degenerative change first CMC joint. There is some overlap noted at the distal radioulnar jose int and dorsal positioning of the ulna relative to the radius on the lateral view. Otherwise, no acut e fracture seen. IMPRESSION: 1. Humerus: Frankly displaced and posteriorly angulated two-part surgical neck fracture of the proxim al right humerus. 2. Forearm: Atypical overlap at the distal radioulnar joint and dorsal positioning of the distal ulna relative to the radius on the lateral view. Unable to exclude DRUJ subluxation/dislocation.
[2021-08-19] MEDS ORDERED: oxyCODONE-APAP 5-325MG 1 EACH TAB PO STA (15:49)
[2021-08-19] MEDS ORDERED: HYDROmorphone 1 MG/ML 1 ML SYRINGE IVP STA (15:49)
[2021-08-19] MEDS ORDERED: INSULIN ASPART (NovoLOG) 100 UNIT/ML VIAL SQ ONE (15:50)
[2021-08-19 16:27] VITALS: PULSE 65; RESP 16
== END 2021-08-19 16:27 | disposition home or self-care (01) ==
LOC: EC 12:26
DX: S42.201A Unspecified fracture of upper end of right humerus, initial encounter for closed fracture (principal); E11.9 Type 2 diabetes mellitus without complications; I10 Essential (primary) hypertension; E78.5 Hyperlipidemia, unspecified; I25.10 Atherosclerotic heart disease of native coronary artery without angina pectoris; K21.9 Gastro-esophageal reflux disease without esophagitis; F32.9 Major depressive disorder, single episode, unspecified; F17.200 Nicotine dependence, unspecified, uncomplicated; Z79.4 Long term (current) use of insulin; Z79.82 Long term (current) use of aspirin; Z79.899 Other long term (current) drug therapy; Z88.2 Allergy status to sulfonamides; Z88.1 Allergy status to other antibiotic agents; W01.0XXA Fall on same level from slipping, tripping and stumbling without subsequent striking against object, initial encounter
CPT/HCPCS: 36415; 80053; 82550; 85025; 73060; 73090; 96374; 96375 ×2; 96376; 99284; J2270; J2405; J1170

== ENCOUNTER 2021-09-15 21:43 | Emergency (ER) | payer MEDICARE, OTHER ==
[2021-09-15 22:36] VITALS: RESP 20; TEMP 97.6
[2021-09-15] MEDS ORDERED: KETOROLAC 15 MG/ML 1 ML VIAL IVP STA (23:17)
[2021-09-15] MEDS ORDERED: SODIUM CHLORIDE 0.9% 1,000 ML IV STA (23:17)
[2021-09-15] MEDS ORDERED: ONDANSETRON 4 MG/2 ML VIAL IVP STA (23:17)
[2021-09-15] MEDS ORDERED: SODIUM CHLORIDE 0.9% 500 ML 500 ML IV STA (23:17)
[2021-09-15] MEDS ORDERED: HYDROmorphone 1 MG/ML 1 ML SYRINGE IVP STA (23:18)
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
[2021-09-16 00:36] LABS: Basophils % (A) 0 %; Eosinophils # (A) 0.1 k/uL (0-0.7); Eosinophils % (A) 1 %; HCT 30.3 % (34.0-46.0); Hypochromasia Marked; Lymphocytes # (A) 2.2 k/uL (1.0-4.8); Lymphocytes % (A) 27 %; MCH 25.9 pg (25.0-35.0); MCHC 29.8 g/dL (31.0-37.0); Mean Platelet Volume 8.7; Monocytes # (A) 0.4 k/uL (0-1.0); Monocytes % (A) 5 %; Neutrophils # (A) 5.2 k/uL (1.3-7.7); Neutrophils % (A) 63 %; Platelet Count 383 k/uL (150-450); RBC 3.48 m/uL (3.80-5.40); RDW 15.8 % (11.5-15.5); WBC 8.2 k/uL (3.8-10.6)
[2021-09-16 00:43] LABS: Appearance,Urine Clear (Clear); Bacteria,Urine Rare /hpf; Bilirubin,Urine Negative (Negative); Blood,Urine Negative (Negative); Budding Yeast,Urine Few /hpf; Color,Urine Light Yellow; Glucose,Urine (UA) 4+ (Negative); Ketones,Urine Negative (Negative); Leukocyte Esterase,Urine Moderate (Negative); Mucus,Urine Rare /hpf; Nitrite,Urine Negative (Negative); Protein,Urine 1+ (Negative); RBC,Urine 3 /hpf (0-5); Specific Gravity,Urine 1.027 (1.001-1.035); Squamous Epithelial Cell,Urine <1 /hpf (0-4); Urobilinogen,Urine <2.0 mg/dL (<2.0); WBC,Urine 58 /hpf (0-5)
[2021-09-16 00:51] LABS: Albumin 3.6 g/dL (3.5-5.0); Calcium 9.3 mg/dL (8.4-10.2); Potassium 4.8 mmol/L (3.5-5.1); Total Bilirubin 0.2 mg/dL (0.2-1.3); Total Protein 6.3 g/dL (6.3-8.2)
--- NOTE | 2021-09-16 01:22 | CT ---
EXAMINATION TYPE: CT abdomen pelvis w con DATE OF EXAM: 09/16/2021 COMPARISON: 07/30/2021 HISTORY: left side abd pain hx of kidney stones. hx of appendectomy, cholecystectomy, CABG CT DLP: 1149.7 mGycm Automated exposure control for dose reduction was used. CONTRAST: Performed with IV Contrast, patient injected with 100ml mL of Isovue 300. Images obtained from the diaphragm to the floor the pelvis with IV contrast. Lung bases are clear of consolidation. There is no pleural effusion. Heart size is fairly normal. The re is no pericardial effusion. The stomach is intact. There are clips from cholecystectomy. There is vascular calcification. There is no evidence of pancreatic mass. Spleen is intact. Liver shows no foc al defect. The bile ducts are not dilated. There is aneurysm of the mid abdominal aorta that measures up to 4.5 cm. There is variable plaque for mation. There is no retroperitoneal adenopathy. There is no adrenal mass. Kidneys show satisfactory contrast opacification. There is no hydronephrosi s. There are bilateral renal vascular calcifications. There are possible bilateral small renal calcul i. There is no hydronephrosis. Ureters are not dilated. Bladder distends smoothly. There is no inguinal hernia. There is no free fluid in the pelvis. There a re numerous sigmoid diverticula. Appendix is not seen. There is no sign of thickened appendix. There is no mesenteric edema. There is no ascites or free air. There is no sign of a bowel obstruction. The lumbar vertebra have normal alignment. There is no compression fracture. The bony pelvis is intac t. The hip joints are intact. IMPRESSION: Abdominal aortic aneurysm without significant change compared to recent exam. No evidence of leakage. Nonobstructing small bilateral renal calculi not changed compared to old exam. Moderate colonic diverticulosis without diverticulitis.
[2021-09-16] MEDS ORDERED: cefTRIAXone IN SWFI 1,000 MG/10 ML SYRINGE IVP STA (01:24)
[2021-09-16 01:30] LABS: Glucose,Whole Blood 297 mg/dL (75-99)
[2021-09-16] MEDS ORDERED: HYDROmorphone 0.5 MG/0.5 ML SYRINGE IVP STA (01:31)
[2021-09-16] MEDS ORDERED: KETOROLAC 15 MG/ML 1 ML VIAL IVP STA (01:31)
[2021-09-16] MEDS ORDERED: INSULIN ASPART (NovoLOG) 100 UNIT/ML VIAL SQ ONE (01:31)
[2021-09-16 02:49] VITALS: BP 131/76; PULSE 74
== END 2021-09-16 02:49 | disposition home or self-care (01) ==
LOC: EC 21:43
DX: N39.0 Urinary tract infection, site not specified (principal); E11.65 Type 2 diabetes mellitus with hyperglycemia; M79.601 Pain in right arm; I25.10 Atherosclerotic heart disease of native coronary artery without angina pectoris; K21.9 Gastro-esophageal reflux disease without esophagitis; E78.5 Hyperlipidemia, unspecified; I10 Essential (primary) hypertension; E11.51 Type 2 diabetes mellitus with diabetic peripheral angiopathy without gangrene; F17.200 Nicotine dependence, unspecified, uncomplicated; F32.9 Major depressive disorder, single episode, unspecified; Z87.442 Personal history of urinary calculi; Z90.710 Acquired absence of both cervix and uterus; Z79.4 Long term (current) use of insulin; Z79.82 Long term (current) use of aspirin; Z88.2 Allergy status to sulfonamides; Z88.1 Allergy status to other antibiotic agents; Z86.73 Personal history of transient ischemic attack (TIA), and cerebral infarction without residual deficits; Z90.49 Acquired absence of other specified parts of digestive tract; Z95.1 Presence of aortocoronary bypass graft; Z88.5 Allergy status to narcotic agent
CPT/HCPCS: 99284; 96374; 96375 ×3; 96376 ×2; 96361; 36415 ×2; 80053; 82150; 83605; 83690; 85025; 81001; 87086; 74177; J2405; J0696; J1170 ×2; J1885; Q9967

== ENCOUNTER 2021-10-02 19:16 | Emergency (ER) | payer MEDICARE, OTHER ==
[2021-10-02 20:11] VITALS: BP 114/67; PULSE 71; RESP 22; TEMP 97.8
--- NOTE | 2021-10-02 21:00 | XR ---
EXAMINATION TYPE: XR humerus RT DATE OF EXAM: 10/02/2021 COMPARISON: 08/19/2021 HISTORY: Pain TECHNIQUE: 2 views FINDINGS: There is right humeral neck fracture. There is bridging callus. There is no significant dis placement. Elbow joint is intact. IMPRESSION: Healing fracture of the right humeral neck without significant change in position compare d to old exam.
--- NOTE | 2021-10-02 21:04 | XR ---
EXAMINATION TYPE: XR elbow complete RT DATE OF EXAM: 10/02/2021 COMPARISON: NONE HISTORY: Pain TECHNIQUE: 3 views FINDINGS: I see no fracture nor dislocation. Elbow joint spaces are normal. IMPRESSION: Negative right elbow exam.
[2021-10-02] MEDS ORDERED: HYDROcodone/APAP 7.5-325MG 1 EACH TAB PO ONE (21:14)
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
== END 2021-10-02 21:39 | disposition home or self-care (01) ==
LOC: EC 19:16
DX: M79.621 Pain in right upper arm (principal); I25.10 Atherosclerotic heart disease of native coronary artery without angina pectoris; E11.9 Type 2 diabetes mellitus without complications; K21.9 Gastro-esophageal reflux disease without esophagitis; E78.5 Hyperlipidemia, unspecified; I10 Essential (primary) hypertension; F32.A Depression, unspecified; F17.200 Nicotine dependence, unspecified, uncomplicated; Z79.84 Long term (current) use of oral hypoglycemic drugs; Z79.4 Long term (current) use of insulin; Z79.82 Long term (current) use of aspirin; Z88.1 Allergy status to other antibiotic agents; Z88.2 Allergy status to sulfonamides; Z86.73 Personal history of transient ischemic attack (TIA), and cerebral infarction without residual deficits; Z90.49 Acquired absence of other specified parts of digestive tract; Z95.5 Presence of coronary angioplasty implant and graft; Z90.710 Acquired absence of both cervix and uterus; Z90.89 Acquired absence of other organs; Z87.442 Personal history of urinary calculi
CPT/HCPCS: 99283

== ENCOUNTER 2021-10-15 09:51 | Inpatient (IN) | payer MEDICARE, OTHER ==
[2021-10-15] MEDS ORDERED: SODIUM CHLORIDE 0.9% 500 ML 500 ML IV STA (10:12)
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
[2021-10-15 10:47] LABS: Anisocytosis Slight; Basophils # (A) 0.1 k/uL (0-0.2); Basophils % (A) 1 %; Eosinophils # (A) 0.3 k/uL (0-0.7); Eosinophils % (A) 3 %; HCT 25.5 % (34.0-46.0); Hypochromasia Marked; Lymphocytes # (A) 2.3 k/uL (1.0-4.8); Lymphocytes % (A) 24 %; MCH 26.2 pg (25.0-35.0); MCHC 31.5 g/dL (31.0-37.0); MCV 83.2 fL (80.0-100.0); Mean Platelet Volume 8.7; Monocytes # (A) 0.5 k/uL (0-1.0); Monocytes % (A) 5 %; Neutrophils # (A) 6.5 k/uL (1.3-7.7); Neutrophils % (A) 65 %; Platelet Count 350 k/uL (150-450); Poikilocytosis Slight; RBC 3.07 m/uL (3.80-5.40); RDW 16.5 % (11.5-15.5); WBC 9.9 k/uL (3.8-10.6)
[2021-10-15 11:05] LABS: ALT 16 U/L (4-34); AST 18 U/L (14-36); African American GFR (CKD) >90 (>60 ml/min/1.73 sqM); Albumin 3.8 g/dL (3.5-5.0); Alkaline Phosphatase 144 U/L (38-126); Anion Gap 11 mmol/L; Blood Urea Nitrogen 25 mg/dL (7-17); Calcium 9.5 mg/dL (8.4-10.2); Carbon Dioxide 18 mmol/L (22-30); Chloride 107 mmol/L (98-107); Glucose 230 mg/dL (74-99); Magnesium 1.6 mg/dL (1.6-2.3); Non-African American GFR(CKD) 90 (>60 ml/min/1.73 sqM); Potassium 4.4 mmol/L (3.5-5.1); Sodium 136 mmol/L (137-145); Total Bilirubin 0.2 mg/dL (0.2-1.3); Total Protein 6.5 g/dL (6.3-8.2)
[2021-10-15] MEDS ORDERED: HYDROmorphone 0.5 MG/0.5 ML SYRINGE IVP STA (11:19)
[2021-10-15 11:28] LABS: INR 0.9 (<1.2); Prothrombin Time 9.5 sec (9.0-12.0)
[2021-10-15 11:33] LABS: Partial Thromboplastin Time 19.8 sec (22.0-30.0)
--- NOTE | 2021-10-15 12:05 | CT ---
EXAMINATION TYPE: CT abdomen pelvis wo con DATE OF EXAM: 10/15/2021 COMPARISON: 09/16/2021 INDICATION: Rectal bleeding. DLP: 595.7 mGycm, Automated exposure control for dose reduction was used. CONTRAST: 0 mL of Isovue 300. Study performed without Oral Contrast TECHNIQUE: Axial images were obtained from above the diaphragm to the pubic rami in the axial plane a t 5 mm thick sections. Reconstructed images are reviewed on the computer in the coronal plane. FINDINGS: Limited CT sections are obtained the lung bases. The lung bases are clear. Coronary artery calcific ations present. CT ABDOMEN: Liver: Normal Spleen: Normal Pancreas: Normal Adrenal glands: There is a mild prominence of the left adrenal gland at 1.2 cm. This is unchanged fro m comparison Gallbladder: Not well-visualized. Kidneys: No masses are evident. No hydronephrosis is present. No cysts are present. There is a 1.2 cm inferior right renal stone without obstruction. Extensive vascular calcification is present bilat erally. Aorta: Vascular calcification is within the aorta. There is tortuosity. Some fusiform prominence of the mid abdominal aorta measures 3.7 cm. This terminates above the bifurcation. Extensive calcificati ons within the iliac vessels proximally. Inferior vena cava: Normal. CT PELVIS: Anterior abdominal wall hernia containing mesenteric fat is in the periumbilical region. Loops of bowel within the abdomen and pelvis are normal. Diverticular changes are present. No acute d iverticulitis is evident. There are loops of bowel which are incompletely distended or lack oral c ontrast limiting their evaluation. Appendix: Not visualized Urinary bladder: Normal. Genitourinary structures: Uterus and ovaries are not identified. Osseous structures: No suspicious lytic or sclerotic lesions. IMPRESSIONS: 1. Inferior pole right renal stone without obstruction. 2. Vascular calcification present diffusely. 3. Fusiform prominence of the mid abdominal aorta. 4. Periumbilical mesenteric fat containing hernia. 5. No acute diverticulitis
[2021-10-15] MEDS ORDERED: SODIUM CHLORIDE 0.9% 1,000 ML IV ONE (12:27)
[2021-10-15] MEDS ORDERED: PANTOPRAZOLE 40 MG TABLET PO PRN (16:35)
[2021-10-15] MEDS ORDERED: DICYCLOMINE 20 MG TAB PO PRN (16:35)
[2021-10-15 17:28] LABS: Glucose,Whole Blood 199 mg/dL (75-99)
[2021-10-15] MEDS ORDERED: metFORMIN 500 MG TAB PO SCH (17:30)
[2021-10-15 19:54] LABS: Glucose,Whole Blood 354 mg/dL (75-99)
[2021-10-15] MEDS: INSULIN ASPART (NovoLOG) 100 UNIT/ML VIAL SQ SCH (20:18)
[2021-10-15] MEDS: METOPROLOL TARTRATE 25 MG TAB PO SCH (20:18)
[2021-10-15] MEDS: HYDROcodone/APAP 7.5-325MG 1 EACH TAB PO PRN (20:19)
[2021-10-16] MEDS: HYDROcodone/APAP 7.5-325MG 1 EACH TAB PO PRN ×4 (04:20→22:44)
[2021-10-16 07:14] LABS: Glucose,Whole Blood 174 mg/dL (75-99)
[2021-10-16] MEDS: lisinopriL 20 MG TAB PO SCH (09:18)
[2021-10-16] MEDS: METOPROLOL TARTRATE 25 MG TAB PO SCH ×2 (09:18→20:58)
[2021-10-16] MEDS: amLODIPine 5 MG TAB PO SCH (09:18)
[2021-10-16] MEDS: INSULIN ASPART (NovoLOG) 100 UNIT/ML VIAL SQ SCH ×4 (09:18→20:58)
[2021-10-16] MEDS: MAGNESIUM OXIDE 400 MG TAB PO SCH (09:18)
[2021-10-16] MEDS: ATORVASTATIN 80 MG TAB PO SCH (09:18)
[2021-10-16] MEDS: Empagliflozin [Jardiance] PO SCH (09:18)
[2021-10-16] MEDS: PARoxetine 20 MG TAB PO SCH (09:21)
[2021-10-16 10:10] LABS: African American GFR (CKD) 111.6 (60.0-200.0); Anion Gap 12.4 mmol/L (10.00-18.00); Blood Urea Nitrogen 15.6 mg/dL (9.0-27.0); Calcium 8.7 mg/dL (8.7-10.3); Carbon Dioxide 14.6 mmol/L (20.0-27.5); Non-African American GFR(CKD) 96.3 (60.0-200.0); Potassium 5.9 mmol/L (3.5-5.5)
[2021-10-16 11:13] LABS: Basophils # (A) 0.05 X 10*3/uL (0.00-0.10); Basophils % (A) 0.5 %; Eosinophils # (A) 0.15 X 10*3/uL (0.04-0.35); Eosinophils % (A) 1.4 %; Lymphocytes # (A) 2.27 X 10*3/uL (0.90-5.00); Lymphocytes % (A) 20.7 %; Monocytes # (A) 0.72 X 10*3/uL (0.20-1.00); Monocytes % (A) 6.6 %; Neutrophils # (A) 7.71 X 10*3/uL (1.80-7.70); Neutrophils % (A) 70.2 %
[2021-10-16 11:16] LABS: HCT 25.9 % (37.2-46.3); HGB 6.8 g/dL (12.0-15.0); MCH 25.1 pg (27.0-32.0); MCHC 26.3 g/dL (32.0-37.0); MCV 95.6 fL (80.0-97.0); Mean Platelet Volume 11.2 fL (9.5-12.2); Microcytosis (M) 2+; Platelet Count 268 X 10*3/uL (140-440); RBC 2.71 X 10*6/uL (4.10-5.20); WBC 10.97 X 10*3/uL (4.50-10.00)
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
[2021-10-16 12:20] LABS: Glucose,Whole Blood 177 mg/dL (75-99)
[2021-10-16 13:23] LABS: Anisocytosis Slight; Basophils # (A) 0.1 k/uL (0-0.2); Basophils % (A) 1 %; Eosinophils # (A) 0.2 k/uL (0-0.7); Eosinophils % (A) 2 %; HCT 27.4 % (34.0-46.0); HGB 7.8 gm/dL (11.4-16.0); Hypochromasia Marked; Lymphocytes # (A) 2.3 k/uL (1.0-4.8); Lymphocytes % (A) 23 %; MCH 25.4 pg (25.0-35.0); MCHC 28.4 g/dL (31.0-37.0); Mean Platelet Volume 10.1; Monocytes # (A) 0.4 k/uL (0-1.0); Monocytes % (A) 4 %; Neutrophils # (A) 7.1 k/uL (1.3-7.7); Neutrophils % (A) 70 %; Platelet Count 201 k/uL (150-450); RBC 3.07 m/uL (3.80-5.40); RDW 16.3 % (11.5-15.5); WBC 10.2 k/uL (3.8-10.6)
[2021-10-16 13:25] LABS: MCV 89.1 fL (80.0-100.0)
--- NOTE | 2021-10-16 13:55 | P.HPIM ---
History of Present Illness H&P Date: 10/15/21 Chief Complaint: GI bleed, anemia Katty is a well-known patient to our practice, somewhat noncompliant poorly controlled diabetic mild renal insufficiency, chronic anemia with rectal bleeding guaiac positive stool hemoglobin of 8.6 g admitted to the hospital via the emergency room Review of Systems Constitutional: Reports as per HPI, Reports malaise Cardiovascular: Reports lightheadedness Respiratory: Reports as per HPI Gastrointestinal: Reports abdominal pain (Diffuse mild abdominal pain, chronic, bright red blood per rectum, known history of diverticular disease) Genitourinary: Reports as per HPI, Reports stress incontinence Menstruation: Reports postmenopausal Musculoskeletal: Reports low back pain Integumentary: Reports as per HPI Neurological: Reports memory loss Psychiatric: Reports as per HPI 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, left side 80% occluded, pylonephritis History of Any Multi-Drug Resistant Organisms: MRSA Date of last positivie culture/infection: 2007 MDRO Source:: Left ear Past Surgical History: Appendectomy, Cholecystectomy, Coronary Bypass/CABG, Heart Catheterization With Stent, Hysterectomy, Tonsillectomy Additional Past Surgical History / Comment(s): carotid endarterectomy on the left, CABG- 3 vessel 1995, EYE SURGERY-cataract sx has lens implants, eye laser sx bilaterally, ARCH STUDIES, bilateral iliac stents, kidney stone removed(rt), EGDs and colonoscopies,carotid artery plaque removal, Past Anesthesia/Blood Transfusion Reactions: Previous Problems w/ Anesthesia Additional Past Anesthesia/Blood Transfusion Reaction / Comment(s): w/ gallbladder sx after anesthesia pt stated it made her mean she hit a nurse. Date of Last Stent Placement:: 2011 Past Psychological History: Depression Additional Psychological History / Comment(s): Pt lives with a nephew. She uses no assistive device. She has no home care. Smoking Status: Current every day smoker Past Alcohol Use History: None Reported Additional Past Alcohol Use History / Comment(s): currently smokes 1/2 ppd a day Past Drug Use History: None Reported Additional Drug Use History / Comment(s): pt stated she does not want to quit. - Past Family History Father Family Medical History: Coronary Artery Disease (CAD), Myocardial Infarction ([place]) Additional Family Medical History / Comment(s): at age 61 massive mi Mother Family Medical History: Coronary Artery Disease (CAD), Hypertension Additional Family Medical History / Comment(s): age 54 post op cabg Sister(s) Family Medical History: Cancer Additional Family Medical History / Comment(s): ovarian cancer Brother(s) Family Medical History: Cancer Medications and Allergies Home Medications Medication Instructions Recorded Confirmed Type Atorvastatin [Lipitor] 80 mg PO DAILY 12/18/18 10/15/21 History Nitroglycerin Sl Tabs [Nitrostat] 0.4 mg SL Q5M PRN 12/18/18 10/15/21 History lisinopriL 40 mg PO DAILY 12/18/18 10/15/21 History PARoxetine HCL [Paxil] 40 mg PO DAILY 12/19/18 10/15/21 History Metoprolol Tartrate [Lopressor] 25 mg PO BID #60 tab 07/03/19 10/15/21 Rx Ticagrelor [Brilinta] 90 mg PO BID #60 tab 07/03/19 10/15/21 Rx metFORMIN HCL 500 mg PO BID 12/30/19 10/15/21 History Liraglutide [Victoza 3-Jensen] 1.8 mg SQ DAILY 06/04/20 10/15/21 History Pantoprazole Sodium [Protonix] 40 mg PO DAILY PRN 06/04/20 10/15/21 History HYDROcodone/APAP 7.5-325MG [[place] 1 tab PO Q6H PRN 01/02/21 10/15/21 History 7.5-325] amLODIPine [Norvasc] 5 mg PO DAILY 02/01/21 10/15/21 History Empagliflozin [Jardiance] 25 mg PO DAILY 05/15/21 10/15/21 History Magnesium Chloride [Mag64] 128 mg PO DAILY 05/15/21 10/15/21 History Insulin Degludec [Tresiba] See Protocol SQ DAILY 05/24/21 10/15/21 History Aspirin EC [Ecotrin Low Dose] 81 mg PO DAILY 07/31/21 10/15/21 History Dicyclomine [Bentyl] 20 mg PO QID PRN 08/19/21 10/15/21 History Nitrofurantoin Monohyd/M-Cryst 100 mg PO Q12HR #14 cap 09/16/21 10/15/21 Rx [Macrobid] Insulin Aspart [NovoLOG Flexpen] 10 units SQ W/SUPPER 10/15/21 10/15/21 History Allergies Allergy/AdvReac Type Severity Reaction Status Date / Time sulfamethoxazole Allergy Anaphylaxis Verified 10/15/21 09:55 [From Bactrim] trimethoprim [From Bactrim] Allergy Anaphylaxis Verified 10/15/21 09:55 meperidine HCl [From Demerol] AdvReac Hallucinati Verified 10/15/21 09:55 ons Physical Exam Osteopathic Statement: *. No significant issues noted on an osteopathic structural exam other than those noted in the History and Physical/Consult. Vitals: Vital Signs Temp Pulse Pulse Pulse Resp BP BP 10/16/21 13:30 98.0 F 65 16 125/64 10/16/21 13:00 98.2 F 66 16 122/69 10/16/21 12:50 98.1 F 63 16 120/62 10/16/21 07:15 98.3 F 69 17 138/68 10/16/21 02:00 98.0 F 66 15 133/72 10/15/21 19:37 97.8 F 84 16 131/73 10/15/21 16:15 97.6 F 77 18 147/70 10/15/21 15:00 97.4 F L 71 16 131/73 Pulse Ox 10/16/21 13:30 10/16/21 13:00 10/16/21 12:50 92 L 10/16/21 07:15 94 L 10/16/21 02:00 92 L 10/15/21 19:37 97 10/15/21 16:15 99 10/15/21 15:00 96 Intake and Output 10/15/21 10/16/21 10/16/21 22:59 06:59 14:59 Intake Total 0 Output Total 0 Balance 0 0 Intake: Blood Product 0 Rc As-1 Unit 0 [id number] Output: Emesis 0 Other: Voiding Method Toilet Toilet Diaper Diaper # Voids 2 Weight 71.668 kg General: [Patient awake, alert and oriented times 3. Patient in no acute distress.] Pale conjunctiva HEENT: [PERRL. EOMI. No pharyngeal erythema or exudate.] Neck: [No adenopathy.] Cardiac: [Heart regular in rate and rhythm. No S3. No S4. No clicks, rubs. No murmur.] Lungs: [Clear to auscultation bilaterally.] Abdomen: [No mass. No organomegaly. Bowel sounds presnt and normoactive in all 4 quadrants. Mild diffuse abdominal pain Extremes: [No edema no cyanosis no claudication normal pulses] : Normal female genitalia Musculoskeletal: [No joint erythema, edema or tenderness.] Skin: Capillary refill poor Neurologic: [No lateralizing deficits. CN II - XII grossly intact.] Lymphatic: [No adenopathy.] Results CBC & Chem 7: 10/16/21 10:42 10/16/21 06:38 Labs: Abnormal Lab Results - Last 24 Hours (Table) 10/15/21 10/15/21 10/15/21 Range/Units 10:24 17:27 19:53 WBC (4.50-10.00) X 10*3/uL RBC (4.10-5.20) X 10*6/uL Hgb (12.0-15.0) g/dL Hct (37.2-46.3) % MCH (27.0-32.0) pg MCHC (32.0-37.0) g/dL RDW (11.5-14.5) % Absolute Nucleated RBC (0.00-0.00) X 10*3/uL Immature Gran # (0.00-0.04) X 10*3/uL Neutrophils # (1.80-7.70) X 10*3/uL NRBC/100 WBC Diff (0.0-0.0) /100 WBCS Potassium (3.5-5.5) mmol/L Chloride (96-109) mmol/L Carbon Dioxide (20.0-27.5) mmol/L BUN/Creatinine Ratio (12.00-20.00) Ratio Glucose (70-110) mg/dL POC Glucose (mg/dL) 199 H 354 H (75-99) mg/dL Crossmatch See Detail 10/16/21 10/16/21 10/16/21 Range/Units 06:38 06:38 07:12 WBC 10.97 H (4.50-10.00) X 10*3/uL RBC 2.71 L (4.10-5.20) X 10*6/uL Hgb 6.8 L* (12.0-15.0) g/dL Hct 25.9 L (37.2-46.3) % MCH 25.1 L (27.0-32.0) pg MCHC 26.3 L (32.0-37.0) g/dL RDW 17.0 H (11.5-14.5) % Absolute Nucleated RBC 0.02 H (0.00-0.00) X 10*3/uL Immature Gran # 0.07 H (0.00-0.04) X 10*3/uL Neutrophils # 7.71 H (1.80-7.70) X 10*3/uL NRBC/100 WBC Diff 0.2 H (0.0-0.0) /100 WBCS Potassium 5.9 H (3.5-5.5) mmol/L Chloride 110 H (96-109) mmol/L Carbon Dioxide 14.6 L (20.0-27.5) mmol/L BUN/Creatinine Ratio 26.00 H (12.00-20.00) Ratio Glucose 143 H (70-110) mg/dL POC Glucose (mg/dL) 174 H (75-99) mg/dL Crossmatch 10/16/21 10/16/21 Range/Units 10:42 12:18 WBC (4.50-10.00) X 10*3/uL RBC 3.07 L (4.10-5.20) X 10*6/uL Hgb 7.8 L (12.0-15.0) g/dL Hct 27.4 L (37.2-46.3) % MCH (27.0-32.0) pg MCHC 28.4 L (32.0-37.0) g/dL RDW 16.3 H (11.5-14.5) % Absolute Nucleated RBC (0.00-0.00) X 10*3/uL Immature Gran # (0.00-0.04) X 10*3/uL Neutrophils # (1.80-7.70) X 10*3/uL NRBC/100 WBC Diff (0.0-0.0) /100 WBCS Potassium (3.5-5.5) mmol/L Chloride (96-109) mmol/L Carbon Dioxide (20.0-27.5) mmol/L BUN/Creatinine Ratio (12.00-20.00) Ratio Glucose (70-110) mg/dL POC Glucose (mg/dL) 177 H (75-99) mg/dL Crossmatch Thrombosis Risk Factor Assmnt - Choose All That Apply Any of the Below Risk Factors Present?: No Other Risk Factors: Yes Each Risk Factor Represents 2 Points: Age 61-74 years Thrombosis Risk Factor Assessment Total Risk Factor Score: 2 Thrombosis Risk Factor Assessment Level: Low Risk Assessment and Plan (1) Anemia Current Visit: Yes Status: Acute Code(s): D64.9 - ANEMIA, UNSPECIFIED SNOMED Code(s): 414381418 (2) Lower gastrointestinal hemorrhage Current Visit: Yes Status: Acute Code(s): K92.2 - GASTROINTESTINAL HEM ORRHAGE, UNSPECIFIED SNOMED Code(s): 30225225 (3) AAA (abdominal aortic aneurysm) Current Visit: No Status: Acute Code(s): I71.4 - ABDOMINAL AORTIC ANEURYSM, WITHOUT RUPTURE SNOMED Code(s): 068946189 (4) Abdominal pain Current Visit: No Status: Acute Code(s): R10.9 - UNSPECIFIED ABDOMINAL PAIN SNOMED Code(s): 68794388 (5) Acute GI bleeding Current Visit: No Status: Acute Code(s): K92.2 - GASTROINTESTINAL HEMORRHAGE, UNSPECIFIED SNOMED Code(s): 05556352 (6) Acute diverticulitis of intestine Current Visit: No Status: Acute Code(s): K57.92 - DVTRCLI OF INTEST, PART UNSP, W/O PERF OR ABSCESS W/O BLEED SNOMED Code(s): 111959206 (7) Coronary artery disease with hx of myocardial infarct w/o hx of CABG Current Visit: No Status: Acute Code(s): I25.10 - ATHSCL HEART DISEASE OF [place] CORONARY ARTERY W/O ANG PCTRS SNOMED Code(s): 714262066 (8) Dehydration Current Visit: No Status: Acute Code(s): E86.0 - DEHYDRATION SNOMED Code(s): 73254291 Plan: Patient admitted to the hospital with acute on chronic GI bleed Chronic anemia Hemoglobin dropped 2 g overnight We'll transfuse with 2 units packed red cells 20 mg of Lasix IV push following each unit Consultation with Dr. Radha Parrish MD gen surg Endoscopy tentatively scheduled for Monday morning Time with Patient: Greater than 30
--- NOTE | 2021-10-16 14:02 | P.PN ---
Subjective Progress Note Date: 10/16/21 Principal diagnosis: Type 2 diabetes GI bleed Patient complains of diffuse abdominal pain, hemoglobin dropped 2 g overnight, we will transfer patient to the stepdown unit, transfused packed red cells, reevaluate, consultation with general surgery, tentative endoscopy Monday jag swartz Objective - Vital Signs Vital signs: Vital Signs Temp 98.0 F 10/16/21 13:30 Pulse 65 10/16/21 13:30 Resp 16 10/16/21 13:30 BP 125/64 10/16/21 13:30 Pulse Ox 92 L 10/16/21 12:50 Intake & Output 10/15/21 10/16/21 10/16/21 18:59 06:59 18:59 Intake Total 0 Output Total 0 Balance 0 0 Weight 71.668 kg Intake: Blood Product 0 Rc As-1 Unit 0 [id number] Output: Emesis 0 Other: Voiding Method Toilet Toilet Diaper Diaper # Voids 2 - Exam General: [Patient awake, alert and oriented times 3. Patient in no acute distress. Conjunctiva pale HEENT: [PERRL. EOMI. No pharyngeal erythema or exudate.] Neck: [No adenopathy.] Cardiac: [Heart regular in rate and rhythm. No S3. No S4. No clicks, rubs. No murmur.] Lungs: [Clear to auscultation bilaterally.] Abdomen: [No mass. No organomegaly. Bowel sounds presnt and normoactive in all 4 quadrants. Mild diffuse abdominal pain Extremes: [No edema no cyanosis no claudication normal pulses] : Normal female genitalia Musculoskeletal: [No joint erythema, edema or tenderness.] Skin: Poor capillary refill to nail beds Neurologic: [No lateralizing deficits. CN II - XII grossly intact.] Lymphatic: [No adenopathy.] - Labs CBC & Chem 7: 10/16/21 10:42 10/16/21 06:38 Labs: Abnormal Lab Results - Last 24 Hours (Table) 10/15/21 10/15/21 10/15/21 Range/Units 10:24 17:27 19:53 WBC (4.50-10.00) X 10*3/uL RBC (4.10-5.20) X 10*6/uL Hgb (12.0-15.0) g/dL Hct (37.2-46.3) % MCH (27.0-32.0) pg MCHC (32.0-37.0) g/dL RDW (11.5-14.5) % Absolute Nucleated RBC (0.00-0.00) X 10*3/uL Immature Gran # (0.00-0.04) X 10*3/uL Neutrophils # (1.80-7.70) X 10*3/uL NRBC/100 WBC Diff (0.0-0.0) /100 WBCS Potassium (3.5-5.5) mmol/L Chloride (96-109) mmol/L Carbon Dioxide (20.0-27.5) mmol/L BUN/Creatinine Ratio (12.00-20.00) Ratio Glucose (70-110) mg/dL POC Glucose (mg/dL) 199 H 354 H (75-99) mg/dL Crossmatch See Detail 10/16/21 10/16/21 10/16/21 Range/Units 06:38 06:38 07:12 WBC 10.97 H (4.50-10.00) X 10*3/uL RBC 2.71 L (4.10-5.20) X 10*6/uL Hgb 6.8 L* (12.0-15.0) g/dL Hct 25.9 L (37.2-46.3) % MCH 25.1 L (27.0-32.0) pg MCHC 26.3 L (32.0-37.0) g/dL RDW 17.0 H (11.5-14.5) % Absolute Nucleated RBC 0.02 H (0.00-0.00) X 10*3/uL Immature Gran # 0.07 H (0.00-0.04) X 10*3/uL Neutrophils # 7.71 H (1.80-7.70) X 10*3/uL NRBC/100 WBC Diff 0.2 H (0.0-0.0) /100 WBCS Potassium 5.9 H (3.5-5.5) mmol/L Chloride 110 H (96-109) mmol/L Carbon Dioxide 14.6 L (20.0-27.5) mmol/L BUN/Creatinine Ratio 26.00 H (12.00-20.00) Ratio Glucose 143 H (70-110) mg/dL POC Glucose (mg/dL) 174 H (75-99) mg/dL Crossmatch 10/16/21 10/16/21 Range/Units 10:42 12:18 WBC (4.50-10.00) X 10*3/uL RBC 3.07 L (4.10-5.20) X 10*6/uL Hgb 7.8 L (12.0-15.0) g/dL Hct 27.4 L (37.2-46.3) % MCH (27.0-32.0) pg MCHC 28.4 L (32.0-37.0) g/dL RDW 16.3 H (11.5-14.5) % Absolute Nucleated RBC (0.00-0.00) X 10*3/uL Immature Gran # (0.00-0.04) X 10*3/uL Neutrophils # (1.80-7.70) X 10*3/uL NRBC/100 WBC Diff (0.0-0.0) /100 WBCS Potassium (3.5-5.5) mmol/L Chloride (96-109) mmol/L Carbon Dioxide (20.0-27.5) mmol/L BUN/Creatinine Ratio (12.00-20.00) Ratio Glucose (70-110) mg/dL POC Glucose (mg/dL) 177 H (75-99) mg/dL Crossmatch Assessment and Plan (1) Anemia Current Visit: Yes Status: Acute Code(s): D64.9 - ANEMIA, UNSPECIFIED SN OMED Code(s): 885064419 (2) Lower gastrointestinal hemorrhage Current Visit: Yes Status: Acute Code(s): K92.2 - GASTROINTESTINAL HEMORRHAGE, UNSPECIFIED SNOMED Code(s): 25940779 (3) AAA (abdominal aortic aneurysm) Current Visit: No Status: Acute Code(s): I71.4 - ABDOMINAL AORTIC ANEURYSM, WITHOUT RUPTURE SNOMED Code(s): 349427548 (4) Abdominal pain Current Visit: No Status: Acute Code(s): R10.9 - UNSPECIFIED ABDOMINAL PAIN SNOMED Code(s): 52186927 (5) Acute GI bleeding Current Visit: No Status: Acute Code(s): K92.2 - GASTROINTESTINAL HEMORRHAGE, UNSPECIFIED SNOMED Code(s): 19746803 (6) Acute diverticulitis of intestine Current Visit: No Status: Acute Code(s): K57.92 - DVTRCLI OF INTEST, PART UNSP, W/O PERF OR ABSCESS W/O BLEED SNOMED Code(s): 469924320 (7) Coronary artery disease with hx of myocardial infarct w/o hx of CABG Current Visit: No Status: Acute Code(s): I25.10 - ATHSCL HEART DISEASE OF [place] CORONARY ARTERY W/O ANG PCTRS SNOMED Code(s): 558034595 (8) Dehydration Current Visit: No Status: Acute Code(s): E86.0 - DEHYDRATION SNOMED Code(s): 40588552 Plan: Patient admitted to the hospital with acute on chronic GI bleed Chronic anemia Hemoglobin dropped 1 g overnight We'll transfuse with 1 units packed red cells 20 mg of Lasix IV push following each unit Consultation with Dr. Radha Parrish MD gen surg Endoscopy tentatively scheduled for Monday morning Time with Patient: Greater than 30
[2021-10-16] MEDS ORDERED: FUROSEMIDE 10 MG/ML 2 ML VIAL IV ONE (15:15)
[2021-10-16 16:57] LABS: Glucose,Whole Blood 298 mg/dL (75-99)
[2021-10-16 17:40] LABS: Anisocytosis Slight; HCT 28.2 % (34.0-46.0); HGB 8.5 gm/dL (11.4-16.0); Hypochromasia Marked; MCH 25.9 pg (25.0-35.0); MCHC 30.1 g/dL (31.0-37.0); MCV 86.1 fL (80.0-100.0); Mean Platelet Volume 8.7; Platelet Count 327 k/uL (150-450); Poikilocytosis Slight; RBC 3.27 m/uL (3.80-5.40); RDW 16.1 % (11.5-15.5); WBC 9.4 k/uL (3.8-10.6)
[2021-10-16 20:49] LABS: Glucose,Whole Blood 200 mg/dL (75-99)
[2021-10-17] MEDS: HYDROcodone/APAP 7.5-325MG 1 EACH TAB PO PRN ×3 (04:29→19:21)
[2021-10-17 06:33] LABS: Glucose,Whole Blood 196 mg/dL (75-99)
[2021-10-17] MEDS: INSULIN ASPART (NovoLOG) 100 UNIT/ML VIAL SQ SCH ×4 (06:39→20:46)
[2021-10-17] MEDS: METOPROLOL TARTRATE 25 MG TAB PO SCH ×2 (07:59→20:46)
[2021-10-17] MEDS: MAGNESIUM OXIDE 400 MG TAB PO SCH (07:59)
[2021-10-17] MEDS: ATORVASTATIN 80 MG TAB PO SCH (07:59)
[2021-10-17] MEDS: amLODIPine 5 MG TAB PO SCH (07:59)
[2021-10-17] MEDS: Empagliflozin [Jardiance] PO SCH (08:00)
[2021-10-17] MEDS: PARoxetine 20 MG TAB PO SCH (08:00)
[2021-10-17] MEDS: lisinopriL 20 MG TAB PO SCH (08:00)
--- NOTE | 2021-10-17 10:52 | P.PN ---
Progress Note - Text Progress Note Date: 10/17/21 The patient maintained a stable. She was transfused blood history. She's had no further evidence of GI bleed. She will undergo bowel prep for upper and lower endoscopy in the a.m.
[2021-10-17] MEDS ORDERED: PEG 3350-NA SULF,BICARB,CL/KCL 4,000 ML BOTTLE PO ONE (11:00)
[2021-10-17 11:26] LABS: Glucose,Whole Blood 250 mg/dL (75-99)
--- NOTE | 2021-10-17 16:30 | P.PN ---
Subjective Progress Note Date: 10/17/21 Principal diagnosis: Type 2 diabetes GI bleed Patient complains of diffuse abdominal pain, hemoglobin dropped 2 g overnight, we will transfer patient to the stepdown unit, transfused packed red cells, patient hemoglobin improved to 8.9, consultation with general surgery, tentative endoscopy Monday morning Objective - Vital Signs Vital signs: Vital Signs Temp 98.2 F 10/17/21 16:00 Pulse 71 10/17/21 16:00 Resp 18 10/17/21 16:00 BP 140/68 10/17/21 16:00 Pulse Ox 98 10/17/21 16:00 Intake & Output 10/16/21 10/17/21 10/17/21 18:59 06:59 18:59 Intake Total 490 240 960 Balance 490 240 960 Weight 72.7 kg Intake: Oral 180 240 960 Blood Product 310 Rc As-1 Unit 310 [id number] Other: Voiding Method Toilet Toilet Toilet Diaper Diaper Diaper # Voids 1 1 2 - Exam General: [Patient awake, alert and oriented times 3. Patient in no acute distress. Conjunctiva pale HEENT: [PERRL. EOMI. No pharyngeal erythema or exudate.] Neck: [No adenopathy.] Cardiac: [Heart regular in rate and rhythm. No S3. No S4. No clicks, rubs. No murmur.] Lungs: [Clear to auscultation bilaterally.] Abdomen: [No mass. No organomegaly. Bowel sounds presnt and normoactive in all 4 quadrants. Mild diffuse abdominal pain Extremes: [No edema no cyanosis no claudication normal pulses] : Normal female genitalia Musculoskeletal: [No joint erythema, edema or tenderness.] Skin: Poor capillary refill to nail beds Neurologic: [No lateralizing deficits. CN II - XII grossly intact.] Lymphatic: [No adenopathy.] - Labs CBC & Chem 7: 10/16/21 17:22 10/16/21 06:38 Labs: Abnormal Lab Results - Last 24 Hours (Table) 10/16/21 10/16/21 10/16/21 Range/Units 16:55 17:22 20:06 RBC 3.27 L (3.80-5.40) m/uL Hgb 8.5 L (11.4-16.0) gm/dL Hct 28.2 L (34.0-46.0) % MCHC 30.1 L (31.0-37.0) g/dL RDW 16.1 H (11.5-15.5) % POC Glucose (mg/dL) 298 H 200 H (75-99) mg/dL 10/17/21 10/17/21 Range/Units 05:48 11:24 RBC (3.80-5.40) m/uL Hgb (11.4-16.0) gm/dL Hct (34.0-46.0) % MCHC (31.0-37.0) g/dL RDW (11.5-15.5) % POC Glucose (mg/dL) 196 H 250 H (75-99) mg/dL Assessment and Plan (1) Anemia Current Visit: Yes Status: Acute Code(s): D64.9 - ANEMIA, UNSPECIFIED SNOMED Code(s): 140641075 (2) Lower gastrointestinal hemorrhage Current Visit: Yes Status: Acute Code(s): K92.2 - GASTROINTESTINAL HEMORRHAGE, UNSPECIFIED SNOMED Code(s): 86280351 (3) AAA (abdominal aortic aneurysm) Current Visit: No Status: Acute Code(s): I71.4 - ABDOMINAL AORTIC ANEURYSM, WITHOUT RUPTURE SNOMED Code(s): 338793443 (4) Abdominal pain Current Visit: No Status: Acute Code(s): R10.9 - UNSPECIFIED ABDOMINAL PAIN SNOMED Code(s): 75268082 (5) Acute GI bleeding Current Visit: No Status: Acute Code(s): K92.2 - GASTROINTESTINAL HEMORRHAGE, UNSPECIFIED SNOMED Code(s): 64585052 (6) Acute diverticulitis of intestine Current Visit: No Status: Acute Code(s): K57.92 - DVTRCLI OF INTEST, PART UNSP, W/O PERF OR ABSCESS W/O BLEED SNOMED Code(s): 179101752 (7) Coronary artery disease with hx of myocardial infarct w/o hx of CABG Current Visit: No Status: Acute Code(s): I25.10 - ATHSCL HEART DISEASE OF [place] CORONARY ARTERY W/O ANG PCTRS SNOMED Code(s): 101531519 (8) Dehydration Current Visit: No Status: Acute Code(s): E86.0 - DEHYDRATION SNOMED Code(s): 32691175 Plan: Patient admitted to the hospital with acute on chronic GI bleed Chronic anemia Patient's hemoglobin is above 8 g, patient is hemodynamically stable Consultation with Dr. Radha Parrish MD gen surg Endoscopy tentatively scheduled for Monday morning Time with Patient: Greater than 30
[2021-10-17 16:41] LABS: Glucose,Whole Blood 252 mg/dL (75-99)
[2021-10-17 19:49] LABS: Glucose,Whole Blood 225 mg/dL (75-99)
[2021-10-18] MEDS: HYDROcodone/APAP 7.5-325MG 1 EACH TAB PO PRN ×3 (02:40→23:04)
[2021-10-18 05:44] LABS: Glucose,Whole Blood 192 mg/dL (75-99)
[2021-10-18] MEDS: INSULIN ASPART (NovoLOG) 100 UNIT/ML VIAL SQ SCH ×4 (05:53→21:48)
[2021-10-18] MEDS ORDERED: ACETAMINOPHEN IV (For NPO) 1,000 MG in EMPTY BAG 1 BAG IVPB ONE (08:11)
[2021-10-18 12:20] LABS: Glucose,Whole Blood 198 mg/dL (75-99)
[2021-10-18 12:39] LABS: Anisocytosis Slight; HCT 26.1 % (34.0-46.0); HGB 8.3 gm/dL (11.4-16.0); Hypochromasia Moderate; MCH 26.3 pg (25.0-35.0); MCHC 31.9 g/dL (31.0-37.0); MCV 82.6 fL (80.0-100.0); Mean Platelet Volume 8.7; Platelet Count 323 k/uL (150-450); Poikilocytosis Slight; RBC 3.16 m/uL (3.80-5.40); RDW 16.6 % (11.5-15.5); WBC 7.4 k/uL (3.8-10.6)
[2021-10-18 12:57] LABS: ALT 15 U/L (4-34); AST 21 U/L (14-36); African American GFR (CKD) >90 (>60 ml/min/1.73 sqM); Alkaline Phosphatase 100 U/L (38-126); Anion Gap 4 mmol/L; Blood Urea Nitrogen 4 mg/dL (7-17); Calcium 8.8 mg/dL (8.4-10.2); Carbon Dioxide 25 mmol/L (22-30); Chloride 107 mmol/L (98-107); Glucose 179 mg/dL (74-99); Non-African American GFR(CKD) >90 (>60 ml/min/1.73 sqM); Potassium 3.5 mmol/L (3.5-5.1); Sodium 136 mmol/L (137-145); Total Bilirubin 0.2 mg/dL (0.2-1.3); Total Protein 5.4 g/dL (6.3-8.2)
[2021-10-18] MEDS ORDERED: PROPOFOL 10 MG/ML 20 ML VIAL IV ONE (12:59)
[2021-10-18] MEDS ORDERED: LIDOCAINE 1% INJ 10MG/ML (20 ML MDV) ONE (12:59)
[2021-10-18] MEDS ORDERED: IV FLUID CONTINUATION 1,000 ML IV ONE (13:04)
--- NOTE | 2021-10-18 13:29 | P.OP ---
Date of Procedure: 10/18/21 Preoperative Diagnosis: GI bleed Anemia Postoperative Diagnosis: Antral gastritis External hemorrhoids Significant diverticulosis Procedure(s) Performed: EGD Colonoscopy Anesthesia: MAC Surgeon: Dany Hurd Pathology: other (Antrum) Condition: stable Disposition: PACU Description of Procedure: The patient's placed on the endoscopy table in the lateral position. She received IV sedation. The gastroscope placed oropharynx passed in the esophagus into the stomach. Scope some placed through the pylorus. The first and second portion of the duodenum appeared normal. Scope was then brought back the antrum this. Mildly inflamed. A biopsies performed. Scope was retroflexed remainder of the stomach appeared normal. The GE junction was at 40 cm with the distal esophagus appeared normal. The proximal esophagus appeared normal. Scope withdrawn for patient. There was no evidence of any upper GI bleed. Next digital rectal exam was performed which revealed external hemorrhoids. Flexible colonoscope was then placed patient anus passed throughout the entire colon. The ileocecal valve was visualized. There was a large amount liquid stool in the right colon which limited the view of the mucosa. Descending colon appeared normal. The transverse colon appeared normal. In the descending colon there is some mild diverticular changes. In the; there is extensive diverticular changes. Scope was brought back the rectum this appeared normal. Scope was withdrawn for patient. There was no unsteady active GI bleed. His presumed the patient may have had bleeding from diverticulosis or hemorrhoids.
[2021-10-18] MEDS: lisinopriL 20 MG TAB PO SCH (13:50)
[2021-10-18] MEDS: MAGNESIUM OXIDE 400 MG TAB PO SCH (13:50)
[2021-10-18] MEDS: METOPROLOL TARTRATE 25 MG TAB PO SCH ×2 (13:51→21:48)
[2021-10-18] MEDS: PARoxetine 20 MG TAB PO SCH (13:51)
[2021-10-18] MEDS: ATORVASTATIN 80 MG TAB PO SCH (13:51)
[2021-10-18] MEDS: amLODIPine 5 MG TAB PO SCH (13:51)
[2021-10-18] MEDS: Empagliflozin [Jardiance] PO SCH (13:52)
--- NOTE | 2021-10-18 13:56 | P.PN ---
Subjective Progress Note Date: 10/18/21 GI bleed NPO, completed prep, scheduled for EGD and colonoscopy today. Labs pending. Denies abdominal pain. Reports no further rectal bleeding. Denies chest pain, palpitations or shortness of breath. Objective - Vital Signs Vital signs: Vital Signs Temp 98.8 F 10/18/21 11:51 Pulse 64 10/18/21 11:51 Resp 20 10/18/21 11:51 BP 169/76 10/18/21 11:51 Pulse Ox 93 L 10/18/21 11:51 Intake & Output 10/17/21 10/18/21 10/18/21 18:59 06:59 18:59 Intake Total 1320 200 Balance 1320 200 Intake: IV 200 Oral 1320 0 Other: Voiding Method Toilet Toilet Toilet Diaper Diaper Diaper # Voids 2 1 0 # Bowel Movements 1 - Exam - Exam General: alert and oriented times 3.no acute distress. HEENT: [PERRL. EOMI. No pharyngeal erythema or exudate.] Neck: Supple, no JVD Cardiac: [Heart regular in rate and rhythm. No S3. No S4. No clicks, rubs. No murmur.] Lungs: [Clear to auscultation bilaterally.] Abdomen: [Soft, nontender ,No mass. No organomegaly. Bowel sounds presnt and normoactive in all 4 quadrants. Extremes: [No edema no cyanosis no claudication normal pulses] Neurologic: CN II - XII grossly intact.] - Labs CBC & Chem 7: 10/18/21 12:24 10/18/21 12:24 Labs: Abnormal Lab Results - Last 24 Hours (Table) 10/17/21 10/17/21 10/18/21 Range/Units 16:39 19:46 05:42 RBC (3.80-5.40) m/uL Hgb (11.4-16.0) gm/dL Hct (34.0-46.0) % RDW (11.5-15.5) % Sodium (137-145) mmol/L BUN (7-17) mg/dL Creatinine (0.52-1.04) mg/dL Glucose (74-99) mg/dL POC Glucose (mg/dL) 252 H 225 H 192 H (75-99) mg/dL Total Protein (6.3-8.2) g/dL Albumin (3.5-5.0) g/dL 10/18/21 10/18/21 10/18/21 Range/Units 12:18 12:24 12:24 RBC 3.16 L (3.80-5.40) m/uL Hgb 8.3 L (11.4-16.0) gm/dL Hct 26.1 L (34.0-46.0) % RDW 16.6 H (11.5-15.5) % Sodium 136 L (137-145) mmol/L BUN 4 L (7-17) mg/dL Creatinine 0.48 L (0.52-1.04) mg/dL Glucose 179 H (74-99) mg/dL POC Glucose (mg/dL) 198 H (75-99) mg/dL Total Protein 5.4 L (6.3-8.2) g/dL Albumin 3.0 L (3.5-5.0) g/dL Assessment and Plan Assessment: (1) Anemia Current Visit: Yes Status: Acute Code(s): D64.9 - ANEMIA, UNSPECIFIED SNOMED Code(s): 581602838 (2) Lower gastrointestinal hemorrhage Current Visit: Yes Status: Acute Code(s): K92.2 - GASTROINTESTINAL HEMORRHAGE, UNSPECIFIED SNOMED Code(s): 28227742 (3) AAA (abdominal aortic aneurysm) Current Visit: No Status: Acute Code(s): I71.4 - ABDOMINAL AORTIC ANEURYSM, WITHOUT RUPTURE SNOMED Code(s): 563876025 (4) Abdominal pain Current Visit: No Status: Acute Code(s): R10.9 - UNSPECIFIED ABDOMINAL PAIN SNOMED Code(s): 30696145 (5) Acute GI bleeding Current Visit: No Status: Acute Code(s): K92.2 - GASTROINTESTINAL HEMORRHAGE, UNSPECIFIED SNOMED Code(s): 55182331 (6) Acute diverticulitis of intestine Current Visit: No Status: Acute Code(s): K57.92 - DVTRCLI OF INTEST, PART UNSP, W/O PERF OR ABSCESS W/O BLEED SNOMED Code(s): 679492320 (7) Coronary artery disease with hx of myocardial infarct w/o hx of CABG Current Visit: No Status: Acute Code(s): I25.10 - ATHSCL HEART DISEASE OF [place] CORONARY ARTERY W/O ANG PCTRS SNOMED Code(s): 838374434 (8) Dehydration Current Visit: No Status: Acute Code(s): E86.0 - DEHYDRATION SNOMED Code(s): 47942809 Plan: Continue on current medication regime ,monitoring and symptomatic treatment. NPO, EGD/Colonscopy pending. Maintain PPI. Close monitoring of h emoglobin, labs pending. The impression and plan of care has been dictated as directed. : I performed a history and examination of this patient, discussed the same with the dictator. I agree with the dictator's note ,documented as a scribe. Any additional findings or plans will be noted.
[2021-10-18 16:50] LABS: Glucose,Whole Blood 288 mg/dL (75-99)
[2021-10-18 20:01] LABS: Glucose,Whole Blood 314 mg/dL (75-99)
[2021-10-19 05:34] VITALS: RESP 18
[2021-10-19 05:52] LABS: Glucose,Whole Blood 226 mg/dL (75-99)
[2021-10-19] MEDS: HYDROcodone/APAP 7.5-325MG 1 EACH TAB PO PRN ×2 (05:59→11:30)
[2021-10-19] MEDS: INSULIN ASPART (NovoLOG) 100 UNIT/ML VIAL SQ SCH ×2 (05:59→11:31)
[2021-10-19 06:28] LABS: Anisocytosis Slight; Basophils # (A) 0.1 k/uL (0-0.2); Basophils % (A) 1 %; Eosinophils # (A) 0.2 k/uL (0-0.7); Eosinophils % (A) 2 %; HGB 8.4 gm/dL (11.4-16.0); Hypochromasia Marked; Lymphocytes # (A) 2.5 k/uL (1.0-4.8); Lymphocytes % (A) 29 %; MCH 25.9 pg (25.0-35.0); MCHC 31.3 g/dL (31.0-37.0); MCV 82.8 fL (80.0-100.0); Mean Platelet Volume 8.5; Monocytes # (A) 0.4 k/uL (0-1.0); Monocytes % (A) 5 %; Neutrophils # (A) 5.6 k/uL (1.3-7.7); Neutrophils % (A) 63 %; Platelet Count 323 k/uL (150-450); Poikilocytosis Slight; RBC 3.26 m/uL (3.80-5.40); RDW 16.4 % (11.5-15.5); WBC 8.9 k/uL (3.8-10.6)
[2021-10-19 06:38] LABS: African American GFR (CKD) >90 (>60 ml/min/1.73 sqM); Anion Gap 8 mmol/L; Blood Urea Nitrogen 9 mg/dL (7-17); Carbon Dioxide 23 mmol/L (22-30); Chloride 104 mmol/L (98-107); Glucose 199 mg/dL (74-99); Non-African American GFR(CKD) >90 (>60 ml/min/1.73 sqM); Potassium 4.1 mmol/L (3.5-5.1); Sodium 135 mmol/L (137-145)
[2021-10-19] MEDS: lisinopriL 20 MG TAB PO SCH (08:22)
[2021-10-19] MEDS: Empagliflozin [Jardiance] PO SCH (08:22)
[2021-10-19] MEDS: PARoxetine 20 MG TAB PO SCH (08:23)
[2021-10-19] MEDS: amLODIPine 5 MG TAB PO SCH (08:23)
[2021-10-19] MEDS: MAGNESIUM OXIDE 400 MG TAB PO SCH (08:23)
[2021-10-19] MEDS: METOPROLOL TARTRATE 25 MG TAB PO SCH (08:23)
[2021-10-19] MEDS: ATORVASTATIN 80 MG TAB PO SCH (08:23)
[2021-10-19 11:28] LABS: Glucose,Whole Blood 274 mg/dL (75-99)
[2021-10-19 11:33] VITALS: BP 136/73; PULSE 57; TEMP 97.7
--- NOTE | 2021-10-19 13:18 | P.PN ---
Subjective Progress Note Date: 10/19/21 CHIEF COMPLAINT: Anemia and GI bleeding HISTORY OF PRESENT ILLNESS: Patient is status post EGD and colonoscopy which revealed antral gastritis, external hemorrhoids and significant diverticulosis. Patient has had no further bleeding. Tolerating diet. Denies any abdominal pain. Afebrile. WBC 8.9 hemoglobin 8.4 Patient seen and examined with Dr. cisneros PHYSICAL EXAM: VITAL SIGNS: Reviewed. GENERAL: Well-developed in no acute distress. HEENT: No sclera icterus. Extraocular movements grossly intact. Moist buccal mucosa. Head is atraumatic, normocephalic. ABDOMEN: Soft. Nondistended. Nontender. NEUROLOGIC: Alert and oriented. Cranial nerves II through XII grossly intact. ASSESSMENT: 1. Acute GI bleed and anemia likely secondary to possible bleeding from diverticulosis or hemorrhoids. Patient is status post EGD and colonoscopy which demonstrated antral gastritis, external hemorrhoids and significant diverticulosis. No evidence of active bleeding. Hemoglobin stable. PLAN: -Patient can be discharge from surgical standpoint -Patient follow up with Dr. Cisneros in the office -Okay to resume aspirin and Brilenta Physician Retail Route Supervisor note has been reviewed by physician. Signing provider agrees with the documented findings, assessment, and plan of care. Objective - Vital Signs Vital signs: Vital Signs Temp 97.7 F 10/19/21 11:33 Pulse 57 L 10/19/21 11:33 Resp 18 10/19/21 11:33 BP 136/73 10/19/21 11:33 Pulse Ox 96 10/19/21 11:33 Intake & Output 10/18/21 10/19/21 10/19/21 18:59 06:59 18:59 Intake Total 680 600 Balance 680 600 Weight 73.5 kg Intake: IV 200 Oral 480 600 Other: Voiding Method Toilet Toilet Toilet Diaper Diaper # Voids 3 1 # Bowel Movements 1 - Labs CBC & Chem 7: 10/19/21 05:30 10/19/21 05:30 Labs: Abnormal Lab Results - Last 24 Hours (Table) 10/18/21 10/18/21 10/19/21 Range/Units 16:48 19:59 05:30 RBC 3.26 L (3.80-5.40) m/uL Hgb 8.4 L (11.4-16.0) gm/dL Hct 27.0 L (34.0-46.0) % RDW 16.4 H (11.5-15.5) % Sodium (137-145) mmol/L Glucose (74-99) mg/dL POC Glucose (mg/dL) 288 H 314 H (75-99) mg/dL 10/19/21 10/19/21 10/19/21 Range/Units 05:30 05:51 11:26 RBC (3.80-5.40) m/uL Hgb (11.4-16.0) gm/dL Hct (34.0-46.0) % RDW (11.5-15.5) % Sodium 135 L (137-145) mmol/L Glucose 199 H (74-99) mg/dL POC Glucose (mg/dL) 226 H 274 H (75-99) mg/dL
--- NOTE | 2021-10-19 13:36 | P.DS ---
Providers Date of admission: 10/16/21 17:05 Expected date of discharge: 10/19/21 Attending physician: Hema Mckenzie Consults: 10/15/21 17:52 Consult Physician Stat Consulting Provider: Dany Hurd Consult Reason/Comments: GI bleed Do you want consulting provider notified?: Yes Primary care physician: Sincere Casey [place] Hospital Course: Final diagnoses: (1) Anemia Current Visit: Yes Status: Acute Code(s): D64.9 - ANEMIA, UNSPECIFIED SNOMED Code(s): 816969691 (2) Lower gastrointestinal hemorrhage, status post EGD and colonoscopy reporting antral gastritis, external hemorrhoids, significant diverticulosis Current Visit: Yes Status: Acute Code(s): K92.2 - GASTROINTESTINAL HEMORRHAGE, UNSPECIFIED SNOMED Code(s): 64745161 (3) AAA (abdominal aortic aneurysm) Current Visit: No Status: Acute Code(s): I71.4 - ABDOMINAL AORTIC ANEURYSM, WITHOUT RUPTURE SNOMED Code(s): 398341578 (4) Abdominal pain Current Visit: No Status: Acute Code(s): R10.9 - UNSPECIFIED ABDOMINAL PAIN SNOMED Code(s): 27168158 (5) Acute GI bleeding Current Visit: No Status: Acute Code(s): K92.2 - GASTROINTESTINAL HEMORRHAGE, UNSPECIFIED SNOMED Code(s): 16359684 (6) Acute diverticulitis of intestine Current Visit: No Status: Acute Code(s): K57.92 - DVTRCLI OF INTEST, PART UNSP, W/O PERF OR ABSCESS W/O BLEED SNOMED Code(s): 169017001 (7) Coronary artery disease with hx of myocardial infarct w/o hx of CABG Current Visit: No Status: Acute Code(s): I25.10 - ATHSCL HEART DISEASE OF [place] CORONARY ARTERY W/O ANG PCTRS SNOMED Code(s): 089128308 (8) Dehydration Current Visit: No Status: Acute Code(s): E86.0 - DEHYDRATION SNOMED Code(s): 35349960 Hospital course: Patient admitted with acute blood loss anemia, reported bright red rectal bleeding in a patient on both Dilantin and aspirin. Completed EGD an d colonoscopy . Reporting antral gastritis, external hemorrhoids and significant diverticulosis with no evidence of further bleeding. Tolerating diet, denies nausea vomiting or diarrhea. Denies abdominal pain. Hemoglobin stable 8.4. Afebrile, normal WBC. Patient has been cleared to resume aspirin and Brilinta by general surgery as well as cleared for discharge. Patient will be discharged home today in a stable condition with guarded prognosis. Repeat CBC in 3 days. The impression and plan of care has been dictated as directed. : I performed a history and examination of this patient, discussed the same with the dictator. I agree with the dictator's note ,documented as a scribe. Any additional findings or plans will be noted. Patient Condition at Discharge: Stable Plan - Discharge Summary Discharge Rx Participant: No New Discharge Prescriptions: Continue Nitroglycerin Sl Tabs [Nitrostat] 0.4 mg SL Q5M PRN PRN Reason: Chest Pain lisinopriL 40 mg PO DAILY Atorvastatin [Lipitor] 80 mg PO DAILY PARoxetine HCL [Paxil] 40 mg PO DAILY Ticagrelor [Brilinta] 90 mg PO BID #60 tab Metoprolol Tartrate [Lopressor] 25 mg PO BID #60 tab metFORMIN HCL 500 mg PO BID Liraglutide [Victoza 3-Jensen] 1.8 mg SQ DAILY HYDROcodone/APAP 7.5-325MG [[place] 7.5-325] 1 tab PO Q6H PRN PRN Reason: Pain amLODIPine [Norvasc] 5 mg PO DAILY Magnesium Chloride [Mag64] 128 mg PO DAILY Aspirin EC [Ecotrin Low Dose] 81 mg PO DAILY Nitrofurantoin Monohyd/M-Cryst [Macrobid] 100 mg PO Q12HR #14 cap Insulin Aspart [NovoLOG Flexpen] 10 units SQ W/SUPPER Empagliflozin [Jardiance] 25 mg PO DAILY Insulin Degludec [Tresiba] See Protocol SQ DAILY Dicyclomine [Bentyl] 20 mg PO QID PRN PRN Reason: Gi Upset Changed Pantoprazole Sodium [Protonix] 40 mg PO DAILY #0 Discharge Medication List Atorvastatin [Lipitor] 80 mg PO DAILY 12/18/18 [History] Nitroglycerin Sl Tabs [Nitrostat] 0.4 mg SL Q5M PRN 12/18/18 [History] lisinopriL 40 mg PO DAILY 12/18/18 [History] PARoxetine HCL [Paxil] 40 mg PO DAILY 12/19/18 [History] Metoprolol Tartrate [Lopressor] 25 mg PO BID #60 tab 07/03/19 [Rx] Ticagrelor [Brilinta] 90 mg PO BID #60 tab 07/03/19 [Rx] metFORMIN HCL 500 mg PO BID 12/30/19 [History] Liraglutide [Victoza 3-Jensen] 1.8 mg SQ DAILY 06/04/20 [History] HYDROcodone/APAP 7.5-325MG [[place] 7.5-325] 1 tab PO Q6H PRN 01/02/21 [History] amLODIPine [Norvasc] 5 mg PO DAILY 02/01/21 [History] Empagliflozin [Jardiance] 25 mg PO DAILY 05/15/21 [History] Magnesium Chloride [Mag64] 128 mg PO DAILY 05/15/21 [History] Insulin Degludec [Tresiba] See Protocol SQ DAILY 05/24/21 [History] Aspirin EC [Ecotrin Low Dose] 81 mg PO DAILY 07/31/21 [History] Dicyclomine [Bentyl] 20 mg PO QID PRN 08/19/21 [History] Nitrofurantoin Monohyd/M-Cryst [Macrobid] 100 mg PO Q12HR #14 cap 09/16/21 [Rx] Insulin Aspart [NovoLOG Flexpen] 10 units SQ W/SUPPER 10/15/21 [History] Pantoprazole Sodium [Protonix] 40 mg PO DAILY #0 10/19/21 [Rx] Follow up Appointment(s)/Referral(s): Sincere Casey MD [Primary Care Provider] - 10/22/21 2:15 pm Dany Hurd MD [STAFF PHYSICIAN] - 2 Weeks (office closed for lunch, please call to make follow up appointment) Ambulatory/Diagnostic Orders: Complete Blood Count w/diff [LAB.AMB] Time Frame: 3 Days, Location: None Selected Patient Instructions/Handouts: Anemia (DC) Discharge Disposition: HOME SELF-CARE
== END 2021-10-19 12:33 | disposition home or self-care (01) | DRG 378 ==
LOC: EC 09:51 → 6NMEDSUR 12:28 → 3SCARD 10-16 14:04 → OBSVTOIN 10-16 17:05
PROVIDERS: ADMIT Family Medicine; ATTEND Family Medicine
PROC: 30233N1 Transfusion of Nonautologous Red Blood Cells into Peripheral Vein, Percutaneous Approach (ICD-10-PCS; 2021-10-16)
PROC: 0DB78ZX Excision of Stomach, Pylorus, Via Natural or Artificial Opening Endoscopic, Diagnostic (ICD-10-PCS; principal; 2021-10-18 08:20)
PROC: 0DJD8ZZ Inspection of Lower Intestinal Tract, Via Natural or Artificial Opening Endoscopic (ICD-10-PCS; 2021-10-18 08:20)
DX: K92.2 Gastrointestinal hemorrhage, unspecified (principal); K57.92 Diverticulitis of intestine, part unspecified, without perforation or abscess without bleeding; D62 Acute posthemorrhagic anemia; Z20.822 Contact with and (suspected) exposure to COVID-19; Z16.24 Resistance to multiple antibiotics; E11.51 Type 2 diabetes mellitus with diabetic peripheral angiopathy without gangrene; E11.65 Type 2 diabetes mellitus with hyperglycemia; E78.5 Hyperlipidemia, unspecified; E86.0 Dehydration; F17.210 Nicotine dependence, cigarettes, uncomplicated; F32.A Depression, unspecified; I10 Essential (primary) hypertension; I25.10 Atherosclerotic heart disease of native coronary artery without angina pectoris; I25.2 Old myocardial infarction; I71.4 Abdominal aortic aneurysm, without rupture; K29.70 Gastritis, unspecified, without bleeding; K64.4 Residual hemorrhoidal skin tags; N28.9 Disorder of kidney and ureter, unspecified; K21.9 Gastro-esophageal reflux disease without esophagitis; Z82.49 Family history of ischemic heart disease and other diseases of the circulatory system; Z80.41 Family history of malignant neoplasm of ovary; Z79.899 Other long term (current) drug therapy; Z79.84 Long term (current) use of oral hypoglycemic drugs; Z95.1 Presence of aortocoronary bypass graft; Z91.19 Patient's noncompliance with other medical treatment and regimen; Z90.710 Acquired absence of both cervix and uterus; Z87.442 Personal history of urinary calculi; Z86.73 Personal history of transient ischemic attack (TIA), and cerebral infarction without residual deficits; Z79.82 Long term (current) use of aspirin; Z79.4 Long term (current) use of insulin; Z79.02 Long term (current) use of antithrombotics/antiplatelets
CPT/HCPCS: 36415; 43239; 45378; 74176; 80048; 80053; 83735; 84443; 84484; 85025; 85027; 85610; 85730; 86850; 86900; 86901; 86920; 87635; 88305; 96361; 96374; 99285

== ENCOUNTER 2021-10-21 11:02 | Emergency (ER) | payer MEDICARE, OTHER ==
[2021-10-21] MEDS ORDERED: SODIUM CHLORIDE 0.9% 500 ML 500 ML IV STA (12:07)
[2021-10-21] MEDS ORDERED: HYDROmorphone 0.5 MG/0.5 ML SYRINGE IVP STA (12:08)
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
[2021-10-21 12:56] LABS: Anisocytosis Slight; Basophils # (A) 0.1 k/uL (0-0.2); Basophils % (A) 1 %; Eosinophils # (A) 0.2 k/uL (0-0.7); Eosinophils % (A) 2 %; HCT 29.2 % (34.0-46.0); HGB 8.7 gm/dL (11.4-16.0); Hypochromasia Marked; Lymphocytes # (A) 2.1 k/uL (1.0-4.8); Lymphocytes % (A) 22 %; MCH 25.6 pg (25.0-35.0); MCHC 29.9 g/dL (31.0-37.0); MCV 85.7 fL (80.0-100.0); Mean Platelet Volume 8.4; Monocytes # (A) 0.4 k/uL (0-1.0); Monocytes % (A) 5 %; Neutrophils # (A) 6.6 k/uL (1.3-7.7); Neutrophils % (A) 68 %; Platelet Count 364 k/uL (150-450); Poikilocytosis Slight; RBC 3.41 m/uL (3.80-5.40); RDW 16.9 % (11.5-15.5); WBC 9.7 k/uL (3.8-10.6)
[2021-10-21 13:05] LABS: ALT 15 U/L (4-34); AST 17 U/L (14-36); African American GFR (CKD) >90 (>60 ml/min/1.73 sqM); Albumin 3.7 g/dL (3.5-5.0); Alkaline Phosphatase 132 U/L (38-126); Anion Gap 9 mmol/L; Blood Urea Nitrogen 13 mg/dL (7-17); Calcium 9.3 mg/dL (8.4-10.2); Carbon Dioxide 23 mmol/L (22-30); Chloride 103 mmol/L (98-107); Glucose 183 mg/dL (74-99); Magnesium 1.6 mg/dL (1.6-2.3); Non-African American GFR(CKD) >90 (>60 ml/min/1.73 sqM); Potassium 4.4 mmol/L (3.5-5.1); Sodium 135 mmol/L (137-145); Total Bilirubin 0.3 mg/dL (0.2-1.3); Total Protein 6.3 g/dL (6.3-8.2)
[2021-10-21 13:09] LABS: INR 0.9 (<1.2); Prothrombin Time 9.8 sec (9.0-12.0)
[2021-10-21 14:16] VITALS: BP 126/78; PULSE 90; RESP 18; TEMP 98
== END 2021-10-21 14:16 | disposition home or self-care (01) ==
LOC: EC 11:02
DX: K64.4 Residual hemorrhoidal skin tags (principal); I25.10 Atherosclerotic heart disease of native coronary artery without angina pectoris; E11.9 Type 2 diabetes mellitus without complications; K21.9 Gastro-esophageal reflux disease without esophagitis; E78.5 Hyperlipidemia, unspecified; I10 Essential (primary) hypertension; F32.A Depression, unspecified; F17.200 Nicotine dependence, unspecified, uncomplicated; Z79.84 Long term (current) use of oral hypoglycemic drugs; Z79.4 Long term (current) use of insulin; Z79.82 Long term (current) use of aspirin; Z88.1 Allergy status to other antibiotic agents; Z88.2 Allergy status to sulfonamides; Z86.73 Personal history of transient ischemic attack (TIA), and cerebral infarction without residual deficits; Z90.49 Acquired absence of other specified parts of digestive tract; Z95.1 Presence of aortocoronary bypass graft; Z90.710 Acquired absence of both cervix and uterus; Z87.442 Personal history of urinary calculi
CPT/HCPCS: 99283; 96374; 36415; 80053; 83605; 83735; 85025; 85610; 85730; 82272; J1170

== ENCOUNTER 2021-11-29 20:57 | Emergency (ER) | payer MEDICARE, OTHER ==
[2021-11-29 21:12] VITALS: BP 111/64; PULSE 89; RESP 20; TEMP 97.5
[2021-11-29 21:30] LABS: Anisocytosis Slight; Basophils # (A) 0.1 k/uL (0-0.2); Basophils % (A) 1 %; Eosinophils # (A) 0.3 k/uL (0-0.7); Eosinophils % (A) 2 %; HCT 27.2 % (34.0-46.0); Hypochromasia Marked; Lymphocytes # (A) 2.3 k/uL (1.0-4.8); Lymphocytes % (A) 21 %; MCH 25.1 pg (25.0-35.0); MCHC 29.4 g/dL (31.0-37.0); MCV 85.6 fL (80.0-100.0); Mean Platelet Volume 8.5; Monocytes # (A) 0.4 k/uL (0-1.0); Monocytes % (A) 4 %; Neutrophils # (A) 7.5 k/uL (1.3-7.7); Neutrophils % (A) 71 %; Platelet Count 396 k/uL (150-450); RBC 3.18 m/uL (3.80-5.40); RDW 16.2 % (11.5-15.5); WBC 10.6 k/uL (3.8-10.6)
[2021-11-29 21:37] LABS: ALT 15 U/L (4-34); AST 18 U/L (14-36); African American GFR (CKD) >90 (>60 ml/min/1.73 sqM); Albumin 3.7 g/dL (3.5-5.0); Alkaline Phosphatase 141 U/L (38-126); Amylase 80 U/L (30-110); Anion Gap 13 mmol/L; Blood Urea Nitrogen 22 mg/dL (7-17); Carbon Dioxide 16 mmol/L (22-30); Chloride 104 mmol/L (98-107); Glucose 310 mg/dL (74-99); Lipase 143 U/L (23-300); Non-African American GFR(CKD) >90 (>60 ml/min/1.73 sqM); Potassium 4.2 mmol/L (3.5-5.1); Sodium 133 mmol/L (137-145); Total Bilirubin 0.3 mg/dL (0.2-1.3); Total Protein 6.2 g/dL (6.3-8.2)
== END 2021-11-29 23:34 | disposition left against medical advice (07) ==
LOC: EC 20:57
DX: Z53.21 Procedure and treatment not carried out due to patient leaving prior to being seen by health care provider (principal)
CPT/HCPCS: 36415; 80053; 82150; 83690; 85025; 99499

== ENCOUNTER 2021-12-07 13:55 | Inpatient (IN) | payer MEDICARE, OTHER ==
[2021-12-07] MEDS ORDERED: SODIUM CHLORIDE 0.9% 500 ML 500 ML IV STA (16:44)
[2021-12-07] MEDS ORDERED: ONDANSETRON 4 MG/2 ML VIAL IVP STA (16:44)
[2021-12-07] MEDS ORDERED: SODIUM CHLORIDE 0.9% 1,000 ML IV STA (16:44)
[2021-12-07] MEDS ORDERED: MORPHINE SULFATE 4 MG/ML SYRINGE IVP STA (16:44)
--- NOTE | 2021-12-07 17:08 | ED ---
Nausea/Vomiting/Diarrhea HPI - General Chief complaint: Nausea/Vomiting/Diarrhea Stated complaint: Vomiting,diarrhea,abd pain Time Seen by Provider: 12/07/21 16:40 Source: patient Mode of arrival: ambulatory Limitations: no limitations - History of Present Illness Initial comments: 66 year-old female patient presents for evaluation of vomiting since last night. Unable to keep down food or fluids. Reports lower abdominal pain. Denies radiation of the pain to her back or legs. Denies chest pain or shortness of breath. Has had several episodes of diarrhea with this. Denies any hematochezia, melena, or hematemesis. Denies fever or chills. Denies starting or stopping any medications. Denies alcohol use. Reports history of GI Bleed, has had upper and lower endoscopy without significant findings. Denies taking medication for her symptoms. - Related Data Home Medications Medication Instructions Recorded Confirmed Atorvastatin [Lipitor] 80 mg PO DAILY 12/18/18 12/07/21 Nitroglycerin Sl Tabs [Nitrostat] 0.4 mg SL Q5M PRN 12/18/18 12/07/21 lisinopriL 40 mg PO DAILY 12/18/18 12/07/21 PARoxetine HCL [Paxil] 40 mg PO DAILY 12/19/18 12/07/21 metFORMIN HCL 500 mg PO BID 12/30/19 12/07/21 Liraglutide [Victoza 3-Jensen] 1.8 mg SQ DAILY 06/04/20 12/07/21 HYDROcodone/APAP 7.5-325MG [[place] 1 - 2 tab PO Q8H PRN 01/02/21 12/07/21 7.5-325] amLODIPine [Norvasc] 5 mg PO DAILY 02/01/21 12/07/21 Empagliflozin [Jardiance] 25 mg PO HS 05/15/21 12/07/21 Magnesium Chloride [Mag64] 128 mg PO DAILY 05/15/21 12/07/21 Insulin Degludec [Tresiba] See Protocol SQ DAILY 05/24/21 12/07/21 Aspirin EC [Ecotrin Low Dose] 81 mg PO HS 07/31/21 12/07/21 Dicyclomine [Bentyl] 20 mg PO QID PRN 08/19/21 12/07/21 Insulin Aspart [NovoLOG Flexpen] See Protocol SQ BID 10/15/21 12/07/21 Previous Rx's Medication Instructions Recorded Metoprolol Tartrate [Lopressor] 25 mg PO BID #60 tab 07/03/19 Ticagrelor [Brilinta] 90 mg PO BID #60 tab 07/03/19 Pantoprazole Sodium [Protonix] 40 mg PO DAILY #0 10/19/21 Allergies Allergy/AdvReac Type Severity Reaction Status Date / Time sulfamethoxazole Allergy Anaphylaxis Verified 12/07/21 19:06 [From Bactrim] trimethoprim [From Bactrim] Allergy Anaphylaxis Verified 12/07/21 19:06 meperidine HCl [From Demerol] AdvReac Hallucinati Verified 12/07/21 19:06 ons Review of Systems ROS Statement: Those systems with pertinent positive or pertinent negative responses have been documented in the HPI. ROS Other: All systems not noted in ROS Statement are negative. 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, left side 80% occluded, pylonephritis History of Any Multi-Drug Resistant Organisms: MRSA Date of last positivie culture/infection: 2007 MDRO Source:: Left ear Past Surgical History: Appendectomy, Cholecystectomy, Coronary Bypass/CABG, Heart Catheterization With Stent, Hysterectomy, Tonsillectomy Additional Past Surgical History / Comment(s): carotid endarterectomy on the left, CABG- 3 vessel 1995, EYE SURGERY-cataract sx has lens implants, eye laser sx bilaterally, ARCH STUDIES, bilateral iliac stents, kidney stone removed(rt), EGDs and colonoscopies,carotid artery plaque removal, Past Anesthesia/Blood Transfusion Reactions: Previous Problems w/ Anesthesia Additional Past Anesthesia/Blood Transfusion Reaction / Comment(s): w/ gallbladder sx after anesthesia pt stated it made her mean she hit a nurse. Date of Last Stent Placement:: 2011 Past Psychological History: Depression Smoking Status: Current every day smoker Past Alcohol Use History: None Reported Past Drug Use History: None Reported - Past Family History Father Family Medical History: Coronary Artery Disease (CAD), Myocardial Infarction ([place]) Additional Family Medical History / Comment(s): at age 61 massive mi Mother Family Medical History: Coronary Artery Disease (CAD), Hypertension Additional Family Medical History / Comment(s): age 54 post op cabg Sister(s) Family Medical History: Cancer Additional Family Medical History / Comment(s): ovarian cancer Brother(s) Family Medical History: Cancer General Exam Limitations: no limitations General appearance: alert, in no apparent distress, other (This is a well developed, well nourished adult female in no acute distress. ) ENT exam: Present: normal exam, normal oropharynx, mucous membranes moist Respiratory exam: Present: normal lung sounds bilaterally. Absent: respiratory distress, wheezes, rales, rhonchi, stridor Cardiovascular Exam: Present: regular rate, normal rhythm, normal heart sounds. Absent: systolic murmur, diastolic murmur, rubs, gallop, clicks GI/Abdominal exam: Present: soft, tenderness (midepigastric, lower abdominal), normal bowel sounds. Absent: distended, guarding, rebound, rigid Neurological exam: Present: alert, oriented X3, CN II-XII intact Psychiatric exam: Present: normal affect, normal mood Skin exam: Present: warm, dry, intact, normal color. Absent: rash Course Vital Signs 12/07/21 12/07/21 12/07/21 14:45 15:49 19:45 Temperature 98.7 F 98.5 F Pulse Rate 78 80 Respiratory 20 20 16 Rate Blood Pressure 111/61 114/59 O2 Sat by Pulse 100 Oximetry 12/07/21 12/07/21 12/07/21 20:00 20:15 20:30 Temperature 98.3 F 98 F 98.3 F Pulse Rate 86 98 88 Respiratory 16 16 16 Rate Blood Pressure 106/61 141/69 126/80 O2 Sat by Pulse 90 L 94 L Oximetry 12/07/21 21:13 Temperature 98.2 F Pulse Rate 81 Respiratory 16 Rate Blood Pressure 117/63 O2 Sat by Pulse 93 L Oximetry Medical Decision Making - Medical Decision Making 66 year-old female patient presents to the emergency department for evaluation of vomiting and abdominal pain. Physical examination did reveal lower abdominal tenderness. Labs reviewed and showed hemoglobin 6.8. Evidence for UTI. She is given 1 unit of PRBC. Given dose of rocephin. Case was discussed with Dr. Hurd who is willing to consult on the patient, requested CT abdomen/pelvis with oral contrast. I talked to Dr. Casey. Patient was offered option of receiving unit of blood and discharge to follow up with GI specialist. Patient is not comfortable with that plan and wanted to be admitted. My attending is Dr. Gould. - Lab Data Result diagrams: 12/07/21 16:45 12/07/21 16:45 Lab Results 12/07/21 12/07/21 12/07/21 Range/Units 16:45 16:45 16:45 WBC 13.9 H (3.8-10.6) k/uL RBC 2.76 L (3.80-5.40) m/uL Hgb 6.8 L* (11.4-16.0) gm/dL Hct 23.0 L (34.0-46.0) % MCV 83.6 (80.0-100.0) fL MCH 24.6 L (25.0-35.0) pg MCHC 29.4 L (31.0-37.0) g/dL RDW 16.5 H (11.5-15.5) % Plt Count 404 (150-450) k/uL MPV 8.8 Neutrophils % 81 % Lymphocytes % 11 % Monocytes % 5 % Eosinophils % 2 % Basophils % 0 % Neutrophils # 11.2 H (1.3-7.7) k/uL Lymphocytes # 1.6 (1.0-4.8) k/uL Monocytes # 0.6 (0-1.0) k/uL Eosinophils # 0.2 (0-0.7) k/uL Basophils # 0.1 (0-0.2) k/uL Hypochromasia Marked Poikilocytosis Slight Anisocytosis Slight Sodium 135 L (137-145) mmol/L Potassium 4.5 (3.5-5.1) mmol/L Chloride 107 (98-107) mmol/L Carbon Dioxide 17 L (22-30) mmol/L Anion Gap 11 mmol/L BUN 22 H (7-17) mg/dL Creatinine 0.61 (0.52-1.04) mg/dL Est GFR (CKD-EPI)AfAm >90 (>60 ml/min/1.73 sqM) Est GFR (CKD-EPI)NonAf >90 (>60 ml/min/1.73 sqM) Glucose 207 H (74-99) mg/dL Calcium 9.4 (8.4-10.2) mg/dL Total Bilirubin 0.6 (0.2-1.3) mg/dL AST 29 (14-36) U/L ALT 15 (4-34) U/L Alkaline Phosphatase 109 (38-126) U/L Troponin I 0.013 (0.000-0.034) ng/mL Total Protein 6.7 (6.3-8.2) g/dL Albumin 3.9 (3.5-5.0) g/dL Lipase 114 (23-300) U/L Urine Color Urine Appearance (Clear) Urine pH (5.0-8.0) Ur Specific Theresa (1.001-1.035) Urine Protein (Negative) Urine Glucose (UA) (Negative) Urine Ketones (Negative) Urine Blood (Negative) Urine Nitrite (Negative) Urine Bilirubin (Negative) Urine Urobilinogen (<2.0) mg/dL Ur Leukocyte Esterase (Negative) Urine RBC (0-5) /hpf Urine WBC (0-5) /hpf Urine WBC Clumps (None) /hpf Ur Squamous Epith Cells (0-4) /hpf Urine Bacteria (None) /hpf Hyaline Casts (0-2) /lpf Urine Mucus (None) /hpf Urine Yeast (Budding) (None) /hpf Coronavirus (PCR) (Not Detectd) Blood Type Blood Type Recheck Bld Type Recheck Status Antibody Screen Crossmatch Spec Expiration Date 12/07/21 12/07/21 12/07/21 Range/Units 17:11 17:50 18:49 WBC (3.8-10.6) k/uL RBC (3.80-5.40) m/uL Hgb (11.4-16.0) gm/dL Hct (34.0-46.0) % MCV (80.0-100.0) fL MCH (25.0-35.0) pg MCHC (31.0-37.0) g/dL RDW (11.5-15.5) % Plt Count (150-450) k/uL MPV Neutrophils % % Lymphocytes % % Monocytes % % Eosinophils % % Basophils % % Neutrophils # (1.3-7.7) k/uL Lymphocytes # (1.0-4.8) k/uL Monocytes # (0-1.0) k/uL Eosinophils # (0-0.7) k/uL Basophils # (0-0.2) k/uL Hypochromasia Poikilocytosis Anisocytosis Sodium (137-145) mmol/L Potassium (3.5-5.1) mmol/L Chloride (98-107) mmol/L Carbon Dioxide (22-30) mmol/L Anion Gap mmol/L BUN (7-17) mg/dL Creatinine (0.52-1.04) mg/dL Est GFR (CKD-EPI)AfAm (>60 ml/min/1.73 sqM) Est GFR (CKD-EPI)NonAf (>60 ml/min/1.73 sqM) Glucose (74-99) mg/dL Calcium (8.4-10.2) mg/dL Total Bilirubin (0.2-1.3) mg/dL AST (14-36) U/L ALT (4-34) U/L Alkaline Phosphatase (38-126) U/L Troponin I (0.000-0.034) ng/mL Total Protein (6.3-8.2) g/dL Albumin (3.5-5.0) g/dL Lipase (23-300) U/L Urine Color Light Yellow Urine Appearance Cloudy H (Clear) Urine pH 5.0 (5.0-8.0) Ur Specific Theresa 1.022 (1.001-1.035) Urine Protein 1+ H (Negative) Urine Glucose (UA) 4+ H (Negative) Urine Ketones Negative (Negative) Urine Blood Negative (Negative) Urine Nitrite Negative (Negative) Urine Bilirubin Negative (Negative) Urine Urobilinogen <2.0 (<2.0) mg/dL Ur Leukocyte Esterase Large H (Negative) Urine RBC 4 (0-5) /hpf Urine WBC >182 H (0-5) /hpf Urine WBC Clumps Many H (None) /hpf Ur Squamous Epith Cells 1 (0-4) /hpf Urine Bacteria Rare H (None) /hpf Hyaline Casts 1 (0-2) /lpf Urine Mucus Rare H (None) /hpf Urine Yeast (Budding) Moderate H (None) /hpf Coronavirus (PCR) Not Detected (Not Detectd) Blood Type O Positive Blood Type Recheck O Pos Bld Type Recheck Status No Antibody Screen NEGATIVE Crossmatch See Detail Spec Expiration Date 12/10/20212349 - EKG Data -: EKG Interpreted by Me EKG Comments: EKG obtained at 1555 shows sinus rhythm with PACs. Right bundle branch block. Ventricular rate is 83, MI interval 124, QRS duration 134, QT 432, QTc 519. No evidence of ST elevation or depression. - Radiology Data Radiology results: report reviewed, image reviewed Disposition Clinical Impression: Anemia, GI bleed, UTI (urinary tract infection) Disposition: ADMITTED IP TO THIS [facility] Condition: Serious Decision to Admit Reason: Admit from EC Decision Date: 12/07/21 Decision Time: 20:30
[2021-12-07 17:25] LABS: ALT 15 U/L (4-34); AST 29 U/L (14-36); African American GFR (CKD) >90 (>60 ml/min/1.73 sqM); Albumin 3.9 g/dL (3.5-5.0); Alkaline Phosphatase 109 U/L (38-126); Anion Gap 11 mmol/L; Blood Urea Nitrogen 22 mg/dL (7-17); Calcium 9.4 mg/dL (8.4-10.2); Carbon Dioxide 17 mmol/L (22-30); Chloride 107 mmol/L (98-107); Glucose 207 mg/dL (74-99); Lipase 114 U/L (23-300); Non-African American GFR(CKD) >90 (>60 ml/min/1.73 sqM); Potassium 4.5 mmol/L (3.5-5.1); Sodium 135 mmol/L (137-145); Total Bilirubin 0.6 mg/dL (0.2-1.3); Total Protein 6.7 g/dL (6.3-8.2)
[2021-12-07 17:33] LABS: Anisocytosis Slight; Basophils # (A) 0.1 k/uL (0-0.2); Basophils % (A) 0 %; Eosinophils # (A) 0.2 k/uL (0-0.7); Eosinophils % (A) 2 %; Hypochromasia Marked; Lymphocytes # (A) 1.6 k/uL (1.0-4.8); Lymphocytes % (A) 11 %; MCH 24.6 pg (25.0-35.0); MCHC 29.4 g/dL (31.0-37.0); MCV 83.6 fL (80.0-100.0); Mean Platelet Volume 8.8; Monocytes # (A) 0.6 k/uL (0-1.0); Monocytes % (A) 5 %; Neutrophils # (A) 11.2 k/uL (1.3-7.7); Neutrophils % (A) 81 %; Platelet Count 404 k/uL (150-450); Poikilocytosis Slight; RBC 2.76 m/uL (3.80-5.40); RDW 16.5 % (11.5-15.5); WBC 13.9 k/uL (3.8-10.6)
[2021-12-07 17:40] LABS: HGB 6.8 gm/dL (11.4-16.0)
[2021-12-07 19:05] LABS: Appearance,Urine Cloudy (Clear); Bacteria,Urine Rare /hpf; Bilirubin,Urine Negative (Negative); Blood,Urine Negative (Negative); Budding Yeast,Urine Moderate /hpf; Color,Urine Light Yellow; Glucose,Urine (UA) 4+ (Negative); Hyaline Casts,Urine 1 /lpf (0-2); Ketones,Urine Negative (Negative); Leukocyte Esterase,Urine Large (Negative); Mucus,Urine Rare /hpf; Nitrite,Urine Negative (Negative); Protein,Urine 1+ (Negative); RBC,Urine 4 /hpf (0-5); Specific Gravity,Urine 1.022 (1.001-1.035); Squamous Epithelial Cell,Urine 1 /hpf (0-4); Urobilinogen,Urine <2.0 mg/dL (<2.0); WBC,Urine >182 /hpf (0-5)
[2021-12-07] MEDS ORDERED: NALOXONE 0.4 MG/ML 1 ML VIAL IV PRN (20:06)
[2021-12-07] MEDS ORDERED: IOPAMIDOL CONTRAST (ORAL USE) VIAL PO PRN (20:08)
[2021-12-07] MEDS: ONDANSETRON 4 MG/2 ML VIAL IVP PRN (20:31)
[2021-12-07] MEDS: MORPHINE SULFATE 4 MG/ML SYRINGE IV PRN (20:32)
--- NOTE | 2021-12-07 21:35 | CT ---
EXAMINATION TYPE: CT abdomen pelvis w con CT DLP: 1880.9 mGycm, Automated exposure control for dose reduction was used. DATE OF EXAM: 12/07/2021 9:01 PM COMPARISON: CT abdomen pelvis most recent from 10/15/2021. CLINICAL INDICATION:Female, 66 years old with history of Abd pain; GI bleed; Abdominal pain and vomit ing. TECHNIQUE: GI hemorrhage protocol CT of the abdomen and pelvis following the administration of 100 c c of Isovue 300 IV contrast material. Coronal and sagittal reformats were performed. FINDINGS: LOWER CHEST: Coronary artery atherosclerosis is present. ABDOMEN LIVER: Unremarkable GALLBLADDER AND BILE DUCTS: Unremarkable. PANCREAS: Unremarkable. SPLEEN: Unremarkable. ADRENAL GLANDS: There stable mild prominence of the left adrenal gland at 1.2 cm. KIDNEYS AND URETERS: No masses are evident. No hydronephrosis is present. No cysts are present. Th ere is a 1.2 cm inferior right renal stone without obstruction. Extensive vascular calcification is p resent bilaterally. PELVIS BLADDER: Unremarkable REPRODUCTIVE: Unremarkable. ABDOMEN & PELVIS STOMACH AND BOWEL: Arterial phase and delayed phase imaging demonstrates no convincing evidence for e xtravasation within the gastrointestinal tract. There is circumferential bowel wall thickening of the descending colon measuring up to 7 mm which is similar to prior. Also wall thickening of the sigmoid colon suggested. Consecutive colonic diverticula are seen throughout the predominantly sigmoid colon descending colon. No evidence of bowel obstruction. PERITONEUM: No evidence of pneumoperitoneum or free fluid. VASCULATURE: There is marked severe atherosclerosis of the arterial vasculature. The origins of the c eliac axis. Mesenteric arteries are patent. There is at least 50% stenosis of the origin of the susan c axis secondary to soft and calcified plaquing there is one renal artery bilaterally. The renal concepcion gisel are patent. There is no artery stenosis of at least 25-50% bilaterally. Fusiform infrarenal aort a dilation is again seen and stable measuring similarly at 4.0 cm. Origins of the common iliac arteri es are patent with stents in place. The stents appear patent. There is also plaquing of the external iliac arteries with focal stenosis of the right external iliac artery of at least 70%. The superficia l femoral arteries demonstrate severe atherosclerosis with a diminutive appearance on the right. MUSCULOSKELETAL: Moderate disc degeneration changes are present throughout the thoracolumbar spine. LYMPH NODES: No gross evidence for lymphadenopathy. SOFT TISSUE/ABDOMINAL WALL: Fat filled ventral hernia measuring less than a centimeter at the neck. IMPRESSIONS: 1. No definitive evidence of gastrointestinal bleed. Consider a nuclear medicine tagged red blood ce ll scan remains clinical concern. 2. Severe coronary artery atherosclerosis with at least 50% stenosis of the celiac axis, 25-50% sten osis of the renal arteries, greater than 70% stenosis of the right external iliac artery and a diminu tive appearance of the visualized portions of the proximal right superficial femoral artery. 3. 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 4. Nonobstructing right renal calculus. 5. Extensive colonic Diverticulosis.
[2021-12-07 22:39] LABS: Glucose,Whole Blood 146 mg/dL (75-99)
[2021-12-08] MEDS: MORPHINE SULFATE 4 MG/ML SYRINGE IV PRN ×4 (04:45→23:55)
[2021-12-08] MEDS: ONDANSETRON 4 MG/2 ML VIAL IVP PRN ×3 (04:50→23:54)
[2021-12-08 07:24] LABS: Glucose,Whole Blood 133 mg/dL (75-99)
[2021-12-08 09:09] LABS: Anisocytosis Slight; HCT 25.9 % (34.0-46.0); HGB 7.4 gm/dL (11.4-16.0); Hypochromasia Marked; MCH 25.2 pg (25.0-35.0); MCHC 28.7 g/dL (31.0-37.0); MCV 87.8 fL (80.0-100.0); Mean Platelet Volume 8.5; Platelet Count 324 k/uL (150-450); Poikilocytosis Slight; RBC 2.94 m/uL (3.80-5.40); RDW 16.2 % (11.5-15.5); WBC 9.7 k/uL (3.8-10.6)
[2021-12-08 12:13] LABS: Glucose,Whole Blood 131 mg/dL (75-99)
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
[2021-12-08 17:03] LABS: Glucose,Whole Blood 211 mg/dL (75-99)
[2021-12-08 21:02] LABS: Glucose,Whole Blood 211 mg/dL (75-99)
[2021-12-09] MEDS: MORPHINE SULFATE 4 MG/ML SYRINGE IV PRN ×2 (03:49→23:49)
[2021-12-09 06:50] LABS: Glucose,Whole Blood 193 mg/dL (75-99)
[2021-12-09] MEDS: ONDANSETRON 4 MG/2 ML VIAL IVP PRN (07:05)
[2021-12-09] MEDS ORDERED: ONDANSETRON 4 MG/2 ML VIAL IVP PRN ×2 (08:51→13:27)
[2021-12-09] MEDS ORDERED: metFORMIN 500 MG TAB PO SCH (09:00)
[2021-12-09] MEDS ORDERED: PANTOPRAZOLE 40 MG TABLET PO SCH (09:00)
[2021-12-09] MEDS ORDERED: METOPROLOL TARTRATE 25 MG TAB PO SCH (09:00)
[2021-12-09] MEDS ORDERED: amLODIPine 5 MG TAB PO SCH (09:00)
[2021-12-09] MEDS ORDERED: METOPROLOL TARTRATE 25 MG TAB PO STA (09:08)
[2021-12-09] MEDS: lisinopriL 20 MG TAB PO SCH (10:07)
[2021-12-09] MEDS: ATORVASTATIN 80 MG TAB PO SCH (10:08)
[2021-12-09] MEDS: PARoxetine 20 MG TAB PO SCH (10:08)
[2021-12-09] MEDS: MAGNESIUM OXIDE 400 MG TAB PO SCH (10:09)
[2021-12-09] MEDS: PANTOPRAZOLE 40 MG/10 ML VIAL IVP SCH (10:28)
--- NOTE | 2021-12-09 10:56 | P.CRDCN ---
History of Present Illness History of present illness: HISTORY OF PRESENTING ILLNESS This is a pleasant 66-year-old female past medical history significant for paroxysmal atrial fibrillation in 06/2019 not on anticoagulation due to history of GI bleed, coronary artery disease status post three-vessel CABG in 1995, PCI of the distal left circumflex in 2009, PCI mid distal circumflex in 2018, type 2 diabetes, hypertension, dyslipidemia, peripheral vascular disease, right carotid endarterectomy in 11/2020. She follows in the office with Dr. Epstein. We have been asked to see in consultation for atrial fibrillation with rapid ventricular response. Patient presents emergency department 12/07/2019 with complaints of abdominal pain, nausea, vomiting, and diarrhea. Patient was found to have hemoglobin 6.8 on admission and received 1 unit of packed RBCs with improvement in hemoglobin was 7.4. This morning patient was found to be tachycardic, EKG was performed which revealed atrial fibrillation with rapid ventricular response, right bundle branch block, heart rate in the 150s. Patient was placed on cardiac telemetry. DIAGNOSTICS -EKG on admission revealed sinus rhythm, heart rate 83, right bundle-branch block, T wave inversions in leads III, V2 and V3. EKG consistent with known coronary artery disease -EKG today atrial fibrillation with rapid ventricular response HR 150s -Telemetry tracings indicate -fibrillation with rapid ventricular response -CT abdomen and pelvis revealed no evidence of GI bleed. Severe coronary artery atherosclerosis with at least 50% stenosis of the celiac axis, 2550 percent stenosis of the renal arteries, greater than 70% stenosis of the right external iliac artery, stable infrarenal tortuous aneurysmal dilation measuring 4.0 cm extensive colonic diverticulosis. -Laboratory reviewed, WBC 9.7, hemoglobin 7.4, platelets 324, sodium 135, potassium 4.5, BUN 22, serum creatinine 0.6, troponin negative, COVID-19 negative, UA positive for UTI -Current home medications include aspirin 81 mg daily, atorvastatin 80 mg daily, amlodipine 5 mg daily, metoprolol titrate 25 mg twice a day, lisinopril 40 mg daily, Brilinta 90 mg twice a day Patient underwent cardiac catheterization 05/25/2021 which revealed calcified coronary arteries, chronically occluded LAD and RCA, moderate left main disease, moderate diffuse disease in the left circumflex, patent BRANDON to LAD. medical therapy recommended Most recent echocardiogram 09/2020 revealed normal ejection fraction, mild tricuspid regurgitation REVIEW OF SYSTEMS At the time of my exam: CONSTITUTIONAL: Denies fever or chills. CARDIOVASCULAR: Denies chest pain, shortness of breath, orthopnea, PND or palpitations. RESPIRATORY: Denies cough. GASTROINTESTINAL: Denies abdominal pain, diarrhea, constipation, nausea or vomiting. MUSCULOSKELETAL: Denies myalgias. NEUROLOGIC: Denies numbness, tingling, headacbe or weakness. ENDOCRINE: Denies fatigue, weight change, polydipsia or polyurina. GENITOURINARY: Denies burning, hematuria or urgency with micturation. HEMATOLOGIC: Denies history of anemia or bleeding. PHYSICAL EXAMINATION Blood pressure 106/73, heart rate 148, Temp 100.4, 93% on room air CONSTITUTIONAL: No apparent distress. HEENT: Head is normocephalic. Pupils are equal, round. Sclerae anicteric. Mucous membranes of the mouth are moist. No JVD. No carotid bruit. CHEST EXAMINATION: Lungs are clear to auscultation. No chest wall tenderness is noted on palpation or with deep breathing. HEART EXAMINATION: Irregular, tachycardic rate and rhythm. S1, S2 heard. No murmurs, gallops or rub. ABDOMEN: Soft, nontender. Positive bowel sounds. EXTREMITIES: 2+ peripheral pulses, no lower extremity edema and no calf tenderness. SKIN: warm, dry NEUROLOGIC EXAMINATION: Patient is awake, alert and oriented x3. ASSESSMENT Paroxysmal atrial fibrillation with RVR -[id number] score 5, not on anticoagulation due to history GI bleed Anemia Coronary artery disease status post three-vessel CABG in 1995, PCI of the distal left circumflex in 2009, PCI mid distal circumflex in 2019 Type 2 diabetes Hypertension Dyslipidemia Peripheral vascular disease Right carotid endarterectomy in 11/2020 PLAN -Holding anticoagulation and Brilinta due to anemia -Increase metoprolol to 50mg BID -Discontinue amlodipine -Continue statin and lisinopril -Continue cardiac telemetry -Obtain 2D echocardiogram -Further recommendations based on clinical course Nurse Practitioner note has been reviewed, I agree with a documented findings and plan of care. Patient was seen and examined. 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, left side 80% occluded, pylonephritis History of Any Multi-Drug Resistant Organisms: MRSA Date of last positivie culture/infection: 2007 MDRO Source:: Left ear Past Surgical History: Appendectomy, Cholecystectomy, Coronary Bypass/CABG, Heart Catheterization With Stent, Hysterectomy, Tonsillectomy Additional Past Surgical History / Comment(s): carotid endarterectomy on the left, CABG- 3 vessel 1995, EYE SURGERY-cataract sx has lens implants, eye laser sx bilaterally, ARCH STUDIES, bilateral iliac stents, kidney stone removed(rt), EGDs and colonoscopies,carotid artery plaque removal, Past Anesthesia/Blood Transfusion Reactions: Previous Problems w/ Anesthesia Additional Past Anesthesia/Blood Transfusion Reaction / Comment(s): w/ gallbladder sx after anesthesia pt stated it made her mean she hit a nurse. Date of Last Stent Placement:: 2011 Past Psychological History: Depression Smoking Status: Current every day smoker Past Alcohol Use History: None Reported Past Drug Use History: None Reported - Past Family History Father Family Medical History: Coronary Artery Disease (CAD), Myocardial Infarction (NH) Additional Family Medical History / Comment(s): at age 61 massive mi Mother Family Medical History: Coronary Artery Disease (CAD), Hypertension Additional Family Medical History / Comment(s): age 54 post op cabg Sister(s) Family Medical History: Cancer Additional Family Medical History / Comment(s): ovarian cancer Brother(s) Family Medical History: Cancer Medications and Allergies Home Medications Medication Instructions Recorded Confirmed Type Atorvastatin [Lipitor] 80 mg PO DAILY 12/18/18 12/07/21 History Nitroglycerin Sl Tabs [Nitrostat] 0.4 mg SL Q5M PRN 12/18/18 12/07/21 History lisinopriL 40 mg PO DAILY 12/18/18 12/07/21 History PARoxetine HCL [Paxil] 40 mg PO DAILY 12/19/18 12/07/21 History Metoprolol Tartrate [Lopressor] 25 mg PO BID #60 tab 07/03/19 12/07/21 Rx Ticagrelor [Brilinta] 90 mg PO BID #60 tab 07/03/19 12/07/21 Rx metFORMIN HCL 500 mg PO BID 12/30/19 12/07/21 History Liraglutide [Victoza 3-Jensen] 1.8 mg SQ DAILY 06/04/20 12/07/21 History HYDROcodone/APAP 7.5-325MG [[place] 1 - 2 tab PO Q8H PRN 01/02/21 12/07/21 History 7.5-325] amLODIPine [Norvasc] 5 mg PO DAILY 02/01/21 12/07/21 History Empagliflozin [Jardiance] 25 mg PO HS 05/15/21 12/07/21 History Magnesium Chloride [Mag64] 128 mg PO DAILY 05/15/21 12/07/21 History Insulin Degludec [Tresiba] See Protocol SQ DAILY 05/24/21 12/07/21 History Aspirin EC [Ecotrin Low Dose] 81 mg PO HS 07/31/21 12/07/21 History Dicyclomine [Bentyl] 20 mg PO QID PRN 08/19/21 12/07/21 History Insulin Aspart [NovoLOG Flexpen] See Protocol SQ BID 10/15/21 12/07/21 History Pantoprazole Sodium [Protonix] 40 mg PO DAILY #0 10/19/21 12/07/21 Rx Allergies Allergy/AdvReac Type Severity Reaction Status Date / Time sulfamethoxazole Allergy Anaphylaxis Verified 12/07/21 19:06 [From Bactrim] trimethoprim [From Bactrim] Allergy Anaphylaxis Verified 12/07/21 19:06 meperidine HCl [From Demerol] AdvReac Hallucinati Verified 12/07/21 19:06 ons Physical Exam Vitals: Vital Signs Temp Pulse Resp BP Pulse Ox 12/09/21 08:00 148 H 12/09/21 07:52 97.6 F 148 H 16 106/73 93 L 12/09/21 03:35 99.3 F 99 16 130/74 98 12/08/21 22:07 99.3 F 12/08/21 19:30 100.4 F H 84 16 148/72 94 L 12/08/21 19:07 84 16 12/08/21 11:29 98.2 F 84 15 133/56 96 Intake and Output 12/08/21 12/09/21 12/09/21 22:59 06:59 14:59 Intake Total 540 Output Total 75 Balance 465 Intake: Oral 540 Output: Emesis 75 Other: Voiding Method Toilet Toilet # Voids 1 3 Results 12/09/21 07:12 12/07/21 16:45 Current Medications Generic Name Dose Route Start Last Admin Trade Name Freq PRN Reason Stop Dose Admin Hydrocodone Bitart/Acetaminophen 1 each 12/09/21 08:48 Hydrocodone/Apap 7.5-325mg 1 Each Tab PO Q8H PRN Pain Atorvastatin Calcium 80 mg 12/09/21 09:00 12/09/21 10:08 Atorvastatin 80 Mg Tab PO 80 mg DAILY AAMIR Administration Ceftriaxone Sodium 1 gm/ 50 mls @ 100 mls/hr 12/08/21 09:00 12/09/21 10:23 Sodium Chloride IVPB 100 mls/hr Q24HR AAMIR Administration Insulin Aspart 0 unit 12/09/21 12:30 Insulin Aspart (Novolog) 100 Unit/Ml Vial SQ [facility] Protocol Lisinopril 40 mg 12/09/21 09:00 12/09/21 10:07 Lisinopril 20 Mg Tab PO 40 mg DAILY AAMIR Administration Magnesium Oxide 400 mg 12/09/21 09:00 12/09/21 10:09 Magnesium Oxide 400 Mg Tab PO 400 mg DAILY AAMIR Administration Metformin HCl 500 mg 12/09/21 09:00 12/09/21 10:07 Metformin 500 Mg Tab PO 500 mg AC-BID AAMIR Administration Metoprolol Tartrate 50 mg 12/09/21 21:00 Metoprolol Tartrate 50 Mg Tab PO BID AAMIR Morphine Sulfate 4 mg 12/07/21 20:06 12/09/21 03:49 Morphine Sulfate 4 Mg/Ml Syringe IV 4 mg Q4HR PRN Administration Severe Pain Naloxone HCl 0.2 mg 12/07/21 20:06 Naloxone 0.4 Mg/Ml 1 Ml Vial IV Q2M PRN Opioid Reversal Empagliflozin [ 25 mg 12/09/21 21:00 Jardiance] 25 Mg PO Tablet HS AAMIR Ondansetron HCl 4 mg 12/09/21 08:51 Ondansetron 4 Mg/2 Ml Vial IVP Q6HR PRN Nausea And Vomiting Pantoprazole Sodium 40 mg 12/09/21 10:00 12/09/21 10:28 Pantoprazole 40 Mg/10 Ml Vial IVP 40 mg DAILY AAMIR Administration Paroxetine HCl 40 mg 12/09/21 09:00 12/09/21 10:08 Paroxetine 20 Mg Tab PO 40 mg DAILY AAMIR Administration Intake and Output 12/08/21 12/09/21 12/09/21 22:59 06:59 14:59 Intake Total 540 Output Total 75 Balance 465 Intake: Oral 540 Output: Emesis 75 Other: Voiding Method Toilet Toilet # Voids 1 3 12/08/21 08:49 12/07/21 16:45
[2021-12-09 10:59] LABS: Basophils # (A) 0.08 X 10*3/uL (0.00-0.10); Basophils % (A) 0.6 %; Eosinophils # (A) 0.07 X 10*3/uL (0.04-0.35); Eosinophils % (A) 0.5 %; HGB 7.2 g/dL (12.0-15.0); Lymphocytes % (A) 15.6 %; MCH 24.2 pg (27.0-32.0); MCHC 27.7 g/dL (32.0-37.0); MCV 87.2 fL (80.0-97.0); Monocytes # (A) 0.96 X 10*3/uL (0.20-1.00); Monocytes % (A) 7.5 %; Neutrophils # (A) 9.61 X 10*3/uL (1.80-7.70); Neutrophils % (A) 75.1 %; Platelet Count 370 X 10*3/uL (140-440); RBC 2.98 X 10*6/uL (4.10-5.20); RDW 16.4 % (11.5-14.5); WBC 12.81 X 10*3/uL (4.50-10.00)
[2021-12-09 11:13] LABS: African American GFR (CKD) 105.4 (60.0-200.0); Anion Gap 17.5 mmol/L (10.00-18.00); BUN/Creat Ratio 13.71 Ratio (12.00-20.00); Blood Urea Nitrogen 9.6 mg/dL (9.0-27.0); Calcium 9.2 mg/dL (8.7-10.3); Carbon Dioxide 18.5 mmol/L (20.0-27.5); Non-African American GFR(CKD) 90.9 (60.0-200.0); Potassium 3.7 mmol/L (3.5-5.5)
[2021-12-09 11:49] LABS: Glucose,Whole Blood 303 mg/dL (75-99)
[2021-12-09] MEDS: SODIUM CHLORIDE 0.9% 1,000 ML IV SCH ×2 (13:28→20:52)
[2021-12-09 13:36] LABS: Glucose,Whole Blood 327 mg/dL (75-99)
--- NOTE | 2021-12-09 13:40 | P.PN ---
Subjective Progress Note Date: 12/09/21 CHIEF COMPLAINT: Abdominal pain with vomiting HISTORY OF PRESENT ILLNESS: Patient complaining of vomiting. She reports the vomiting began again last night. Emesis has been yellow in color. There is no evidence of coffee-ground emesis or hematemesis. She does report some lower abdominal pain. She does not report an increase in her pain. No bowel movement 3 days. She did have a temp of 100.4 last night she has been tachycardic with evidence of atrial fibrillation with rapid ventricular response. Cardiology has been consulted and they've given metoprolol. BP 106/73 No signs of active bleeding. Patient has previous history of cholecystectomy. Patient seen and examined with Dr. cisneros PHYSICAL EXAM: VITAL SIGNS: Reviewed. GENERAL: Well-developed in no acute distress. HEENT: No sclera icterus. Extraocular movements grossly intact. Moist buccal mucosa. Head is atraumatic, normocephalic. ABDOMEN: Soft. Nondistended. lower abdominal tenderness NEUROLOGIC: Alert and oriented. Cranial nerves II through XII grossly intact. ASSESSMENT: 1. Abdominal pain with nausea and vomiting 2. Anemia. Possible acute blood loss anemia. status post 1 unit of blood 3. Possible microscopic diverticular bleed 4. Recent EGD colonoscopy in October 2021 which demonstrated gastritis, hemor rhoids and diverticulosis 5. Atrial fibrillation management per cardiology PLAN: -No plans for endoscopy at this time -If patient has active signs of bleeding we'll order tagged RBC scan -Continue supportive care -continue to monitor -Continue clear liquids -Continue IV fluids -Continue to monitor for any signs or symptoms of bleeding -Continue to monitor hemoglobin -Continue PPI -Adjust dose of Zofran every 6 hours as needed for nausea and vomiting Physician Overhauler Helper note has been reviewed by physician. Signing provider agrees with the documented findings, assessment, and plan of care. Objective - Vital Signs Vital signs: Vital Signs Temp 97.6 F 12/09/21 07:52 Pulse 148 H 12/09/21 08:00 Resp 16 12/09/21 07:52 BP 106/73 12/09/21 07:52 Pulse Ox 93 L 12/09/21 07:52 Intake & Output 12/08/21 12/09/21 12/09/21 18:59 06:59 18:59 Intake Total 540 Output Total 75 Balance 465 Intake: Oral 540 Output: Emesis 75 Other: Voiding Method Toilet Toilet Toilet # Voids 2 3 - Labs CBC & Chem 7: 12/09/21 07:12 12/09/21 07:12 Labs: Abnormal Lab Results - Last 24 Hours (Table) 12/08/21 12/08/21 12/08/21 Range/Units 12:00 17:01 20:53 POC Glucose (mg/dL) 131 H 211 H 211 H (75-99) mg/dL 12/09/21 Range/Units 06:48 POC Glucose (mg/dL) 193 H (75-99) mg/dL Microbiology - Last 24 Hours (Table) 12/07/21 18:49 Urine Culture - Preliminary Urine,Clean Catch Gram Neg Bacilli Presumptive Staph aureus
[2021-12-09] MEDS: METOCLOPRAMIDE 5 MG/ML 2 ML VIAL IVP SCH ×3 (13:41→23:51)
[2021-12-09] MEDS: INSULIN ASPART (NovoLOG) 100 UNIT/ML VIAL SQ SCH ×3 (13:41→20:55)
--- NOTE | 2021-12-09 14:29 | P.PN ---
Subjective Progress Note Date: 12/09/21 This is 66-year-old female with history of CVA/TIA, diabetes mellitus, gastroesophageal disease, GI bleed, CAD, history of CABG, arteriosclerosis, diverticulitis, ongoing nicotine dependence multiple other medical issues presented to the ER with nausea vomiting and abdominal pain. Denies hematochezia, hemoptysis. Denies rectal bleeding. Hemoglobin 6.8 on admission, received 1 unit of packed RBCs and currently up to 7.4. CT of abdomen and pelvis reported no definitive evidence of GI bleed, consider tagged RBC scan, severe coronary artery arteriosclerosis, stable infrarenal tortuous aneurysmal dilatation measuring up to 4.0 cm, nonobstructing left renal calculus, extensive colonic diverticulosis. Afebrile, vital signs stable. UA reporting moderate yeast, rare bacteria, greater than 182 WBCs and large leukocytes, culture pending. Denies chest pain, palpitations or shortness of breath. 12/09/2021 maintained on PPI ,Zofran and ceftriaxone .patient had multiple episodes of nausea and vomiting of yellow emesis throughout the night and into this morning. Reports minimal abdominal pain, mostly with wretching. Denies chest pain, palpitations or shortness of breath. Congested loose cough. This morning when into A. fib with RVR, evaluated by cardiology with recommendations noted. Also noted is patient appears to vasovagal down during her episodes of vomiting. WBC increased to 12.81, T-max 100.4. Urine culture reporting gram- negative bacilli, presumptive staph aureus. Hemoglobin decreased to 7.2, platelets 370. Objective - Vital Signs Vital signs: Vital Signs Temp 98.4 F 12/09/21 13:00 Pulse 126 H 12/09/21 13:00 Resp 15 12/09/21 11:58 BP 82/56 12/09/21 13:00 Pulse Ox 91 L 12/09/21 13:00 Intake & Output 12/08/21 12/09/21 12/09/21 18:59 06:59 18:59 Intake Total 540 Output Total 75 Balance 465 Intake: Oral 540 Output: Emesis 75 Other: Voiding Method Toilet Toilet Bedpan # Voids 2 3 - Exam General: alert and oriented times 3. Nauseated, vomiting HEENT: [PERRL. EOMI. No pharyngeal erythema or exudate. Neck: Supple, no JVD Cardiac: [Heart regular in rate and rhythm. No S3. No S4. No clicks, rubs. No murmur.] Lungs: [Clear to auscultation bilaterally.] Abdomen: [Soft, nondistended, no tenderness,No mass. No organomegaly. Bowel sounds presnt and normoactive in all 4 quadrants. Extremes: [No edema no cyanosis no claudication normal pulses] Neurologic: CN II - XII grossly intact.] - Labs CBC & Chem 7: 12/09/21 07:12 12/09/21 07:12 Labs: Abnormal Lab Results - Last 24 Hours (Table) 12/08/21 12/08/21 12/09/21 Range/Units 17:01 20:53 06:48 WBC (4.50-10.00) X 10*3/uL RBC (4.10-5.20) X 10*6/uL Hgb (12.0-15.0) g/dL Hct (37.2-46.3) % MCH (27.0-32.0) pg MCHC (32.0-37.0) g/dL RDW (11.5-14.5) % Immature Gran # (0.00-0.04) X 10*3/uL Neutrophils # (1.80-7.70) X 10*3/uL Carbon Dioxide (20.0-27.5) mmol/L Glucose (70-110) mg/dL POC Glucose (mg/dL) 211 H 211 H 193 H (75-99) mg/dL 12/09/21 12/09/21 12/09/21 Range/Units 07:12 07:12 11:48 WBC 12.81 H (4.50-10.00) X 10*3/uL RBC 2.98 L (4.10-5.20) X 10*6/uL Hgb 7.2 L (12.0-15.0) g/dL Hct 26.0 L (37.2-46.3) % MCH 24.2 L (27.0-32.0) pg MCHC 27.7 L (32.0-37.0) g/dL RDW 16.4 H (11.5-14.5) % Immature Gran # 0.09 H (0.00-0.04) X 10*3/uL Neutrophils # 9.61 H (1.80-7.70) X 10*3/uL Carbon Dioxide 18.5 L (20.0-27.5) mmol/L Glucose 196 H (70-110) mg/dL POC Glucose (mg/dL) 303 H (75-99) mg/dL 12/09/21 Range/Units 13:34 WBC (4.50-10.00) X 10*3/uL RBC (4.10-5.20) X 10*6/uL Hgb (12.0-15.0) g/dL Hct (37.2-46.3) % MCH (27.0-32.0) pg MCHC (32.0-37.0) g/dL RDW (11.5-14.5) % Immature Gran # (0.00-0.04) X 10*3/uL Neutrophils # (1.80-7.70) X 10*3/uL Carbon Dioxide (20.0-27.5) mmol/L Glucose (70-110) mg/dL POC Glucose (mg/dL) 327 H (75-99) mg/dL Microbiology - Last 24 Hours (Table) 12/07/21 18:49 Urine Culture - Preliminary Urine,Clean Catch Gram Neg Bacilli Presumptive Staph aureus Assessment and Plan Assessment: (1) Abdominal pain accompanied by nausea vomiting without witnessed bleeding. CT reporting extensive colonic diverticulosis, Suspect microscopic diverticular bleed. Current Visit: No Status: Acute Code(s): R10.9 - UNSPECIFIED ABDOMINAL PAIN SNOMED Code(s): 84632430 (2) Anemia, chronic, status post 1 unit packed RBCs Current Visit: Yes Status: Acute Code(s): D64.9 - ANEMIA, UNSPECIFIED SNOMED Code(s): 037609982 (3) AAA (abdominal aortic aneurysm) Current Visit: No Status: Acute Code(s): I71.4 - ABDOMINAL AORTIC ANEURYSM, WITHOUT RUPTURE SNOMED Code(s): 561109615 (4) acute UTI, possible, culture pending (5) dehydration Current Visit: No Status: Acute Code(s): E86.0 - DEHYDRATION SNOMED Code(s): 03355934 (6) Coronary artery disease with hx of myocardial infarct w/o hx of CABG Current Visit: No Status: Acute Code(s): I25.10 - ATHSCL HEART DISEASE OF [place] CORONARY ARTERY W/O ANG PCTRS SNOMED Code(s): 095014420 (7) diabetic gastroparesis (8) diabetes mellitus type 2, (9) Nicotine dependence Current Visit: No Status: Acute Code(s): F17.200 - NICOTINE DEPENDENCE, UNSPECIFIED, UNCOMPLICATED SNOMED Code(s): 35199339 (10) COPD,stable (11) chronic proximal atrial fibrillation with RVR, not on anticoagulation secondary to history of GI bleed (12) fever, leukocytosis, in addition to ongoing nausea and vomiting, workup in progress-pancultured. Plan: Continue on current medication regime ,monitoring and symptomatic treatment. EKG .Cardiology consult. Beta odalys increased. Portable bedside echo. Chest x-ray, blood cultures 2 now. Reglan added to med regimen. Zofran dose increased per pcp. Convert PPI back to IV push. Increase IV fluid hydration, Portable chest x-ray, secondary to fever, hypoxia.Continue on ceftriaxone, urine culture finalizing. Magnesium level, lactic acid ordered. Transfer to telemetry. Hyperglycemic, Lantus added to med regimen.A1c pending. Close monitoring of coag's, hemoglobin currently down to 7.2, labs ordered for a.m. Further recommendations as per surgery pending. Prognosis guarded given multiple complex medical issues. The impression and plan of care has been dictated as directed. : I performed a history and examination of this patient, discussed the same with the dictator. I agree with the dictator's note ,documented as a scribe. Any additional findings or plans will be noted.
[2021-12-09] MEDS: INSULIN DETEMIR (LEVEMIR) 100 UNIT/ML SYR SQ SCH (15:33)
--- NOTE | 2021-12-09 16:47 | XR ---
EXAMINATION TYPE: XR chest 1V portable DATE OF EXAM: 12/09/2021 COMPARISON: Chest x-ray 01/03/2021 HISTORY: Fever and hypoxia TECHNIQUE: Single frontal view of the chest is obtained. FINDINGS: There is no focal air space opacity, pleural effusion, or pneumothorax seen. The cardiac silhouette size is within normal limits. Patient is rotated and post median sternotomy, there are ov erlying leads, artifacts. Aorta is dense. The osseous structures are intact. IMPRESSION: Rotated exam. Postop changes. Follow-up as indicated. No acute abnormalities evident.
[2021-12-09 16:48] LABS: Glucose,Whole Blood 236 mg/dL (75-99)
[2021-12-09] MEDS: HYDROcodone/APAP 7.5-325MG 1 EACH TAB PO PRN (17:52)
[2021-12-09 20:31] LABS: Glucose,Whole Blood 219 mg/dL (75-99)
[2021-12-09] MEDS: METOPROLOL TARTRATE 50 MG TAB PO SCH (20:54)
[2021-12-10 05:53] LABS: Glucose,Whole Blood 160 mg/dL (75-99)
[2021-12-10] MEDS: INSULIN ASPART (NovoLOG) 100 UNIT/ML VIAL SQ SCH ×4 (06:38→21:19)
[2021-12-10] MEDS: INSULIN DETEMIR (LEVEMIR) 100 UNIT/ML SYR SQ SCH (06:38)
[2021-12-10] MEDS: METOCLOPRAMIDE 5 MG/ML 2 ML VIAL IVP SCH ×4 (06:39→23:53)
[2021-12-10] MEDS: MORPHINE SULFATE 4 MG/ML SYRINGE IV PRN ×3 (06:42→21:22)
[2021-12-10 06:50] LABS: Anisocytosis Slight; Basophils % (A) 0 %; Eosinophils # (A) 0.1 k/uL (0-0.7); Eosinophils % (A) 1 %; HCT 22.5 % (34.0-46.0); Hypochromasia Marked; Lymphocytes # (A) 1.9 k/uL (1.0-4.8); Lymphocytes % (A) 28 %; MCHC 29.3 g/dL (31.0-37.0); MCV 85.4 fL (80.0-100.0); Mean Platelet Volume 8.8; Monocytes # (A) 0.4 k/uL (0-1.0); Monocytes % (A) 6 %; Neutrophils # (A) 4.2 k/uL (1.3-7.7); Neutrophils % (A) 62 %; Platelet Count 295 k/uL (150-450); Poikilocytosis Slight; RBC 2.64 m/uL (3.80-5.40); RDW 16.8 % (11.5-15.5); WBC 6.8 k/uL (3.8-10.6)
[2021-12-10 06:52] LABS: HGB 6.6 gm/dL (11.4-16.0)
[2021-12-10 07:11] LABS: Potassium 3.5 mmol/L (3.5-5.1)
[2021-12-10 07:12] LABS: Calcium 8.6 mg/dL (8.4-10.2)
[2021-12-10] MEDS: METOPROLOL TARTRATE 50 MG TAB PO SCH ×2 (08:51→21:22)
[2021-12-10] MEDS: PARoxetine 20 MG TAB PO SCH (08:51)
[2021-12-10] MEDS: MAGNESIUM OXIDE 400 MG TAB PO SCH (08:51)
[2021-12-10] MEDS: PANTOPRAZOLE 40 MG/10 ML VIAL IVP SCH (08:52)
[2021-12-10] MEDS: ATORVASTATIN 80 MG TAB PO SCH (08:52)
[2021-12-10] MEDS: lisinopriL 20 MG TAB PO SCH (08:52)
[2021-12-10] MEDS: SODIUM CHLORIDE 0.9% 1,000 ML IV SCH ×2 (09:09→16:32)
[2021-12-10 11:41] LABS: Glucose,Whole Blood 178 mg/dL (75-99)
--- NOTE | 2021-12-10 11:50 | ECHOF ---
Referral Reason:hypotension, afib MEASUREMENTS -------- HEIGHT: 170.2 cm WEIGHT: 68.9 kg BP: 82/56 IVSd: 1.5 cm (0.6 - 1.1) LVIDd: 5.4 cm (3.9 - 5.3) LVPWd: 1.6 cm (0.6 - 1.1) EDV(Teich): 140 ml IVSs: 2.2 cm LVIDs: 3.8 cm LVPWs: 2.4 cm %IVS Thck: 48 % ESV(Teich): 62 ml EF(Teich): 56 % %FS: 29 % SV(Teich): 78 ml LA Diam: 4.6 cm (2.7 - 3.8) RVIDd: 3.4 cm (< 3.3) LALs A4C: 6.1 cm LAAs A4C: 22.9 cm LAESV A-L A4C: 73 ml LAESV MOD A4C: 72 ml LALs A2C: 6.5 cm LAAs A2C: 29.0 cm LAESV A-L A2C: 109 ml LAESV MOD A2C: 106 ml LAESV(A-L): 92 ml LAESV Index (A-L): 51.24 ml/m Ao Diam: 3.4 cm (2.0 - 3.7) AV Cusp: 2.2 cm (1.5 - 2.6) EPSS: 0.6 cm MV DecT: 134 ms MV PHT: 45 ms MVA By PHT: 4.8 cm AV Vmax: 1.32 m/s AV maxP.03 mmHg AR Vmax: 3.17 m/s AR maxP.28 mmHg AR PHT: 470 ms AR Dec Time: 1622 ms AR Dec [place]: 2.0 m/s TR Vmax: 2.06 m/s TR maxP.94 mmHg RAP: 15.00 mmHg RVSP: 31.94 mmHg MV EF SLOPE: 70.91 mm/s (70 - 150) MV EXCURSION: 13.55 mm (> 18.000) TAPSE: 6.74 mm FINDINGS -------- Atrial fibrillation. This was a technically good study. The left ventricular size is normal. There is moderate concentric left ventricular hypertrophy. O verall left ventricular systolic function is moderate-severely impaired with, an EF between 30 - 35 % . The right ventricle is mildly enlarged. LA is severely dilated >40 ml/m2 The right atrium is normal in size. Aneurysmal Interatrial septum. There is mild aortic valve sclerosis. There is mild aortic regurgitation. Mild mitral annular calcification present. [id number] mitral regurgitation is present. Moderate to severe tricuspid regurgitation present. Right ventricular systolic pressure is normal a t < 35 mmHg. Trace/mild (physiologic) pulmonic regurgitation. The aortic root size is normal. The inferior vena cava is dilated with no significant inspiratory collapse which is consistent estima brian right atrial pressure of >15 mmHg. There is no pericardial effusion. CONCLUSIONS -------- 1. The left ventricular size is normal. 2. There is moderate concentric left ventricular hypertrophy. 3. Overall left ventricular systolic function is moderate-severely impaired with, an EF between 30 - 35 %. 4. The right ventricle is mildly enlarged. 5. LA is severely dilated >40 ml/m2 6. Aneurysmal Interatrial septum. 7. There is mild aortic valve sclerosis. 8. There is mild aortic regurgitation. 9. Mild mitral annular calcification present. 10. [id number] mitral regurgitation is present. 11. Moderate to severe tricuspid regurgitation present. 12. Right ventricular systolic pressure is normal at < 35 mmHg. 13. Trace/mild (physiologic) pulmonic regurgitation. 14. The inferior vena cava is dilated with no significant inspiratory collapse which is consistent es timated right atrial pressure of >15 mmHg. 15. There is no pericardial effusion. DRIVE MAN: TED Mcintosh
[2021-12-10] MEDS: HYDROcodone/APAP 7.5-325MG 1 EACH TAB PO PRN (12:27)
--- NOTE | 2021-12-10 13:21 | P.PN ---
Subjective Progress Note Date: 12/10/21 HISTORY OF PRESENT ILLNESS: This is a pleasant 66-year-old female past medical history significant for paroxysmal atrial fibrillation in 06/2019 not on anticoagulation due to history of GI bleed, coronary artery disease status post three-vessel CABG in 1995, PCI of the distal left circumflex in 2009, PCI mid distal circumflex in 2018, type 2 diabetes, hypertension, dyslipidemia, peripheral vascular disease, right carotid endarterectomy in 11/2020. She follows in the office with Dr. Epstein. We have been asked to see in consultation for atrial fibrillation with rapid ventricular response. Patient presents emergency department 12/07/2019 with complaints of abdominal pain, nausea, vomiting, and diarrhea. Patient was found to have hemoglobin 6.8 on admission and received 1 unit of packed RBCs with improvement in hemoglobin was 7.4. This morning patient was found to be tachycardic, EKG was performed which revealed atrial fibrillation with rapid ventricular response, right bundle branch block, heart rate in the 150s. Patient was placed on cardiac telemetry. DIAGNOSTICS -EKG on admission revealed sinus rhythm, heart rate 83, right bundle-branch block, T wave inversions in leads III, V2 and V3. EKG consistent with known coronary artery disease -EKG today atrial fibrillation with rapid ventricular response HR 150s -Telemetry tracings indicate -fibrillation with rapid ventricular response -CT abdomen and pelvis revealed no evidence of GI bleed. Severe coronary artery atherosclerosis with at least 50% stenosis of the celiac axis, 2550 percent stenosis of the renal arteries, greater than 70% stenosis of the right external iliac artery, stable infrarenal tortuous aneurysmal dilation measuring 4.0 cm extensive colonic diverticulosis. -Laboratory reviewed, WBC 9.7, hemoglobin 7.4, platelets 324, sodium 135, potassium 4.5, BUN 22, serum creatinine 0.6, troponin negative, COVID-19 negative, UA positive for UTI -Current home medications include aspirin 81 mg daily, atorvastatin 80 mg daily, amlodipine 5 mg daily, metoprolol titrate 25 mg twice a day, lisinopril 40 mg daily, Brilinta 90 mg twice a day Patient underwent cardiac catheterization 05/25/2021 which revealed calcified coronary arteries, chronically occluded LAD and RCA, moderate left main disease, moderate diffuse disease in the left circumflex, patent BRANDON to LAD. medical therapy recommended Most recent echocardiogram 09/2020 revealed normal ejection fraction, mild tricuspid regurgitation 12/10/2021 Patient examined this morning at the bedside. Patient denies chest pain or pressure. She denies shortness of breath. Patient's hemoglobin today 6.6. Patients brilinta on hold. Vital signs stable. Echocardiogram completed revealed an ejection fraction 30-35%, [id number] mitral regurgitation, moderate to severe tricuspid regurgitation PHYSICAL EXAM: VITAL SIGNS: Reviewed. GENERAL: Well-developed in no acute distress. NECK: Supple. No JVD or thyromegaly LUNGS: Respirations even and unlabored. Lungs essentially clear to auscultation bilaterally. HEART: Regular rate and rhythm. S1 and S2 heard. EXTREMITIES: Normal range of motion. No clubbing or cyanosis. Peripheral pulses intact. No lower extremity edema ASSESSMENT: Paroxysmal atrial fibrillation with RVR -[id number] score 5, not on anticoagulation due to history GI bleed Anemia Coronary artery disease status post three-vessel CABG in 1995, PCI of the distal left circumflex in 2009, PCI mid distal circumflex in 2018 Type 2 diabetes Hypertension Dyslipidemia Peripheral vascular disease Right carotid endarterectomy in 11/2020 PLAN: Continue current cardiac medications Patient not on anticoagulation due to history of GI Bleeding Brilinta is on hold due to anemia. If no plans for endoscopy, recommend resuming. Will discuss with surgical team Further recommendations pending patient course Nurse practitioner note has been reviewed by physician. Signing provider agrees with the documented findings, assessment, and plan of care. Objective - Vital Signs Vital signs: Vital Signs Temp 98.3 F 12/10/21 11:12 Pulse 66 12/10/21 11:12 Resp 16 12/10/21 11:12 BP 115/70 12/10/21 11:12 Pulse Ox 95 12/10/21 11:12 Intake & Output 12/09/21 12/10/21 12/10/21 18:59 06:59 18:59 Intake Total 120 Output Total 150 Balance -30 Intake: Oral 120 Output: Urine 150 Other: Voiding Method Bedpan Bedpan Bedpan # Voids 1 1 - Labs CBC & Chem 7: 12/10/21 05:51 12/10/21 05:51 Labs: Abnormal Lab Results - Last 24 Hours (Table) 12/09/21 12/09/21 12/09/21 Range/Units 13:34 16:48 20:25 RBC (3.80-5.40) m/uL Hgb (11.4-16.0) gm/dL Hct (34.0-46.0) % MCHC (31.0-37.0) g/dL RDW (11.5-15.5) % Sodium (137-145) mmol/L Glucose (74-99) mg/dL POC Glucose (mg/dL) 327 H 236 H 219 H (75-99) mg/dL Hemoglobin A1c (0.0-6.0) % 12/10/21 12/10/21 12/10/21 Range/Units 05:48 05:51 05:51 RBC 2.64 L (3.80-5.40) m/uL Hgb 6.6 L* (11.4-16.0) gm/dL Hct 22.5 L (34.0-46.0) % MCHC 29.3 L (31.0-37.0) g/dL RDW 16.8 H (11.5-15.5) % Sodium (137-145) mmol/L Glucose (74-99) mg/dL POC Glucose (mg/dL) 160 H (75-99) mg/dL Hemoglobin A1c 9.6 H (0.0-6.0) % 12/10/21 12/10/21 Range/Units 05:51 11:40 RBC (3.80-5.40) m/uL Hgb (11.4-16.0) gm/dL Hct (34.0-46.0) % MCHC (31.0-37.0) g/dL RDW (11.5-15.5) % Sodium 134 L (137-145) mmol/L Glucose 135 H (74-99) mg/dL POC Glucose (mg/dL) 178 H (75-99) mg/dL Hemoglobin A1c (0.0-6.0) % Microbiology - Last 24 Hours (Table) 12/07/21 18:49 Urine Culture - Final Urine,Clean Catch Escherichia coli Staphylococcus aureus
--- NOTE | 2021-12-10 13:43 | P.PN ---
Subjective Progress Note Date: 12/10/21 This is 66-year-old female with history of CVA/TIA, diabetes mellitus, gastroesophageal disease, GI bleed, CAD, history of CABG, arteriosclerosis, diverticulitis, ongoing nicotine dependence multiple other medical issues presented to the ER with nausea vomiting and abdominal pain. Denies hematochezia, hemoptysis. Denies rectal bleeding. Hemoglobin 6.8 on admission, received 1 unit of packed RBCs and currently up to 7.4. CT of abdomen and pelvis reported no definitive evidence of GI bleed, consider tagged RBC scan, severe coronary artery arteriosclerosis, stable infrarenal tortuous aneurysmal dilatation measuring up to 4.0 cm, nonobstructing left renal calculus, extensive colonic diverticulosis. Afebrile, vital signs stable. UA reporting moderate yeast, rare bacteria, greater than 182 WBCs and large leukocytes, culture pending. Denies chest pain, palpitations or shortness of breath. 12/09/2021 maintained on PPI ,Zofran and ceftriaxone .patient had multiple episodes of nausea and vomiting of yellow emesis throughout the night and into this morning. Reports minimal abdominal pain, mostly with wretching. Denies chest pain, palpitations or shortness of breath. Congested loose cough. This morning when into A. fib with RVR, evaluated by cardiology with recommendations noted. Also noted is patient appears to vasovagal down during her episodes of vomiting. WBC increased to 12.81, T-max 100.4. Urine culture reporting gram- negative bacilli, presumptive staph aureus. Hemoglobin decreased to 7.2, platelets 370. 12/10/2021 Feels better this morning. Sitting up in bed this morning with legs crisscrossed, smiling, eagerly conversing. Yesterday afternoon increased Zofran dose and added Reglan to med regimen. No further nausea and vomiting throughout the night or today. Tolerating clear liquid diet, states it is "boring". Lantus added to med regimen last night, Blood sugars controlled, hemoglobin A1c 9.6. Brelinta remains on hold, Hemoglobin decreased to 6.6, platelets 295, denies any bleeding. Asymptomatic, denies chest pain, palpitations or shortness of breath. Maintain on ceftriaxone for UTI. Afebrile, normal WBC. Renal function stable. Echo performed yesterday reported moderately severely impaired LV function, EF 30-35%( decreased from prior, per cardiology office echo, as previously reported), severely dilated LA, mild to moderate mitral regurgitation, moderate to severe tricuspid regurgitation. Objective - Vital Signs Vital signs: Vital Signs Temp 98.3 F 12/10/21 11:12 Pulse 66 12/10/21 11:12 Resp 16 12/10/21 11:12 BP 115/70 12/10/21 11:12 Pulse Ox 95 12/10/21 11:12 Intake & Output 12/09/21 12/10/21 12/10/21 18:59 06:59 18:59 Intake Total 120 Output Total 150 Balance -30 Intake: Oral 120 Output: Urine 150 Other: Voiding Method Bedpan Bedpan Bedpan # Voids 1 1 - Exam General: Sitting up in bed, alert and oriented times 3. NAD, smiling, conversing HEENT: [PERRL. EOMI. No pharyngeal erythema or exudate. Neck: Supple, no JVD Cardiac: [Heart regular in rate and rhythm. No S3. No S4. No clicks, rubs. No murmur.] Lungs: [Clear to auscultation bilaterally.] Abdomen: [Soft, nondistended, no tenderness,No mass. No organomegaly. Hyperactive bowel sounds Extremes: [No edema no cyanosis no claudication normal pulses] Neurologic: CN II - XII grossly intact.] Microbiology 12/07/21 18:49 Urine,Clean Catch Urine Culture - Final Escherichia coli Staphylococcus aureus - Labs CBC & Chem 7: 12/10/21 05:51 12/10/21 05:51 Labs: Abnormal Lab Results - Last 24 Hours (Table) 12/09/21 12/09/21 12/09/21 Range/Units 13:34 16:48 20:25 RBC (3.80-5.40) m/uL Hgb (11.4-16.0) gm/dL Hct (34.0-46.0) % MCHC (31.0-37.0) g/dL RDW (11.5-15.5) % Sodium (137-145) mmol/L Glucose (74-99) mg/dL POC Glucose (mg/dL) 327 H 236 H 219 H (75-99) mg/dL Hemoglobin A1c (0.0-6.0) % 12/10/21 12/10/2122 Range/Units 05:48 05:51 05:51 RBC 2.64 L (3.80-5.40) m/uL Hgb 6.6 L* (11.4-16.0) gm/dL Hct 22.5 L (34.0-46.0) % MCHC 29.3 L (31.0-37.0) g/dL RDW 16.8 H (11.5-15.5) % Sodium (137-145) mmol/L Glucose (74-99) mg/dL POC Glucose (mg/dL) 160 H (75-99) mg/dL Hemoglobin A1c 9.6 H (0.0-6.0) % 12/10/21 12/10/21 Range/Units 05:51 11:40 RBC (3.80-5.40) m/uL Hgb (11.4-16.0) gm/dL Hct (34.0-46.0) % MCHC (31.0-37.0) g/dL RDW (11.5-15.5) % Sodium 134 L (137-145) mmol/L Glucose 135 H (74-99) mg/dL POC Glucose (mg/dL) 178 H (75-99) mg/dL Hemoglobin A1c (0.0-6.0) % Microbiology - Last 24 Hours (Table) 12/07/21 18:49 Urine Culture - Final Urine,Clean Catch Escherichia coli Staphylococcus aureus Assessment and Plan Assessment: (1) Abdominal pain accompanied by nausea vomiting without witnessed bleeding. CT reporting extensive colonic diverticulosis, Suspect microscopic diverticular bleed. Current Visit: No Status: Acute Code(s): R10.9 - UNSPECIFIED ABDOMINAL PAIN SNOMED Code(s): 82076342 (2) Anemia, chronic, status post 1 unit packed RBCs Current Visit: Yes Status: Acute Code(s): D64.9 - ANEMIA, UNSPECIFIED SNOM ED Code(s): 859624554 (3) AAA (abdominal aortic aneurysm) Current Visit: No Status: Acute Code(s): I71.4 - ABDOMINAL AORTIC ANEURYSM, WITHOUT RUPTURE SNOMED Code(s): 040077369 (4) acute UTI, possible, culture reporting E. coli (5) dehydration Current Visit: No Status: Acute Code(s): E86.0 - DEHYDRATION SNOMED Code(s): 23483999 (6) Coronary artery disease with hx of myocardial infarct w/o hx of CABG Current Visit: No Status: Acute Code(s): I25.10 - ATHSCL HEART DISEASE OF [place] CORONARY ARTERY W/O ANG PCTRS SNOMED Code(s): 297903094 (7) diabetic gastroparesis (8) diabetes mellitus type 2, hemoglobin A1c 9.6 (9) Nicotine dependence Current Visit: No Status: Acute Code(s): F17.200 - NICOTINE DEPENDENCE, UNSPECIFIED, UNCOMPLICATED SNOMED Code(s): 82994614 (10) COPD,stable (11) chronic proximal atrial fibrillation with RVR, not on anticoagulation secondary to history of GI bleed. (12) EF 30-35%, moderate to severe tricuspid regurgitation, mild to moderate mitral regurgitation, LV function decreased from prior echo in May 2021, cardiology following (13) fever, leukocytosis, in addition to ongoing nausea and vomiting Plan: Continue on current medication regime ,monitoring and symptomatic t reatment. Transfer to [facility] with remote telemetry. Close monitoring of coags with repeat CBC, BMP ordered for a.m. Gardeniailenta currently on hold- Anticoagulation as per surgery, cardiology recommendations noted. Maintain on IV antibiotics, IV fluids. Increase ambulation as tolerated. The impression and plan of care has been dictated as directed. : I performed a history and examination of this patient, discussed the same with the dictator. I agree with the dictator's note ,documented as a scribe. Any additional findings or plans will be noted.
--- NOTE | 2021-12-10 14:00 | P.PN ---
Subjective Progress Note Date: 12/10/21 CHIEF COMPLAINT: Abdominal pain with vomiting HISTORY OF PRESENT ILLNESS: Patient's vomiting has improved. She reports her last episode of emesis was last night. She had vomited throughout the day yesterday. Patient was able tolerate clear liquids last night and this morning. She does report some lower abdominal pain. The pain is not any worse since admission. She denies any bowel movement. She is having flatus. Denies any hematemesis or coffee-ground emesis. Hemoglobin today is 6.6. She was transferred to the cardiac floor due to A. fib with RVR. Afebrile. WBC is 6.8 hemoglobin 7.2 down to 6.6 Patient seen and examined with Dr. cisneros PHYSICAL EXAM: VITAL SIGNS: Reviewed. GENERAL: Well-developed in no acute distress. HEENT: No sclera icterus. Extraocular movements grossly intact. Moist buccal mucosa. Head is atraumatic, normocephalic. ABDOMEN: Soft. Nondistended. lower abdominal tenderness NEUROLOGIC: Alert and oriented. Cranial nerves II through XII grossly intact. ASSESSMENT: 1. Abdominal pain with nausea and vomiting 2. Anemia. Possible acute blood loss anemia. status post 1 unit of blood during this admission. 3. Possible microscopic diverticular bleed 4. Recent EGD colonoscopy in October 2021 which demonstrated gastritis, hemorrhoids and diverticulosis 5. Atrial fibrillation management per cardiology 6. UTI PLAN: -Patient may require endoscopies if hemoglobin continues to drop -If patient has active signs of bleeding we'll order tagged RBC scan -Recommend to hold off on any anticoagulation. Continue to hold Brilenta -repeat CBC in AM -Continue supportive care -Continue antiemetics -continue to monitor -Continue clear liquids -Continue IV fluids -Continue to monitor for any signs or symptoms of bleeding -Continue to monitor hemoglobin -Continue PPI Physician [employer] note has been reviewed by physician. Signing provider agrees with the documented findings, assessment, and plan of care. Objective - Vital Signs Vital signs: Vital Signs Temp 97.7 F 12/10/21 08:00 Pulse 69 12/10/21 08:00 Resp 18 12/10/21 08:00 BP 105/55 12/10/21 08:00 Pulse Ox 96 12/10/21 08:00 Intake & Output 12/09/21 12/10/21 12/10/21 18:59 06:59 18:59 Intake Total 120 Output Total 150 Balance -30 Intake: Oral 120 Output: Urine 150 Other: Voiding Method Bedpan Bedpan Bedpan # Voids 1 1 - Labs CBC & Chem 7: 12/10/21 05:51 12/10/21 05:51 Labs: Abnormal Lab Results - Last 24 Hours (Table) 12/09/21 12/09/21 12/09/21 Range/Units 07:12 11:48 13:34 RBC (3.80-5.40) m/uL Hgb (11.4-16.0) gm/dL Hct (34.0-46.0) % MCHC (31.0-37.0) g/dL RDW (11.5-15.5) % Sodium (137-145) mmol/L Carbon Dioxide 18.5 L (20.0-27.5) mmol/L Glucose 196 H (70-110) mg/dL POC Glucose (mg/dL) 303 H 327 H (75-99) mg/dL Hemoglobin A1c (0.0-6.0) % 12/09/21 12/09/21 12/10/21 Range/Units 16:48 20:25 05:48 RBC (3.80-5.40) m/uL Hgb (11.4-16.0) gm/dL Hct (34.0-46.0) % MCHC (31.0-37.0) g/dL RDW (11.5-15.5) % Sodium (137-145) mmol/L Carbon Dioxide (20.0-27.5) mmol/L Glucose (70-110) mg/dL POC Glucose (mg/dL) 236 H 219 H 160 H (75-99) mg/dL Hemoglobin A1c (0.0-6.0) % 12/10/21 12/10/21 12/10/21 Range/Units 05:51 05:51 05:51 RBC 2.64 L (3.80-5.40) m/uL Hgb 6.6 L* (11.4-16.0) gm/dL Hct 22.5 L (34.0-46.0) % MCHC 29.3 L (31.0-37.0) g/dL RDW 16.8 H (11.5-15.5) % Sodium 134 L (137-145) mmol/L Carbon Dioxide (20.0-27.5) mmol/L Glucose 135 H (70-110) mg/dL POC Glucose (mg/dL) (75-99) mg/dL Hemoglobin A1c 9.6 H (0.0-6.0) % Microbiology - Last 24 Hours (Table) 12/07/21 18:49 Urine Culture - Final Urine,Clean Catch Escherichia coli Staphylococcus aureus
[2021-12-10 17:21] LABS: Glucose,Whole Blood 162 mg/dL (75-99)
[2021-12-10 21:19] LABS: Glucose,Whole Blood 128 mg/dL (75-99)
[2021-12-11] MEDS: SODIUM CHLORIDE 0.9% 1,000 ML IV SCH ×2 (03:18→16:31)
[2021-12-11] MEDS: METOCLOPRAMIDE 5 MG/ML 2 ML VIAL IVP SCH ×2 (06:05→12:41)
[2021-12-11 07:50] LABS: Glucose,Whole Blood 162 mg/dL (75-99)
[2021-12-11] MEDS: PANTOPRAZOLE 40 MG/10 ML VIAL IVP SCH (08:18)
[2021-12-11] MEDS: lisinopriL 20 MG TAB PO SCH (08:18)
[2021-12-11] MEDS: METOPROLOL TARTRATE 50 MG TAB PO SCH (08:18)
[2021-12-11] MEDS: MAGNESIUM OXIDE 400 MG TAB PO SCH (08:18)
[2021-12-11] MEDS: INSULIN DETEMIR (LEVEMIR) 100 UNIT/ML SYR SQ SCH (08:18)
[2021-12-11] MEDS: ATORVASTATIN 80 MG TAB PO SCH (08:18)
[2021-12-11] MEDS: INSULIN ASPART (NovoLOG) 100 UNIT/ML VIAL SQ SCH ×2 (08:19→13:21)
[2021-12-11] MEDS: HYDROcodone/APAP 7.5-325MG 1 EACH TAB PO PRN (08:30)
--- NOTE | 2021-12-11 10:09 | P.PN ---
Subjective This is 66-year-old female with history of CVA/TIA, diabetes mellitus, gastroesophageal disease, GI bleed, CAD, history of CABG, arteriosclerosis, d iverticulitis, ongoing nicotine dependence multiple other medical issues presented to the ER with nausea vomiting and abdominal pain. Denies hematochezia, hemoptysis. Denies rectal bleeding. Hemoglobin 6.8 on admission, received 1 unit of packed RBCs and currently up to 7.4. CT of abdomen and pe lvis reported no definitive evidence of GI bleed, consider tagged RBC scan, severe coronary artery arteriosclerosis, stable infrarenal tortuous aneurysmal dilatation measuring up to 4.0 cm, nonobstructing left renal calculus, extensive colonic diverticulosis. Afebrile, vital signs stable. UA reporting moderate yeast, rare bacteria, greater than 182 WBCs and large leukocytes, culture pending. Denies chest pain, palpitations or shortness of breath. 12/09/2021 maintained on PPI ,Zofran and ceftriaxone .patient had multiple episodes of nausea and vomiting of yellow emesis throughout the night and into this morning. Reports minimal abdominal pain, mostly with wretching. Denies chest pain, palpitations or shortness of breath. Congested loose cough. This morning when into A. fib with RVR, evaluated by cardiology with recommendations noted. Also noted is patient appears to vasovagal down during her episodes of vomiting. WBC increased to 12.81, T-max 100.4. Urine culture reporting gram- negative bacilli, presumptive staph aureus. Hemoglobin decreased to 7.2, platelets 370. 12/10/2021 Feels better this morning. Sitting up in bed this morning with legs crisscrossed, smiling, eagerly conversing. Yesterday afternoon increased Zofran dose and added Reglan to med regimen. No further nausea and vomiting throughout the night or today. Tolerating clear liquid diet, states it is "boring". Lantus added to med regimen last night, Blood sugars controlled, hemoglobin A1c 9.6. Brelinta remains on hold, Hemoglobin decreased to 6.6, platelets 295, denies any bleeding. Asymptomatic, denies chest pain, palpitations or shortness of breath. Maintain on ceftriaxone for UTI. Afebrile, normal WBC. Renal function stable. Echo performed yesterday reported moderately severely impaired LV function, EF 30-35%( decreased from prior, per cardiology office echo, as previously reported), severely dilated LA, mild to moderate mitral regurgitation, moderate to severe tricuspid regurgitation. 12/11/2021:: Patient has no nausea or vomiting today. She denies any chest pains pressures or shortness of breath. Tolerating clear liquid diet. Continues on Levemir and NovoLog scale for poorly controlled diabetes. She is on ceftriaxone for UTI. Last hemoglobin was 6.6. Today's hemoglobin is pending. She denies any hematochezia and melena. Objective - Vital Signs Vital signs: Vital Signs Temp 98.3 F 12/11/21 04:40 Pulse 62 12/11/21 08:25 Resp 20 12/11/21 04:40 BP 132/72 12/11/21 08:25 Pulse Ox 96 12/11/21 04:40 Intake & Output 12/10/21 12/11/21 12/11/21 18:59 06:59 18:59 Intake Total 600 400 Balance 600 400 Intake: Oral 600 400 Other: Voiding Method Bedside Commode # Voids 5 - Exam General: Sitting up in bed, alert and oriented times 3. NAD, smiling, conversing Neck: Supple, no JVD Cardiac: Heart regular in rate and rhythm. No S3. No S4. No clicks, rubs. No murmur. Lungs: Clear to auscultation bilaterally. Abdomen: Soft, nondistended, no tenderness,No mass. No organomegaly. Hyperactive bowel sounds Extremes: No edema no cyanosis no claudication normal pulses Neurologic: CN II - XII grossly intact. - Labs CBC & Chem 7: 12/10/21 05:51 12/10/21 05:51 Labs: Abnormal Lab Results - Last 24 Hours (Table) 12/10/21 12/10/21 12/10/21 Range/Units 05:51 11:40 17:19 POC Glucose (mg/dL) 178 H 162 H (75-99) mg/dL Hemoglobin A1c 9.6 H (0.0-6.0) % 12/10/21 12/11/21 Range/Units 21:17 07:38 POC Glucose (mg/dL) 128 H 162 H (75-99) mg/dL Hemoglobin A1c (0.0-6.0) % Microbiology - Last 24 Hours (Table) 12/09/21 14:12 Blood Culture - Preliminary Blood No Growth after 24 hours 12/09/21 13:59 Blood Culture - Preliminary Blood No Growth after 24 hours Assessment and Plan Assessment: ssessment: (1) Abdominal pain accompanied by nausea vomiting without witnessed bleeding. CT reporting extensive colonic diverticulosis, Suspect microscopic diverticular bleed. Current Visit: No Status: Acute Code(s): R10.9 - UNSPECIFIED ABDOMINAL PAIN SNOMED Code(s): 51289178 (2) Anemia, chronic, status post 1 unit packed RBCs Current Visit: Yes Status: Acute Code(s): D64.9 - ANEMIA, UNSPECIFIED SNOMED Code(s): 843456219 (3) AAA (abdominal aortic aneurysm) Current Visit: No Status: Acute Code(s): I71.4 - ABDOMINAL AORTIC ANEURYSM, WITHOUT RUPTURE SNOMED Code(s): 706064996 (4) acute UTI, possible, culture reporting E. coli (5) dehydration Current Visit: No Status: Acute Code(s): E86.0 - DEHYDRATION SNOMED Code(s): 35875235 (6) Coronary artery disease with hx of myocardial infarct w/o hx of CABG Current Visit: No Status: Acute Code(s): I25.10 - ATHSCL HEART DISEASE OF [place] CORONARY ARTERY W/O ANG PCTRS SNOMED Code(s): 994845579 (7) diabetic gastroparesis (8) diabetes mellitus type 2, hemoglobin A1c 9.6 (9) Nicotine dependence Current Visit: No Status: Acute Code(s): F17.200 - NICOTINE DEPENDENCE, UNSPECIFIED, UNCOMPLICATED SNOMED Code(s): 42112237 (10) COPD,stable (11) chronic proximal atrial fibrillation with RVR, not on anticoagulation secondary to history of GI bleed. (12) EF 30-35%, moderate to severe tricuspid regurgitation, mild to moderate mitral regurgitation, LV function decreased from prior echo in May 2021, cardiology following (13) fever, leukocytosis, in addition to ongoing nausea and vomiting Plan: I will wait on her upcoming hemoglobin. Habits greater than 6.6, plan on discharge otherwise will transfuse 1 unit packed red blood cells. Cardiology is cleared her. Weight on general surgery regarding a lot of older Brillinta. Plan on discharging this evening or tomorrow depending on results.
--- NOTE | 2021-12-11 10:54 | P.PN ---
Subjective Progress Note Date: 12/11/21 Principal diagnosis: Coronary artery disease The patient is a pleasant 66-year-old female patient with coronary artery disease and paroxysmal atrial fibrillation as well as diabetes and hypertension and dyslipidemia who was admitted with GI bleeding. The patient was seen this morning. She remains asymptomatic from a cardiovascular standpoint of view. Anticoagulation and antiplatelet are on hold at this point her the surgical team. The plan is to discharge the patient later on today. She remains hemodynamically stable. Objective - Vital Signs Vital signs: Vital Signs Temp 98.3 F 12/11/21 04:40 Pulse 62 12/11/21 08:25 Resp 20 12/11/21 04:40 BP 132/72 12/11/21 08:25 Pulse Ox 96 12/11/21 04:40 Intake & Output 12/10/21 12/11/21 12/11/21 18:59 06:59 18:59 Intake Total 600 400 Balance 600 400 Intake: Oral 600 400 Other: Voiding Method Bedside Commode # Voids 5 - Constitutional General appearance: Present: no acute distress - Respiratory Respiratory: bilateral: CTA - Cardiovascular Rhythm: regular Heart sounds: normal: S1, S2 - Labs CBC & Chem 7: 12/10/21 05:51 12/10/21 05:51 Labs: Abnormal Lab Results - Last 24 Hours (Table) 12/10/21 12/10/21 12/10/21 Range/Units 05:51 11:40 17:19 POC Glucose (mg/dL) 178 H 162 H (75-99) mg/dL Hemoglobin A1c 9.6 H (0.0-6.0) % 12/10/21 12/11/21 Range/Units 21:17 07:38 POC Glucose (mg/dL) 128 H 162 H (75-99) mg/dL Hemoglobin A1c (0.0-6.0) % Microbiology - Last 24 Hours (Table) 12/09/21 14:12 Blood Culture - Preliminary Blood No Growth after 24 hours 12/09/21 13:59 Blood Culture - Preliminary Blood No Growth after 24 hours Assessment and Plan Assessment: Assessment #1 coronary artery disease seems to be stable #2 paroxysmal atrial fibrillation #3 gastrointestinal bleeding #4 anemia secondary to GI bleeding #5 multiple comorbid conditions Plan #1 restart the patient back on anticoagulation antiplatelet once she is stable from the GI standpoint of view #2 the patient remains asymptomatic and remains hemodynamically stable #3 discharge in the next 24 hour
[2021-12-11] MEDS: PARoxetine 20 MG TAB PO SCH (12:41)
[2021-12-11 12:55] LABS: Glucose,Whole Blood 161 mg/dL (75-99)
--- NOTE | 2021-12-11 13:04 | P.PN ---
Subjective Progress Note Date: 12/11/21 CHIEF COMPLAINT: Abdominal pain with anemia HISTORY OF PRESENT ILLNESS: The patient is a 66-year-old female with atrial fibrillation and rapid ventricular response on anticoagulation. Patient's hemoglobin yesterday was 6.6. Current hemoglobin pending. She is tolerating liquid diet. She is being seen by cardiology. She denies abdominal pain. She had mild nausea. No signs of bleeding. ROS: No fevers or chills. No new chest pain. No productive sputum PHYSICAL EXAM: VITAL SIGNS: Reviewed CONSTITUTIONAL: Well developed and in no acute distress. EYES: Conjuctivae without sclera icterus. Extraocular movements grossly intact. HEAD, EARS, NOSE, THROAT: Moist buccal mucosa. Head is atraumatic, normocephalic. No nasal drainage. RESPIRATORY: Non-labored respirations and equal bilateral excursions. CARDIOVASCULAR: Palpable 2+ radial pulses. ABDOMEN: No peritonitis. MUSCULOSKELETAL: No gross deformity of the lower extremities noted. No clubbing. No cyanosis. SKIN: Good skin turgor. Well perfused. NEUROLOGIC: Cranial nerves II through XII grossly intact. No focal or latera lizing signs. PSYCH: Alert to person. CLINICAL LABS: Reviewed. WBC normal 6.8. Hemoglobin low, 6.6 ASSESSMENT: 1. Anemia 2. Chronic anticoagulant use PLAN: 1. Hold anticoagulant pending stable hemoglobin Objective - Vital Signs Vital signs: Vital Signs Temp 98.3 F 12/11/21 04:40 Pulse 62 12/11/21 08:25 Resp 20 12/11/21 04:40 BP 132/72 12/11/21 08:25 Pulse Ox 96 12/11/21 04:40 Intake & Output 12/10/21 12/11/21 12/11/21 18:59 06:59 18:59 Intake Total 600 400 480 Balance 600 400 480 Intake: Oral 600 400 480 Other: Voiding Method Bedside Commode # Voids 5 - Labs CBC & Chem 7: 12/10/21 05:51 12/10/21 05:51 Labs: Abnormal Lab Results - Last 24 Hours (Table) 12/10/21 12/10/21 12/11/21 Range/Units 17:19 21:17 07:38 POC Glucose (mg/dL) 162 H 128 H 162 H (75-99) mg/dL Microbiology - Last 24 Hours (Table) 12/09/21 14:12 Blood Culture - Preliminary Blood No Growth after 24 hours 12/09/21 13:59 Blood Culture - Preliminary Blood No Growth after 24 hours
[2021-12-11 13:12] VITALS: BP 157/77; PULSE 54; RESP 16; TEMP 97.6
[2021-12-11 13:16] LABS: African American GFR (CKD) 110.9 (60.0-200.0); Anion Gap 10.8 mmol/L (10.00-18.00); BUN/Creat Ratio 16.67 Ratio (12.00-20.00); Calcium 8.7 mg/dL (8.7-10.3); Carbon Dioxide 20.2 mmol/L (20.0-27.5); Non-African American GFR(CKD) 95.7 (60.0-200.0); Potassium 3.7 mmol/L (3.5-5.5)
[2021-12-11 14:34] LABS: Basophils # (A) 0.06 X 10*3/uL (0.00-0.10); Basophils % (A) 0.7 %; Eosinophils # (A) 0.16 X 10*3/uL (0.04-0.35); Eosinophils % (A) 1.8 %; HCT 23.8 % (37.2-46.3); HGB 6.6 g/dL (12.0-15.0); Lymphocytes # (A) 1.86 X 10*3/uL (0.90-5.00); Lymphocytes % (A) 20.5 %; MCH 24.3 pg (27.0-32.0); MCHC 27.7 g/dL (32.0-37.0); MCV 87.5 fL (80.0-97.0); Mean Platelet Volume 11.2 fL (9.5-12.2); Monocytes % (A) 7.7 %; Neutrophils # (A) 6.25 X 10*3/uL (1.80-7.70); Neutrophils % (A) 68.6 %; Platelet Count 271 X 10*3/uL (140-440); RBC 2.72 X 10*6/uL (4.10-5.20); RDW 16.7 % (11.5-14.5); WBC 9.09 X 10*3/uL (4.50-10.00)
--- NOTE | 2021-12-11 14:52 | P.DS ---
Providers Date of admission: 12/09/21 12:28 Expected date of discharge: 12/11/21 Attending physician: Sincere Casey Consults: 12/07/21 20:07 Consult Physician Routine Consulting Provider: Dayn Hurd Consult Reason/Comments: Abd pain; Vomiting; GI bleed Do you want consulting provider notified?: Already Contacted 12/09/21 08:03 Consult Physician Urgent Consulting Provider: Wu Benitez Consult Reason/Comments: A fib w/ RVR Do you want consulting provider notified?: Yes Primary care physician: Sincere Casey - Discharge Diagnosis(es) (1) Gastrointestinal hemorrhage Current Visit: Yes Status: Acute (2) UTI (urinary tract infection) Current Visit: Yes Status: Acute (3) AAA (abdominal aortic aneurysm) Current Visit: No Status: Acute (4) Abdominal pain Current Visit: No Status: Acute (5) Acute GI bleeding Current Visit: No Status: Acute (6) Atrial fibrillation Current Visit: No Status: Acute (7) Carotid stenosis, right Current Visit: No Status: Acute (8) Coronary artery disease with hx of myocardial infarct w/o hx of CABG Current Visit: No Status: Acute (9) Diabetes type 2, uncontrolled Current Visit: No Status: Acute Hospital Course: This is 66-year-old female with history of CVA/TIA, diabetes mellitus, gastroesophageal disease, GI bleed, CAD, history of CABG, arteriosclerosis, diverticulitis, ongoing nicotine dependence multiple other medical issues presented to the ER with nausea vomiting and abdominal pain. Denies hematochezia, hemoptysis. Denies rectal bleeding. Hemoglobin 6.8 on admission, received 1 unit of packed RBCs and currently up to 7.4. CT of abdomen and pelvis reported no definitive evidence of GI bleed, consider tagged RBC scan, severe coronary artery arteriosclerosis, stable infrarenal tortuous aneurysmal dilatation measuring up to 4.0 cm, nonobstructing left renal calculus, extensive colonic diverticulosis. Afebrile, vital signs stable. UA reporting moderate yeast, rare bacteria, greater than 182 WBCs and large leukocytes, culture pending. Denies chest pain, palpitations or shortness of breath. 12/09/2021 maintained on PPI ,Zofran and ceftriaxone .patient had multiple episodes of nausea and vomiting of yellow emesis throughout the night and into this morning. Reports minimal abdominal pain, mostly with wretching. Denies chest pain, palpitations or shortness of breath. Congested loose cough. This morning when into A. fib with RVR, evaluated by cardiology with recommendations noted. Also noted is patient appears to vasovagal down during her episodes of vomiting. WBC increased to 12.81, T-max 100.4. Urine culture reporting gram- negative bacilli, presumptive staph aureus. Hemoglobin decreased to 7.2, platelets 370. 12/10/2021 Feels better this morning. Sitting up in bed this morning with legs crisscrossed, smiling, eagerly conversing. Yesterday afternoon increased Zofran dose and added Reglan to med regimen. No further nausea and vomiting throughout the night or today. Tolerating clear liquid diet, states it is "boring". Lantus added to med regimen last night, Blood sugars controlled, hemoglobin A1c 9.6. Brelinta remains on hold, Hemoglobin decreased to 6.6, platelets 295, denies any bleeding. Asymptomatic, denies chest pain, palpitations or shortness of breath. Maintain on ceftriaxone for UTI. Afebrile, normal WBC. Renal function stable. Echo performed yesterday reported moderately severely impaired LV function, EF 30-35%( decreased from prior, per cardiology office echo, as previously reported), severely dilated LA, mild to moderate mitral regurgitation, moderate to severe tricuspid regurgitation. 12/11/2021:: Patient has no nausea or vomiting today. She denies any chest pains pressures or shortness of breath. Tolerating clear liquid diet. Continues on Levemir and NovoLog scale for poorly controlled diabetes. She is on ceftriaxone for UTI. Last hemoglobin was 6.6. Today's hemoglobin is pending. She denies any hematochezia and melena. Her hb returned a result of 6.6 For today December 11,. She does not meet criteria to be transfused one unit of packed red blood cells. She will be discharged home and CBC rechecked in the next 2-3 days in the office. Her Brilinta will be on hold until she follows up with general surgery. She will return to ER for any signs of active bleeding. Patient Condition at Discharge: Serious Plan - Discharge Summary Discharge Rx Participant: Yes New Discharge Prescriptions: Continue Nitroglycerin Sl Tabs [Nitrostat] 0.4 mg SL Q5M PRN PRN Reason: Chest Pain lisinopriL 40 mg PO DAILY Atorvastatin [Lipitor] 80 mg PO DAILY PARoxetine HCL [Paxil] 40 mg PO DAILY Metoprolol Tartrate [Lopressor] 25 mg PO BID #60 tab metFORMIN HCL 500 mg PO BID Liraglutide [Victoza 3-Jensen] 1.8 mg SQ DAILY HYDROcodone/APAP 7.5-325MG [[place] 7.5-325] 1 - 2 tab PO Q8H PRN PRN Reason: Pain amLODIPine [Norvasc] 5 mg PO DAILY Magnesium Chloride [Mag64] 128 mg PO DAILY Aspirin EC [Ecotrin Low Dose] 81 mg PO HS Insulin Aspart [NovoLOG Flexpen] See Protocol SQ BID Pantoprazole Sodium [Protonix] 40 mg PO DAILY #0 Empagliflozin [Jardiance] 25 mg PO HS Insulin Degludec [Tresiba] See Protocol SQ DAILY Dicyclomine [Bentyl] 20 mg PO QID PRN PRN Reason: Gi Upset Discontinued Ticagrelor [Brilinta] 90 mg PO BID #60 tab Discharge Medication List Atorvastatin [Lipitor] 80 mg PO DAILY 12/18/18 [History] Nitroglycerin Sl Tabs [Nitrostat] 0.4 mg SL Q5M PRN 12/18/18 [History] lisinopriL 40 mg PO DAILY 12/18/18 [History] PARoxetine HCL [Paxil] 40 mg PO DAILY 12/19/18 [History] Metoprolol Tartrate [Lopressor] 25 mg PO BID #60 tab 07/03/19 [Rx] metFORMIN HCL 500 mg PO BID 12/30/19 [History] Liraglutide [Victoza 3-Jensen] 1.8 mg SQ DAILY 06/04/20 [History] HYDROcodone/APAP 7.5-325MG [[place] 7.5-325] 1 - 2 tab PO Q8H PRN 01/02/21 [History] amLODIPine [Norvasc] 5 mg PO DAILY 02/01/21 [History] Empagliflozin [Jardiance] 25 mg PO HS 05/15/21 [History] Magnesium Chloride [Mag64] 128 mg PO DAILY 05/15/21 [History] Insulin Degludec [Tresiba] See Protocol SQ DAILY 05/24/21 [History] Aspirin EC [Ecotrin Low Dose] 81 mg PO HS 07/31/21 [History] Dicyclomine [Bentyl] 20 mg PO QID PRN 08/19/21 [History] Insulin Aspart [NovoLOG Flexpen] See Protocol SQ BID 10/15/21 [History] Pantoprazole Sodium [Protonix] 40 mg PO DAILY #0 10/19/21 [Rx] Follow up Appointment(s)/Referral(s): Wu Benitez MD [STAFF PHYSICIAN] - 1 Week Sincere Casey MD [Primary Care Provider] - 1-2 days Dany Hurd MD [STAFF PHYSICIAN] - 3 Days Activity/Diet/Wound Care/Special Instructions: Hold Brilinta until your follow-up appointment with Dr. Hurd. Cardiology would like it to be restarted as soon as is safely possible. Discharge/Stand Alone Forms: Who Do I Call?, Community Resources Discharge Disposition: HOME SELF-CARE
== END 2021-12-11 17:04 | disposition home or self-care (01) | DRG 378 ==
LOC: EC 13:55 → 5NMEDONC 19:37 → OBSVTOIN 12-09 12:28 → 3SCARD 12-09 15:46 → 5NMEDONC 12-10 15:15
PROVIDERS: ADMIT Family Medicine; ATTEND Family Medicine
PROC: 30233N1 Transfusion of Nonautologous Red Blood Cells into Peripheral Vein, Percutaneous Approach (ICD-10-PCS; principal; 2021-12-07)
DX: K57.91 Diverticulosis of intestine, part unspecified, without perforation or abscess with bleeding (principal); N39.0 Urinary tract infection, site not specified; Z16.24 Resistance to multiple antibiotics; D62 Acute posthemorrhagic anemia; D50.0 Iron deficiency anemia secondary to blood loss (chronic); E11.43 Type 2 diabetes mellitus with diabetic autonomic (poly)neuropathy; E11.51 Type 2 diabetes mellitus with diabetic peripheral angiopathy without gangrene; E11.65 Type 2 diabetes mellitus with hyperglycemia; E78.5 Hyperlipidemia, unspecified; E86.0 Dehydration; F32.A Depression, unspecified; I08.1 Rheumatic disorders of both mitral and tricuspid valves; I25.10 Atherosclerotic heart disease of native coronary artery without angina pectoris; I25.2 Old myocardial infarction; I48.0 Paroxysmal atrial fibrillation; I45.10 Unspecified right bundle-branch block; I65.21 Occlusion and stenosis of right carotid artery; I70.1 Atherosclerosis of renal artery; I70.8 Atherosclerosis of other arteries; I71.4 Abdominal aortic aneurysm, without rupture; J44.9 Chronic obstructive pulmonary disease, unspecified; K31.84 Gastroparesis; Z20.822 Contact with and (suspected) exposure to COVID-19; I10 Essential (primary) hypertension; K21.9 Gastro-esophageal reflux disease without esophagitis; K64.9 Unspecified hemorrhoids; K29.70 Gastritis, unspecified, without bleeding; F17.210 Nicotine dependence, cigarettes, uncomplicated; Z79.01 Long term (current) use of anticoagulants; Z79.02 Long term (current) use of antithrombotics/antiplatelets; Z79.4 Long term (current) use of insulin; Z79.82 Long term (current) use of aspirin; Z79.84 Long term (current) use of oral hypoglycemic drugs; Z79.899 Other long term (current) drug therapy; Z80.41 Family history of malignant neoplasm of ovary; Z82.49 Family history of ischemic heart disease and other diseases of the circulatory system; Z95.1 Presence of aortocoronary bypass graft; Z90.710 Acquired absence of both cervix and uterus; Z90.49 Acquired absence of other specified parts of digestive tract; Z87.442 Personal history of urinary calculi; Z86.73 Personal history of transient ischemic attack (TIA), and cerebral infarction without residual deficits; B96.20 Unspecified Escherichia coli [E. coli] as the cause of diseases classified elsewhere
CPT/HCPCS: 36415; 71045; 74177; 80048; 80053; 81001; 83036; 83605; 83690; 83735; 84484; 85025; 85027; 86850; 86900; 86901; 86920; 87040; 87077; 87086; 87186; 87635; 93005; 93306; 96374; 96375; 99285

== ENCOUNTER 2021-12-31 14:08 | Emergency (ER) | payer MEDICARE, OTHER ==
[2021-12-31 14:17] VITALS: TEMP 97.7
[2021-12-31] MEDS ORDERED: MORPHINE SULFATE 4 MG/ML SYRINGE IV STA (15:26)
[2021-12-31] MEDS ORDERED: SODIUM CHLORIDE 0.9% 500 ML 500 ML IV STA (15:26)
[2021-12-31] MEDS ORDERED: ONDANSETRON 4 MG/2 ML VIAL IVP STA (15:26)
[2021-12-31 16:00] LABS: Appearance,Urine Clear (Clear); Bacteria,Urine Rare /hpf; Bilirubin,Urine Negative (Negative); Blood,Urine Negative (Negative); Color,Urine Light Yellow; Glucose,Urine (UA) 4+ (Negative); Ketones,Urine Negative (Negative); Leukocyte Esterase,Urine Small (Negative); Mucus,Urine Rare /hpf; Nitrite,Urine Negative (Negative); Protein,Urine 1+ (Negative); RBC,Urine 2 /hpf (0-5); Specific Gravity,Urine 1.021 (1.001-1.035); Squamous Epithelial Cell,Urine 4 /hpf (0-4); Urobilinogen,Urine <2.0 mg/dL (<2.0); WBC,Urine 3 /hpf (0-5)
[2021-12-31 16:21] LABS: Anisocytosis Slight; Basophils # (A) 0.1 k/uL (0-0.2); Basophils % (A) 1 %; Eosinophils # (A) 0.7 k/uL (0-0.7); Eosinophils % (A) 8 %; Hypochromasia Marked; Lymphocytes # (A) 2.3 k/uL (1.0-4.8); Lymphocytes % (A) 27 %; MCH 24.5 pg (25.0-35.0); MCHC 29.2 g/dL (31.0-37.0); MCV 83.8 fL (80.0-100.0); Mean Platelet Volume 7.9; Monocytes # (A) 0.4 k/uL (0-1.0); Monocytes % (A) 4 %; Neutrophils % (A) 57 %; Platelet Count 523 k/uL (150-450); Poikilocytosis Slight; RBC 3.58 m/uL (3.80-5.40); RDW 17.8 % (11.5-15.5); WBC 8.7 k/uL (3.8-10.6)
[2021-12-31 16:25] LABS: ALT 14 U/L (4-34); AST 18 U/L (14-36); African American GFR (CKD) >90 (>60 ml/min/1.73 sqM); Albumin 3.9 g/dL (3.5-5.0); Alkaline Phosphatase 150 U/L (38-126); Anion Gap 12 mmol/L; Blood Urea Nitrogen 18 mg/dL (7-17); Calcium 9.4 mg/dL (8.4-10.2); Carbon Dioxide 21 mmol/L (22-30); Chloride 102 mmol/L (98-107); Glucose 179 mg/dL (74-99); Lipase 191 U/L (23-300); Non-African American GFR(CKD) >90 (>60 ml/min/1.73 sqM); Potassium 4.3 mmol/L (3.5-5.1); Sodium 135 mmol/L (137-145); Total Bilirubin 0.4 mg/dL (0.2-1.3); Total Protein 6.7 g/dL (6.3-8.2)
--- NOTE | 2021-12-31 16:28 | ED ---
General Adult HPI - General Chief complaint: Abdominal Pain Stated complaint: Abd pain Time Seen by Provider: 12/31/21 15:07 Source: patient Mode of arrival: wheelchair Limitations: no limitations - History of Present Illness Initial comments: This 66-year-old female with past medical history of diverticulitis, CAD, CVA, diabetes, GERD, hyperlipidemia, hypertension presents emergency Department with abdominal pain that began this morning. Patient states she woke up this morning and began to have abdominal pain 06/22. She states her pain is in her left lower quadrant and has been coming and going. She states January 19 she is most a "swallow camera." that ordered. Patient states she is taking pain medication that didn't help much. Patient states when she pushes on her abdomen and causes more pain. Patient denies any chest pain, shortness of breath, nausea, vomiting, hematochezia, hemoptysis, change in bowel or bladder, change i n vision, back pain, headache, lightheadedness, dizziness. - Related Data Home Medications Medication Instructions Recorded Confirmed Atorvastatin [Lipitor] 80 mg PO DAILY 12/18/18 12/31/21 Nitroglycerin Sl Tabs [Nitrostat] 0.4 mg SL Q5M PRN 12/18/18 12/31/21 lisinopriL 40 mg PO DAILY 12/18/18 12/31/21 PARoxetine HCL [Paxil] 40 mg PO DAILY 12/19/18 12/31/21 metFORMIN HCL 500 mg PO BID 12/30/19 12/31/21 Liraglutide [Victoza 3-Jensen] 1.8 mg SQ DAILY 06/04/20 12/31/21 HYDROcodone/APAP 7.5-325MG [[place] 1 - 2 tab PO Q8H PRN 01/02/21 12/31/21 7.5-325] amLODIPine [Norvasc] 5 mg PO DAILY 02/01/21 12/31/21 Empagliflozin [Jardiance] 25 mg PO HS 05/15/21 12/31/21 Magnesium Chloride [Mag64] 128 mg PO DAILY 05/15/21 12/31/21 Insulin Degludec [Tresiba] See Protocol SQ DAILY 05/24/21 12/31/21 Aspirin EC [Ecotrin Low Dose] 81 mg PO HS 07/31/21 12/31/21 Dicyclomine [Bentyl] 20 mg PO QID PRN 08/19/21 12/31/21 Insulin Aspart [NovoLOG Flexpen] See Protocol SQ BID 10/15/21 12/31/21 Ondansetron [Zofran] 4 mg PO Q6H PRN 12/31/21 12/31/21 Ticagrelor [Brilinta] 90 mg PO BID 12/31/21 12/31/21 Previous Rx's Medication Instructions Recorded Metoprolol Tartrate [Lopressor] 25 mg PO BID #60 tab 07/03/19 Pantoprazole Sodium [Protonix] 40 mg PO DAILY #0 10/19/21 Allergies Allergy/AdvReac Type Severity Reaction Status Date / Time sulfamethoxazole Allergy Anaphylaxis Verified 12/31/21 16:06 [From Bactrim] trimethoprim [From Bactrim] Allergy Anaphylaxis Verified 12/31/21 16:06 meperidine HCl [From Demerol] AdvReac Hallucinati Verified 12/31/21 16:06 ons Review of Systems ROS Statement: Those systems with pertinent positive or pertinent negative responses have been documented in the HPI. ROS Other: All systems not noted in ROS Statement are negative. 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, left side 80% occluded, pylonephritis History of Any Multi-Drug Resistant Organisms: MRSA Date of last positivie culture/infection: 2007 MDRO Source:: Left ear Past Surgical History: Appendectomy, Cholecystectomy, Coronary Bypass/CABG, Heart Catheterization With Stent, Hysterectomy, Tonsillectomy Additional Past Surgical History / Comment(s): carotid endarterectomy on the left, CABG- 3 vessel 1995, EYE SURGERY-cataract sx has lens implants, eye laser sx bilaterally, ARCH STUDIES, bilateral iliac stents, kidney stone removed(rt), EGDs and colonoscopies,carotid artery plaque removal, Past Anesthesia/Blood Transfusion Reactions: Previous Problems w/ Anesthesia Additional Past Anesthesia/Blood Transfusion Reaction / Comment(s): w/ gallbladder sx after anesthesia pt stated it made her mean she hit a nurse. Date of Last Stent Placement:: 2011 Past Psychological History: Depression Smoking Status: Current every day smoker Past Alcohol Use History: None Reported Past Drug Use History: None Reported - Past Family History Father Family Medical History: Coronary Artery Disease (CAD), Myocardial Infarction (ME) Additional Family Medical History / Comment(s): at age 61 massive mi Mother Family Medical History: Coronary Artery Disease (CAD), Hypertension Additional Family Medical History / Comment(s): age 54 post op cabg Sister(s) Family Medical History: Cancer Additional Family Medical History / Comment(s): ovarian cancer Brother(s) Family Medical History: Cancer General Exam Limitations: no limitations General appearance: alert, in no apparent distress Head exam: Present: atraumatic, normocephalic Eye exam: Present: normal appearance, PERRL, EOMI Pupils: Present: normal accommodation ENT exam: Present: mucous membranes moist Neck exam: Present: full ROM Respiratory exam: Present: normal lung sounds bilaterally. Absent: respiratory distress, wheezes, rales, rhonchi, stridor Cardiovascular Exam: Present: regular rate, normal rhythm, normal heart sounds. Absent: systolic murmur, diastolic murmur, rubs, gallop, clicks GI/Abdominal exam: Present: soft, tenderness (Lower quadrant tenderness to palpation), normal bowel sounds. Absent: distended, guarding, rebound, rigid Extremities exam: Present: full ROM Back exam: Present: full ROM. Absent: tenderness, CVA tenderness (R), CVA tenderness (L), paraspinal tenderness, vertebral tenderness Neurological exam: Present: alert, oriented X3, CN II-XII intact Psychiatric exam: Present: normal affect, normal mood Skin exam: Present: warm, dry, intact, normal color. Absent: rash Course Vital Signs 12/31/21 12/31/21 12/31/21 14:15 16:17 18:48 Temperature 97.7 F Pulse Rate 84 82 79 Respiratory 20 20 18 Rate Blood Pressure 142/75 136/72 147/74 O2 Sat by Pulse 100 99 96 Oximetry EKG Findings - EKG Comments: EKG Findings:: EKG: Ventricular rate 76 bpm. OH interval and 15. [place] 133. QT/QTc 418/448. Right bundle branch block compared to prior with no change, she does follow up with cardiology for this. No ST elevation or depressions noted Medical Decision Making - Medical Decision Making This 66-year-old female presents emergency Department with left lower quadrant pain that began this morning. Labs unremarkable with hemoglobin slightly low, however that is her above her baseline. CT abdomen and pelvis impression of 4.2 cm fusiform irregular aneurysm of the abdominal aorta which is increased 5 millimeters compared to 12/07/2021. After pain medication and fluids, patient states her abdominal pain has resolved and she feels much better denies any abdominal pain or nausea. Patient is requesting to go home. Moderate plaque with some mild aortic stenosis. Spoke with who stated he would like patient to get CTA abdomen pelvis and follow-up with him in the office on Jan 06. CTA abdomen and pelvis with 4.1 cm aneurysm of the mid and lower abdominal aorta with extensive plaque formation. No evidence of leakage. Mild aortic stenosis at the level of renal arteries. No dissection. Moderate atheromatous changes in the branches of the abdominal aorta as above with multiple areas of hemodynamic stenosis. There is subtotal occlusion proximal right femoral artery. Distal pulses palpable right lower extremity. Discussed findings of CTA with with who informed me to have patient follow up at her appointment next . scussed case with attending, Dr. Gould. Strict return precautions were discussed. Patient verbally agreed to plan and agreed to return if she experienced abdominal or back pain or any of her symptoms return, worsen or if new symptoms arise. Patient sent home in stable condition. - Lab Data Result diagrams: 12/31/21 15:33 12/31/21 15:33 Lab Results 12/31/21 12/31/21 12/31/21 Range/Units 15:33 15:33 15:33 WBC 8.7 (3.8-10.6) k/uL RBC 3.58 L (3.80-5.40) m/uL Hgb 8.8 L D (11.4-16.0) gm/dL Hct 30.0 L (34.0-46.0) % MCV 83.8 (80.0-100.0) fL MCH 24.5 L (25.0-35.0) pg MCHC 29.2 L (31.0-37.0) g/dL RDW 17.8 H (11.5-15.5) % Plt Count 523 H (150-450) k/uL MPV 7.9 Neutrophils % 57 % Lymphocytes % 27 % Monocytes % 4 % Eosinophils % 8 % Basophils % 1 % Neutrophils # 5.0 (1.3-7.7) k/uL Lymphocytes # 2.3 (1.0-4.8) k/uL Monocytes # 0.4 (0-1.0) k/uL Eosinophils # 0.7 (0-0.7) k/uL Basophils # 0.1 (0-0.2) k/uL Hypochromasia Marked Poikilocytosis Slight Anisocytosis Slight PT 9.8 (9.0-12.0) sec INR 0.9 (<1.2) APTT 21.0 L (22.0-30.0) sec Sodium (137-145) mmol/L Potassium (3.5-5.1) mmol/L Chloride (98-107) mmol/L Carbon Dioxide (22-30) mmol/L Anion Gap mmol/L BUN (7-17) mg/dL Creatinine (0.52-1.04) mg/dL Est GFR (CKD-EPI)AfAm (>60 ml/min/1.73 sqM) Est GFR (CKD-EPI)NonAf (>60 ml/min/1.73 sqM) Glucose (74-99) mg/dL Plasma Lactic Acid Brian (0.7-2.0) mmol/L Calcium (8.4-10.2) mg/dL Total Bilirubin (0.2-1.3) mg/dL AST (14-36) U/L ALT (4-34) U/L Alkaline Phosphatase (38-126) U/L Troponin I (0.000-0.034) ng/mL Total Protein (6.3-8.2) g/dL Albumin (3.5-5.0) g/dL Lipase (23-300) U/L Urine Color Light Yellow Urine Appearance Clear (Clear) Urine pH 5.0 (5.0-8.0) Ur Specific [place] 1.021 (1.001-1.035) Urine Protein 1+ H (Negative) Urine Glucose (UA) 4+ H (Negative) Urine Ketones Negative (Negative) Urine Blood Negative (Negative) Urine Nitrite Negative (Negative) Urine Bilirubin Negative (Negative) Urine Urobilinogen <2.0 (<2.0) mg/dL Ur Leukocyte Esterase Small H (Negative) Urine RBC 2 (0-5) /hpf Urine WBC 3 (0-5) /hpf Ur Squamous Epith Cells 4 (0-4) /hpf Urine Bacteria Rare H (None) /hpf Urine Mucus Rare H (None) /hpf 12/31/21 12/31/21 12/31/21 Range/Units 15:33 15:33 15:33 WBC (3.8-10.6) k/uL RBC (3.80-5.40) m/uL Hgb (11.4-16.0) gm/dL Hct (34.0-46.0) % MCV (80.0-100.0) fL MCH (25.0-35.0) pg MCHC (31.0-37.0) g/dL RDW (11.5-15.5) % Plt Count (150-450) k/uL MPV Neutrophils % % Lymphocytes % % Monocytes % % Eosinophils % % Basophils % % Neutrophils # (1.3-7.7) k/uL Lymphocytes # (1.0-4.8) k/uL Monocytes # (0-1.0) k/uL Eosinophils # (0-0.7) k/uL Basophils # (0-0.2) k/uL Hypochromasia Poikilocytosis Anisocytosis PT (9.0-12.0) sec INR (<1.2) APTT (22.0-30.0) sec Sodium 135 L (137-145) mmol/L Potassium 4.3 (3.5-5.1) mmol/L Chloride 102 (98-107) mmol/L Carbon Dioxide 21 L (22-30) mmol/L Anion Gap 12 mmol/L BUN 18 H (7-17) mg/dL Creatinine 0.59 (0.52-1.04) mg/dL Est GFR (CKD-EPI)AfAm >90 (>60 ml/min/1.73 sqM) Est GFR (CKD-EPI)NonAf >90 (>60 ml/min/1.73 sqM) Glucose 179 H (74-99) mg/dL Plasma Lactic Acid Brian 1.6 (0.7-2.0) mmol/L Calcium 9.4 (8.4-10.2) mg/dL Total Bilirubin 0.4 (0.2-1.3) mg/dL AST 18 (14-36) U/L ALT 14 (4-34) U/L Alkaline Phosphatase 150 H (38-126) U/L Troponin I 0.021 (0.000-0.034) ng/mL Total Protein 6.7 (6.3-8.2) g/dL Albumin 3.9 (3.5-5.0) g/dL Lipase 191 (23-300) U/L Urine Color Urine Appearance (Clear) Urine pH (5.0-8.0) Ur Specific [place] (1.001-1.035) Urine Protein (Negative) Urine Glucose (UA) (Negative) Urine Ketones (Negative) Urine Blood (Negative) Urine Nitrite (Negative) Urine Bilirubin (Negative) Urine Urobilinogen (<2.0) mg/dL Ur Leukocyte Esterase (Negative) Urine RBC (0-5) /hpf Urine WBC (0-5) /hpf Ur Squamous Epith Cells (0-4) /hpf Urine Bacteria (None) /hpf Urine Mucus (None) /hpf Disposition Clinical Impression: Abdominal pain, AAA (abdominal aortic aneurysm) without rupture Disposition: HOME SELF-CARE Condition: Stable Instructions (If sedation given, give patient instructions): Nonruptured Abdominal Aortic Aneurysm (DC), Abdominal Pain (ED) Additional Instructions: These return to emergency department with any new, worsening, or concerning symptoms. Please follow-up with at appointment on ever . Call his office tomorrow, if no answer call Monday. Is patient prescribed a controlled substance at d/c from ED?: No Referrals: Sincere Casey MD [Primary Care Provider] - 1-2 days Leonardo Posada DO [Doctor of Osteopathic Medicine] - 1-2 days Time of Disposition: 20:46
[2021-12-31 16:29] LABS: HGB 8.8 gm/dL (11.4-16.0)
[2021-12-31 16:44] LABS: INR 0.9 (<1.2); Prothrombin Time 9.8 sec (9.0-12.0)
--- NOTE | 2021-12-31 17:26 | CT ---
EXAMINATION TYPE: CT abdomen pelvis w con DATE OF EXAM: 12/31/2021 COMPARISON: 12/07/2021 HISTORY: Abdominal pain, generalized for [address] DLP: 937.2 mGycm Automated exposure control for dose reduction was used. CONTRAST: Performed with IV Contrast, patient injected with 100 ml mL of Isovue 300. Images obtained from the diaphragm to the floor of the pelvis with IV contrast. There is minimal subsegmental atelectasis at the lung bases. Heart is enlarged. There is no pericardi al effusion. There is no pleural effusion. There are clips from cholecystectomy. Liver and spleen are intact. Stomach is intact. The bile duct a re not dilated. There is no evidence of pancreatic mass. There is no adrenal mass. Kidneys show satisfactory contrast opacification. There is no hydronephrosi s. Delayed images show normal renal excretion. 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 Th ere is irregular plaque formation. There is luminal narrowing and some calcinosis of the upper abdomi nal aorta. There is contrast opacification of the celiac artery and superior mesenteric artery. There is no retroperitoneal adenopathy. There are numerous sigmoid diverticula. There is no diverticulitis. There is retained fecal material in the large bowel. There is no ascites or free air. No definite sign of a bowel obstruction. The lumbar vertebrae appear intact. There is no compression fracture. Bony pelvis is intact. Hip join ts are intact. IMPRESSION: There is 4.2 cm fusiform irregular aneurysm of the abdominal aorta which is increased 5 mm compared t o 12/07/2021 exam. No evidence of leakage. Moderate plaque with some mild aortic stenosis. Extensive colonic diverticulosis without diverticulitis. Constipation.
[2021-12-31 18:49] VITALS: RESP 18
[2021-12-31] MEDS ORDERED: SODIUM CHLORIDE 0.9% 1,000 ML IV STA (18:56)
[2021-12-31] MEDS ORDERED: MORPHINE SULFATE 4 MG/ML SYRINGE IM STA (20:02)
--- NOTE | 2021-12-31 20:20 | CT ---
EXAMINATION TYPE: CT angio abdomen pelvis DATE OF EXAM: 12/31/2021 COMPARISON: 3 views HISTORY: possible aneurysm CT DLP: 1312.8 mGycm Automated exposure control for dose reduction was used. CONTRAST: Performed with IV Contrast, patient injected with 100 mL of Isovue 370. Images obtained from the diaphragm to the proximal femurs without and with IV contrast Isovue 100 mL. FINDINGS: Lung bases are clear. There is no pleural effusion. Heart is enlarged. There is no pericardial effusi on. Stomach is intact. Liver and spleen are intact. There is moderate vascular calcification. There i s contrast in the kidneys from scan earlier today. There is 4.1 cm irregular aneurysm of the mid and lower abdominal aorta. There is variable thrombus i n the aneurysm. There is some mild stenosis of the mid abdominal aorta with plaque formation. There i s arterial flow in the celiac artery and superior mesenteric artery. There is moderate plaque at the origin of the celiac artery and more than 65% stenosis. There is plaque formation in approximate 30% stenosis at the origins of both renal arteries. There is arterial flow in both iliac and femoral concepcion gisel. There is very minimal plaque formation. There is significant luminal narrowing of the right ext ernal iliac artery. There is similar significant luminal narrowing proximal left femoral artery. Ther e is extensive plaque at the proximal femoral arteries bilaterally. There appears to be subtotal occl usion of the right proximal femoral artery in the upper thigh. IMPRESSION: 4.1 cm aneurysm of the mid and lower abdominal aorta with extensive plaque formation. No evidence of leakage. Mild aortic stenosis at the level of the renal arteries. No dissection. Moderate atheromatou s changes in the branches of the abdominal aorta as above with multiple areas of hemodynamic stenosis . There is subtotal occlusion proximal right femoral artery.
[2021-12-31 21:58] VITALS: BP 145/87; PULSE 78
== END 2021-12-31 21:31 | disposition home or self-care (01) ==
LOC: EC 14:08
DX: I71.4 Abdominal aortic aneurysm, without rupture (principal); I25.10 Atherosclerotic heart disease of native coronary artery without angina pectoris; E11.9 Type 2 diabetes mellitus without complications; K21.9 Gastro-esophageal reflux disease without esophagitis; E78.5 Hyperlipidemia, unspecified; I10 Essential (primary) hypertension; F32.A Depression, unspecified; F17.200 Nicotine dependence, unspecified, uncomplicated; Z79.84 Long term (current) use of oral hypoglycemic drugs; Z79.4 Long term (current) use of insulin; Z79.82 Long term (current) use of aspirin; Z88.1 Allergy status to other antibiotic agents; Z88.2 Allergy status to sulfonamides; Z86.73 Personal history of transient ischemic attack (TIA), and cerebral infarction without residual deficits; Z90.49 Acquired absence of other specified parts of digestive tract; Z95.1 Presence of aortocoronary bypass graft; Z90.710 Acquired absence of both cervix and uterus
CPT/HCPCS: 99284; 96374; 96375; 96361; 96372; 36415; 93005; 80053; 83605; 83690; 84484; 85025; 85610; 85730; 81001; 74177; 74174; J2270; J2405; Q9967 ×2

== ENCOUNTER 2022-01-14 21:58 | Emergency (ER) | payer MEDICARE, OTHER ==
[2022-01-14] MEDS ORDERED: ONDANSETRON 4 MG/2 ML VIAL IVP STA (23:57)
[2022-01-14] MEDS ORDERED: SODIUM CHLORIDE 0.9% 500 ML 500 ML IV STA (23:57)
--- NOTE | 2022-01-15 00:01 | ED ---
General Adult HPI - General Chief complaint: Abdominal Pain Stated complaint: Abdominal Pain Time Seen by Provider: 01/14/22 22:49 Source: patient, RN notes reviewed Mode of arrival: wheelchair Limitations: no limitations - History of Present Illness Initial comments: 66-year-old female presents to the emergency Department with complaints of RUQ, LLQ, and suprapubic abdominal pain. Patient states she has had 2 episodes of vomiting today and one episode of diarrhea. Patient reports this abdominal discomfort has occurred for weeks and follows a similar pattern related to episodes of vomiting and diarrhea. States she is scheduled for a study requi ring her to "swallow a camera" on January 19 as she has had blood in her stool in the past, though none currently. She has a known AAA that was evaluated during her last visit a couple weeks ago; states she followed up as directed and told that it was stable with no need to intervene at this time. Patient denies fever, chills, headache, chest pain, shortness of breath, difficulty breathing, hematochezia, melena, dysuria, or hematuria. - Related Data Home Medications Medication Instructions Recorded Confirmed Atorvastatin [Lipitor] 80 mg PO DAILY 12/18/18 01/14/22 Nitroglycerin Sl Tabs [Nitrostat] 0.4 mg SL Q5M PRN 12/18/18 01/14/22 lisinopriL 40 mg PO DAILY 12/18/18 01/14/22 PARoxetine HCL [Paxil] 40 mg PO DAILY 12/19/18 01/14/22 metFORMIN HCL 500 mg PO BID 12/30/19 01/14/22 Liraglutide [Victoza 3-Jensen] 1.8 mg SQ DAILY 06/04/20 01/14/22 HYDROcodone/APAP 7.5-325MG [Wolsey 1 - 2 tab PO Q8H PRN 01/02/21 01/14/22 7.5-325] amLODIPine [Norvasc] 5 mg PO DAILY 02/01/21 01/14/22 Empagliflozin [Jardiance] 25 mg PO HS 05/15/21 01/14/22 Magnesium Chloride [Mag64] 128 mg PO DAILY 05/15/21 01/14/22 Insulin Degludec [Tresiba] See Protocol SQ DAILY 05/24/21 01/14/22 Aspirin EC [Ecotrin Low Dose] 81 mg PO HS 07/31/21 01/14/22 Dicyclomine [Bentyl] 20 mg PO QID PRN 08/19/21 01/14/22 Insulin Aspart [NovoLOG Flexpen] See Protocol SQ BID 10/15/21 01/14/22 Ondansetron [Zofran] 4 mg PO Q6H PRN 12/31/21 01/14/22 Ticagrelor [Brilinta] 90 mg PO BID 12/31/21 01/14/22 Previous Rx's Medication Instructions Recorded Metoprolol Tartrate [Lopressor] 25 mg PO BID #60 tab 07/03/19 Pantoprazole Sodium [Protonix] 40 mg PO DAILY #0 10/19/21 Nitrofurantoin Monohyd/M-Cryst 100 mg PO Q12HR #14 cap 01/15/22 [Macrobid] Ondansetron Odt [Zofran Odt] 4 mg PO Q8HR PRN #10 tab 01/15/22 Allergies Allergy/AdvReac Type Severity Reaction Status Date / Time sulfamethoxazole Allergy Anaphylaxis Verified 01/14/22 23:28 [From Bactrim] trimethoprim [From Bactrim] Allergy Anaphylaxis Verified 01/14/22 23:28 meperidine HCl [From Demerol] AdvReac Hallucinati Verified 01/14/22 23:28 ons Review of Systems ROS Statement: Those systems with pertinent positive or pertinent negative responses have been documented in the HPI. ROS Other: All systems not noted in ROS Statement are negative. 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, left side 80% occluded, pylonephritis History of Any Multi-Drug Resistant Organisms: MRSA Date of last positivie culture/infection: 2007 MDRO Source:: Left ear Past Surgical History: Appendectomy, Cholecystectomy, Coronary Bypass/CABG, Heart Catheterization With Stent, Hysterectomy, Tonsillectomy Additional Past Surgical History / Comment(s): carotid endarterectomy on the left, CABG- 3 vessel 1995, EYE SURGERY-cataract sx has lens implants, eye laser sx bilaterally, ARCH STUDIES, bilateral iliac stents, kidney stone removed(rt), EGDs and colonoscopies,carotid artery plaque removal, Past Anesthesia/Blood Transfusion Reactions: Previous Problems w/ Anesthesia Additional Past Anesthesia/Blood Transfusion Reaction / Comment(s): w/ gallbladder sx after anesthesia pt stated it made her mean she hit a nurse. Date of Last Stent Placement:: 2011 Past Psychological History: Depression Smoking Status: Current every day smoker Past Alcohol Use History: None Reported Past Drug Use History: None Reported - Past Family History Father Family Medical History: Coronary Artery Disease (CAD), Myocardial Infarction (CA) Additional Family Medical History / Comment(s): at age 61 massive mi Mother Family Medical History: Coronary Artery Disease (CAD), Hypertension Additional Family Medical History / Comment(s): age 54 post op cabg Sister(s) Family Medical History: Cancer Additional Family Medical History / Comment(s): ovarian cancer Brother(s) Family Medical History: Cancer General Exam Limitations: no limitations General appearance: alert, other (Well-developed, well-nourished female who appears anxious and in mild distress. Initial temperature 97.7, pulse 84, respirations 20, blood pressure 107/65, pulse ox 100% on room air.) Eye exam: Present: normal appearance, PERRL, EOMI. Absent: scleral icterus, conjunctival injection ENT exam: Present: mucous membranes dry Neck exam: Present: normal inspection, full ROM. Absent: tenderness, meningismus, lymphadenopathy Respiratory exam: Present: normal lung sounds bilaterally. Absent: respiratory distress, wheezes, rales, rhonchi, stridor Cardiovascular Exam: Present: regular rate, normal rhythm, normal heart sounds. Absent: systolic murmur, diastolic murmur, rubs, gallop, clicks GI/Abdominal exam: Present: soft, tenderness (Right upper quadrant, left lower quadrant, and suprapubic region tender upon palpation), normal bowel sounds. Absent: distended, guarding, rebound, rigid Back exam: Absent: CVA tenderness (R), CVA tenderness (L) Neurological exam: Present: alert, oriented X3 Psychiatric exam: Present: flat affect, other (Patient is tearful explaining her upcoming tests.) Skin exam: Present: warm, dry, intact Course Vital Signs 0301/15/22 01/15/22 22:09 01:55 02:32 Temperature 97.7 F Pulse Rate 84 81 92 Respiratory 20 18 18 Rate Blood Pressure 107/65 128/64 156/101 O2 Sat by Pulse 100 97 97 Oximetry 01/15/22 03:34 Temperature 98.7 F Pulse Rate 90 Respiratory 18 Rate Blood Pressure 155/97 O2 Sat by Pulse 95 Oximetry Medical Decision Making - Medical Decision Making 66-year-old female with a past medical history of CAD, CVA, type 2 diabetes, GI bleed, hypertension, and AAA presents to the emergency department for evalua tion of nausea, vomiting, diarrhea, and abdominal discomfort. Upon exam, patient is tearful and anxious. Her abdominal pain is diffuse and nonlocalized. Abdomen is soft and nonpulsatile. She reports episodes of vomiting and diarrhea, though has not experienced any while present in the emergency department at this time. States she has a history of anemia and his head recent blood transfusion. Is scheduled for further testing next week. Laboratory studies were reviewed. Hemoglobin is stable at 8.7, hematocrit 29.0. Patient's BUN is somewhat elevated at 24. Lactic acid 2.6. Patient was given two 500 mL boluses of normal saline. Urinalysis shows 1+ protein, 4+ glucose, positive nitrite, large leukocyte esterase, and 105 urine WBCs. She was given 1 gram of Rocephin to treat her UTI. Previous urinalysis culture was reviewed for sensitivity. Patient will be prescribed Macrobid for her UTI and Zofran for her nausea. She will be discharged home to follow-up with her PCP on Monday morning. Strict return parameters were discussed. Patient verbalizes understanding and agrees with this plan. This patient's care was discussed with my attending Dr. Del Castillo. - Lab Data Result diagrams: 01/14/22 23:55 01/14/22 23:55 Lab Results 01/14/22 01/14/22 01/14/22 Range/Units 23:55 23:55 23:55 WBC 10.4 (3.8-10.6) k/uL RBC 3.44 L (3.80-5.40) m/uL Hgb 8.7 L (11.4-16.0) gm/dL Hct 29.0 L (34.0-46.0) % MCV 84.1 (80.0-100.0) fL MCH 25.2 (25.0-35.0) pg MCHC 30.0 L (31.0-37.0) g/dL RDW 18.2 H (11.5-15.5) % Plt Count 429 (150-450) k/uL MPV 8.1 Neutrophils % 66 % Lymphocytes % 22 % Monocytes % 5 % Eosinophils % 4 % Basophils % 1 % Neutrophils # 6.8 (1.3-7.7) k/uL Lymphocytes # 2.3 (1.0-4.8) k/uL Monocytes # 0.5 (0-1.0) k/uL Eosinophils # 0.4 (0-0.7) k/uL Basophils # 0.1 (0-0.2) k/uL Hypochromasia Marked Poikilocytosis Slight Anisocytosis Slight PT 9.8 (9.0-12.0) sec INR 0.9 (<1.2) APTT 20.0 L (22.0-30.0) sec Sodium 136 L (137-145) mmol/L Potassium 4.5 (3.5-5.1) mmol/L Chloride 106 (98-107) mmol/L Carbon Dioxide 18 L (22-30) mmol/L Anion Gap 12 mmol/L BUN 24 H (7-17) mg/dL Creatinine 0.76 (0.52-1.04) mg/dL Est GFR (CKD-EPI)AfAm >90 (>60 ml/min/1.73 sqM) Est GFR (CKD-EPI)NonAf 83 (>60 ml/min/1.73 sqM) Glucose 192 H (74-99) mg/dL Lactic Ac Sepsis Rflx Plasma Lactic Acid Brian (0.7-2.0) mmol/L Calcium 9.2 (8.4-10.2) mg/dL Total Bilirubin 0.4 (0.2-1.3) mg/dL AST 21 (14-36) U/L ALT 16 (4-34) U/L Alkaline Phosphatase 121 (38-126) U/L Troponin I (0.000-0.034) ng/mL Total Protein 7.1 (6.3-8.2) g/dL Albumin 4.1 (3.5-5.0) g/dL Lipase 264 (23-300) U/L Urine Color Urine Appearance (Clear) Urine pH (5.0-8.0) Ur Specific [place] (1.001-1.035) Urine Protein (Negative) Urine Glucose (UA) (Negative) Urine Ketones (Negative) Urine Blood (Negative) Urine Nitrite (Negative) Urine Bilirubin (Negative) Urine Urobilinogen (<2.0) mg/dL Ur Leukocyte Esterase (Negative) Urine RBC (0-5) /hpf Urine WBC (0-5) /hpf Urine WBC Clumps (None) /hpf Ur Squamous Epith Cells (0-4) /hpf Urine Bacteria (None) /hpf Blood Type Blood Type Recheck Bld Type Recheck Status Antibody Screen Spec Expiration Date 01/14/22 01/14/22 01/14/22 Range/Units 23:55 23:55 23:55 WBC (3.8-10.6) k/uL RBC (3.80-5.40) m/uL Hgb (11.4-16.0) gm/dL Hct (34.0-46.0) % MCV (80.0-100.0) fL MCH (25.0-35.0) pg MCHC (31.0-37.0) g/dL RDW (11.5-15.5) % Plt Count (150-450) k/uL MPV Neutrophils % % Lymphocytes % % Monocytes % % Eosinophils % % Basophils % % Neutrophils # (1.3-7.7) k/uL Lymphocytes # (1.0-4.8) k/uL Monocytes # (0-1.0) k/uL Eosinophils # (0-0.7) k/uL Basophils # (0-0.2) k/uL Hypochromasia Poikilocytosis Anisocytosis PT (9.0-12.0) sec INR (<1.2) APTT (22.0-30.0) sec Sodium (137-145) mmol/L Potassium (3.5-5.1) mmol/L Chloride (98-107) mmol/L Carbon Dioxide (22-30) mmol/L Anion Gap mmol/L BUN (7-17) mg/dL Creatinine (0.52-1.04) mg/dL Est GFR (CKD-EPI)AfAm (>60 ml/min/1.73 sqM) Est GFR (CKD-EPI)NonAf (>60 ml/min/1.73 sqM) Glucose (74-99) mg/dL Lactic Ac Sepsis Rflx Plasma Lactic Acid Brian 2.6 H* (0.7-2.0) mmol/L Calcium (8.4-10.2) mg/dL Total Bilirubin (0.2-1.3) mg/dL AST (14-36) U/L ALT (4-34) U/L Alkaline Phosphatase (38-126) U/L Troponin I 0.014 (0.000-0.034) ng/mL Total Protein (6.3-8.2) g/dL Albumin (3.5-5.0) g/dL Lipase (23-300) U/L Urine Color Urine Appearance (Clear) Urine pH (5.0-8.0) Ur Specific [place] (1.001-1.035) Urine Protein (Negative) Urine Glucose (UA) (Negative) Urine Ketones (Negative) Urine Blood (Negative) Urine Nitrite (Negative) Urine Bilirubin (Negative) Urine Urobilinogen (<2.0) mg/dL Ur Leukocyte Esterase (Negative) Urine RBC (0-5) /hpf Urine WBC (0-5) /hpf Urine WBC Clumps (None) /hpf Ur Squamous Epith Cells (0-4) /hpf Urine Bacteria (None) /hpf Blood Type O Positive Blood Type Recheck O Pos Bld Type Recheck Status No Antibody Screen NEGATIVE Spec Expiration Date 01/17/2022 - 235401/15/22 01/15/22 Range/Units 00:54 01:40 WBC (3.8-10.6) k/uL RBC (3.80-5.40) m/uL Hgb (11.4-16.0) gm/dL Hct (34.0-46.0) % MCV (80.0-100.0) fL MCH (25.0-35.0) pg MCHC (31.0-37.0) g/dL RDW (11.5-15.5) % Plt Count (150-450) k/uL MPV Neutrophils % % Lymphocytes % % Monocytes % % Eosinophils % % Basophils % % Neutrophils # (1.3-7.7) k/uL Lymphocytes # (1.0-4.8) k/uL Monocytes # (0-1.0) k/uL Eosinophils # (0-0.7) k/uL Basophils # (0-0.2) k/uL Hypochromasia Poikilocytosis Anisocytosis PT (9.0-12.0) sec INR (<1.2) APTT (22.0-30.0) sec Sodium (137-145) mmol/L Potassium (3.5-5.1) mmol/L Chloride (98-107) mmol/L Carbon Dioxide (22-30) mmol/L Anion Gap mmol/L BUN (7-17) mg/dL Creatinine (0.52-1.04) mg/dL Est GFR (CKD-EPI)AfAm (>60 ml/min/1.73 sqM) Est GFR (CKD-EPI)NonAf (>60 ml/min/1.73 sqM) Glucose (74-99) mg/dL Lactic Ac Sepsis Rflx Y Plasma Lactic Acid Brian (0.7-2.0) mmol/L Calcium (8.4-10.2) mg/dL Total Bilirubin (0.2-1.3) mg/dL AST (14-36) U/L ALT (4-34) U/L Alkaline Phosphatase (38-126) U/L Troponin I (0.000-0.034) ng/mL Total Protein (6.3-8.2) g/dL Albumin (3.5-5.0) g/dL Lipase (23-300) U/L Urine Color Light Yellow Urine Appearance Cloudy H (Clear) Urine pH 5.5 (5.0-8.0) Ur Specific [place] 1.023 (1.001-1.035) Urine Protein 1+ H (Negative) Urine Glucose (UA) 4+ H (Negative) Urine Ketones Negative (Negative) Urine Blood Negative (Negative) Urine Nitrite Positive H (Negative) Urine Bilirubin Negative (Negative) Urine Urobilinogen <2.0 (<2.0) mg/dL Ur Leukocyte Esterase Large H (Negative) Urine RBC 3 (0-5) /hpf Urine WBC 105 H (0-5) /hpf Urine WBC Clumps Moderate H (None) /hpf Ur Squamous Epith Cells 2 (0-4) /hpf Urine Bacteria Rare H (None) /hpf Blood Type Blood Type Recheck Bld Type Recheck Status Antibody Screen Spec Expiration Date - EKG Data EKG shows normal: sinus rhythm Rate: normal EKG Comments: EKG obtained at 12:17 AM and shows sinus rhythm with right bundle branch block. Ventricular rate 78, WA interval 128, QRS duration 121, QT/QTC 404/437. Interpretation abnormal ECG. Disposition Clinical Impression: Abdominal pain, Nausea & vomiting, UTI (urinary tract infection) Disposition: HOME SELF-CARE Condition: Stable Instructions (If sedation given, give patient instructions): Acute Nausea and Vomiting (ED), Acute Abdominal Pain (ED), Urinary Tract Infection in Older Adults (ED) Additional Instructions: Continue taking your regular home medications as prescribed. Obtain antibiotic and take as directed. Take Zofran as needed for nausea and vomiting. Eat small frequent meals. Keep all upcoming scheduled appointments. Call your PCP to schedule follow-up on Monday. Return to the emergency department with any new, worsening, or concerning symptoms. Prescriptions: Nitrofurantoin Monohyd/M-Cryst [Macrobid] 100 mg PO Q12HR #14 cap Ondansetron Odt [Zofran Odt] 4 mg PO Q8HR PRN #10 tab PRN Reason: Nausea Is patient prescribed a controlled substance at d/c from ED?: No Referrals: Sincere Casey MD [Primary Care Provider] - 1-2 days Time of Disposition: 02:58
[2022-01-15] MEDS ORDERED: MORPHINE SULFATE 2 MG/ML SYRINGE IVP ONE ×2 (00:22→02:06)
[2022-01-15 00:27] LABS: Anisocytosis Slight; Basophils # (A) 0.1 k/uL (0-0.2); Basophils % (A) 1 %; Eosinophils # (A) 0.4 k/uL (0-0.7); Eosinophils % (A) 4 %; HGB 8.7 gm/dL (11.4-16.0); Hypochromasia Marked; Lymphocytes # (A) 2.3 k/uL (1.0-4.8); Lymphocytes % (A) 22 %; MCH 25.2 pg (25.0-35.0); MCV 84.1 fL (80.0-100.0); Mean Platelet Volume 8.1; Monocytes # (A) 0.5 k/uL (0-1.0); Monocytes % (A) 5 %; Neutrophils # (A) 6.8 k/uL (1.3-7.7); Neutrophils % (A) 66 %; Platelet Count 429 k/uL (150-450); Poikilocytosis Slight; RBC 3.44 m/uL (3.80-5.40); RDW 18.2 % (11.5-15.5); WBC 10.4 k/uL (3.8-10.6)
[2022-01-15 00:42] LABS: INR 0.9 (<1.2)
[2022-01-15 00:43] LABS: Prothrombin Time 9.8 sec (9.0-12.0)
[2022-01-15 00:51] LABS: ALT 16 U/L (4-34); AST 21 U/L (14-36); African American GFR (CKD) >90 (>60 ml/min/1.73 sqM); Albumin 4.1 g/dL (3.5-5.0); Alkaline Phosphatase 121 U/L (38-126); Anion Gap 12 mmol/L; Blood Urea Nitrogen 24 mg/dL (7-17); Calcium 9.2 mg/dL (8.4-10.2); Carbon Dioxide 18 mmol/L (22-30); Chloride 106 mmol/L (98-107); Glucose 192 mg/dL (74-99); Lipase 264 U/L (23-300); Non-African American GFR(CKD) 83 (>60 ml/min/1.73 sqM); Potassium 4.5 mmol/L (3.5-5.1); Sodium 136 mmol/L (137-145); Total Bilirubin 0.4 mg/dL (0.2-1.3); Total Protein 7.1 g/dL (6.3-8.2)
[2022-01-15] MEDS ORDERED: SODIUM CHLORIDE 0.9% 500 ML 500 ML IV STA (01:30)
[2022-01-15 01:51] LABS: Appearance,Urine Cloudy (Clear); Bacteria,Urine Rare /hpf; Bilirubin,Urine Negative (Negative); Blood,Urine Negative (Negative); Color,Urine Light Yellow; Glucose,Urine (UA) 4+ (Negative); Ketones,Urine Negative (Negative); Leukocyte Esterase,Urine Large (Negative); Nitrite,Urine Positive (Negative); PH, Urine 5.5 (5.0-8.0); Protein,Urine 1+ (Negative); RBC,Urine 3 /hpf (0-5); Specific Gravity,Urine 1.023 (1.001-1.035); Squamous Epithelial Cell,Urine 2 /hpf (0-4); Urobilinogen,Urine <2.0 mg/dL (<2.0); WBC,Urine 105 /hpf (0-5)
[2022-01-15 01:58] VITALS: RESP 18
[2022-01-15] MEDS ORDERED: cefTRIAXone IN SWFI 1,000 MG/10 ML SYRINGE IVP STA (02:10)
[2022-01-15] MEDS ORDERED: ONDANSETRON 4 MG ODT STARTER PACK 2 TAB BTL PO STA (02:57)
[2022-01-15 03:37] VITALS: BP 155/97; PULSE 90; TEMP 98.7
== END 2022-01-15 03:36 | disposition home or self-care (01) ==
LOC: EC 21:58
DX: N39.0 Urinary tract infection, site not specified (principal); E11.9 Type 2 diabetes mellitus without complications; I10 Essential (primary) hypertension; I25.10 Atherosclerotic heart disease of native coronary artery without angina pectoris; K21.9 Gastro-esophageal reflux disease without esophagitis; E78.5 Hyperlipidemia, unspecified; F32.A Depression, unspecified; F17.200 Nicotine dependence, unspecified, uncomplicated; Z79.4 Long term (current) use of insulin; Z79.82 Long term (current) use of aspirin; Z79.84 Long term (current) use of oral hypoglycemic drugs; Z79.899 Other long term (current) drug therapy
CPT/HCPCS: 36415 ×2; 93005; 86900; 86901; 80053; 83605; 83690; 84484; 85025; 85610; 85730; 86850; 81001; 87086; 87077; 87186; 99284; 96374; 96375 ×2; 96376; J2405; J0696; J2270; S0119

== ENCOUNTER → 2022-01-19 | Day surgery (SDC) | payer MEDICARE, OTHER ==
[2022-01-18 09:36] VITALS: BMI 24.5
[~2022-01-19] MED LIST changes: -ALPRAZolam 0.25 MG TAB PO PRN; -ALPRAZolam 0.5 MG TAB PO PRN; -ASPIRIN 325 MG TAB PO STA; -ATORVASTATIN 80 MG TAB PO STA; -HEPARIN SODIUM,PORCINE 10,000 UNIT in SODIUM CHLORIDE 0.9% 1,000 ML IRRIGATION PRN; -HEPARIN SODIUM,PORCINE 2,500 UNIT in SODIUM CHLORIDE 0.9% 250 ML IRRIGATION PRN; -NITROGLYCERIN SL TABS 0.4 MG TAB SUBLINGUAL PRN; +SIMETHICONE 40 MG/0.6 ML DROPS 2,000 MG/30 ML BOTTLE PO ONE; -SODIUM CHLORIDE 0.9% 1,000 ML in EMPTY BAG 1 BAG IV ONE
[2022-01-19 06:49] LABS: Glucose,Whole Blood 268 mg/dL (75-99)
[2022-01-19 06:50] VITALS: BP 170/81; PULSE 104; RESP 16; TEMP 97.6
== END ==
LOC: ORWHC2ENDO 06:20
PROVIDERS: ATTEND Internal Medicine Gastroenterology
DX: K92.2 Gastrointestinal hemorrhage, unspecified (principal)
CPT/HCPCS: 91110

== ENCOUNTER 2022-02-10 20:47 | Observation (INO) | payer MEDICARE, OTHER ==
[2022-02-10] MEDS ORDERED: PANTOPRAZOLE 40 MG/10 ML VIAL IVP STA (22:32)
--- NOTE | 2022-02-10 22:34 | ED ---
Recheck HPI - General Chief Complaint: Recheck/Abnormal Lab/Rx Stated Complaint: Irregular labs-Sent by Time Seen by Provider: 02/10/22 22:24 Source: patient Mode of arrival: wheelchair - History of Present Illness Initial Comments: This patient is a 66-year-old woman who presents with the complaint that she received a call that her hemoglobin was low. The patient had been admitted in the hospital last week. For routine follow-up she had seen Dr. Mckenzie today and had blood drawn. She received a call that her hemoglobin was low and that she should have it checked at the hospital. She therefore comes here to be evaluated. She is denying symptoms of anemia. The patient states she has been having some abdominal pain. She had been having the pain even while she was admitted in the hospital last week. MD Complaint: abnormal lab -: hour(s) Returns Today for: Called Because of Abnormal Lab/Test Symptoms Since Prior Visit: no new symptoms Context: planned re-check, called for abnormal lab result Associated Symptoms: other (Exertional dyspnea and palpitations) - Related Data Home Medications Medication Instructions Recorded Confirmed Atorvastatin [Lipitor] 80 mg PO DAILY 12/18/18 02/10/22 lisinopriL 40 mg PO DAILY 12/18/18 02/10/22 metFORMIN HCL 500 mg PO BID 12/30/19 02/10/22 HYDROcodone/APAP 7.5-325MG [[place] 1 tab PO BID 01/02/21 02/10/22 7.5-325] amLODIPine [Norvasc] 5 mg PO DAILY 02/01/21 02/10/22 Empagliflozin [Jardiance] 25 mg PO DAILY 05/15/21 02/10/22 Insulin Degludec [Tresiba] See Protocol SQ DAILY 05/24/21 02/10/22 Aspirin EC [Ecotrin Low Dose] 81 mg PO HS 07/31/21 02/10/22 Insulin Aspart [NovoLOG Flexpen] See Protocol SQ BID 10/15/21 02/10/22 Ticagrelor [Brilinta] 90 mg PO BID 12/31/21 02/10/22 Acetaminophen [Tylenol Extra 1,000 mg PO Q6H PRN 02/05/22 02/10/22 Strength] Previous Rx's Medication Instructions Recorded Metoprolol Tartrate [Lopressor] 25 mg PO BID #60 tab 07/03/19 Amoxicillin/Potassium Clav 1 tab PO BID 5 Days #10 tab 02/07/22 [Augmentin 875-125 Tablet] Allergies Allergy/AdvReac Type Severity Reaction Status Date / Time sulfamethoxazole Allergy Anaphylaxis Verified 02/10/22 21:05 [From Bactrim] trimethoprim [From Bactrim] Allergy Anaphylaxis Verified 02/10/22 21:05 meperidine HCl [From Demerol] AdvReac Hallucinati Verified 02/10/22 21:05 ons Review of Systems ROS Statement: Those systems with pertinent positive or pertinent negative responses have been documented in the HPI. ROS Other: All systems not noted in ROS Statement are negative. Constitutional: Denies: fever, chills Respiratory: Denies: cough, dyspnea Cardiovascular: Reports: palpitations, dyspnea on exertion. Denies: chest pain, orthopnea, edema, syncope Gastrointestinal: Reports: melena. 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 ANEMIA History of Any Multi-Drug Resistant Organisms: MRSA Date of last positivie culture/infection: 2007 MDRO Source:: Left ear Past Surgical History: Appendectomy, Cholecystectomy, Coronary Bypass/CABG, Heart Catheterization With Stent, Hysterectomy, Tonsillectomy Additional Past Surgical History / Comment(s): carotid endarterectomy on the left, CABG- 3 vessel 1995, EYE SURGERY-cataract sx has lens implants, eye laser sx bilaterally, ARCH STUDIES, bilateral iliac stents, kidney stone removed(rt), EGDs and colonoscopies,carotid artery plaque removal, Past Anesthesia/Blood Transfusion Reactions: Previous Problems w/ Anesthesia Additional Past Anesthesia/Blood Transfusion Reaction / Comment(s): w/ gallbladder sx after anesthesia pt stated it made her mean she hit a nurse. Date of Last Stent Placement:: 2011 Past Psychological History: Depression Smoking Status: Current every day smoker Past Alcohol Use History: None Reported Past Drug Use History: None Reported - Past Family History Father Family Medical History: Coronary Artery Disease (CAD), Myocardial Infarction (HI) Additional Family Medical History / Comment(s): at age 61 massive mi Mother Family Medical History: Coronary Artery Disease (CAD), Hypertension Additional Family Medical History / Comment(s): age 54 post op cabg Sister(s) Family Medical History: Cancer Additional Family Medical History / Comment(s): ovarian cancer Brother(s) Family Medical History: Cancer General Exam General appearance: alert, in no apparent distress Head exam: Present: atraumatic, normocephalic Eye exam: Present: normal appearance, other (Conjunctival pallor). Absent: scleral icterus, conjunctival injection ENT exam: Present: other (Mucosal pallor) Respiratory exam: Present: normal lung sounds bilaterally. Absent: respiratory distress, wheezes, rales, rhonchi, stridor Cardiovascular Exam: Present: regular rate, normal rhythm, normal heart sounds. Absent: systolic murmur, diastolic murmur, rubs, gallop GI/Abdominal exam: Present: soft. Absent: distended, tenderness, guarding, rebound, rigid, mass, pulsatile mass Extremities exam: Present: normal inspection, normal capillary refill. Absent: pedal edema, calf tenderness Back exam: Present: normal inspection. Absent: CVA tenderness (R), CVA tend erness (L) Neurological exam: Present: alert Skin exam: Present: warm, dry, intact, pallor. Absent: rash Course Vital Signs 02/10/22 02/11/22 02/11/22 21:01 00:24 01:45 Temperature 98 F Pulse Rate 92 82 72 Respiratory 19 18 18 Rate Blood Pressure 136/85 138/73 134/71 O2 Sat by Pulse 99 96 95 Oximetry 02/11/22 02/11/22 02/11/22 03:23 06:08 07:56 Temperature 97.7 F Pulse Rate 77 78 79 Respiratory 18 18 16 Rate Blood Pressure 129/68 107/57 142/82 O2 Sat by Pulse 95 97 100 Oximetry Medical Decision Making - Lab Data Result diagrams: 02/10/22 22:56 02/10/22 22:56 Lab Results 02/10/22 02/10/2202/10/22 Range/Units 22:56 22:56 22:56 WBC 9.9 (3.8-10.6) k/uL RBC 3.12 L (3.80-5.40) m/uL Hgb 7.6 L (11.4-16.0) gm/dL Hct 26.3 L (34.0-46.0) % MCV 84.1 (80.0-100.0) fL MCH 24.5 L (25.0-35.0) pg MCHC 29.1 L (31.0-37.0) g/dL RDW 17.8 H (11.5-15.5) % Plt Count 318 (150-450) k/uL MPV 8.3 Neutrophils % 73 % Lymphocytes % 18 % Monocytes % 4 % Eosinophils % 2 % Basophils % 1 % Neutrophils # 7.2 (1.3-7.7) k/uL Lymphocytes # 1.8 (1.0-4.8) k/uL Monocytes # 0.4 (0-1.0) k/uL Eosinophils # 0.2 (0-0.7) k/uL Basophils # 0.1 (0-0.2) k/uL Hypochromasia Marked Poikilocytosis Slight Anisocytosis Slight PT 9.9 (9.0-12.0) sec INR 0.9 (<1.2) APTT 20.7 L (22.0-30.0) sec Sodium 138 (137-145) mmol/L Potassium 3.8 (3.5-5.1) mmol/L Chloride 109 H (98-107) mmol/L Carbon Dioxide 14 L (22-30) mmol/L Anion Gap 15 mmol/L BUN 18 H (7-17) mg/dL Creatinine 0.73 (0.52-1.04) mg/dL Est GFR (CKD-EPI)AfAm >90 (>60 ml/min/1.73 sqM) Est GFR (CKD-EPI)NonAf 87 (>60 ml/min/1.73 sqM) Glucose 252 H (74-99) mg/dL Lactic Ac Sepsis Rflx Plasma Lactic Acid Brian (0.7-2.0) mmol/L Calcium 8.8 (8.4-10.2) mg/dL Total Bilirubin 0.3 (0.2-1.3) mg/dL AST 32 (14-36) U/L ALT 38 H (4-34) U/L Alkaline Phosphatase 154 H (38-126) U/L Troponin I (0.000-0.034) ng/mL NT-Pro-B Natriuret Pep pg/mL Total Protein 6.7 (6.3-8.2) g/dL Albumin 3.9 (3.5-5.0) g/dL Urine Color Urine Appearance (Clear) Urine pH (5.0-8.0) Ur Specific [place] (1.001-1.035) Urine Protein (Negative) Urine Glucose (UA) (Negative) Urine Ketones (Negative) Urine Blood (Negative) Urine Nitrite (Negative) Urine Bilirubin (Negative) Urine Urobilinogen (<2.0) mg/dL Ur Leukocyte Esterase (Negative) Urine RBC (0-5) /hpf Urine WBC (0-5) /hpf Ur Squamous Epith Cells (0-4) /hpf Urine Mucus (None) /hpf Acetone, Qual (Negative) Blood Type Blood Type Recheck Bld Type Recheck Status Antibody Screen Spec Expiration Date 02/10/22 02/10/22 02/10/22 Range/Units 22:56 22:56 22:56 WBC (3.8-10.6) k/uL RBC (3.80-5.40) m/uL Hgb (11.4-16.0) gm/dL Hct (34.0-46.0) % MCV (80.0-100.0) fL MCH (25.0-35.0) pg MCHC (31.0-37.0) g/dL RDW (11.5-15.5) % Plt Count (150-450) k/uL MPV Neutrophils % % Lymphocytes % % Monocytes % % Eosinophils % % Basophils % % Neutrophils # (1.3-7.7) k/uL Lymphocytes # (1.0-4.8) k/uL Monocytes # (0-1.0) k/uL Eosinophils # (0-0.7) k/uL Basophils # (0-0.2) k/uL Hypochromasia Poikilocytosis Anisocytosis PT (9.0-12.0) sec INR (<1.2) APTT (22.0-30.0) sec Sodium (137-145) mmol/L Potassium (3.5-5.1) mmol/L Chloride (98-107) mmol/L Carbon Dioxide (22-30) mmol/L Anion Gap mmol/L BUN (7-17) mg/dL Creatinine (0.52-1.04) mg/dL Est GFR (CKD-EPI)AfAm (>60 ml/min/1.73 sqM) Est GFR (CKD-EPI)NonAf (>60 ml/min/1.73 sqM) Glucose (74-99) mg/dL Lactic Ac Sepsis Rflx Plasma Lactic Acid Brian 4.1 H* (0.7-2.0) mmol/L Calcium (8.4-10.2) mg/dL Total Bilirubin (0.2-1.3) mg/dL AST (14-36) U/L ALT (4-34) U/L Alkaline Phosphatase (38-126) U/L Troponin I 0.115 H* (0.000-0.034) ng/mL NT-Pro-B Natriuret Pep pg/mL Total Protein (6.3-8.2) g/dL Albumin (3.5-5.0) g/dL Urine Color Urine Appearance (Clear) Urine pH (5.0-8.0) Ur Specific [place] (1.001-1.035) Urine Protein (Negative) Urine Glucose (UA) (Negative) Urine Ketones (Negative) Urine Blood (Negative) Urine Nitrite (Negative) Urine Bilirubin (Negative) Urine Urobilinogen (<2.0) mg/dL Ur Leukocyte Esterase (Negative) Urine RBC (0-5) /hpf Urine WBC (0-5) /hpf Ur Squamous Epith Cells (0-4) /hpf Urine Mucus (None) /hpf Acetone, Qual (Negative) Blood Type O Positive Blood Type Recheck O Pos Bld Type Recheck Status No Antibody Screen NEGATIVE Spec Expiration Date 02/13/2022 - 235502/10/22 02/10/22 02/10/22 Range/Units 22:56 22:56 23:15 WBC (3.8-10.6) k/uL RBC (3.80-5.40) m/uL Hgb (11.4-16.0) gm/dL Hct (34.0-46.0) % MCV (80.0-100.0) fL MCH (25.0-35.0) pg MCHC (31.0-37.0) g/dL RDW (11.5-15.5) % Plt Count (150-450) k/uL MPV Neutrophils % % Lymphocytes % % Monocytes % % Eosinophils % % Basophils % % Neutrophils # (1.3-7.7) k/uL Lymphocytes # (1.0-4.8) k/uL Monocytes # (0-1.0) k/uL Eosinophils # (0-0.7) k/uL Basophils # (0-0.2) k/uL Hypochromasia Poikilocytosis Anisocytosis PT (9.0-12.0) sec INR (<1.2) APTT (22.0-30.0) sec Sodium (137-145) mmol/L Potassium (3.5-5.1) mmol/L Chloride (98-107) mmol/L Carbon Dioxide (22-30) mmol/L Anion Gap mmol/L BUN (7-17) mg/dL Creatinine (0.52-1.04) mg/dL Est GFR (CKD-EPI)AfAm (>60 ml/min/1.73 sqM) Est GFR (CKD-EPI)NonAf (>60 ml/min/1.73 sqM) Glucose (74-99) mg/dL Lactic Ac Sepsis Rflx Y Plasma Lactic Acid Brian (0.7-2.0) mmol/L Calcium (8.4-10.2) mg/dL Total Bilirubin (0.2-1.3) mg/dL AST (14-36) U/L ALT (4-34) U/L Alkaline Phosphatase (38-126) U/L Troponin I (0.000-0.034) ng/mL NT-Pro-B Natriuret Pep 5570 pg/mL Total Protein (6.3-8.2) g/dL Albumin (3.5-5.0) g/dL Urine Color Urine Appearance (Clear) Urine pH (5.0-8.0) Ur Specific [place] (1.001-1.035) Urine Protein (Negative) Urine Glucose (UA) (Negative) Urine Ketones (Negative) Urine Blood (Negative) Urine Nitrite (Negative) Urine Bilirubin (Negative) Urine Urobilinogen (<2.0) mg/dL Ur Leukocyte Esterase (Negative) Urine RBC (0-5) /hpf Urine WBC (0-5) /hpf Ur Squamous Epith Cells (0-4) /hpf Urine Mucus (None) /hpf Acetone, Qual Negative (Negative) Blood Type Blood Type Recheck Bld Type Recheck Status Antibody Screen Spec Expiration Date 02/11/22 02/11/22 02/11/22 Range/Units 00:15 01:30 02:33 WBC (3.8-10.6) k/uL RBC (3.80-5.40) m/uL Hgb (11.4-16.0) gm/dL Hct (34.0-46.0) % MCV (80.0-100.0) fL MCH (25.0-35.0) pg MCHC (31.0-37.0) g/dL RDW (11.5-15.5) % Plt Count (150-450) k/uL MPV Neutrophils % % Lymphocytes % % Monocytes % % Eosinophils % % Basophils % % Neutrophils # (1.3-7.7) k/uL Lymphocytes # (1.0-4.8) k/uL Monocytes # (0-1.0) k/uL Eosinophils # (0-0.7) k/uL Basophils # (0-0.2) k/uL Hypochromasia Poikilocytosis Anisocytosis PT (9.0-12.0) sec INR (<1.2) APTT (22.0-30.0) sec Sodium (137-145) mmol/L Potassium (3.5-5.1) mmol/L Chloride (98-107) mmol/L Carbon Dioxide (22-30) mmol/L Anion Gap mmol/L BUN (7-17) mg/dL Creatinine (0.52-1.04) mg/dL Est GFR (CKD-EPI)AfAm (>60 ml/min/1.73 sqM) Est GFR (CKD-EPI)NonAf (>60 ml/min/1.73 sqM) Glucose (74-99) mg/dL Lactic Ac Sepsis Rflx Y Plasma Lactic Acid Brian 3.3 H* (0.7-2.0) mmol/L Calcium (8.4-10.2) mg/dL Total Bilirubin (0.2-1.3) mg/dL AST (14-36) U/L ALT (4-34) U/L Alkaline Phosphatase (38-126) U/L Troponin I (0.000-0.034) ng/mL NT-Pro-B Natriuret Pep pg/mL Total Protein (6.3-8.2) g/dL Albumin (3.5-5.0) g/dL Urine Color Light Yellow Urine Appearance Clear (Clear) Urine pH 5.0 (5.0-8.0) Ur Specific [place] 1.024 (1.001-1.035) Urine Protein 1+ H (Negative) Urine Glucose (UA) 4+ H (Negative) Urine Ketones Negative (Negative) Urine Blood Negative (Negative) Urine Nitrite Negative (Negative) Urine Bilirubin Negative (Negative) Urine Urobilinogen <2.0 (<2.0) mg/dL Ur Leukocyte Esterase Negative (Negative) Urine RBC 1 (0-5) /hpf Urine WBC 2 (0-5) /hpf Ur Squamous Epith Cells <1 (0-4) /hpf Urine Mucus Rare H (None) /hpf Acetone, Qual (Negative) Blood Type Blood Type Recheck Bld Type Recheck Status Antibody Screen Spec Expiration Date 02/11/22 Range/Units 03:03 WBC (3.8-10.6) k/uL RBC (3.80-5.40) m/uL Hgb (11.4-16.0) gm/dL Hct (34.0-46.0) % MCV (80.0-100.0) fL MCH (25.0-35.0) pg MCHC (31.0-37.0) g/dL RDW (11.5-15.5) % Plt Count (150-450) k/uL MPV Neutrophils % % Lymphocytes % % Monocytes % % Eosinophils % % Basophils % % Neutrophils # (1.3-7.7) k/uL Lymphocytes # (1.0-4.8) k/uL Monocytes # (0-1.0) k/uL Eosinophils # (0-0.7) k/uL Basophils # (0-0.2) k/uL Hypochromasia Poikilocytosis Anisocytosis PT (9.0-12.0) sec INR (<1.2) APTT (22.0-30.0) sec Sodium (137-145) mmol/L Potassium (3.5-5.1) mmol/L Chloride (98-107) mmol/L Carbon Dioxide (22-30) mmol/L Anion Gap mmol/L BUN (7-17) mg/dL Creatinine (0.52-1.04) mg/dL Est GFR (CKD-EPI)AfAm (>60 ml/min/1.73 sqM) Est GFR (CKD-EPI)NonAf (>60 ml/min/1.73 sqM) Glucose (74-99) mg/dL Lactic Ac Sepsis Rflx Plasma Lactic Acid Brian (0.7-2.0) mmol/L Calcium (8.4-10.2) mg/dL Total Bilirubin (0.2-1.3) mg/dL AST (14-36) U/L ALT (4-34) U/L Alkaline Phosphatase (38-126) U/L Troponin I 0.102 H* (0.000-0.034) ng/mL NT-Pro-B Natriuret Pep pg/mL Total Protein (6.3-8.2) g/dL Albumin (3.5-5.0) g/dL Urine Color Urine Appearance (Clear) Urine pH (5.0-8.0) Ur Specific [place] (1.001-1.035) Urine Protein (Negative) Urine Glucose (UA) (Negative) Urine Ketones (Negative) Urine Blood (Negative) Urine Nitrite (Negative) Urine Bilirubin (Negative) Urine Urobilinogen (<2.0) mg/dL Ur Leukocyte Esterase (Negative) Urine RBC (0-5) /hpf Urine WBC (0-5) /hpf Ur Squamous Epith Cells (0-4) /hpf Urine Mucus (None) /hpf Acetone, Qual (Negative) Blood Type Blood Type Recheck Bld Type Recheck Status Antibody Screen Spec Expiration Date Disposition Clinical Impression: Lactic acidosis, Elevated troponin Disposition: ADMITTED IP TO THIS [facility] Condition: Fair
[2022-02-10 23:03] LABS: Anisocytosis Slight; Basophils # (A) 0.1 k/uL (0-0.2); Basophils % (A) 1 %; Eosinophils # (A) 0.2 k/uL (0-0.7); Eosinophils % (A) 2 %; HCT 26.3 % (34.0-46.0); HGB 7.6 gm/dL (11.4-16.0); Hypochromasia Marked; Lymphocytes # (A) 1.8 k/uL (1.0-4.8); Lymphocytes % (A) 18 %; MCH 24.5 pg (25.0-35.0); MCHC 29.1 g/dL (31.0-37.0); MCV 84.1 fL (80.0-100.0); Mean Platelet Volume 8.3; Monocytes # (A) 0.4 k/uL (0-1.0); Monocytes % (A) 4 %; Neutrophils # (A) 7.2 k/uL (1.3-7.7); Neutrophils % (A) 73 %; Platelet Count 318 k/uL (150-450); Poikilocytosis Slight; RBC 3.12 m/uL (3.80-5.40); RDW 17.8 % (11.5-15.5); WBC 9.9 k/uL (3.8-10.6)
[2022-02-10 23:12] LABS: ALT 38 U/L (4-34); AST 32 U/L (14-36); African American GFR (CKD) >90 (>60 ml/min/1.73 sqM); Albumin 3.9 g/dL (3.5-5.0); Alkaline Phosphatase 154 U/L (38-126); Anion Gap 15 mmol/L; Blood Urea Nitrogen 18 mg/dL (7-17); Calcium 8.8 mg/dL (8.4-10.2); Carbon Dioxide 14 mmol/L (22-30); Chloride 109 mmol/L (98-107); Glucose 252 mg/dL (74-99); Non-African American GFR(CKD) 87 (>60 ml/min/1.73 sqM); Potassium 3.8 mmol/L (3.5-5.1); Sodium 138 mmol/L (137-145); Total Bilirubin 0.3 mg/dL (0.2-1.3); Total Protein 6.7 g/dL (6.3-8.2)
[2022-02-10 23:18] LABS: INR 0.9 (<1.2); Prothrombin Time 9.9 sec (9.0-12.0)
[2022-02-10] MEDS ORDERED: SODIUM CHLORIDE 0.9% 1,000 ML IV STA (23:21)
[2022-02-10] MEDS ORDERED: SODIUM CHLORIDE 0.9% 1,000 ML IV ONE (23:21)
[2022-02-10 23:29] LABS: Partial Thromboplastin Time 20.7 sec (22.0-30.0)
[2022-02-11 00:36] LABS: Appearance,Urine Clear (Clear); Bilirubin,Urine Negative (Negative); Blood,Urine Negative (Negative); Color,Urine Light Yellow; Glucose,Urine (UA) 4+ (Negative); Ketones,Urine Negative (Negative); Leukocyte Esterase,Urine Negative (Negative); Mucus,Urine Rare /hpf; Nitrite,Urine Negative (Negative); Protein,Urine 1+ (Negative); RBC,Urine 1 /hpf (0-5); Specific Gravity,Urine 1.024 (1.001-1.035); Squamous Epithelial Cell,Urine <1 /hpf (0-4); Urobilinogen,Urine <2.0 mg/dL (<2.0); WBC,Urine 2 /hpf (0-5)
--- NOTE | 2022-02-11 01:30 | CT ---
EXAMINATION TYPE: CT abdomen pelvis wo con DATE OF EXAM: 02/11/2022 COMPARISON: 12/31/2021 HISTORY: Abd Pain, R/O Stones CT DLP: 597.5 mGycm Automated exposure control for dose reduction was used. Images obtained from the diaphragm to the floor the pelvis without contrast. Lung bases show mild reticular density. No pulmonary consolidation. No pleural effusion. Heart is bor derline enlarged. There is extensive vascular calcification. Liver is intact. Spleen is intact. There is no pancreatic mass. There are clips from cholecystectomy. There are multiple apparent surgical clips along the anterior stomach. There is no adrenal mass. Kidneys have normal size. There is no hydronephrosis. Ureters are not dilat ed. There is extensive renal vascular calcification. 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 There is no retroperitoneal adenopathy. There are numerous large bowel diverticula. N o diverticulitis. There is no inguinal hernia. Bladder distends smoothly. No free fluid in the pelvis . There are bilateral iliac artery stents. There is 1 cm calculus lower pole right kidney. There is 3 mm calculus upper pole left kidney. There are a few small right sided renal calculi. The lumbar vertebrae have normal alignment. There is no compression fracture. There is multilevel lum bar mild facet arthropathy. Bony pelvis is intact. IMPRESSION: Colonic diverticulosis without diverticulitis. Extensive atherosclerotic disease. Lower abdominal aor tic aneurysm without change compared to 12/31/2021. Nonobstructing renal calculi.
--- NOTE | 2022-02-11 01:43 | XR ---
EXAMINATION TYPE: XR chest 2V DATE OF EXAM: 02/11/2022 COMPARISON: 02/07/2022 HISTORY: Short of breath TECHNIQUE: 2 views FINDINGS: There is some mild pulmonary interstitial edema. There are sternal wires. No pleural effusi on. 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 IMPRESSION: Mild pulmonary interstitial edema consistent with heart failure that is improved compared to last exam.
[2022-02-11] MEDS ORDERED: MORPHINE SULFATE 4 MG/ML SYRINGE IV STA (02:31)
[2022-02-11] MEDS ORDERED: NITROGLYCERIN SL TABS 0.4 MG TAB SUBLINGUAL PRN (03:50)
[2022-02-11] MEDS ORDERED: HYDROcodone/APAP 5-325MG 1 EACH TAB PO PRN (07:38)
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
[2022-02-11 12:14] VITALS: BP 143/78; PULSE 80; RESP 20; TEMP 98
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
[2022-02-12] MEDS ORDERED: ASPIRIN 325 MG TAB PO SCH (09:00)
[2022-02-12] MEDS ORDERED: ASPIRIN 81 MG PO SCH (09:00)
== END 2022-02-11 15:10 | disposition home or self-care (01) ==
LOC: EC 20:47 → 3SCARD 02-11 03:50
PROVIDERS: ADMIT Family Medicine; ATTEND Family Medicine
DX: E87.2 Acidosis (principal); I25.10 Atherosclerotic heart disease of native coronary artery without angina pectoris; E11.51 Type 2 diabetes mellitus with diabetic peripheral angiopathy without gangrene; Z95.820 Peripheral vascular angioplasty status with implants and grafts; I10 Essential (primary) hypertension; E78.5 Hyperlipidemia, unspecified; I48.0 Paroxysmal atrial fibrillation; I65.21 Occlusion and stenosis of right carotid artery; I71.4 Abdominal aortic aneurysm, without rupture; K57.30 Diverticulosis of large intestine without perforation or abscess without bleeding; F32.A Depression, unspecified; K21.9 Gastro-esophageal reflux disease without esophagitis; Z86.73 Personal history of transient ischemic attack (TIA), and cerebral infarction without residual deficits; Z87.19 Personal history of other diseases of the digestive system; Z87.01 Personal history of pneumonia (recurrent); Z87.442 Personal history of urinary calculi; Z86.14 Personal history of Methicillin resistant Staphylococcus aureus infection; Z90.49 Acquired absence of other specified parts of digestive tract; Z95.1 Presence of aortocoronary bypass graft; Z95.5 Presence of coronary angioplasty implant and graft; Z96.1 Presence of intraocular lens; Z90.710 Acquired absence of both cervix and uterus; Z98.890 Other specified postprocedural states; Z98.49 Cataract extraction status, unspecified eye; F17.200 Nicotine dependence, unspecified, uncomplicated; Z82.49 Family history of ischemic heart disease and other diseases of the circulatory system; Z80.41 Family history of malignant neoplasm of ovary; I25.2 Old myocardial infarction; Z79.4 Long term (current) use of insulin; Z79.84 Long term (current) use of oral hypoglycemic drugs; Z79.82 Long term (current) use of aspirin; Z79.818 Long term (current) use of other agents affecting estrogen receptors and estrogen levels; Z79.891 Long term (current) use of opiate analgesic; Z79.899 Other long term (current) drug therapy; Z88.5 Allergy status to narcotic agent; Z88.2 Allergy status to sulfonamides
CPT/HCPCS: 96361; 96375; 96374; 99285; 36415; 93005; 86900; 86901; 83880; 80053; 82009; 83605 ×2; 84484 ×2; 85025; 85610; 85730; 86850; 81001; 71046; 74176; G0378; J2270; C9113

== ENCOUNTER 2022-03-07 13:55 | Emergency (ER) | payer MEDICARE, OTHER ==
[2022-03-07 15:35] LABS: Anisocytosis Slight; Basophils # (A) 0.1 k/uL (0-0.2); Basophils % (A) 1 %; Eosinophils # (A) 0.2 k/uL (0-0.7); Eosinophils % (A) 3 %; HGB 7.1 gm/dL (11.4-16.0); Hypochromasia Marked; Lymphocytes # (A) 1.8 k/uL (1.0-4.8); Lymphocytes % (A) 22 %; MCH 23.7 pg (25.0-35.0); MCHC 29.5 g/dL (31.0-37.0); MCV 80.4 fL (80.0-100.0); Mean Platelet Volume 10.3; Microcytosis Slight; Monocytes # (A) 0.4 k/uL (0-1.0); Monocytes % (A) 5 %; Neutrophils # (A) 5.4 k/uL (1.3-7.7); Neutrophils % (A) 66 %; Platelet Count 278 k/uL (150-450); Poikilocytosis Slight; RBC 2.98 m/uL (3.80-5.40); RDW 17.7 % (11.5-15.5); WBC 8.2 k/uL (3.8-10.6)
[2022-03-07 15:46] LABS: ALT 33 U/L (4-34); AST 29 U/L (14-36); African American GFR (CKD) >90 (>60 ml/min/1.73 sqM); Albumin 3.7 g/dL (3.5-5.0); Alkaline Phosphatase 123 U/L (38-126); Anion Gap 8 mmol/L; Blood Urea Nitrogen 18 mg/dL (7-17); Calcium 9.3 mg/dL (8.4-10.2); Carbon Dioxide 21 mmol/L (22-30); Chloride 106 mmol/L (98-107); Glucose 234 mg/dL (74-99); Non-African American GFR(CKD) >90 (>60 ml/min/1.73 sqM); Potassium 5.2 mmol/L (3.5-5.1); Sodium 135 mmol/L (137-145); Total Bilirubin 0.5 mg/dL (0.2-1.3); Total Protein 6.5 g/dL (6.3-8.2)
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
[2022-03-07 18:29] VITALS: RESP 18
[2022-03-07 21:15] VITALS: BP 146/79; PULSE 73; TEMP 98
== END 2022-03-07 21:28 | disposition home or self-care (01) ==
LOC: EC 13:55
DX: D64.9 Anemia, unspecified (principal); E11.51 Type 2 diabetes mellitus with diabetic peripheral angiopathy without gangrene; I10 Essential (primary) hypertension; I25.10 Atherosclerotic heart disease of native coronary artery without angina pectoris; K21.9 Gastro-esophageal reflux disease without esophagitis; E78.5 Hyperlipidemia, unspecified; F32.A Depression, unspecified; F17.200 Nicotine dependence, unspecified, uncomplicated; Z79.4 Long term (current) use of insulin; Z79.82 Long term (current) use of aspirin; Z79.84 Long term (current) use of oral hypoglycemic drugs; Z86.73 Personal history of transient ischemic attack (TIA), and cerebral infarction without residual deficits; Z79.899 Other long term (current) drug therapy; Z95.1 Presence of aortocoronary bypass graft
CPT/HCPCS: 36415; 86900; 86901; 80053; 85025; 86850; 86920; 82272; 99284; P9016

== ENCOUNTER 2022-03-14 17:57 | Observation (INO) | payer MEDICARE, OTHER ==
[2022-03-14] MEDS ORDERED: SODIUM CHLORIDE 0.9% 500 ML 500 ML IV ONE (18:17)
[2022-03-14 18:44] LABS: Anisocytosis Slight; Basophils # (A) 0.1 k/uL (0-0.2); Basophils % (A) 1 %; Eosinophils # (A) 0.2 k/uL (0-0.7); Eosinophils % (A) 3 %; HCT 26.1 % (34.0-46.0); HGB 7.4 gm/dL (11.4-16.0); Hypochromasia Marked; Lymphocytes # (A) 2.2 k/uL (1.0-4.8); Lymphocytes % (A) 28 %; MCH 23.2 pg (25.0-35.0); MCHC 28.3 g/dL (31.0-37.0); MCV 82.1 fL (80.0-100.0); Mean Platelet Volume 7.7; Monocytes # (A) 0.4 k/uL (0-1.0); Monocytes % (A) 4 %; Neutrophils # (A) 4.7 k/uL (1.3-7.7); Neutrophils % (A) 60 %; Platelet Count 290 k/uL (150-450); Poikilocytosis Slight; RBC 3.18 m/uL (3.80-5.40); RDW 17.7 % (11.5-15.5); WBC 7.8 k/uL (3.8-10.6)
[2022-03-14 18:49] VITALS: TEMP 98.3
[2022-03-14 18:52] LABS: ALT 18 U/L (4-34); AST 20 U/L (14-36); African American GFR (CKD) >90 (>60 ml/min/1.73 sqM); Albumin 3.6 g/dL (3.5-5.0); Alkaline Phosphatase 115 U/L (38-126); Anion Gap 9 mmol/L; Blood Urea Nitrogen 17 mg/dL (7-17); Calcium 8.9 mg/dL (8.4-10.2); Carbon Dioxide 19 mmol/L (22-30); Chloride 108 mmol/L (98-107); Glucose 246 mg/dL (74-99); Non-African American GFR(CKD) >90 (>60 ml/min/1.73 sqM); Potassium 3.8 mmol/L (3.5-5.1); Sodium 136 mmol/L (137-145); Total Bilirubin 0.4 mg/dL (0.2-1.3); Total Protein 6.3 g/dL (6.3-8.2)
[2022-03-14 19:03] LABS: INR 0.9 (<1.2); Partial Thromboplastin Time 20.4 sec (22.0-30.0); Prothrombin Time 10.3 sec (9.0-12.0)
[2022-03-14] MEDS ORDERED: SODIUM CHLORIDE 0.9% 1,000 ML IV ONE (19:53)
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
[2022-03-14 20:27] LABS: Anisocytosis Slight; Basophils # (A) 0.1 k/uL (0-0.2); Basophils % (A) 1 %; Eosinophils # (A) 0.2 k/uL (0-0.7); Eosinophils % (A) 2 %; HCT 24.9 % (34.0-46.0); Hypochromasia Marked; Lymphocytes % (A) 23 %; MCH 23.2 pg (25.0-35.0); MCV 82.9 fL (80.0-100.0); Mean Platelet Volume 9.3; Monocytes # (A) 0.4 k/uL (0-1.0); Monocytes % (A) 5 %; Neutrophils # (A) 5.5 k/uL (1.3-7.7); Neutrophils % (A) 66 %; Platelet Count 270 k/uL (150-450); Poikilocytosis Slight; RBC 3.01 m/uL (3.80-5.40); RDW 17.5 % (11.5-15.5); WBC 8.4 k/uL (3.8-10.6)
[2022-03-14] MEDS ORDERED: DICYCLOMINE 20 MG TAB PO PRN (23:22)
[2022-03-14] MEDS: HYDROcodone/APAP 7.5-325MG 1 EACH TAB PO PRN (23:58)
[2022-03-15 02:21] VITALS: RESP 16
[2022-03-15 02:49] LABS: Anisocytosis Slight; Basophils % (A) 1 %; Eosinophils # (A) 0.3 k/uL (0-0.7); Eosinophils % (A) 3 %; HCT 25.4 % (34.0-46.0); HGB 7.2 gm/dL (11.4-16.0); Hypochromasia Marked; Lymphocytes # (A) 2.3 k/uL (1.0-4.8); Lymphocytes % (A) 29 %; MCH 23.3 pg (25.0-35.0); MCHC 28.3 g/dL (31.0-37.0); MCV 82.3 fL (80.0-100.0); Mean Platelet Volume 9.1; Monocytes # (A) 0.3 k/uL (0-1.0); Monocytes % (A) 4 %; Neutrophils # (A) 4.8 k/uL (1.3-7.7); Neutrophils % (A) 60 %; Platelet Count 302 k/uL (150-450); Poikilocytosis Slight; RBC 3.09 m/uL (3.80-5.40); RDW 17.7 % (11.5-15.5); WBC 7.9 k/uL (3.8-10.6)
[2022-03-15 06:45] VITALS: BP 149/75; PULSE 74
[2022-03-15] MEDS ORDERED: PANTOPRAZOLE 40 MG TABLET PO SCH (07:30)
[2022-03-15] MEDS ORDERED: metFORMIN 500 MG TAB PO SCH (07:30)
[2022-03-15 08:22] LABS: Glucose,Whole Blood 216 mg/dL (75-99)
[2022-03-15] MEDS: INSULIN ASPART (NovoLOG) 100 UNIT/ML VIAL SQ SCH ×2 (08:24→12:38)
[2022-03-15] MEDS: HYDROcodone/APAP 7.5-325MG 1 EACH TAB PO PRN ×2 (08:25→15:14)
[2022-03-15] MEDS ORDERED: METOPROLOL TARTRATE 25 MG TAB PO SCH (09:00)
[2022-03-15] MEDS ORDERED: amLODIPine 5 MG TAB PO SCH (09:00)
[2022-03-15] MEDS ORDERED: ATORVASTATIN 80 MG TAB PO SCH (09:00)
[2022-03-15] MEDS ORDERED: lisinopriL 20 MG TAB PO SCH (09:00)
[2022-03-15 10:42] LABS: % Iron Saturation 3.64 (12.00-45.00); Ferritin 12.1 ng/mL (10.0-291.0)
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
[2022-03-15] MEDS ORDERED: SODIUM FERRIC GLUCONAT-SUCROSE 125 MG in SODIUM CHLORIDE 0.9% 100 ML IVPB ONE (12:05)
[2022-03-15 12:33] LABS: Glucose,Whole Blood 207 mg/dL (75-99)
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
== END 2022-03-15 15:26 | disposition home or self-care (01) ==
LOC: EC 17:57 → 4SSUR 19:53
PROVIDERS: ADMIT Family Medicine; ATTEND Family Medicine
DX: K62.5 Hemorrhage of anus and rectum (principal); D62 Acute posthemorrhagic anemia; K57.91 Diverticulosis of intestine, part unspecified, without perforation or abscess with bleeding; I71.4 Abdominal aortic aneurysm, without rupture; E11.51 Type 2 diabetes mellitus with diabetic peripheral angiopathy without gangrene; K64.4 Residual hemorrhoidal skin tags; K64.8 Other hemorrhoids; I10 Essential (primary) hypertension; I48.0 Paroxysmal atrial fibrillation; I25.10 Atherosclerotic heart disease of native coronary artery without angina pectoris; E78.5 Hyperlipidemia, unspecified; I25.2 Old myocardial infarction; I70.90 Unspecified atherosclerosis; J44.9 Chronic obstructive pulmonary disease, unspecified; K21.9 Gastro-esophageal reflux disease without esophagitis; F32.A Depression, unspecified; F17.200 Nicotine dependence, unspecified, uncomplicated; Z79.84 Long term (current) use of oral hypoglycemic drugs; Z79.4 Long term (current) use of insulin; Z79.82 Long term (current) use of aspirin; Z79.899 Other long term (current) drug therapy; Z88.1 Allergy status to other antibiotic agents; Z88.2 Allergy status to sulfonamides; Z88.5 Allergy status to narcotic agent; Z86.73 Personal history of transient ischemic attack (TIA), and cerebral infarction without residual deficits; Z95.5 Presence of coronary angioplasty implant and graft; Z95.1 Presence of aortocoronary bypass graft; Z86.14 Personal history of Methicillin resistant Staphylococcus aureus infection; Z87.442 Personal history of urinary calculi; Z87.19 Personal history of other diseases of the digestive system; Z87.440 Personal history of urinary (tract) infections; Z90.49 Acquired absence of other specified parts of digestive tract; Z90.710 Acquired absence of both cervix and uterus; Z98.42 Cataract extraction status, left eye; Z98.41 Cataract extraction status, right eye; Z96.1 Presence of intraocular lens; Z95.828 Presence of other vascular implants and grafts; Z87.01 Personal history of pneumonia (recurrent); Z86.010 Personal history of colon polyps; Z82.49 Family history of ischemic heart disease and other diseases of the circulatory system; Z80.41 Family history of malignant neoplasm of ovary
CPT/HCPCS: 96360; 99285; 36415; 86900; 86901; 80053; 82728; 83540; 83550; 85025 ×2; 85610; 85730; 86850; G0378 ×2; J2916

== ENCOUNTER 2022-05-19 12:37 | Emergency (ER) | payer MEDICARE, OTHER ==
[2022-05-19 12:51] VITALS: BP 117/66; PULSE 86; RESP 20; TEMP 98.2
[2022-05-19] MEDS ORDERED: KETOROLAC 15 MG/ML 1 ML VIAL IM STA (13:09)
--- NOTE | 2022-05-19 13:34 | XR ---
EXAMINATION TYPE: XR hand complete RT DATE OF EXAM: 05/19/2022 CLINICAL HISTORY: pain TECHNIQUE: Frontal, lateral and oblique images of the right hand are obtained. COMPARISON: None. FINDINGS: There is no acute fracture/dislocation evident. The joint spaces appear within normal limi ts. The overlying soft tissue appears unremarkable. IMPRESSION: There is no acute fracture or dislocation ICD 10 NO FRACTURE, INITIAL EVALUATION
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
== END 2022-05-19 13:53 | disposition home or self-care (01) ==
LOC: EC 12:37
DX: S63.92XA Sprain of unspecified part of left wrist and hand, initial encounter (principal); E11.9 Type 2 diabetes mellitus without complications; E78.5 Hyperlipidemia, unspecified; I10 Essential (primary) hypertension; F17.200 Nicotine dependence, unspecified, uncomplicated; Z82.79 Family history of other congenital malformations, deformations and chromosomal abnormalities; Z86.73 Personal history of transient ischemic attack (TIA), and cerebral infarction without residual deficits; Z88.2 Allergy status to sulfonamides; Z88.5 Allergy status to narcotic agent; W19.XXXA Unspecified fall, initial encounter
CPT/HCPCS: 73130; 99284; 96372; J1885

== ENCOUNTER → 2022-06-08 | Outpatient (CLI) | payer MEDICARE, OTHER ==
--- NOTE | 2022-06-09 16:57 | BD ---
EXAMINATION TYPE: Axial Bone Density DATE OF EXAM: 06/08/2022 CLINICAL HISTORY: 66 years year old Female. ICD-10 CODE: Z78.0 POST MENOPAUSAL WITHOUT HRT FRAX RISK QUESTIONS: Alcohol (3 or more units per day): NO Family History (Parent hip fracture): NO Glucocorticoids (More than 3mos): NO History of Fracture in Adulthood: RT HUMERUS, NASAL BONES Secondary Osteoporosis: 1. Type 1 Diabetes: NO 2. Hyperthyroidism: NO 3. Menopause before 45: YES 4. Malnutrition: NO 5. Chronic liver disease: NO Rheumatoid Arthritis: NO Current Tobacco Use: YES RISK FACTORS HISTORY OF: Hip Fracture (Right/Left): NO Spine Fracture: NO History of Wrist Fracture: NO Surgery to Spine/Hip(right/left)/Wrist (right/left): NO Family History of Osteoporosis: NO Active: NO Diet low in dairy products/other sources of calcium: YES Postmenopausal woman: NO Take estrogen and/or progesterone medications: NO Lost more than 2 inches in height since high school: NO Frequent falls: YES Poor Health: NO Hyperparathyroidism: NO Adrenal Insufficiency: NO MEDICATIONS: Prednisone or other steroids: NO Thyroid Medications: NO Osteoporosis Medications: NO Additional Medications: LISINOPRIL, METFORMIN, DICYCLOMINE, PANTOPRAZOLE, ATORVASTATIN, JARDIANCE, EXAM MEASUREMENTS: Bone mineral densitometry was performed using the [employer] System. Bone mineral density as measured about the Lumbar spine is: ----- L1-L4(G/cm2): 1.185 T Score Values are as follows: ----- L1: 1.2 ----- L2: -0.4 ----- L3: 0.1 ----- L4: -0.5 ----- L1-L4: 0.0 SPINE WAS NOT MEASURED IN THE 2003 STUDY Bone mineral density about the R hip (g/cm2): 0.780 Bone mineral density about the L hip (g/cm2): 0.758 T Score values are as follows: -----R Neck: -1.9 -----L Neck: -2.0 -----R Total: -1.7 -----L Total: -1.0 Bone mineral density has: DECREASED 27.1 % since study of: 2003 FRAX%s: The graph provided illustrates a 18.7% chance for a major osteoporotic fx and a 4.8% chance f or the hips probability for fx in 10 years time. IMPRESSION: Osteopenia (T Score between -2.5 and -1). There is slightly increased risk of fracture and the patient may be considered for treatment. Re-Screen 2-5 years. NOTE: T-SCORE=SD OF THE YOUNG ADULT MEAN.
--- NOTE | 2022-06-13 07:37 | MM ---
Reason for Exam: Screening (asymptomatic). Last mammogram was performed 9 year(s) and 6 month(s) ago. Patient History: Menarche at age 14. First Full-Term at age 18. Left ovary removed at age 37. Right ovary removed at age 37. Hysterectomy at age 25. Postmenopausal. Risk Values: Anali 5 year model risk: 1.2%. NCI Lifetime model risk: 4.6%. Prior Study Comparison: 07/05/2001 Bilateral Screening Mammogram, [facility]. 04/19/2004 Bilateral Screening Mammogram, [facility]. 11/19/2012 Bilateral Screening Mammogram, [facility]. Tissue Density: The breast tissue is heterogeneously dense. This may lower the sensitivity of mammography. Findings: Analyzed By CAD. There are a few scattered benign-appearing round calcifications bilaterally now present. Benign-appearing vascular calcification in the right breast is now seen. Stable oval well-defined measure 1.0 cm mass towards the left axilla favoring benign lymph node. There is no suspicious new group of microcalcifications or new suspicious mass in either breast. Overall Assessment: Benign, BI-RAD 2 Management: Screening Mammogram of both breasts in 1 year. A clinical breast exam by your physician is recommended on an annual basis and results should be correlated with mammographic findings. Electronically signed and approved by: Dennys Mullins M.D.
== END | disposition home or self-care (01) ==
LOC: RADMAMWWP 15:19
PROVIDERS: ATTEND Family Medicine
DX: Z12.31 Encounter for screening mammogram for malignant neoplasm of breast (principal); M85.88 Other specified disorders of bone density and structure, other site; Z78.0 Asymptomatic menopausal state
CPT/HCPCS: 77063; 77067; 77080

== ENCOUNTER 2022-07-09 15:49 | Emergency (ER) | payer MEDICARE, OTHER ==
[2022-07-09] MEDS ORDERED: ONDANSETRON 4 MG/2 ML VIAL IVP STA (16:23)
[2022-07-09] MEDS ORDERED: SODIUM CHLORIDE 0.9% 500 ML 500 ML IV STA (16:23)
[2022-07-09] MEDS ORDERED: HYDROmorphone 0.5 MG/0.5 ML SYRINGE IVP STA ×3 (16:23→20:56)
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
[2022-07-09 16:57] LABS: Basophils # (A) 0.1 k/uL (0-0.2); Basophils % (A) 1 %; Eosinophils # (A) 0.2 k/uL (0-0.7); Eosinophils % (A) 2 %; HCT 44.5 % (34.0-46.0); HGB 14.4 gm/dL (11.4-16.0); Lymphocytes # (A) 1.8 k/uL (1.0-4.8); Lymphocytes % (A) 19 %; MCH 31.8 pg (25.0-35.0); MCHC 32.3 g/dL (31.0-37.0); MCV 98.3 fL (80.0-100.0); Monocytes # (A) 0.5 k/uL (0-1.0); Monocytes % (A) 5 %; Neutrophils # (A) 6.6 k/uL (1.3-7.7); Neutrophils % (A) 71 %; Platelet Count 213 k/uL (150-450); RBC 4.52 m/uL (3.80-5.40); RDW 15.5 % (11.5-15.5); WBC 9.3 k/uL (3.8-10.6)
[2022-07-09 17:06] LABS: INR 0.9 (<1.2); Partial Thromboplastin Time 22.1 sec (22.0-30.0); Prothrombin Time 9.9 sec (9.0-12.0)
[2022-07-09 17:07] LABS: ALT 15 U/L (4-34); African American GFR (CKD) >90 (>60 ml/min/1.73 sqM); Albumin 3.9 g/dL (3.5-5.0); Anion Gap 11 mmol/L; Blood Urea Nitrogen 17 mg/dL (7-17); Calcium 9.4 mg/dL (8.4-10.2); Carbon Dioxide 19 mmol/L (22-30); Chloride 107 mmol/L (98-107); Glucose 202 mg/dL (74-99); Lipase 77 U/L (23-300); Non-African American GFR(CKD) >90 (>60 ml/min/1.73 sqM); Sodium 137 mmol/L (137-145); Total Bilirubin 0.5 mg/dL (0.2-1.3); Total Protein 6.5 g/dL (6.3-8.2)
[2022-07-09 17:19] LABS: AST 22 U/L (14-36); Alkaline Phosphatase 78 U/L (38-126); Potassium 4.7 mmol/L (3.5-5.1)
--- NOTE | 2022-07-09 19:31 | CT ---
EXAMINATION TYPE: CT abdomen pelvis w con DATE OF EXAM: 07/09/2022 COMPARISON: 02/11/2022 HISTORY: abdominal pain, diarrhea CT DLP: 1049.4 mGycm Automated exposure control for dose reduction was used. CONTRAST: Performed with IV Contrast, patient injected with 100ml mL of Isovue 300. Images obtained from the diaphragm to the floor of the pelvis with the IV contrast. The lung bases are clear. No pleural effusion. Heart size is top normal. No pericardial effusion. The re are clips from cholecystectomy. Liver is intact. Spleen is intact. No pancreatic mass. There are s ome calcifications at the head of the pancreas. Abdominal aorta is atheromatous. There is a 4 cm aneu rysm of the mid abdominal aorta. There is variable thrombus. There is also aneurysm lower abdominal a sean that measures 3.7 cm. No retroperitoneal adenopathy. The bladder distends smoothly. Kidneys show satisfactory contrast opacification. No hydronephrosis. There is 1 cm calculus lower pole right kidn ey. There is renal vascular calcification. No inguinal hernia. No free fluid in the pelvis. There are numerous sigmoid diverticula. There are so me inflammatory changes around the proximal sigmoid colon. Appendix not seen. No central thickened ap pendix. Lumbar vertebrae have normal alignment. No compression fracture. Posterior elements are intact. Bony pelvis is intact. The hip joints are intact. IMPRESSION: Cardiomegaly without change. Moderate sigmoid diverticulosis with mild focal diverticulitis proximal sigmoid colon. Diverticuliti s appears new compared to old exams Abdominal aortic aneurysm without change. Nonobstructing renal calculus.
[2022-07-09 20:21] VITALS: BP 150/74; PULSE 61; RESP 19; TEMP 98.3
[2022-07-09] MEDS ORDERED: AMOXIC-POT CLAV 875-125MG 1 EACH TAB PO STA (21:10)
[2022-07-09] MEDS ORDERED: ACET/COD 300 MG/30 MG STARTER PACK 6 TAB BTL PO STA (21:13)
== END 2022-07-09 21:23 | disposition home or self-care (01) ==
LOC: EC 15:49
DX: K57.92 Diverticulitis of intestine, part unspecified, without perforation or abscess without bleeding (principal); R19.7 Diarrhea, unspecified; I25.10 Atherosclerotic heart disease of native coronary artery without angina pectoris; E11.9 Type 2 diabetes mellitus without complications; K21.9 Gastro-esophageal reflux disease without esophagitis; E78.5 Hyperlipidemia, unspecified; Z86.73 Personal history of transient ischemic attack (TIA), and cerebral infarction without residual deficits; F32.A Depression, unspecified; F17.200 Nicotine dependence, unspecified, uncomplicated; Z88.2 Allergy status to sulfonamides; Z79.899 Other long term (current) drug therapy; Z79.84 Long term (current) use of oral hypoglycemic drugs; Z79.4 Long term (current) use of insulin
CPT/HCPCS: 36415; 93005; 80053; 83605; 83690; 85025; 85610; 85730; 82272; 87324; 87045; 83630; 87046; 74177; 99284; 96374; 96376 ×2; 96375; J2405; J1170; Q9967

== ENCOUNTER 2022-09-02 20:44 | Emergency (ER) | payer MEDICARE, OTHER ==
[~2022-09-02 20:44] MED LIST changes: +AMIODARONE 50 MG/ML 3 ML VIAL IV ONE; +DEXTROSE 5% IN WATER 50 ML BAG ONE; +EPINEPHrine 10 ML SYRINGE (0.1 MG/ML) ONE; -SIMETHICONE 40 MG/0.6 ML DROPS 2,000 MG/30 ML BOTTLE PO ONE; +SODIUM BICARB 8.4% 50 ML SYR (1 MEQ/ML) ONE
[2022-09-02 20:50] LABS: Glucose,Whole Blood 278 mg/dL (70-110)
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
== END 2022-09-02 21:12 | disposition expired ==
LOC: EC 20:44
DX: I46.9 Cardiac arrest, cause unspecified (principal); I25.10 Atherosclerotic heart disease of native coronary artery without angina pectoris; Z86.73 Personal history of transient ischemic attack (TIA), and cerebral infarction without residual deficits; E11.9 Type 2 diabetes mellitus without complications; K21.9 Gastro-esophageal reflux disease without esophagitis; E78.5 Hyperlipidemia, unspecified; I10 Essential (primary) hypertension; F32.A Depression, unspecified; F17.200 Nicotine dependence, unspecified, uncomplicated; Z88.2 Allergy status to sulfonamides; Z88.5 Allergy status to narcotic agent; Z79.4 Long term (current) use of insulin; Z79.84 Long term (current) use of oral hypoglycemic drugs; Z79.899 Other long term (current) drug therapy
CPT/HCPCS: 36415; 93005; 99291; 31500; J0282; J0171